=== PATIENT | female | born 1970 | race Caucasian/White ===

== ENCOUNTER 2023-03-23 21:58 | Outpatient (REF) | payer OTHER, SELFPAY ==
[2023-03-29 08:16] LABS: Age Gdln ACOG Testing Note (.); HPV Aptima Negative (Negative); IGP, Aptima HPV, rfx 16/18,45 Note (.)
== END 2023-03-23 21:59 | disposition home or self-care (01) ==
LOC: LAB 21:58
PROVIDERS: PCP Internal Medicine; Visit Provider Physician Assistant
DX: Z12.4 Encounter for screening for malignant neoplasm of cervix (principal)
CPT/HCPCS: 87624; G0145

== ENCOUNTER 2023-10-05 09:17 | Outpatient (OUT) | payer OTHER, SELFPAY ==
[2023-10-05 09:43] LABS: Basophils Percent Auto 0.9 % (0.2-2.0); Eosinophils Absolute Auto 0.2 10^3/uL (0.0-0.7); Eosinophils Percent Auto 4.4 % (0.9-7.0); Hematocrit 42.2 % (36.0-48.0); Hemoglobin 13.5 g/dL (12.0-16.0); Immature Granulocytes Abs Auto 0.01 10^3/uL (0.00-0.03); Immature Granulocytes Pct Auto 0.2 % (0.0-0.5); Lymphocytes Absolute Auto 1.2 10^3/uL (1.2-3.8); Lymphocytes Percent Auto 25.7 % (20.5-60.0); Mean Corpuscular Hemoglobin 28.6 pg (26.7-34.0); Mean Corpuscular Volume 89.4 fL (81.0-99.0); Mean Platelet Volume 9.6 fL (9.5-13.5); Monocytes Absolute Auto 0.4 10^3/uL (0.3-0.8); Monocytes Percent Auto 8.4 % (1.7-12.0); Neutrophils Absolute Auto 2.8 10^3/uL (1.4-6.5); Neutrophils Percent Auto 60.4 % (43.0-75.0); Platelet Count 340 10^3/uL (150-450); Red Blood Count 4.72 10^6/uL (4.20-5.40); Red Cell Distribution Width 12.8 % (11.0-15.0); White Blood Count 4.6 10^3/uL (4.0-11.0)
[2023-10-05 11:13] LABS: Alanine Aminotransferase 28 U/L (14-59); Albumin Level 3.7 g/dL (3.4-5.0); Alkaline Phosphatase 76 U/L (46-116); Anion Gap 11.6; Aspartate Amino Transferase 27 U/L (15-37); BUN Creatinine Ratio 16.7; Bilirubin Total 0.5 mg/dL (0.2-1.0); Calcium 8.8 mg/dL (8.5-10.1); Carbon Dioxide 29.5 mmol/L (21.0-32.0); Chloride 103 mmol/L (98-107); Estimated GFR (African America >60 (>=60); Estimated GFR (Non-African Ame >60 (>=60); Globulin 3.7 g/dL; Glucose 74 mg/dL (74-106); Potassium 4.1 mmol/L (3.5-5.1); Sodium 140 mmol/L (136-145); Total Protein 7.4 g/dL (6.4-8.2)
[2023-10-06 06:09] LABS: HBsAg Screen Negative (Negative); HCV Antibody Non Reactive (Non Reactive)
[2023-10-09 09:08] LABS: Antinuclear Antibodies, IFA Positive (.)
== END 2023-10-05 09:18 | disposition home or self-care (01) ==
LOC: LAB 09:21
PROVIDERS: PCP Internal Medicine; Visit Provider Dermatology
DX: L43.8 Other lichen planus (principal)
CPT/HCPCS: 36415; 80053; 85025; 86038; 86803; 87340

== ENCOUNTER 2023-12-29 08:18 | Outpatient (OUT) | payer OTHER, SELFPAY ==
--- NOTE | 2023-12-29 08:45 | MM_ITS ---
Patient Name: SANIA DINH MR#: [id number] : 1970 Exam Date: 12/29/2023 Ordering Doctor: DR Tarun Glover D.O. RADIOLOGY REPORT PROCEDURE: MM TOMOSYNTHESIS SCREENING BI COMPARISON: MG MAMM SCREEN 3D SANDHYA CAD, 10/07/2021. MG MAMM SCREEN 3D SANDHYA CAD, 12/07/2022. INDICATIONS: Screening Calculator Name NCI Breast Cancer Risk Assessment Tool 5 Year Breast Cancer Risk 1.00% Lifetime Breast Cancer Risk 7.50% Personal Breast Cancer No Personal Ovarian Cancer No Treatments None Family Cancers Mother with skin cancer at age ~50. LOCATION: [facility] BREAST COMPOSITION: The breasts are heterogeneously dense,which may obscure small masses. FINDINGS: DIAGNOSTIC CATEGORY 2--BENIGN FINDING. NO CHANGE FROM COMPARISON. Scattered benign-appearing nodules are present. Scattered benign-appearing calcifications are present. Scattered benign-appearing lymph nodes are present. RIGHT BREAST: No significant suspicious finding. LEFT BREAST: No significant suspicious finding. RECOMMENDATIONS: ROUTINE MAMMOGRAM AND CLINICAL EVALUATION IN 12 MONTHS. PLEASE NOTE: A NORMAL MAMMOGRAM DOES NOT EXCLUDE THE POSSIBILITY OF BREAST CANCER. A CLINICALLY SUSPICIOUS PALPABLE LUMP SHOULD BE BIOPSIED. Dictated by: Hemant Frost MD on 12/29/2023 at 10:49 Approved by: Hemant Frost MD on 12/29/2023 at 10:52
== END 2023-12-29 08:19 | disposition home or self-care (01) ==
LOC: MAMMO 08:18
PROVIDERS: PCP Internal Medicine; Visit Provider Internal Medicine
DX: Z12.31 Encounter for screening mammogram for malignant neoplasm of breast (principal); Z80.8 Family history of malignant neoplasm of other organs or systems
CPT/HCPCS: 77063; 77067

== ENCOUNTER 2023-12-29 08:19 | Outpatient (OUT) | payer OTHER, SELFPAY ==
--- NOTE | 2023-12-29 08:23 | XR_ITS ---
[address] [address] Patient Name: SANIA DINH MRN: [id number] date: 1970 Sex: F Assigned Patient Location: [facility] Current Patient Location: [facility] Accession/Order Number: [id number] Exam Date: 12/29/2023 08:39 Report Date: 12/29/2023 09:15 At the request of: RADHA WELLS Procedure: XR hip SANDHYA EXAMINATION: XR hip SANDHYA HISTORY: Low Back Pain, Polyarthralgia COMPARISON: No relevant comparison available. FINDINGS: RIGHT FINDINGS: BONES: No acute fracture or dislocation. Minimal degenerative osteoarthropathy with marginal osteophyte formation SOFT TISSUES: Negative. No visible soft tissue swelling. OTHER: Negative. LEFT FINDINGS: BONES: No acute fracture or dislocation. Minimal degenerative osteoarthropathy with marginal osteophyte formation SOFT TISSUES: Negative. No visible soft tissue swelling. OTHER: Negative. XR/XR hip SANDHYA IMPRESSION: RIGHT CONCLUSION: Minimal osteoarthritis LEFT CONCLUSION: Minimal osteoarthritis Electronically authenticated by: MONTRELL CHIU Date: 12/29/2023 09:15
--- NOTE | 2023-12-29 08:23 | XR_ITS ---
The [address] [address] Patient Name: SANIA DINH MRN: [id number] date: 1970 Sex: F Assigned Patient Location: [facility] Current Patient Location: Accession/Order Number: [id number] Exam Date: 12/29/2023 08:39 Report Date: 01/01/2024 06:18 At the request of: RADHA WELLS Procedure: XR lumbar spine min 4V EXAMINATION: XR lumbar spine min 4V HISTORY: Low Back Pain, Polyarthralgia COMPARISON: No relevant comparison available. FINDINGS: BONES: Mild degenerative facet arthropathy L3-4 through L5-S1. Reversal of normal lordotic curvature of the upper lumbar spine. DISC SPACES: Mild narrowing L1-2, L2-3. Moderate narrowing L5-S1. PARASPINOUS: Negative. No paraspinous abnormality is seen. OTHER: Negative. XR/XR lumbar spine min 4V IMPRESSION: 1. Multilevel mild/moderate degenerative changes of the lumbar spine. No appreciable acute abnormality. Electronically authenticated by: MARIA LUISA JEAN Date: 01/01/2024 06:18
== END 2023-12-29 08:20 | disposition home or self-care (01) ==
LOC: RAD 08:19
PROVIDERS: PCP Internal Medicine; Visit Provider Internal Medicine Rheumatology
DX: Z12.31 Encounter for screening mammogram for malignant neoplasm of breast (principal); Z80.8 Family history of malignant neoplasm of other organs or systems; M54.50 Low back pain, unspecified; M25.551 Pain in right hip; M25.552 Pain in left hip; M25.59 Pain in other specified joint
CPT/HCPCS: 72110; 73522; 77063; 77067

== ENCOUNTER 2024-04-02 19:31 | Outpatient (REF) | payer OTHER, SELFPAY ==
--- OUTSIDE RECORDS SUMMARY | 2024-04-02 19:36 | XMS_ITS | CCD ---
Author Organization [facility] Care Team Providers Care Night Cleaner Name Role Phone TREVOR BRUSH Unavailable Tarun Bruce Unavailable DR MONTRELL CHIU V Admitting Unavailable ADALBERTO, DR JARA Primary Care Unavailable APPLE, DR MONTRELL Thomas Attending Unavailable APPLE, DR MONTRELL Thomas Consulting Unavailable ADALBERTO, DR JARA Attending Unavailable ADALBERTO, DR JARA Primary Care Unavailable ADALBERTO, DR JARA Admitting Unavailable Tasia Emery Unavailable DO Tarun Glover Primary Care Provider MD Harsha Covarrubias Attending Provider Harsha Covarrubias Attending Unavailable Harsha Covarrubias Admitting Unavailable Tarun Glover Primary Care Unavailable Allergies Allergy Classification Reported Allergen(s) Allergy Type Date of Onset Reaction(s) Facility (18 sources) Latex Propensity to adverse reactions rash [facility] SED Web Other (1 source) Latex Drug allergy (disorder) [facility] Repository (1 source) Morphine Drug Allergy 4 [facility] Repository (8 sources) patient allergy list reviewed by nurse or physicia Propensity to adverse reactions 6 Comment:Done [employer] Other (8 sources) Allergies Reconciled Propensity to adverse reactions Unknown [employer] Other (1 source) Latex Drug allergy (disorder) 4 [facility] Repository Medications Current Medications Medication Drug Class(es) Dates Sig (Normalized) Sig (Original) 0.5 ML semaglutide 0.5 MG/ML Auto-Injector [Wegovy] (11 sources) Start: 11-16-2022 inject 0.5 mL by subcutaneous injection every week Start: 11-16-2022 inject 0.5 mL by sub cutaneous injection every week Wegovy 0.25 MG/0.5ML 0.5 mL Subcutaneous weekly for 30 days November, Active acetaminophen 500 mg oral tablet (20 sources) Start: 10-26-2023 take 500 mg by mouth every six hours Acetaminophen Active 500 MG PO Every 6 hours October 26, 2023 12:00am take 1 tablet by mouth every six hours acyclovir 400 mg oral tablet (20 sources) Herpesvirus Nucleoside Analog DNA Polymerase Inhibitor, Herpes Simplex Virus Nucleoside Analog DNA Polymerase Inhibitor, Herpes Zoster Virus Nucleoside Analog DNA Polymerase Inhibitor Start: 10-26-2023 take 400 mg by mouth twice daily Acyclovir Active 400 MG PO Twice daily October 26, 2023 12:00am take 1 tablet by mouth every twe lve hours [id number] 200 actuat albuterol 0.09 mg/actuat metered dose inhaler (20 sources) beta2-Adrenergic Agonist Start: 02-25-2024 take 2 puff(s) by mouth every four hours as needed for cough Albuterol Sulfate Active 0 .ROUTE .COMPLEX 8.5 February 25, 2024 2:00pm INHALE 2 PUFFS BY MOUTH EVERY 4 HOURS NEEDED FOR COUGH Start: 10-26-2023 End: 02-25-2024 take 1 puff(s) by inhalation every four hours Albuterol Sulfate Discontinued 2 PUFF INHALATION Every 4 hours October 26, 2023 12:00am February 25, 2024 2:00pm Start: 09-26-2022 take 2 puff(s) by in halation every four hours as needed for cough Albuterol Sulfate HFA 108 (90 Base) MCG/ACT 2 puffs Inhalation every 4 hrs as needed for cough for 30 days Jul, Active Start: 09-26-2022 take 2 puff(s) by in halation every four hours as needed for cough Albuterol Sulfate HFA 108 (90 Base) MCG/ACT 2 puffs Inhalation every 4 hrs as needed for cough and SOB for 30 days Sep, Active Start: 09-26-2022 take 2 puff(s) by in halation every four hours as needed for cough Albuterol Sulfate HFA 108 (90 Base) MCG/ACT 2 puffs Inhalation every 4 hrs as needed for cough and SOB for 30 days Sep, Active amoxicillin 875 mg oral tablet (18 sources) Penicillin-class Antibacterial take 1 tablet by mouth every twelve hours azithromycin 250 mg oral tablet (20 sources) Macrolide Antimicrobial Start: 09-27-19 Azithromycin 250 MG as directed Orally daily for 5 days Feb, Active benzonatate 100 mg oral capsule (3 sources) Non-narcotic Antitussive Start: 07-19-19 take 1 capsule by mouth every eight hours Benzonatate 100 MG 1 capsule as needed Orally Three times a day for 10 days Jul, Active escitalopram 10 mg oral tablet (20 sources) Serotonin Reuptake Inhibitor Start: 01-01-20 take 1 tablet by mouth once daily Escitalopram Oxalate Active 0 .ROUTE .COMPLEX January 01, 2024 12:44pm TAKE ONE TABLET BY MOUTH ONCE DAILY Start: 10-26-2023 End: 01-01-2024 take 10 mg by mouth once daily Escitalopram Oxalate Di scontinued 10 MG PO Daily October 26, 2023 2:04pm January 01, 2024 12:44pm Start: 09-12-2023 End: 10-26-2023 take 1 tablet by mouth once daily Escitalopram Oxalate Discontinued 0 .ROUTE .COMPLEX September 12, 2023 5:24pm October 26, 2023 2:08pm TAKE ONE TABLET BY MOUTH ONCE DAILY Start: 09-12-2023 End: 09-12-2023 take 10 mg by mouth once daily Escitalopram Oxalate Di scontinued 10 MG PO Daily September 12, 2023 1:00am September 12, 2023 5:24pm Start: 09-12-2022 take 1 tablet by chanel th every twenty-four hours Escitalopram Oxalate 10 MG 1 tablet Orally Once a day Aug, Active etodolac 500 mg oral tablet (14 sources) Nonsteroidal Anti-inflammatory Drug Start: 10-26-2023 take 500 mg by mouth twice daily Etodolac Active 500 MG PO Twice daily October 26, 2023 12:00am Start: 01-20-2023 take 1 tablet by chanel th every twelve hours Etodolac 500 MG 1 tablet with food Orally Twice a day for 30 days Jan, Active ibuprofen 200 mg oral tablet (20 sources) Nonsteroidal Anti-inflammatory Drug Start: 10-26-2023 take 200 mg by mouth three times daily Ibuprofen Active 200 MG PO Three times daily October 26, 2023 12:00am take 1 tablet by mouth three lázaro es daily at mealtime as needed levoFLOXacin 750 mg oral tablet (1 source) Quinolone Antimicrobial Start: 08-21-2023 take 1 tablet by mouth every twenty-four hours levoFLOXacin 750 MG 1 tablet Orally Once a day for 5 days Aug, Active 24 hr loratadine 10 mg / pseudoephedrine sulfate 240 mg extended release oral tablet (20 sources) alpha-Adrenergic Agonist Start: 10-26-2023 End: 03-29-2024 take 1 tablet by mouth once daily Loratadine-Pseud oephedrine Active 1 TAB PO Daily March 29, 2024 10:33am take 1 tablet by mouth every twe nty-four hours meloxicam 7.5 mg oral tablet (2 sources) Nonsteroidal Anti-inflammatory Drug Start: 12-26-2023 take 7.5 mg by mouth once daily Meloxicam Active 7.5 MG PO Daily December 26, 2023 12:00am paxlovid (300/100) 20 x 150 mg & 10 x 100mg tablet therapy pack (3 sources) Start: 07-19-2023 Paxlovid (300/100) 20 x 150 MG & 10 x 100MG as directed Orally bid for 5 days Jul, Active phentermine hydrochloride 37.5 mg oral tablet (20 sources) Sympathomimetic Amine Anorectic Start: 10-26-2023 End: 03-29-2024 take 37.5 mg by mouth once daily Phentermine Active 37.5 MG PO Daily 30 March 29, 2024 10:32am start 02/26 Start: 05-19-2023 take 1 tablet by chanel th once daily before breakfast Adipex-P 37.5 MG 1 tablet before breakfast Orally Once a day for 30 days start 05/19May, Active Start: 02-27-2023 take 1 tablet by chanel th once daily before breakfast Adipex-P 37.5 MG 1 tablet before breakfast Orally Once a day for 30 days Feb, Active Start: 01-02-2023 take 1 tablet by chanel th once daily before breakfast Adipex-P 37.5 MG 1 tablet before breakfast Orally Once a day for 30 days Dec, Active Start: 12-14-2022 take 1 tablet by chanel th once daily before breakfast Adipex-P 37.5 MG 1 tablet before breakfast Orally Once a day for 30 days November, Active Start: 11-16-2022 take 1 tablet by chanel th once daily before breakfast Adipex-P 37.5 MG 1 tablet before breakfast Orally Once a day for 30 days November, Active take 1 tablet by mouth once wallace y Phentermine HCl 37.5 MG 1 tablet Orally Once a day Active predniSONE 20 mg oral tablet (3 sources) Start: 07-19-2023 take 1 tablet by mouth twice daily predniSONE 20 MG 1 tablet Orally bid w/ food for 5 days Jul, Active tiZANidine 4 mg oral tablet (10 sources) Central alpha-2 Adrenergic Agonist Start: 01-20-2023 tiZANidine HCl 4 MG 1/2 - 1 Orally q HS for 15 days Jan, Active wegovy 0.25 mg/0.5ml solution auto-injector (3 sources) Start: 11-16-2022 inject 0.5 mL by subcutaneous injection every week Completed/Discontinued Medications Medication Drug Class(es) Dates Sig (Normalized) Sig (Original) triamcinolone acetonide 40 mg/ml injectable suspension (14 sources) Corticosteroid Start: 11-16-2022 Kenalog-40 November, 60 mg Problems Active Problems Problem Classification Problem Date Documented Date Episodic/Chronic Abdominal pain (20 sources) Left lower quadrant pain; Translations: [Left lower quadrant pain] Episodic Acute bronchitis (11 sources) Acute bronchitis due to other specified organisms; Translations: [Acute bronchitis] Onset: 09-03-2013 Episodic Allergic reactions (9 sources) Contact dermatitis; Translations: [Unspecified contact dermatitis, unspecified cause] Episodic Anxiety disorders (20 sources) Generalized anxiety disorder; Translations: [Generalized anxiety disorder] Chronic Asthma (20 sources) Mild intermittent asthma; Translations: [Mild intermittent asthma with (acute) exacerbation] Chronic Diseases of mouth; excluding dental (20 sources) Unspecified lesions of oral mucosa; Translations: [Aphthous ulcer of mouth] Episodic Fracture of lower limb (9 sources) Late effect of fracture of lower extremities; Translations: [Other fracture of right lower leg, sequela] Episodic Immunizations and screening for infectious disease (15 sources) Vaccination given; Translations: [Encounter for immunization] Onset: 12-06-2023 10-27-2023 Episodic Malaise and fatigue (9 sources) Fatigue; Translations: [Other fatigue] Episodic Menopausal disorders (20 sources) Menopausal symptom; Translations: [Menopausal and female climacteric states] Chronic Mycoses (18 sources) Tinea corporis; Translations: [Tinea corporis] Onset: 11-03-2014 Episodic Osteoarthritis (20 sources) Localized, secondary osteoarthritis of the ankle and/or foot; Translations: [Post-traumatic osteoarthritis, right ankle and foot] 10-27-2023 Chronic Other acquired deformities (18 sources) Joint contracture of the ankle and/or foot; Translations: [Contracture, right ankle] Chronic Other connective tissue disease (9 sources) Plantar fascial fibromatosis; Translations: [Plantar fascial fibromatosis] Episodic Other connective tissue disease (9 sources) Pain in right foot; Translations: [Pain in right foot] Episodic Other inflammatory condition of skin (9 sources) Lichen planus; Translations: [Other lichen planus] Episodic Other lower respiratory disease (20 sources) Solitary nodule of lung; Translations: [Solitary pulmonary nodule] Episodic Other non-traumatic joint disorders (9 sources) Arthralgia of the ankle and/or foot; Translations: [Pain in right ankle and joints of right foot] Episodic Other non-traumatic joint disorders (9 sources) Other specified joint disorders, right ankle and foot; Translations: [Other specified joint disorders, right ankle and foot] Episodic Other nutritional; endocrine; and metabolic disorders (14 sources) Morbid obesity; Translations: [Morbid (severe) obesity due to excess calories] Chronic Other nutritional; endocrine; and metabolic disorders (7 sources) Morbid (severe) obesity due to excess calories Chronic Other nutritional; endocrine; and metabolic disorders (20 sources) Body mass index 40+ - severely obese; Translations: [Body mass index (BMI) 40.0-44.9, adult] Chronic Other nutritional; endocrine; and metabolic disorders (12 sources) Severe obesity; Translations: [Morbid (severe) obesity due to excess calories] Chronic Other nutritional; endocrine; and metabolic disorders (1 source) Body mass index (BMI) 45.0-49.9, adult Chronic Other nutritional; endocrine; and metabolic disorders (2 sources) Body mass index (BMI) 40.0-44.9, adult Chronic Other nutritional; endocrine; and metabolic disorders (11 sources) Obesity; Translations: [Obesity, unspecified] 12-26-2023 Chronic Other nutritional; endocrine; and metabolic disorders (2 sources) Obesity, unspecified; Translations: [Obesity, unspecified] 12-26-2023 Chronic Other nutritional; endocrine; and metabolic disorders (9 sources) Abnormal weight gain; Translations: [Abnormal weight gain] Episodic Other screening for suspected conditions (not mental disorders or infectious disease) (12 sources) Encounter for screening mammogram for malignant neoplasm of breast; Translations: [Abnormal findings on diagnostic imaging of breast] Episodic Other upper respiratory disease (14 sources) Allergic rhinitis due to pollen; Translations: [Allergic rhinitis due to pollen] Chronic Other upper respiratory disease (1 source) Allergic rhinitis due to pollen Chronic Other upper respiratory disease (9 sources) Seasonal allergic rhinitis; Translations: [Other seasonal allergic rhinitis] Onset: 12-20-2016 Chronic Other upper respiratory disease (9 sources) Allergic rhinitis; Translations: [Allergic rhinitis, unspecified] Chronic Other upper respiratory infections (12 sources) Acute maxillary sinusitis; Translations: [Acute maxillary sinusitis, unspecified] Episodic Otitis media and related conditions (20 sources) Other specified disorders of Eustachian tube, left ear; Translations: [Otitis media] Episodic Residual codes; unclassified (9 sources) Presence of functional implant, unspecified; Translations: [Presence of functional implant, unspecified] Chronic Spondylosis; intervertebral disc disorders; other back problems (7 sources) Lumbar spondylosis; Translations: [Spondylosis without myelopathy or radiculopathy, lumbar region] 10-27-2023 Chronic Sprains and strains (11 sources) Late effect of sprain AND/OR strain without tendon injury; Translations: [Sprain of other ligament of right ankle, sequela] 03-29-2024 Episodic Unclassified (9 sources) Exposure to acute respiratory syndrome coronavirus 2; Translations: [Contact with and (suspected) exposure to COVID-19] Viral infection (10 sources) Disease caused by 2019-nCoV; Translations: [COVID-19] Past or Other Problems Problem Classification Problem Date Documented Da te Episodic/Chronic Administrative/social admission (2 sources) Encounter for pre-employment examination; Translations: [Encounter for pre-employment examination] Onset: 07-03-2017 Episodic Other inflammatory condition of skin (9 sources) Erythematous condition; Translations: [Unspecified erythematous condition] Onset: 09-28-2015 Episodic Spondylosis; intervertebral disc disorders; other back problems (9 sources) Low back pain; Translations: [Lumbago] Onset: 06-08-2015 Episodic Unclassified (1 source) Acute right-sided low back pain without sciatica M54.50 Unclassified (1 source) Acute cough R05.1 Results Test Name Value Interpretation Reference Range Facility ISRA Antinuclear Antibodieson 12-06-2023 Antinuclear Abs, IFA Negative Normal . [facility] Comment on above: Result Comment: Nega tive <1:80 Borderline 1:80 Positive >1:80 ICAP nomenclature: AC-0 For more information about Hep-2 cell patterns use ANApatterns.org, the official website for the International Consensus on Antinuclear Antibody (ISRA) Patterns (ICAP). Performed at: [facility] [id number] Wound Care Physician: Barry Mcrae PhD, Phone: [phone] Performed By: #### A NA, TPO, C3, C4, CHROMATIN, CH50, THYGLOB AB #### [facility] , Activated partial thrombopla stin time (aPTT) in platelet poor plasma by coagulation aOrdered By: Harsha Covarrubias on 12-06-2023 aPTT Coag (PPP) [Time] 31.9 s 25.1-36.5 [facility] Comment on above: A hematocrit value g reater than 55% may lead to inaccurate results in coagulation testing. Patients having hematocrit values >55% require a special collection tube for coagulation studies. Please contact the laboratory at [phone] for redraw instructions. Alanine aminotransferase [En zymatic activity/volume] in Serum or PlasmaOrdered By: Harsha Covarrubias on 12-06-2023 ALT [Catalytic activity/Vol] 14 U/L 7-52 [facility] Comment on above: Performed By: #### A NA, TPO, C3, C4, CHROMATIN, CH50, THYGLOB AB #### [facility] , Albumin [Mass/volume] in Ser um or Plasma by Bromocresol green (BCG) dye binding methoOrdered By: Harsha Covarrubias on 12-06-2023 Albumin BCG dye [Mass/Vol] 4.2 g/dL 3.5-5.7 [facility] Aldolaseon 12-06-2023 Aldolase 4.3 U/L Normal 3.3-10.3 [facility] Comment on above: Result Comment: Perf ormed at: [address] [id number] Wound Care Physician: Barry Mcrae PhD, Phone: [phone] PERFORMED BY: [facility] [place] [address] PATHOLOGIST WOOD TREATING INSPECTOR TERRI HOGAN M.D. Performed By: #### A NA, TPO, C3, C4, CHROMATIN, CH50, THYGLOB AB #### [facility] , Alkaline phosphatase [Enzyma tic activity/volume] in Serum or PlasmaOrdered By: Harsha Covarrubias on 12-06-2023 ALP [Catalytic activity/Vol] 74 U/L 34-104 [facility] Comment on above: Performed By: #### A NA, TPO, C3, C4, CHROMATIN, CH50, THYGLOB AB #### [facility] , Antithyroglobulin Abon 12-05 Antithyroglobulin Ab <1.0 Normal 0.0-0.9 [facility] Comment on above: Result Comment: Thyr oglobulin Antibody measured by [employer] It should be noted that the presence of thyroglobulin antibodies may not be pathogenic nor diagnostic, especially at very low levels. The assay warehouse examiner has found that four percent of individuals without evidence of thyroid disease or autoimmunity will have positive TgAb levels up to 4 IU/mL. Performed at: [facility] [address] [id number] Wound Care Physician: Barry Mcrae PhD, Phone: [phone] Performed By: #### A NA, TPO, C3, C4, CHROMATIN, CH50, THYGLOB AB #### [facility] , Aspartate aminotransferase [ Enzymatic activity/volume] in Serum or PlasmaOrdered By: Harsha Covarrubias on 12-06-2023 AST [Catalytic activity/Vol] 16 U/L 13-39 [facility] Comment on above: Performed By: #### A NA, TPO, C3, C4, CHROMATIN, CH50, THYGLOB AB #### [facility] , Automated basophil %Ordered By: Harsha Marci on 12-06-2023 Basophils/100 WBC (Bld) 0.6 % . [facility] Comment on above: Performed By: #### A NA, TPO, C3, C4, CHROMATIN, CH50, THYGLOB AB #### [facility] , Automated basophil countOrde red By: Harsha Huntrow on 12-06-2023 Basophils (Bld) [#/Vol] 0.0 10*3/uL 0.0-0.2 [facility] Comment on above: Performed By: #### A NA, TPO, C3, C4, CHROMATIN, CH50, THYGLOB AB #### [facility] , Automated blood monocyte cou ntOrdered By: Harsha Covarrubias on 12-06-2023 Monocytes (Bld) [#/Vol] 0.5 10*3/uL 0.0-0.8 [facility] Comment on above: Performed By: #### A NA, TPO, C3, C4, CHROMATIN, CH50, THYGLOB AB #### [facility] , Automated eosinophil %Ordere d By: Harsha Covarrubias on 12-06-2023 Eosinophils/100 WBC (Bld) 4.4 % . [facility] Comment on above: Performed By: #### A NA, TPO, C3, C4, CHROMATIN, CH50, THYGLOB AB #### [facility] , Automated eosinophil countOr dered By: Harsha Covarrubias on 12-06-2023 Eosinophils (Bld) [#/Vol] 0.3 10*3/uL 0.0-0.45 [facility] Comment on above: Performed By: #### A NA, TPO, C3, C4, CHROMATIN, CH50, THYGLOB AB #### [facility] , Automated monocyte %Ordered By: Harshaenrike Covarrubias on 12-06-2023 Monocytes/100 WBC (Bld) 6.2 % . [facility] Comment on above: Performed By: #### A NA, TPO, C3, C4, CHROMATIN, CH50, THYGLOB AB #### [facility] , Automated neutrophil %Ordere d By: Harsha Marci on 12-06-2023 Neutrophils/100 WBC (Bld) 67.9 % . [facility] Comment on above: Performed By: #### A NA, TPO, C3, C4, CHROMATIN, CH50, THYGLOB AB #### [facility] , Bacteria [Presence] in Urine by AutomatedOrdered By: Harsha Covarrubias on 12-06-2023 Bacteria Auto Ql (U) 2+ [HPF] None Seen [facility] Bilirubin Test strip Ql (U)O rdered By: Harsha Covarrubias on 12-06-2023 Bilirubin Ql (U) Negative Negative [facility] Bilirubin.total [Mass/volume ] in Serum or PlasmaOrdered By: Harsha Covarrubias on 12-06-2023 Bilirubin [Mass/Vol] 0.5 mg/dL 0.3-1.0 [facility] Comment on above: Performed By: #### A NA, TPO, C3, C4, CHROMATIN, CH50, THYGLOB AB #### [facility] , C reactive protein [Mass/vol ume] in Serum or PlasmaOrdered By: Harsha Covarrubias on 12-06-2023 CRP [Mass/Vol] 2.0 mg/dL 0.0-0.5 [facility] C-Reactive Proteinon 024 C-Reactive Protein 2.0 mg/dL High 0.0-0.5 [facility] Comment on above: Performed By: #### A NA, TPO, C3, C4, CHROMATIN, CH50, THYGLOB AB #### [facility] , CT biopsyOrdered By: Harsha Covarrubias on 12-06-2023 CT biopsy 4.3 U/L 3.3-10.3 [facility] Comment on above: Performed at: CB [facility] [id number] [place], [place] [id number] Director: Barry Mcrae PhD, Phone: [phone] Calcium [Mass/volume] in Ser um or PlasmaOrdered By: Harsha Covarrubias on 12-06-2023 Calcium [Mass/Vol] 9.4 mg/dL 8.6-10.3 [facility] Comment on above: Performed By: #### A NA, TPO, C3, C4, CHROMATIN, CH50, THYGLOB AB #### [facility] , Carbon dioxide, total [Moles /volume] in Serum or PlasmaOrdered By: Harsha Covarrubias on 12-06-2023 CO2 [Moles/Vol] 28.3 mmol/L 21.0-31.0 [facility] Comment on above: Performed By: #### A NA, TPO, C3, C4, CHROMATIN, CH50, THYGLOB AB #### [facility] , Chloride [Moles/volume] in S alistair or PlasmaOrdered By: Harsha Covarrubias on 12-06-2023 Chloride [Moles/Vol] 105 mmol/L 98-107 [facility] Comment on above: Performed By: #### A NA, TPO, C3, C4, CHROMATIN, CH50, THYGLOB AB #### [facility] , Chromatin Antibodyon 024 Chromatin Antibody <0.2 Normal 0.0-0.9 [facility] Comment on above: Result Comment: Perf ormed at: CB - [facility] [place] [address] [place], [place] [id number] Wound Care Physician: Barry Mcrae PhD, Phone: [phone] PERFORMED BY: [place] [id number] [place] [address] PATHOLOGIST WOOD TREATING INSPECTOR TERRI HOGAN M.D. Performed By: #### A NA, TPO, C3, C4, CHROMATIN, CH50, THYGLOB AB #### [facility] , Coagulation Profileon 2023 aPTT Coag (Bld) [Time] 31.9 s Normal 25.1-36.5 [facility] Comment on above: Result Comment: A he matocrit value greater than 55% may lead to inaccurate results in coagulation testing. Patients having hematocrit values >55% require a special collection tube for coagulation studies. Please contact the laboratory at [phone] for redraw instructions. PERFORMED BY: [place] [id number] PATHOLOGIST WOOD TREATING INSPECTOR TERRI HOGAN M.D. Performed By: #### E SR, ADDONUAPLUS, T4F, CK, CRP, TSH3, PP, CMP, CBC #### [facility] [address] [place] [address] #### RPR W RFX, ALDOLASE #### [facility] , Color of Urine by AutoOrdere d By: Harsha Covarrubias on 12-06-2023 Color (U) Yellow Yellow [facility] Comment on above: Order Comment: Name Collection Type:: Clean-Voided Midstream Performed By: #### A NA, TPO, C3, C4, CHROMATIN, CH50, THYGLOB AB #### [facility] , Complement C3on 12-06-2023 Complement C3 189 mg/dL High 82-167 [facility] Comment on above: Result Comment: Perf ormed at: - [facility] [address] [id number] Wound Care Physician: Barry Mcrae PhD, Phone: [phone] Performed By: #### A NA, TPO, C3, C4, CHROMATIN, CH50, THYGLOB AB #### [facility] , Complement C4on 12-06-2023 Complement C4 45 mg/dL High 12-38 [facility] Comment on above: Performed By: #### A NA, TPO, C3, C4, CHROMATIN, CH50, THYGLOB AB #### [facility] , Complement Total (CH50)on Complement Total (CH50) >60 Normal >41 [facility] Comment on above: Result Comment: Age Male Female 1 - 30 days Not Estab. Not Estab. 31 days - 6 months >32 >20 7 months - 17 years >39 >39 >17 years >41 >41 NOTE: The adult ( >17 years ) reference interval range is used to flag abnormals on this report. If the patient is 17 years old or younger, use the table above to determine out of range values. Performed at: - [facility] [id number] Wound Care Physician: Barry Mcrae PhD, Phone: [id number] PERFORMED BY: [facility] [address] [place] [address] PATHOLOGIST WOOD TREATING INSPECTOR TERRI HOGAN M.D. Performed By: #### A NA, TPO, C3, C4, CHROMATIN, CH50, THYGLOB AB #### [facility] , Complete Blood Count Auto Di ffon 12-06-2023 Mean Corpuscular HGB Conc 33.9 g/dL Normal 32.0-35.0 [facility] Comment on above: Performed By: #### A NA, TPO, C3, C4, CHROMATIN, CH50, THYGLOB AB #### [facility] , NRBC% 0.1 /100{WBC} Normal 0-0.5 [facility] Comment on above: Performed By: #### A NA, TPO, C3, C4, CHROMATIN, CH50, THYGLOB AB #### [facility] , Comprehensive Metabolic Pane harsh 12-06-2023 Albumin [Mass/Vol] 4.2 g/dL Normal 3.5-5.7 [facility] Comment on above: Performed By: #### A NA, TPO, C3, C4, CHROMATIN, CH50, THYGLOB AB #### [facility] , GFR/1.73 sq M.predicted MDRD (S/P/Bld) [Vol rate/Area] mL/min/{1.73_m2} Normal [facility] Comment on above: Performed By: #### A NA, TPO, C3, C4, CHROMATIN, CH50, THYGLOB AB #### [facility] , Creatine kinase [Enzymatic a ctivity/volume] in Serum or PlasmaOrdered By: Harsha Covarrubias on 12-06-2023 CK [Catalytic activity/Vol] 59 U/L 30-223 [facility] Comment on above: Result Comment: PERF ORMED BY: [place] [address] PATHOLOGIST WOOD TREATING INSPECTOR TERRI HOGAN M.D. Performed By: #### E SR, ADDONUAPLUS, T4F, CK, CRP, TSH3, PP, CMP, CBC #### [facility] [address] [place] [address] #### RPR W RFX, ALDOLASE #### [facility] , Creatinine [Mass/volume] in Serum or PlasmaOrdered By: Harsha Covarrubias on 12-06-2023 Creatinine [Mass/Vol] 0.60 mg/dL 0.60-1.20 [facility] Comment on above: Performed By: #### A NA, TPO, C3, C4, CHROMATIN, CH50, THYGLOB AB #### [facility] , Dipstick and Microscopicon 0 12-06-2023 Appearance (U) Clear Normal Clear [facility] Comment on above: Order Comment: Name Collection Type:: Clean-Voided Midstream Performed By: #### A NA, TPO, C3, C4, CHROMATIN, CH50, THYGLOB AB #### [facility] , Bacteria,Urine 2+ High None Seen [facility] Comment on above: Order Comment: Name Collection Type:: Clean-Voided Midstream Performed By: #### A NA, TPO, C3, C4, CHROMATIN, CH50, THYGLOB AB #### [facility] , Bilirubin,Urine Negative Normal Negative [facility] Comment on above: Order Comment: Name Collection Type:: Clean-Voided Midstream Performed By: #### A NA, TPO, C3, C4, CHROMATIN, CH50, THYGLOB AB #### [facility] , Glucose Ql (U) Normal Normal Normal [facility] Comment on above: Order Comment: Name Collection Type:: Clean-Voided Midstream Performed By: #### A NA, TPO, C3, C4, CHROMATIN, CH50, THYGLOB AB #### [facility] , Hyaline Casts,Urine 0-8 Normal 0-8 [facility] Comment on above: Order Comment: Name Collection Type:: Clean-Voided Midstream Result Comment: PERF ORMED BY: [facility] [address] [place] [address] PATHOLOGIST WOOD TREATING INSPECTOR TERRI HOGAN M.D. Performed By: #### A NA, TPO, C3, C4, CHROMATIN, CH50, THYGLOB AB #### [facility] , Ketones Ql (U) Negative Normal Negative [facility] Comment on above: Order Comment: Name Collection Type:: Clean-Voided Midstream Performed By: #### A NA, TPO, C3, C4, CHROMATIN, CH50, THYGLOB AB #### [facility] , Leukocyte esterase Test strip Ql (U) Negative Normal Negative [facility] Comment on above: Order Comment: Name Collection Type:: Clean-Voided Midstream Performed By: #### A NA, TPO, C3, C4, CHROMATIN, CH50, THYGLOB AB #### [facility] , Nitrite,Urine Negative Normal Negative [facility] Comment on above: Order Comment: Name Collection Type:: Clean-Voided Midstream Performed By: #### A NA, TPO, C3, C4, CHROMATIN, CH50, THYGLOB AB #### [facility] , Occult Blood,Urine Negative Normal Negative [facility] Comment on above: Order Comment: Name Collection Type:: Clean-Voided Midstream Performed By: #### A NA, TPO, C3, C4, CHROMATIN, CH50, THYGLOB AB #### [facility] , Protein,Urine Negative Normal Negative [facility] Comment on above: Order Comment: Name Collection Type:: Clean-Voided Midstream Performed By: #### A NA, TPO, C3, C4, CHROMATIN, CH50, THYGLOB AB #### [facility] , RBC LM.HPF (Urine sed) [#/Area] 0 /[HPF] Normal 0-4 [facility] Comment on above: Order Comment: Name Collection Type:: Clean-Voided Midstream Performed By: #### A NA, TPO, C3, C4, CHROMATIN, CH50, THYGLOB AB #### [facility] , Specificy Holder,Urine 1.026 Normal 1.001-1.03 0 [facility] Comment on above: Order Comment: Name Collection Type:: Clean-Voided Midstream Performed By: #### A NA, TPO, C3, C4, CHROMATIN, CH50, THYGLOB AB #### [facility] , Squamous Epithelial Cell,Urine 3-4 High 0-2 [facility] Comment on above: Order Comment: Name Collection Type:: Clean-Voided Midstream Performed By: #### A NA, TPO, C3, C4, CHROMATIN, CH50, THYGLOB AB #### [facility] , Urobilinogen,Urine Normal Normal Normal [facility] Comment on above: Order Comment: Name Collection Type:: Clean-Voided Midstream Performed By: #### A NA, TPO, C3, C4, CHROMATIN, CH50, THYGLOB AB #### [facility] , WBC,Urine 3-4 Normal 0-4 [facility] Comment on above: Order Comment: Name Collection Type:: Clean-Voided Midstream Performed By: #### A NA, TPO, C3, C4, CHROMATIN, CH50, THYGLOB AB #### [facility] , Erythrocyte Sedimentation Ra sherrie 12-06-2023 ESR (Bld) [Velocity] 35 mm/h High 0-29 [facility] Comment on above: Result Comment: PERF ORMED BY: [facility] [address] [place] [address] PATHOLOGIST WOOD TREATING INSPECTOR TERRI HOGAN M.D. Performed By: #### A NA, TPO, C3, C4, CHROMATIN, CH50, THYGLOB AB #### [facility] , Erythrocyte distribution wid th [Ratio] by Automated countOrdered By: Harsha Covarrubias on 12-06-2023 Erythrocyte distribution width (RBC) [Ratio] 13.6 % 11.9-15.3 [facility] Comment on above: Performed By: #### A NA, TPO, C3, C4, CHROMATIN, CH50, THYGLOB AB #### [facility] , Erythrocyte sedimentation ra te by Photometric methodOrdered By: Harsha Covarrubias on 12-06-2023 ESR Photometric method (Bld) [Velocity] 35 mm/hr 0-29 [facility] Erythrocytes [#/volume] in B lood by Automated countOrdered By: Harsha Covarrubias on 12-06-2023 RBC (Bld) [#/Vol] 4.83 10*6/uL 3.60-5.00 [facility] Comment on above: Performed By: #### A NA, TPO, C3, C4, CHROMATIN, CH50, THYGLOB AB #### [facility] , Glucose [Mass/volume] in Ser um or PlasmaOrdered By: Harsha Covarrubias on 12-06-2023 Glucose [Mass/Vol] 72 mg/dL 70-100 [facility] Comment on above: ADA recommended refe rence rangeRandom Glucose Reference Range is dependent on time and content of last meal. Glucose of more than 200 mg/dL in a nonstressed, ambulatory subject supports the diagnosis of Diabetes Mellitus. Result Comment: [place] om Glucose Reference Range is dependent on time and content of last meal. Glucose of more than 200 mg/dL in a nonstressed, ambulatory subject supports the diagnosis of Diabetes Mellitus. ADA recommended reference range Performed By: #### A NA, TPO, C3, C4, CHROMATIN, CH50, THYGLOB AB #### [facility] , Hematocrit [Volume Fraction] of Blood by Automated countOrdered By: Harsha Covarrubias on 12-06-2023 Hematocrit (Bld) [Volume fraction] 41.9 % 34.0-46.4 [facility] Comment on above: Performed By: #### A NA, TPO, C3, C4, CHROMATIN, CH50, THYGLOB AB #### [facility] , Hemoglobin [Mass/volume] in BloodOrdered By: Harsha Covarrubias on 12-06-2023 Hemoglobin (Bld) [Mass/Vol] 14.2 g/dL 11.8-15.4 [facility] Comment on above: Performed By: #### A NA, TPO, C3, C4, CHROMATIN, CH50, THYGLOB AB #### [facility] , INR in Platelet poor plasma by Coagulation assayOrdered By: Harsha Covarrubias on 12-06-2023 INR Coag (PPP) [Relative time] 0.9 {INR} [facility] Comment on above: INR Therapeutic Rang e A) Pre- and Peroperative OAT started two weeks before surgery. NOT HIP SURGERY: 1.5 - 2.5 HIP SURGERY: 2 - 3B) Primary and secondary prevention of venous THROMBOSIS: 2 - 3C) Active venous thrombosis, pulmonary embolismand prevention of recurrent venous thrombosis: 2 - 3D) Prevention of arterial thromboembolismincluding patients with mechanical heart valves: 3 - 4.5 Result Comment: INR Therapeutic Range A) Pre- and Peroperative OAT started two weeks before surgery. NOT HIP SURGERY: 1.5 - 2.5 HIP SURGERY: 2 - 3 B) Primary and secondary prevention of venous THROMBOSIS: 2 - 3 C) Active venous thrombosis, pulmonary embolism and prevention of recurrent venous thrombosis: 2 - 3 D) Prevention of arterial thromboembolism including patients with mechanical heart valves: 3 - 4.5 Performed By: #### E SR, ADDONUAPLUS, T4F, CK, CRP, TSH3, PP, CMP, CBC #### [facility] [address] [place] [address] #### RPR W RFX, ALDOLASE #### [facility] , Ketones Auto test strip (U) [Mass/Vol]Ordered By: Harsha Covarrubias on 12-06-2023 Ketones (U) [Mass/Vol] Negative Negative [facility] - UrinalysisOrder ed By: Harsha Covarrubias on 12-06-2023 Hyaline casts LM Ql (Urine sed) 0-8 [LPF] 0-8 [facility] Leukocytes [#/area] in Urine sediment by Automated countOrdered By: Harsha Huntrow on 12-06-2023 WBC Auto (Urine sed) [#/Area] 3-4 [HPF] 0-4 [facility] Leukocytes [#/volume] correc jemal for nucleated erythrocytes in Blood by Automated counOrdered By: Harsha Huntrow on 12-06-2023 WBC corrected for nucl RBC Auto (Bld) [#/Vol] 7.8 10*3/uL 3.8-11.6 [facility] Leukocytes [#/volume] in Blo od by Automated countOrdered By: Harsha Huntrow on 12-06-2023 WBC (Bld) [#/Vol] 7.8 10*3/uL 3.8-11.6 [facility] Comment on above: Performed By: #### A NA, TPO, C3, C4, CHROMATIN, CH50, THYGLOB AB #### [facility] , Lupus Anticoagulant Compon 0 12-06-2023 Dilute Prothrombin Time (dPt) 35.4 Normal 0.0-47.6 [facility] Comment on above: Performed By: #### L UPANTCOAG #### [facility] , dPT Confirm Ratio 1.18 Normal 0.00-1.34 [facility] Comment on above: Performed By: #### L UPANTCOAG #### [facility] , DRVVT Lupus 36.8 Normal 0.0-47.0 [facility] Comment on above: Performed By: #### L UPANTCOAG #### [facility] , Interpretation Comment: Normal . [facility] Comment on above: Result Comment: No l upus anticoagulant was detected. Performed at: [facility] [address] [id number] Wound Care Physician: Juany Baker MD, Phone: [phone] PERFORMED BY: [facility] [place] [address] PATHOLOGIST WOOD TREATING INSPECTOR TERRI HOGAN M.D. Performed By: #### L UPANTCOAG #### [facility] , PTT-LA 38.7 Normal 0.0-43.5 [facility] Comment on above: Performed By: #### L UPANTCOAG #### [facility] , Thrombin Time 16.9 Normal 0.0-23.0 [facility] Comment on above: Performed By: #### L UPANTCOAG #### [facility] , Lupus anticoagulant [Interpr etation] in Platelet poor plasmaOrdered By: Harsha Covarrubias on 12-06-2023 Lupus anticoagulant (PPP) [Interp] Comment: . [facility] Comment on above: No lupus anticoagula nt was detected.Performed at: [facility] [address] [id number] Director: Juany Baker MD, Phone: [phone] Lymphocytes [#/volume] in Bl ood by Automated countOrdered By: Harsha Covarrubias on 12-06-2023 Lymphocytes (Bld) [#/Vol] 1.6 10*3/uL 1.00-4.8 [facility] Comment on above: Performed By: #### A NA, TPO, C3, C4, CHROMATIN, CH50, THYGLOB AB #### [facility] , Lymphocytes/100 leukocytes i n Blood by Automated countOrdered By: Harsha Covarrubias on 12-06-2023 Lymphocytes/100 WBC (Bld) 20.9 % . [facility] Comment on above: Performed By: #### A NA, TPO, C3, C4, CHROMATIN, CH50, THYGLOB AB #### [facility] , MCH [Entitic mass] by Automa jemal countOrdered By: Harsha Covarrubias on 12-06-2023 MCH (RBC) [Entitic mass] 29.4 pg 24.7-34.3 [facility] Comment on above: Performed By: #### A NA, TPO, C3, C4, CHROMATIN, CH50, THYGLOB AB #### [facility] , MCHC Auto (RBC) [Mass/Vol]Or dered By: Harshaenrike Covarrubias on 12-06-2023 MCHC (RBC) [Mass/Vol] 33.9 g/dL 32.0-35.0 [facility] MCV [Entitic volume] by Auto mated countOrdered By: Harsha Covarrubias on 12-06-2023 MCV (RBC) [Entitic vol] 86.8 fL 80-100 [facility] Comment on above: Performed By: #### A NA, TPO, C3, C4, CHROMATIN, CH50, THYGLOB AB #### [facility] , Neutrophils [#/volume] in Bl ood by Automated countOrdered By: Harsha Covarrubias on 12-06-2023 Neutrophils (Bld) [#/Vol] 5.3 10*3/uL 1.8-7.7 [facility] Comment on above: Performed By: #### A NA, TPO, C3, C4, CHROMATIN, CH50, THYGLOB AB #### [facility] , Nitrite Test strip Ql (U)Ord ered By: Harsha Huntrow on 12-06-2023 Nitrite Ql (U) Negative Negative [facility] No Panel InformationOrdered By: Harsha Covarrubias on 12-06-2023 Estimated GFR (CKD-EPI) > 60.0 mL/Min [facility] Creatinine Clearance (Chem N/A [facility] Urine RBC 0-1 [HPF] 0-4 [facility] Total Complement (CH50) >60 U/mL >41 [facility] Comment on above: Age Male Female 1 - 30 days Not Estab. Not Estab. 31 days - 6 months >32 >20 7 months - 17 years >39 >39 >17 years >41 >41 NOTE: The adult ( >17 years ) reference interval range is used to flag abnormals on this report. If the patient is 17 years old or younger, use the table above to determine out of range values.Performed at: [facility] Hospital[facility]ds[facility] [place], [place] [id number] Director: Barry Mcrae PhD, Phone: [phone] Nucleated erythrocytes [Pres ence] in Blood by Automated countOrdered By: Harsha Covarrubias on 12-06-2023 Nucleated RBC Auto Ql (Bld) 0.1 /100{WBC} 0-0.5 [facility] Platelet mean volume [Entiti c volume] in Blood by Automated countOrdered By: Harsha Covarrubias on 12-06-2023 Platelet mean volume (Bld) [Entitic vol] 8.3 fL 6.3-10.7 [facility] Comment on above: Performed By: #### A NA, TPO, C3, C4, CHROMATIN, CH50, THYGLOB AB #### [facility] , Platelet poor plasma ratio o f lupus anticoagulant-sensitive activated partial thromboOrdered By: Harsha Covarrubias on 12-06-2023 aPTT.lupus sensitive.excess phospholipid actual/normal Coag (PPP) [Relative time] 35.4 sec 0.0-47.6 [facility] Platelets [#/volume] in Bloo d by Automated countOrdered By: Harsha Covarrubias on 12-06-2023 Platelets (Bld) [#/Vol] 330 10*3/uL 150-450 [facility] Comment on above: Performed By: #### A NA, TPO, C3, C4, CHROMATIN, CH50, THYGLOB AB #### [facility] , Potassium [Moles/volume] in Serum or PlasmaOrdered By: Harsha Covarrubias on 12-06-2023 Potassium [Moles/Vol] 4.3 mmol/L 3.5-5.1 [facility] Comment on above: Performed By: #### A NA, TPO, C3, C4, CHROMATIN, CH50, THYGLOB AB #### [facility] , Protein Auto test strip (U) [Mass/Vol]Ordered By: Harsha Covarrubias on 12-06-2023 Protein (U) [Mass/Vol] Negative Negative [facility] Protein [Mass/volume] in Ser um or PlasmaOrdered By: Harsha Covarrubias on 12-06-2023 Protein [Mass/Vol] 7.0 g/dL 6.4-8.9 [facility] Comment on above: Performed By: #### A NA, TPO, C3, C4, CHROMATIN, CH50, THYGLOB AB #### [facility] , Prothrombin time (PT)Ordered By: Harsha Covarrubias on 12-06-2023 PT Coag (PPP) [Time] 10.6 s 9.0-12.9 [facility] Comment on above: A hematocrit value g reater than 55% may lead to inaccurate results in coagulation testing. Patients having hematocrit values >55% require a special collection tube for coagulation studies. Please contact the laboratory at [phone] for redraw instructions. Result Comment: A he matocrit value greater than 55% may lead to inaccurate results in coagulation testing. Patients having hematocrit values >55% require a special collection tube for coagulation studies. Please contact the laboratory at [phone] for redraw instructions. Performed By: #### E SR, ADDONUAPLUS, T4F, CK, CRP, TSH3, PP, CMP, CBC #### [address] #### RPR W RFX, ALDOLASE #### [facility] , RPR w/rfx to Quant TP Abson 12-06-2023 RPR, Rfx Quant RPR Non-Reactive Normal Non Reactive [facility] Comment on above: Result Comment: Perf ormed at: CB - [facility] [address] [id number] Wound Care Physician: Barry Mcrae PhD, Phone: [phone] PERFORMED BY: [facility] [address] [place] [address] PATHOLOGIST WOOD TREATING INSPECTOR TERRI HOGAN M.D. Performed By: #### A NA, TPO, C3, C4, CHROMATIN, CH50, THYGLOB AB #### [facility] , Reagin Ab [Presence] in Seru m by RPROrdered By: Harsha Covarrubias on 12-06-2023 Reagin Ab RPR Ql (S) Non-Reactive Non Reactive [facility] Comment on above: Performed at: - [facility] [address] [id number] Director: Barry Mcrae PhD, Phone: [phone] Screening dilute Josiah's v iper venom time (DRVVT) with reflex to confirmatory testOrdered By: Harsha Covarrubias on 12-06-2023 dRVVT Coag (PPP) [Time] 36.8 s 0.0-47.0 [facility] Screening lupus anticoagulan t-sensitive activated partial thromboplastin time (aPTT)Ordered By: Harsha Covarrubias on 12-06-2023 aPTT.lupus sensitive Coag (PPP) [Time] 38.7 sec 0.0-43.5 [facility] Serum globulin measurement b y calculation (mass/volume)Ordered By: Harsha Covarrubias on 12-06-2023 Globulin (S) [Mass/Vol] 2.8 g/dL [facility] Comment on above: Performed By: #### A NA, TPO, C3, C4, CHROMATIN, CH50, THYGLOB AB #### [facility] , Serum homogeneous pattern an tinuclear antibody (ISRA) titerOrdered By: Harsha Covarrubias on 12-06-2023 Homogenous nuclear Ab pattern (S) [Titer] N/A [facility] Serum nuclear antibody titer Ordered By: Harsha Covarrubias on 12-06-2023 Nuclear Ab (S) [Titer] Negative . [facility] Comment on above: Negative <1:80 Borde rline 1:80 Positive >1:80ICAP nomenclature: [id number] more information about Hep-2 cell patterns useANApatterns.org, the official website for theInternational Consensus on Antinuclear Antibody (ISRA)Patterns (ICAP).Performed at: - [facility] [address] [id number] Director: Barry Mcrae PhD, Phone: [phone] Serum or plasma albumin/glob ulin mass ratioOrdered By: Harsha Covarrubias on 12-06-2023 Albumin/Globulin [Mass ratio] 1.5 {ratio} [facility] Comment on above: Performed By: #### A NA, TPO, C3, C4, CHROMATIN, CH50, THYGLOB AB #### [facility] , Serum or plasma anion gap de terminationOrdered By: Harsha Covarrubias on 12-06-2023 Anion gap [Moles/Vol] 10.0 mmol/L 6.0-15.0 [facility] Comment on above: Performed By: #### A NA, TPO, C3, C4, CHROMATIN, CH50, THYGLOB AB #### [facility] , Serum or plasma chromatin an tibody assay (units/volume)Ordered By: Harsha Covarrubias on 12-06-2023 Chromatin Ab Qn <0.2 AI 0.0-0.9 [facility] Comment on above: Performed at: [facility] [address] [id number] Director: Barry Mcrae PhD, Phone: [phone] Serum or plasma complement C 3 measurement (mass/volume)Ordered By: Harsha Covarrubias on 12-06-2023 Complement C3 [Mass/Vol] 189 mg/dL 82-167 [facility] Comment on above: Performed at: [facility] [address] [id number] Director: Barry Mcrae PhD, Phone: [phone] Serum or plasma complement C 4 measurement (mass/volume)Ordered By: Harsha Covarrubias on 12-06-2023 Complement C4 [Mass/Vol] 45 mg/dL 12-38 [facility] Serum or plasma thyroglobuli n antibody assay (units/volume)Ordered By: Harsha Covarrubias on 12-06-2023 Thyroglobulin Ab Qn [IU]/mL 0.0-0.9 [facility] Comment on above: Thyroglobulin Antibo dy measured by GoInstantMethodologyIt should be noted that the presence of thyroglobulinantibodies may not be pathogenic nor diagnostic, especiallyat very low levels. The assay warehouse examiner has found thatfour percent of individuals without evidence of thyroiddisease or autoimmunity will have positive TgAb levels upto 4 IU/mL.Performed at: [facility] [place] [id number] Director: Barry Mcrae PhD, Phone: [phone] Serum or plasma thyroperoxid ase antibody assay (units/volume)Ordered By: Harsha Covarrubias on 12-06-2023 TPO Ab Qn [IU]/mL 0-34 [facility] Comment on above: Performed at: - [facility] [address] [place] [id number] Director: Barry Mcrae PhD, Phone: [phone] Sodium [Moles/volume] in Ser um or PlasmaOrdered By: Harsha Covarrubias on 12-06-2023 Sodium [Moles/Vol] 139 mmol/L 136-145 [facility] Comment on above: Performed By: #### A NA, TPO, C3, C4, CHROMATIN, CH50, THYGLOB AB #### [facility] , Specific gravity Auto test s trip (U) [Rel density]Ordered By: Harsha Covarrubias on 12-06-2023 Specific gravity (U) [Rel density] 1.026 1.001-1.03 0 [facility] Squamous epithelial cells de tection in urine sediment by light microscopyOrdered By: Harsha Covarrubias on 12-06-2023 Epithelial cells.squamous LM Ql (Urine sed) 3-4 [HPF] 0-2 [facility] TT plasOrdered By: Harsha patel on 12-06-2023 Thrombin time Coag (PPP) [Time] 16.9 sec 0.0-23.0 [facility] Thyroid Peroxidase Antibodie son 12-06-2023 Thyroid Peroxidase Antibodies <9 Normal 0-34 [facility] Comment on above: Result Comment: Perf ormed at: [facility] [address] [place], [place] [id number] Wound Care Physician: Barry Mcrae PhD, Phone: [phone] Performed By: #### A NA, TPO, C3, C4, CHROMATIN, CH50, THYGLOB AB #### [facility] , Thyrotropin [Units/volume] i n Serum or PlasmaOrdered By: Harsha Covarrubias on 12-06-2023 TSH Qn 1.93 m[IU]/L 0.45-5.33 [facility] Comment on above: Result Comment: PERF ORMED BY: [facility] [place] [address] PATHOLOGIST WOOD TREATING INSPECTOR TERRI HOGAN M.D. Performed By: #### A NA, TPO, C3, C4, CHROMATIN, CH50, THYGLOB AB #### [facility] , Thyroxine (T4) free [Mass/vo lume] in Serum or PlasmaOrdered By: Harsha Covarrubias on 12-06-2023 Free T4 [Mass/Vol] 0.85 ng/dL 0.61-1.12 [facility] Comment on above: Performed By: #### A NA, TPO, C3, C4, CHROMATIN, CH50, THYGLOB AB #### [facility] , Urea nitrogen [Mass/volume] in Serum or PlasmaOrdered By: Harsha Covarrubias on 12-06-2023 Urea nitrogen [Mass/Vol] 16 mg/dL 7-25 [facility] Comment on above: Performed By: #### A NA, TPO, C3, C4, CHROMATIN, CH50, THYGLOB AB #### [facility] , Urine clarity by refractomet ry automatedOrdered By: Harsha Covarrubias on 12-06-2023 Clarity Refractometry automated (U) Clear Clear [facility] Urine glucose measurement by automated test strip (mass/volume)Ordered By: Harsha Covarrubias on 12-06-2023 Glucose Auto test strip (U) [Mass/Vol] Normal mg/dL Normal [facility] Urine hemoglobin detection b y automated test stripOrdered By: Harsha Covarrubias on 12-06-2023 Hemoglobin Auto test strip Ql (U) Negative Negative [facility] Urine leukocyte esterase det ection by automated test stripOrdered By: Harsha Covarrubias on 12-06-2023 Leukocyte esterase Auto test strip Ql (U) Negative Negative [facility] Urine pH measurement by auto mated test stripOrdered By: Harsha Covarrubias on 12-06-2023 pH (U) 5.5 [pH] 5.0-9.0 [facility] Comment on above: Order Comment: Name Collection Type:: Clean-Voided Midstream Performed By: #### A NA, TPO, C3, C4, CHROMATIN, CH50, THYGLOB AB #### [facility] , Urobilinogen Auto test strip (U) [Mass/Vol]Ordered By: Harsha Huntrow on 12-06-2023 Urobilinogen (U) [Mass/Vol] Normal mg/dL Normal [facility] aPTT.lupus sensitive/aPTT.lynn pus sensitive W excess phospholipid (screen to confirm raOrdered By: Harsha Covarrubias on 12-06-2023 aPTT.lupus sensitive/aPTT.lupus sensitive W excess phospholipid Coag (PPP) [Ratio] 1.18 Ratio 0.00-1.34 [facility] Basophils Auto (Bld) [#/Vol] on 10-05-2023 Basophils (Bld) [#/Vol] 0.0 10 3/uL 0.0-0.1 [facility] Basophils/100 WBC Auto (Bld) on 10-05-2023 Basophils/100 WBC (Bld) 0.9 % 0.2-2.0 [facility] Centriole Ab [Titer] in Seru m by Immunofluorescenceon 10-05-2023 Centriole Ab IF (S) [Titer] TNP . [facility] Centromere Ab [Titer] in Ser um by Immunofluorescenceon 10-05-2023 Centromere Ab IF (S) [Titer] TNP . [facility] Eosinophils/100 WBC Auto (Bl d)on 10-05-2023 Eosinophils/100 WBC (Bld) 4.4 % 0.9-7.0 [facility] Erythrocyte distribution wid th Auto (RBC) [Ratio]on 10-05-2023 Erythrocyte distribution width (RBC) [Ratio] 12.8 % 11.0-15.0 [facility] Estimated glomerular filtrat ion rate (GFR) non- Americanon 10-05-2023 GFR/1.73 sq M.predicted among non-blacks MDRD (S/P/Bld) [Vol rate/Area] mL/min/{1.73_m2} >=60 [facility] Globulin Calc (S) [Mass/Vol] on 10-05-2023 Globulin (S) [Mass/Vol] 3.7 g/dL [facility] Hematocrit Auto (Bld) [Volum e fraction]on 10-05-2023 Hematocrit (Bld) [Volume fraction] 42.2 % 36.0-48.0 [facility] Hemoglobin [Mass/volume] in Bloodon 10-05-2023 Hemoglobin (Bld) [Mass/Vol] 13.5 g/dL 12.0-16.0 [facility] Hepatitis B virus surface Ag [Presence] in Serum or Plasma by Immunoassayon 10-05-2023 HBV surface Ag IA Ql Negative Negative [facility] Comment on above: Performed at: [facility] [employer] [address] [id number] Director: Barry Mcrae PhD, Phone: [phone] Hepatitis C virus IgG Ab [Pr esence] in Serum or Plasma by Immunoassayon 10-05-2023 HCV IgG IA Ql Non-Reactive Non Reactive [facility] Comment on above: HCV antibody alone d oes not differentiate betweenpreviously resolved infection and active infection.Equivocal and Reactive HCV antibody results should befollowed up with an HCV RNA test to support the diagnosisof active HCV infection. Laboratory - Chemistry and C hemistry - challengeon 10-05-2023 Albumin [Mass/Vol] 3.7 g/dL 3.4-5.0 [facility] ALP [Catalytic activity/Vol] 76 U/L 46-116 [facility] ALT [Catalytic activity/Vol] 28 U/L 14-59 [facility] AST [Catalytic activity/Vol] 27 U/L 15-37 [facility] Bilirubin [Mass/Vol] 0.5 mg/dL 0.2-1.0 [facility] Calcium [Mass/Vol] 8.8 mg/dL 8.5-10.1 [facility] Chloride [Moles/Vol] 103 mmol/L 98-107 [facility] CO2 [Moles/Vol] 29.5 mmol/L 21.0-32.0 [facility] Creatinine [Mass/Vol] 0.66 mg/dL 0.55-1.02 [facility] GFR/1.73 sq M.predicted MDRD (S/P/Bld) [Vol rate/Area] mL/min/{1.73_m2} >=60 [facility] Glucose [Mass/Vol] 74 mg/dL 74-106 [facility] Potassium [Moles/Vol] 4.1 mmol/L 3.5-5.1 [facility] Protein [Mass/Vol] 7.4 g/dL 6.4-8.2 [facility] Sodium [Moles/Vol] 140 mmol/L 136-145 [facility] Urea nitrogen [Mass/Vol] 11.0 mg/dL 7.0-18.0 [facility] Urea nitrogen/Creatinine [Mass ratio] 16.7 mg/mg [facility] Laboratory - Hematology and Cell countson 10-05-2023 Immature granulocytes/100 WBC (Bld) 0.2 % 0.0-0.5 [facility] Leukocytes [#/volume] correc jemal for nucleated erythrocytes in Blood by Automated counon 10-05-2023 WBC corrected for nucl RBC Auto (Bld) [#/Vol] 4.6 10 3/uL 4.0-11.0 [facility] Lymphocytes Auto (Bld) [#/Vo l]on 10-05-2023 Lymphocytes (Bld) [#/Vol] 1.2 10 3/uL 1.2-3.8 [facility] Lymphocytes/100 WBC Auto (Bl d)on 10-05-2023 Lymphocytes/100 WBC (Bld) 25.7 % 20.5-60.0 [facility] MCH Auto (RBC) [Entitic mass ]on 10-05-2023 MCH (RBC) [Entitic mass] 28.6 pg 26.7-34.0 [facility] MCHC Auto (RBC) [Mass/Vol]on 10-05-2023 MCHC (RBC) [Mass/Vol] 32.0 g/dL 29.9-35.2 [facility] MCV Auto (RBC) [Entitic vol] on 10-05-2023 MCV (RBC) [Entitic vol] 89.4 fL 81.0-99.0 [facility] Midbody Ab [Titer] in Serum by Immunofluorescenceon 10-05-2023 Midbody Ab IF (S) [Titer] TNP . [facility] Mitotic spindle apparatus Ab [Titer] in Serum or Plasma by Immunofluorescenceon 10-05-2023 Mitotic spindle apparatus Ab IF [Titer] TNP . [facility] Monocytes Auto (Bld) [#/Vol] on 10-05-2023 Monocytes (Bld) [#/Vol] 0.4 10 3/uL 0.3-0.8 [facility] Monocytes/100 WBC Auto (Bld) on 10-05-2023 Monocytes/100 WBC (Bld) 8.4 % 1.7-12.0 [facility] Neutrophils Auto (Bld) [#/Vo l]on 10-05-2023 Neutrophils (Bld) [#/Vol] 2.8 10 3/uL 1.4-6.5 [facility] Neutrophils/100 WBC Auto (Bl d)on 10-05-2023 Neutrophils/100 WBC (Bld) 60.4 % 43.0-75.0 [facility] No Panel Informationon 10-04 Anti-Nuclear Antibody Comment 2 Comment . [facility] Comment on above: Pattern Potential Di sease Association Homogeneous Systemic Lupus Erythematosus, Drug Induced Systemic Lupus Erythematosus, Chronic Autoimmune hepatitis, Juvenile Idiopathic Arthritis Speckled Sjogren Syndrome, Systemic Lupus Erythematosus, Subacute Cutaneous Lupus, Lupus, Congenital Heart Block, Mixed Connective Tissue Disease, Scleroderma-diffuse, Scleroderma-Autoimmune Myositis Overlap Syndrome, Systemic Lupus Rclnfpdbbkdup-Wsmixrrssyw-Pfyzffheww Myositis Overlap Syndrome, Systemic Autoimmune Rheumatic Disease, Undifferentiated Connective Tissue Disease Nucleolar Systemic Sclerosis, Scleroderma-Autoimmune Myositis Overlap Syndrome, Sjogren Syndrome, Raynaud phenomenon, Pulmonary Arterial Hypertension, Systemic Autoimmune Rheumatic Disease, Cancer Centromere Scleroderma-CREST, Limited Cutaneous SSc, Raynaud's Phenomenon, Primary Biliary Cholangitis Nuclear Dot Primary Biliary Cholangitis Nuclear Primary Biliary Cholangitis, AutoimmuneMembrane Hepatitis/Liver disease, Systemic Autoimmune Rheumatic Disease, Autoimmune Cytopenias, Linear Scleroderma, Antiphospholipid Syndrome Performed at: [facility] [id number] [place], [place] [id number] Director: Barry Mcrae PhD, Phone: [phone] Eosinophils # (Auto) 0.2 10 3/uL 0.0-0.7 [facility] Immature Granulocyte # (Auto) 0.01 10 3/uL 0.00-0.03 [facility] Nuclear dots nuclear Ab aj herson [Titer] in Serum by Immunofluorescenceon 10-05-2023 Nuclear dots nuclear Ab pattern IF (S) [Titer] TNP . [facility] Nuclear membrane pores nucle ar Ab pattern [Titer] in Serum by Immunofluorescenceon 10-05-2023 Nuclear membrane pores nuclear Ab pattern IF (S) [Titer] TNP . [facility] PCNA extractable nuclear Ab [Titer] in Serum by Immunofluorescenceon 10-05-2023 PCNA extractable nuclear Ab IF (S) [Titer] TNP . [facility] Platelet mean volume Auto (B ld) [Entitic vol]on 10-05-2023 Platelet mean volume (Bld) [Entitic vol] 9.6 fL 9.5-13.5 [facility] Platelets Auto (Bld) [#/Vol] on 10-05-2023 Platelets (Bld) [#/Vol] 340 10 3/uL 150-450 [facility] RBC Auto (Bld) [#/Vol]on RBC (Bld) [#/Vol] 4.72 10 6/uL 4.20-5.40 [facility] Serum homogeneous pattern an tinuclear antibody (ISRA) titeron 10-05-2023 Homogenous nuclear Ab pattern (S) [Titer] TNP . [facility] Serum nuclear antibody titer on 10-05-2023 Nuclear Ab (S) [Titer] Positive . [facility] Comment on above: Negative <1:80 Borde rline 1:80 Positive >1:80Speckled cytoplasmic fluorescence is present. Theantibodies noted in this pattern may be associated with,but not restricted to, primary biliary cirrhosis (PBC),polymyositis and dermatomyositis (PM/DM), and/or systemiclupus erythematosus (SLE). Serum nucleolar pattern anti nuclear antibody (ISRA) titeron 10-05-2023 Nucleolar nuclear Ab pattern (S) [Titer] TNP . [facility] Serum or plasma albumin/glob ulin mass ratioon 10-05-2023 Albumin/Globulin [Mass ratio] 1.0 {ratio} [facility] Serum or plasma anion gap de terminationon 10-05-2023 Anion gap [Moles/Vol] 11.6 mmol/L [facility] Serum speckled pattern antin uclear antibody (ISRA) titeron 10-05-2023 Speckled nuclear Ab pattern (S) [Titer] 1:160 . [facility] Comment on above: ICAP nomenclature: A C-2,4,5,29 Quick Strepon 02-24-2023 S. pyogenes Org specific cx Ql (Throat) Negative [facility] [employer] Other Quick Strep [facility] [employer] Other Outside Colonoscopyon 2020 Outside Colonoscopy [id number]:12 7 [facility] Lab Reportson 05-17-2021 Lab Reports [id number]:12 7 [facility] Provider Letter [facility] [place] [facility] [place] 05, 2021 TARUN GLOVER, [facility] [place] [address] Re: OLIMPIA DINH Date of : 1970 Thank you for your referral of Olimpia Dinh who was seen on consultation on April 28, 2021, for screening colonoscopy. I have enclosed my consultation note for your review. I will be happy to follow Olimpia. Sincerely, Trevor Richard Md General Surgery [facility] Pre-Certification Formon Pre-Certification Form [id number]:12 7 [facility] Formson 04-29-2021 Forms [id number]:12 7 [facility] Ambulatory Clinical Summaryo n 04-28-2021 Ambulatory Clinical Summary {[id number] [facility] Physician Referralon 021 Physician Referral [id number]:12 7 [facility] [place] PET/CT SKULL-THIGH INITon 09-27-2019 [place] PET/CT SKULL-THIGH INIT * * *Final Report* * * DATE OF EXAM: Sep 27 2019 2:33PM NRN [id number] - NM PET/CT SKULL-THIGH INIT / PROCEDURE REASON: pulmonary nodule * * * * Physician Interpretation * * * * RESULT: EXAMINATION: REGIONAL BODY FDG PET/CT SCAN: (09/27/2019 2:57 PM) HISTORY: 49 year old Female with pulmonary nodule. INDICATION: Study performed for initial treatment strategy. TECHNIQUE: F18-FDG administered IV was followed about 60 minutes later by PET imaging from eyes to proximal thighs. Free breathing low dose CT was performed without contrast for attenuation correction and anatomic localization. Blood glucose before FDG injection: 82 mg/dL FDG radionuclide dose: 17.[address] Dose-Length Product (DLP): 463 mGy*cm. CT Dose Reduction Employed: Automated exposure control (AEC) was used COMPARISON: None available. CORRELATION: None. RESULT: Reference values: Liver (maximum SUV 4.3). Mediastinal blood pool (maximum SUV 3.0). NECK: Physiologic FDG uptake seen in the visualized brain, parapharyngeal soft tissues, base of tongue, vocal cords, and salivary glands. No hypermetabolic cervical lymphadenopathy or masses. No focal hypermetabolic thyroid lesion. CHEST: Physiologic FDG uptake in the heart and mediastinum. Lungs and tracheobronchial tree: There is a 1.4 cm rounded partially calcified pulmonary nodule in the left upper lobe with minimal FDG uptake (maximum SUV 1.6), likely representing granuloma. No hypermetabolic pulmonary consolidation, mass or nodules. Pleura: No hypermetabolic pleural or pericardial effusion, or pleural mass. Mediastinum and Lymph nodes: No hypermetabolic axillary, hilar, or mediastinal lymphadenopathy. No mediastinal mass. Chest wall: Unremarkable. ABDOMEN AND PELVIS: Physiologic FDG uptake seen in the and GI tracts. Liver: No hypermetabolic mass. Biliary: No bile duct dilation. Gallbladder is absent. Spleen: No hypermetabolic splenic mass. No splenomegaly. Pancreas: No mass or duct dilation. Adrenals: No hypermetabolic mass. Kidneys: No stones, hydronephrosis, or hypermetabolic lesions. GI tract: No dilation or wall thickening. Lymph nodes: No hypermetabolic abdominal or pelvic lymphadenopathy. Mesentery/Peritoneum: No ascites or mass. Vasculature: Vascular patency cannot be assessed due to lack of IV contrast. BONES AND EXTREMITIES: No suspicious FDG avid osseous foci are detected. The imaged portions of the skeleton disclose age-related degenerative changes, with no detectable destructive lytic or sclerotic lesions. ====== IMPRESSION: 1. NECK: No FDG avid neoplastic process. No hypermetabolic mass, adenopathy, or fluid collection. 2. CHEST: Minimally FDG avid partially calcified left upper lobe pulmonary nodule, likely granuloma.. No hypermetabolic mass, adenopathy, or fluid collection. 3. ABDOMEN/PELVIS: No FDG avid neoplastic process. No hypermetabolic mass, adenopathy, or fluid collection. 4. EXTREMITIES/SKELETON: No suspicious FDG avid osseous process. Transcribe Date/Time: Sep 27 2019 2:57P Dictated by: MARY LOU BOWSER MD This examination was interpreted and the report reviewed and electronically signed by: MARY LOU BOWSER MD on Sep 27 2019 3:06PM EST Thank you for allowing us to participate in the care of your patient. Should there be any questions regarding this interpretation, please call [phone]. If you are unable to reach us at the number above, please feel free to contact [facility] at [phone]. [id number] [facility] PROGRESSon 09-27-2019 PROGRESS HNO ID: [id number] Author: Jewel Vivar (Tech) Service: ? Author Type: Shell Plater Type: Progress Notes Filed: 09/27/2019 1:22 PM Note Text: RADIOLOGY SERVICE PROGRESS NOTE SERVICE DATE: 09/27/2019 SERVICE TIME: 1:09 PM PATIENT IDENTITY VERIFICATION COMPLETED USING TWO (2) STANDARD IDENTIFIERS: Name and Date of confirmed by patient verbally PATIENT GENDER DATA: .female : No ALLERGIES: Reviewed and unchanged MEDICATIONS REVIEWED: Not applicable PATIENT RELEVANT IMPLANT DATA REVIEWED: Not Applicable CREATININE: No results found for: CREAT, EGFROTH, EGFRAA P.O.C.T. RESULTS: POC done: Yes, See Lab Tab September 27, [address] PERFORMED: No IV SITE: Ambulatory: A peripheral IV was started in the Right antecubital site with a Angio cath: 22 gauge. Isa Melgar RN POST EXAM PIV STATUS: Discontinued PROCEDURE TYPE: NM INJECT: PET/CT BODY SCAN. 17.1 mCi F18 FDG. No other medications given.. ADMINISTRATION TIME: 1254 PATIENT DISCHARGED TO: Ambulatory patient, left [place] department area. Jewel Vivar A Diagnostic radioactive procedure has taken place, with no further precautions necessary other than routine body substance precautions. More information regarding radiation safety can be found using this link: [email or web address] SIGNATURE: Isa Melgar PATIENT NAME: Olimpia Dinh DATE: September 27, 2019 TIME: 1:09 PM PAGER/CONTACT #: Normal [facility] CT-CT CHEST W CON IMPORTon 0 09-09-2019 CT-CT CHEST W CON IMPORT Images were obtained outside of [facility] [id number] Normal [facility] T-Spoton 07-06-2017 T-Spot. TB Test Normal [facility] Comment on above: Result Comment: [facility] [address] [place] [address](NOTE)T-SPOT.TB: NegativeThe test result is Negative because the spot count in (Panel Aminus Nil Control) and (Panel B minus Nil Control) is less thanor equal to 4.This includes values less than zero.Note: Diagnosing or excluding tuberculosis disease, and assessingthe probability of LTBI, requires a combination of epidemiological,historical, medical and diagnostic findings that should be taken intoaccount when interpreting T-SPOT.TB test results. Refer to the mostrecent CDC guidance (http://www.c) for detailed recommendationson diagnosing TB infection (including disease) andselecting persons for testing. Guidelines set forth by the Centers ofDisease Control and Prevention (CDC) recommendcontacts of a person with tuberculosis (TB) disease who have anegative initial interferon-gamma release assay (IGRA) or TSTwithin 8 weeksof exposure be retested 8 - 10 weeks after lastexposure.Nil (Neg) Control Spot Count: 0Panel A Spot Count: 0Panel B Spot Count: 0Positive Control Spot Count: >20[facility] [address] [place], [place] [id number] ([phone] Performed By: #### T SPOT ####[facility] [address] [place] [address] Vital Signs Date Time Vital Sign Value Performing Clinician Facility 03-29-2024 10:11040 Body height 164.47 cm [facility] 03-29-2024 10:110400 Body mass index (BMI) [Ratio] 45.3 kg/m2 [facility] 03-29-2024 10:110400 Body weight 122.52 kg [facility] 03-29-2024 10:11-0400 Diastolic blood pressure 95 mm[Hg] [facility] 03-29-2024 10:11-0400 Heart rate 98 /min [facility] 03-29-2024 10:11-0400 Respiratory rate 12 /min [facility] 03-29-2024 10:11-0400 Systolic blood pressure 145 mm[Hg] [facility] 12-26-2023 14:25-0400 Body height 164.47 cm DO Tarun Ball Work Phone: [facility] 12-26-2023 14:25-0400 Body mass index (BMI) [Ratio] 46.6 kg/m2 DO Tarun Ball Work Phone: [facility] 12-26-2023 14:25-0400 Body weight 126.26 kg DO Tarun Ball Work Phone: [facility] 12-26-2023 14:25-0400 Diastolic blood pressure 78 mm[Hg] DO Tarun Ball Work Phone: [facility] 12-26-2023 14:25-0400 Heart rate 88 /min DO Tarun Ball Work Phone: [facility] 12-26-2023 14:25-0400 Respiratory rate 12 /min DO Tarun Ball Work Phone: [facility] 12-26-2023 14:25-0400 Systolic blood pressure 120 mm[Hg] DO Tarun Ball Work Phone: [facility] 10-27-2023 11:04-0400 Body height 164.47 cm [facility] 10-27-2023 11:04-0400 Body mass index (BMI) [Ratio] 45.6 kg/m2 [facility] 10-27-2023 11:04-040 Body weight 123.43 kg [facility] 10-27-2023 11:04-0400 Diastolic blood pressure 82 mm[Hg] [facility] 10-27-2023 11:04-0400 Heart rate 80 /min [facility] 10-27-2023 11:04-0400 Respiratory rate 12 /min [facility] 10-27-2023 11:04-0400 Systolic blood pressure 128 mm[Hg] [facility] 08-21-2023 13:45-0500 Body height 164.47 cm Tarun Ball Other [facility] [employer] Other 08-21-2023 13:45-0500 Body mass index (BMI) [Ratio] 45.47 kg/m2 Tarun Ball Other [facility] [employer] Other 08-21-2023 13:45-0500 Body weight 123.02 kg Tarun Ball Other [facility] [employer] Other 08-21-2023 13:45-0500 Diastolic blood pressure 77 mm[Hg] Tarun Ball Other [facility] [employer] Other 08-21-2023 13:45-0500 Respiratory rate 16 /min Tarun Ball Other [facility] [employer] Other 08-21-2023 13:45-0500 Systolic blood pressure 136 mm[Hg] Tarun Ball Other [facility] [employer] Other 05-19-2023 12:17-0400 Body height 164.47 cm Tarun Ball Other [employer] Other 05-19-2023 12:17-0400 Body mass index (BMI) [Ratio] 43.09 kg/m2 Tarun Ball Other [employer] Other 05-19-2023 12:17-0400 Body weight 116.58 kg Tarun Ball Other [employer] Other 05-19-2023 12:17-0400 Diastolic blood pressure 75 mm[Hg] Tarun Ball Other [employer] Other 05-19-2023 12:17-0400 Systolic blood pressure 119 mm[Hg] Tarun Ball Other [employer] Other 02-27-2023 12:00-0400 Body height 164.47 cm Tarun Ball Other [employer] Other 02-27-2023 12:00-0400 Body mass index (BMI) [Ratio] 43.6 kg/m2 Tarun Ball Other [employer] Other 02-27-2023 12:00-0400 Body weight 117.94 kg Tarun Ball Other [employer] Other 02-24-2023 09:00-0400 Body height 164.47 cm Tasia Emery Other [employer] Other 02-24-2023 09:00-0400 Body mass index (BMI) [Ratio] 44.1 kg/m2 Tasia Emery Other [employer] Other 02-24-2023 09:00-0400 Body weight 119.3 kg Tasia Emery Other [employer] Other 02-24-2023 09:00-0400 Diastolic blood pressure 83 mm[Hg] Tasia Emery Other [employer] Other 02-24-2023 09:00-0400 Respiratory rate 16 /min Tasia Zavalaley Other [employer] Other 02-24-2023 09:00-0400 SaO2% (BldA) [Mass fraction] 98 % Tasia Emery Other [employer] Other 02-24-2023 09:00-0400 Systolic blood pressure 125 mm[Hg] Tasia Zavalaley Other [employer] Other 01-20-2023 08:30-0400 Body height 164.47 cm Tarun Ball Other [employer] Other 01-20-2023 08:30-0400 Body mass index (BMI) [Ratio] 44.17 kg/m2 Tarun Ball Other [employer] Other 01-20-2023 08:30-0400 Body weight 119.48 kg Tarun Ball Other [employer] Other 01-20-2023 08:30-0400 Diastolic blood pressure 87 mm[Hg] Tarun Ball Other [employer] Other 01-20-2023 08:30-0400 Respiratory rate 12 /min Tarun Ball Other [employer] Other 01-20-2023 08:30-0400 Systolic blood pressure 130 mm[Hg] Tarun Ball Other [employer] Other 01-02-2023 12:00-0400 Body height 164.47 cm Tarun Ball Other [employer] Other 01-02-2023 12:00-0400 Body mass index (BMI) [Ratio] 43.09 kg/m2 Tarun Ball Other [employer] Other 01-02-2023 12:00-0400 Body weight 116.58 kg Tarun Ball Other [employer] Other 01-02-2023 12:00-0400 Diastolic blood pressure 79 mm[Hg] Tarun Ball Other [employer] Other 01-02-2023 12:00-0400 Systolic blood pressure 124 mm[Hg] Tarun Ball Other [employer] Other 11-16-2022 10:30-0400 Body height 164.47 cm Tarun Ball Other [employer] Other 11-16-2022 10:30-0400 Body mass index (BMI) [Ratio] 45.54 kg/m2 Tarun Ball Other [employer] Other 11-16-2022 10:30-0400 Body weight 123.2 kg Tarun Ball Other [employer] Other 11-16-2022 10:30-0400 Diastolic blood pressure 81 mm[Hg] Tarun Ball Other [employer] Other 11-16-2022 10:30-0400 Respiratory rate 12 /min Tarun Ball Other [employer] Other 11-16-2022 10:30-0400 SaO2% (BldA) [Mass fraction] 96 % Tarun Ball Other [employer] Other 11-16-2022 10:30-0400 Systolic blood pressure 115 mm[Hg] Tarun Ball Other [facility] [employer] Other Encounters Encounter Date Encounter Type Care Provider Facility Start: 03-29-2024 End: 03-29-2024 ambulatory [facility] Work Phone: Start: 03-29-2024 End: 03-29-2024 Patient encounter procedure [facility] Physician [facility] Work Phone: Start: 12-26-2023 End: 12-26-2023 ambulatory DO Tarun Ball Work Phone: [facility] Work Phone: Start: 12-26-2023 End: 12-26-2023 Encounter for general adult medical examination without abnormal findings DO Tarun Ball Work Phone: [facility] Start: 12-26-2023 End: 12-26-2023 Patient encounter procedure DO Tarun Ball Work Phone: [facility] Physician [facility] Work Phone: Start: 12-06-2023 End: 12-06-2023 Patient encounter procedure DO Tarun Ball Work Phone: [facility] [address] Work Phone: Start: 12-06-2023 End: 12-06-2023 ambulatory DO Tarun Ball Work Phone: [facility] [facility] Work Phone: Start: 10-27-2023 End: 10-27-2023 ambulatory [facility] Work Phone: Start: 10-27-2023 End: 10-27-2023 Patient encounter procedure [facility] Physician [facility] Work Phone: Start: 10-05-2023 Non-patient / Non-visit [facility] Physician [facility] [email or web address] Work Phone: Start: 09-12-2023 Non-patient / Non-visit [facility] Work Phone: Start: 08-21-2023 End: 08-21-2023 ambulatory Tarun Glover Other [employer] Other Start: 08-21-2023 Office outpatient vi sit 15 minutes Tarun Ball [facility] Start: 08-16-2023 End: 08-16-2023 ambulatory Tarun Glover Other [employer] Other Start: 08-16-2023 Office outpatient vi sit 15 minutes Tarun Ball [facility] Start: 07-19-2023 End: 07-19-2023 ambulatory Tarun Adalberto Other [employer] Other Start: 07-19-2023 Office outpatient vi sit 15 minutes Tarun Ball [facility] Start: 05-19-2023 End: 05-19-2023 ambulatory Tarun Glover Other [employer] Other Start: 05-19-2023 Telephone encounter Tarun Glover [facility] Start: 03-17-2023 End: 03-17-2023 ambulatory Tarun Glover Other [employer] Other Start: 03-17-2023 Telephone encounter Tarun Glover [facility] Start: 02-27-2023 End: 02-27-2023 ambulatory Tarun Glover Other [employer] Other Start: 02-27-2023 Office outpatient vi sit 15 minutes Tarun Ball [facility] Start: 02-24-2023 End: 02-24-2023 ambulatory Tasia Emery Other [employer] Other Start: 02-24-2023 Office outpatient vi sit 15 minutes Tasia Emery [facility] Start: 02-24-2023 Telephone encounter Tarun Ball [facility] Start: 02-17-2023 End: 02-17-2023 ambulatory Tarun Glover Other [employer] Other Start: 02-17-2023 Telephone encounter Tarun Adalberto [facility] Start: 01-20-2023 End: 01-20-2023 ambulatory Tarun Glover Other [employer] Other Start: 01-20-2023 Office outpatient vi sit 15 minutes Tarun Ball [facility] Start: 01-02-2023 End: 01-02-2023 ambulatory Tarun Glover Other [employer] Other Start: 01-02-2023 Office outpatient vi sit 15 minutes Tarun Ball [facility] Start: 12-14-2022 End: 12-14-2022 ambulatory Tarun Glover Other [employer] Other Start: 12-14-2022 Telephone encounter Tarun Glover [facility] Start: 12-07-[address] TARUN GLOVER Facili ty:[facility]1 Start: 11-16-2022 End: 11-16-2022 ambulatory Tarun Glover Other [employer] Other Start: 11-16-2022 Encounter for genera l adult medical examination without abnormal findings Tarun Glover [facility] Start: 11-16-2022 Periodic preventive med est patient 40-64yrs Tarun Glover [facility] Start: 11-16-2022 Telephone encounter Tarun Adalberto [facility] Start: 09-26-2022 End: 09-26-2022 ambulatory Tarun Glover Other [employer] Other Start: 09-26-2022 Office outpatient vi sit 15 minutes Tarun Ball [facility] Start: 09-12-2022 End: 09-12-2022 ambulatory Tarun Glover Other [employer] Other Start: 09-12-2022 Telephone encounter Tarun Adalberto [facility] Start: 06-17-2022 Gynecological examination normal Tarun Adalberto Other [employer] Other Start: 01-03-2022 End: 08-04-[address] MONTRELL CHIU Facility:[facility] Start: 07-01-2021 Adult health examination Swapnil Glover Other [employer] Other Start: 07-03-2017 End: 07-04-2017 Amb[facility] Procedures Date Procedure Procedure Detail Performing Clinician Start: 07-03-2017 T-SPOT TB TEST TREVOR [facility] Depression screening Lila Glover Other Screening for malign ant neoplasm of breast Tarun Glover Other Screening for malign ant neoplasm of colon Tarun Glover Other Plan of Treatment Date Care Activity Detail Author Start: 12-06-2023 Hemolytic complement CH50 level [facility] Start: 12-06-2023 End: 12-06-2023 [facility] Start: 10-27-2023 Patient referral [facility] Work Phone: MG Breast - bilateral Screening [facility] Nuclear Ab [Titer] in Serum [facility] Patient referral [facility] Work Phone: Immunizations Immunization Date Immunization Notes Care Provider Fa carl 03-31-2021 influenza virus vaccine, split virus (incl. purified surface antigen) Tarun Glover Other [facility] [employer] Other 03-31-2021 influenza virus vaccine, unspecified formulation [facility] 05-21-2020 influenza virus vaccine, split virus (incl. purified surface antigen) Tarun Glover Other [employer] Other 05-21-2020 influenza virus vaccine, unspecified formulation [facility] Payers Date Payer Category Payer Unknown [id number] 1970 Unknown [id number] 1960 Private Health Insurance [id number] 1960 Self-pay Private Health Insurance [id number] Unknown [id number] Social History Date Type Detail Facility Unknown if ever smoked [facility] [employer] Other Sex Assigned At Sex Assigned At Bir th [employer] Other Start: 08-16-2023 Tobacco smoking status NHIS Never smoked tobacco (finding) [facility] Start: 1970 Sex Assigned At Female F [facility] Clinical Notes 04-28-2021 to 08-21-2023 Note Date & Type Note Facility 08-21-2023 Evaluation note Encounter Date Diagnosis Assessment Notes Aug, Mild intermittent asthma with acute exacerbation (ICD-10 - J45.21) Instructed to use Robitussin or Mucinex for cough, saline or Flonase NS for congestion, Tylenol for pain and fever. Continue Albuterol MDI every 4 hours as needed for cough and dyspnea Aug, Acute bronchitis due to other specified organisms (ICD-10 - J20.8) Instructed to use Robitussin or Mucinex for cough, saline or Flonase NS for congestion, Tylenol for pain and fever. [facility] Other 01-31-2024 Evaluation note* Encounter Date Diagnosis Assessment Notes Treatment Notes Treatment Clinical Notes Jul, Acute non-recurrent maxillary sinusitis (ICD-10 - J01.00) Instructed to use Robitussin or Mucinex for cough, saline or Flonase NS for congestion, Tylenol for pain and fever. Jul, Acute cough (ICD-10 - R05.1) Mucolyitic, push fluids Jul, Mild intermittent asthma with acute exacerbation (ICD-10 - J45.21) AURORA as needed for cough and wheezing [facility] Other 01-03-2024 Evaluation note* Encounter Date Diagnosis Assessment Notes Treatment Notes Treatment Clinical Notes Jul, COVID-19 (ICD-10 - U07.1) Instructed to use Robitussin or Mucinex for cough, saline or Flonase NS for congestion, Tylenol for pain and fever. Since patient not boosted, offered her Paxlovid Instructed to use Robitussin or Mucinex for cough, saline or Flonase NS for congestion, Tylenol for pain and fever. Self isolate at home. - Cannot work - avoid contact with others - avoid pets - wipe counters, door knobs if touched - if can't avoid leaving home, must wear mask to protect others - need to stay isolated for 10 days from onset of symptoms - to discontinue isolation must be 5 days AND must be without fever for 24 hours AND symptoms must be improving. Always wear a mask in public places for complete 10 days Jul, Mild intermittent asthma with acute exacerbation (ICD-10 - J45.21) Begin Prednisone and AURORA for cough and chest wheezing. ER for CP or dyspnea. [facility] Other 11-03-2023 Evaluation note* Encounter Date Diagnosis Assessment Notes Treatment Notes Treatment Clinical Notes May, Morbid (severe) obesity due to excess calories (ICD-10 - E66.01) [facility] Other 08-14-2023 Evaluation note* Encounter Date Diagnosis Assessment Notes Treatment Notes Treatment Clinical Notes Feb, Acute non-recurrent maxillary sinusitis (ICD-10 - J01.00) Instructed to use Robitussin or Mucinex for cough, saline or Flonase NS for congestion, Tylenol for pain and fever. Feb, Morbid (severe) obesity due to excess calories (ICD-10 - E66.01) This patient has been instructed on a low-fat, high-fiber diet. They are instructed to reduce calories, portion sizes and snacks. It is recommended that they exercise for 30 minutes, 3-5 times weekly. Feb, Body mass index [BMI] 40.0-44.9, adult (ICD-10 - Z68.41) [facility] Other 08-11-2023 Evaluation note* Encounter Date Diagnosis Assessment Notes Treatment Notes Treatment Clinical Notes Feb, Acute nasopharyngiti s (ICD-10 - J00) Discussed with patient exam and history is consistent with viral upper respiratory infection. Discussed viral nature of illness and typical duration of 7 to 14 days. Advised antibiotics unfortunately do not treat viral illnesses. May use symptomatic treatment such as warm salt water gargles, Cepacol throat sprays or throat lozenges, Claritin. May use Tylenol/ibuprofen for any pain/fever. Follow-up with PCP if not improving over the next 7 days, sooner if significantly worsening symptoms. [facility] [employer] Other 07-07-2023 Evaluation note* Encounter Date Diagnosis Assessment Notes Treatment Notes Treatment Clinical Notes Jan, Acute right-sided low back pain without sciatica (ICD-10 - M54.50) The patient is instructed to avoid bending, twisting or lifting. They are to use intermittent heat and ice as needed. They may schedule a massage or gentle manipulation. They may safely use Tylenol as needed. Jan, Morbid (severe) obesity due to excess calories (ICD-10 - E66.01) This patient has been instructed on a low-fat, high-fiber diet. They are instructed to reduce calories, portion sizes and snacks. It is recommended that they exercise for 30 minutes, 3-5 times weekly. Jan, Body mass index [BMI] 40.0-44.9, adult (ICD-10 - Z68.41) [employer] Other 06-19-2023 Evaluation note* Encounter Date Diagnosis Assessment Notes Treatment Notes Treatment Clinical Notes Dec, Morbid (severe) obesity due to excess calories (ICD-10 - E66.01) This patient has been instructed on a low-fat, high-fiber diet. They are instructed to reduce calories, portion sizes and snacks. It is recommended that they exercise for 30 minutes, 3-5 times weekly. Dec, Body mass index [BMI] 45.0-49.9, adult (ICD-10 - Z68.42) Dec, WALTER (generalized anxiety disorder) (ICD-10 - F41.1) Healthy diet, exercise and keep active. No change in treatment [employer] Other 05-31-2023 Evaluation note* Encounter Date Diagnosis Assessment Notes Treatment Notes Treatment Clinical Notes November, Morbid (severe) obesity due to excess calories (ICD-10 - E66.01) [employer] Other 05-03-2023 Evaluation note* Encounter Date Diagnosis Assessment Notes Treatment Notes Treatment Clinical Notes November, Wellness examination (ICD-10 - Z00.00) Healthy diet and exercise. Reviewed age-appropriate preventive testing recommended. November, WALTER (generalized anxiety disorder) (ICD-10 - F41.1) Healthy diet and exercise November, Seasonal allergic rhinitis due to pollen (ICD-10 - J30.1) Continue Claritin Kenalolg shot November, Morbid obesity (ICD-10 - E66.01) This patient has been instructed on a low-fat, high-fiber diet. They are instructed to reduce calories, portion sizes and snacks. It is recommended that they exercise for 30 minutes, 3-5 times weekly. Discussed Adipex, Qsymia and GLP-1 November, Screening mammogram for breast cancer (ICD-10 - Z12.31) Yearly mammogram and monthly SBE [employer] Other 05-03-2023 Evaluation note* Encounter Date Diagnosis Assessment Notes Treatment Notes Treatment Clinical Notes November, Morbid obesity (ICD-10 - E66.01) [employer] Other 03-13-2023 Evaluation note* Encounter Date Diagnosis Assessment Notes Treatment Notes Treatment Clinical Notes Sep, Acute bronchitis due to other specified organisms (ICD-10 - J20.8) Instructed to use Robitussin or Mucinex for cough, saline or Flonase NS for congestion, Tylenol for pain and fever. Sep, Mild intermittent asthma with acute exacerbation (ICD-10 - J45.21) [employer] Other 02-27-2023 Evaluation note* Encounter Date Diagnosis Assessment Notes Treatment Notes Treatment Clinical Notes Aug, WALTER (generalized anxiety disorder) (ICD-10 - F41.1) [employer] Other 10-13-2021 NoteChief Complaint consultation for screening colonoscopy HPI Staff 50 year old female presents on consultation from Dr. Glover for screening colonoscopy. Never had colonoscopy in the past. No known family history of colon cancer. Denies abdominal or rectal pain. No rectal bleeding. Denies nausea, vomiting or change in bowel habits. No unexplained weight loss. History of Present Illness 50 yo female referred for colonoscopy for colorectal screening; denies change in bms or blood in stools, no abdominal complaints; no previous colonoscopy; abdominal operations significant for , appendectomy, tubal ligation, cholecystectomy; denies asa or NSAID use, takes antibiotic prophylaxis prior to procedures due to ankle hardware, last surgery 07/2020; no fmhx of GI malignancy or IBD. Review of Systems PHQ Score Initial Depression Screen Score: 0 ROS - Provider Constitutional: no fever, no sweats, no weight loss. Eyes: yes glasses, no blurred vision, no visual loss. ENMT: no dentures, no hoarseness, no swallowing difficulties, no hearing loss, no ear infection(s),no nose bleeds. Cardiovascular: normal blood pressure, no chest pain, regular heartbeat, no heart murmur. Respiratory: no shortness of breath, no cough, no asthma, no wheezing. Gastrointestinal: no nausea, no vomiting, no diarrhea, no constipation, no blood in stool, no change in bowel habits, no abdominal pain, no hepatitis. Genitourinary: no kidney stones, no urine infection, no dysuria. Musculoskeletal: mild pain, no weakness. Skin: no changing moles, no rash, no skin lumps. Neurologic: no seizures, no epilepsy, no headache. Psychiatric: no emotional or psychiatric problem. Heme/Lymph: no bleeding problems, no anemia, no blood clots, no transfusions. Allergy/Immunologic: no swollen lymph nodes/glands, no IV drug abuse. Other: Additional ROS info: Except as noted in the above Review of Systems and in the History of Present Illness, all other systems have been reviewed and are negative or noncontributory. Physical Exam Vitals & Measurements T: 36.4 ?C (Temporal Artery) HR: 72(Peripheral) RR: 16 BP: 118/78 HT: 165.1 cm HT: 165.1 cm WT: 109.4 kg WT: 109.4 kg BMI: 40.13 HEENT: normal conjunctiva, sclera clear, no scleral icterus, EOM intact, PERRLA, oral mucosa moist without lesions. Neck: trachea midline, no mass, symmetric, no thyromegaly or nodules, no adenopathy Respiratory: lungs CTA, respirations non labored. Cardiovascular: regular rate and rhythm, no murmur, no pedal edema or varicosities. Gastrointestinal: soft, non distended, no tenderness, no masses, no palpable hernias, diastasis recti yes, no hepatosplenomegaly; normal bs Lymphatic: no cervical adenopathy, Musculoskeletal: normal gait, digits and nails without infection, nodes, cyanosis, clubbing. Skin: no rashes, no lesions, no ulcers, no subcutaneous nodules, induration. Psychiatric/Neuro: oriented to time, place, person, judgement normal, affect appropriate for age, insight intact, no focal deficits. Tests review of old records completed, Discussed surgical options, risks, and possible complications with patient. Assessment/Plan 1. Screening for malignant neoplasm of colon (Z12.11: Encounter for screening for malignant neoplasm of colon) plan colonoscopy under anesthesia, informed consent obtained. Follow-up No qualifying data available Problem List/Past Medical History Ongoing BMI 40.0-44.9, adult Contracture, right ankle Obesity Plantar fascial fibromatosis of right foot Pulmonary nodule, left Screening for malignant neoplasm of colon Historical Ankle fracture Pulmonary nodule Procedure/Surgical History Ablation (07/17/2009), Anal fissure, Appendectomy, section, Cholecystectomy, ORIF - Open reduction of fracture of ankle with internal fixation, Tonsillectomy and adenoidectomy, Tubal ligation. Medications No active medications Allergies Latex (Dysphagia, Breathing abnormal) Social History Alcohol - Denies Alcohol Use, 04/28/2021 Substance Abuse - Denies Substance Abuse, 04/28/2021 Tobacco Never (less than 100 in lifetime) Tobacco Use:. Never Smokeless Tobacco Use:., 04/28/2021 Family History Cardiac arrest: Father. Cardiac arrhythmia: Mother. Hypertension: Sister. Immunizations Vaccine Date Status SARS-CoV-2 (COVID-19) Ad26 vaccine 08/24/2020 Recorded SARS-CoV-2 (COVID-19) Ad26 vaccine 07/27/2020 [facility]Result Comment: Electronically Signed By: KAELYN YOUNGBLOOD, Trevor Carreno\Date and Time Signed: 04/28/21 17:55 EDTEvaluation noteNo [employer] Other Evaluation noteNo assessment information available [facility] Work Phone: Evaluation note* Diagnosis Onset Date Resolution Status ISRA positive acute Degenerative arthritis of left hand acute Degenerative arthritis of right hand acute Lumbar spondylosis acute Post-traumatic osteoarthritis, right ankle and foot acute [facility] Work Phone: Evaluation note* Diagnosis Onset Date Resolution Status ISRA positive acute Degenerative arthritis of left hand acute Degenerative arthritis of right hand acute Lumbar spondylosis acute Post-traumatic osteoarthritis, right ankle and foot acute Lumbar spondylosis acute Obesity acute Post-traumatic osteoarthritis, right ankle and foot acute Screening for colon cancer n oneactive Screening mammogram for breast cancer noneactive Wellness examination noneact bladimir [facility] Work Phone: Evaluation note* Diagnosis Onset Date Resolution Status Cervical muscle strain acute Lumbar spondylosis acute Obesity acute [facility] Work Phone: History general Narrative - Reported* Type Description Date Medical History WALTER (generalized anxiety disorde r) Medical History Menopausal symptom Medical History Left lower lobe pulmonary nodule Medical History Acute abdominal pain in left low er quadrant Medical History ETD (Eustachian tube dysfunction ), left Medical History Contracture, right ankle Medical History Post-traumatic arthritis of righ t ankle Medical History Aphthous ulcer of mouth Medical History Lesion of mouth Surgical History appendectomy Surgical History ablasion endometrial Surgical History tonsillectomy Surgical History cholecystectomy Surgical History Hospitalization History see above [facility] Other Summary Purpose Family History Relationship Condition Age at Onset Recorded Date/T myrna father Heart disease Unknown Unknown Not Specified Atrial fibrillation Unknown Heart disease Unknown Relationship Condition Age at Onset Recorded Date/T myrna father Heart disease Unknown Unknown mother Atrial fibrillation Unknown Heart disease Unknown Advance Directives Advance Directive Response Recorded Date/ Time Advance Directives No October 26, 024 10:47am Chief Complaint and Reason for Visit Chief Complaint Amb Documentation lab results Chief Complaint Amb Documentation lab results Reason for Visit ISRA positive Degenerative arthritis of left hand Degenerative arthritis of right hand Lumbar spondylosis Post-traumatic osteoarthritis, right ankle and foot Chief Complaint lab results R76.0;M15.0;Z79.899 Weight loss concerns Reason for Visit ISRA positive Degenerative arthritis of left hand Degenerative arthritis of right hand Lumbar spondylosis Post-traumatic osteoarthritis, right ankle and foot Lumbar spondylosis Obesity Post-traumatic osteoarthritis, right ankle and foot Screening for colon cancer Screening mammogram for breast cancer Wellness examination Chief Complaint Bp, wt check Reason for Visit Cervical muscle stra in Lumbar spondylosis Obesity Additional Source Comments INFORMATION SOURCE (unrecogn ized section and content) DATE CREATED AUTHOR 01/09/2018 [facility] DATE CREATED AUTHOR AUTHOR'S ORGANIZ ATION 09/27/2019 [facility] DATE CREATED AUTHOR AUTHOR'S ORGANIZ ATION 05/26/2021 Donnelly Montezuma [facility] DATE CREATED AUTHOR AUTHOR'S ORGANIZ ATION 11/30/2022 [facility] DATE CREATED AUTHOR AUTHOR'S ORGANIZ ATION 12/21/2023 [facility] REASON FOR VISIT (unrecogniz ed section and content) Breathing problemssore throa t, coughing, chest tightness, headachesCOVID Positive- Phone Call- [phone] throat, ears pluggedFYI: Urgent CareTrouble swallowing, ears pluggedYeast InfectionBack Spasmsadipex f/uRefill-AdipexWellnesscough, congestion, no taste or smell Care Teams (unrecognized sec tion and content) Team Status: Active Member Role Status Shruthi Glover DO Primary Care Provider Active Team Status: Inactive Member Role Status Shruthi Glover DO Primary Care Provide r, Attending Provider Active Start: March 29, 2024 End: March 29, 2024 Team Status: Active Member Role Status Shruthi Glover DO Primary Care Provider Active Team Status: Active Member Role Status Shruthi Glover DO Primary Care Provider Active Start: September 12, 2023 EVENS Dinh Attending Provider Active Start : September 12, 2023 Team Status: Active Member Role Status Shruthi Glover DO Primary Care Provide r, Attending Provider Active Start: October 05, 2023 Team Status: Inactive Member Role Status Shruthi Glover DO Primary Care Provide r, Attending Provider Active Start: October 27, 2023 End: October 27, 2023 Team Status: Inactive Member Role Status Shruthi Glover DO Primary Care Provider Active Start: December 06, 2023 End: December 06, 2023 Harsha Covarrubias MD Attending Provider Active St art: December 06, 2023 End: December 06, 2023 Team Status: Inactive Member Role Status Dates Tarun Glover , Primary Care Provide r, Attending Provider Active Start: December 26, 2023 End: December 26, 2023 Team Status: Inactive Member Role Status Dates Tarun Glover DO Primary Care Provide r, Attending Provider Active Start: March 29, 2024 End: March 29, 2024 Goals (unrecognized section and content) Goals may be documented in a n alternate section FOR RECORDS PERTAINING TO PATIENTS WHO ARE OR HAVE BEEN ENROLLED IN A CHEMICAL DEPENDENCY/SUBSTANCEABUSE PROGRAM, SOME INFORMATION MAY BE OMITTED. This clinical summary was aggregated from multiple sources. Caution should be exercised in using it in the provision of clinical care. This summary normalizes information from multiple sources, and as a consequence, information in this document may materially change the coding, format and clinical context of patient data. In addition, data may be omitted in some cases. CLINICAL DECISIONS SHOULD BE BASED ON THE PRIMARY CLINICAL RECORDS. [facility] [employer] [facility]. provides no warranty or guarantee of the accuracy or completeness of information in this document.
== END 2024-04-02 19:32 | disposition home or self-care (01) ==
LOC: LAB 19:31
PROVIDERS: PCP Internal Medicine; Visit Provider Physician Assistant
DX: Z01.419 Encounter for gynecological examination (general) (routine) without abnormal findings (principal)
CPT/HCPCS: 87624; 88175

== ENCOUNTER 2024-04-09 12:55 | Outpatient (OUT) | payer OTHER, SELFPAY ==
--- NOTE | 2024-04-09 12:54 | US_ITS ---
[address] [address] Patient Name: SANIA DINH MRN: [id number] date: 1970 Sex: F Assigned Patient Location: [facility] Current Patient Location: Accession/Order Number: [id number] Exam Date: 04/09/2024 12:57 Report Date: 04/10/2024 04:39 At the request of: SOLEDAD PIPER Procedure: US pelvis w/ transvaginal EXAMINATION: US pelvis w/ transvaginal HISTORY: PELVIC PAIN ; left lower quadrant pain COMPARISON: Ultrasound pelvis 05/03/2021 TECHNIQUE: Transabdominal and/or transvaginal sonographic examination was performed as indicated by examination type. FINDINGS: UTERUS: Slightly heterogeneous prominent area within posterior fundus suspected to represent a leiomyoma, approximately 7.0 x 5.5 x 4.4 cm Uterus size: 6.4 x 3.7 x 8.2 cm ENDOMETRIUM: Normal homogeneous appearance. Endometrial thickness: 5 mm RIGHT OVARY: Not seen. LEFT OVARY: Not seen. CUL-DE-SAC: Unremarkable. No significant free fluid. BLADDER: Unremarkable. OTHER: None. US/US pelvis w/ transvaginal IMPRESSION: 1. Limited examination due to large amount of artifact from bowel gas. 2. Suspect posterior fundal leiomyoma. 3. Neither ovary could be identified due to artifact from bowel gas. Electronically authenticated by: MARIA LUISA JEAN Date: 04/10/2024 04:39
--- OUTSIDE RECORDS SUMMARY | 2024-04-09 13:16 | XMS_ITS | CCD ---
Author Organization [facility] Inform ion Partnership [facility] Care Team Providers Care Resident Program Specialist Name Role Phone TREVOR BRUSH Unavailable Tarun Bruce Unavailable APPLE, DR MONTRELL Thomas Admitting Unavailable ADALBERTO, DR JARA Primary Care Unavailable APPLE, DR MONTRELL Thomas Attending Unavailable APPLE, DR MONTRELL Thomas Consulting Unavailable ADALBERTO, DR JARA Attending Unavailable ADALBERTO, DR JARA Primary Care Unavailable ADALBERTO, DR JARA Admitting Unavailable Tasia Emery Unavailable DO Tarun Glover Primary Care Provider MD Harsha Covarrubias Attending Provider [phone] Harsha Covarrubias Attending Unavailable Harsha Covarrubias Admitting Unavailable Tarun Glover Primary Care Unavailable SOLEDAD PIPER Attending Unavailable Allergies Allergy Classification Reported Allergen(s) Allergy Type Date of Onset Reaction(s) Facility (18 sources) Latex Propensity to adverse reactions rash [facility] Other (1 source) Latex Drug allergy (disorder) [facility] Repository (1 source) Morphine Drug Allergy 4 [facility] (8 sources) patient allergy list reviewed by nurse or physicia Propensity to adverse reactions 6 Comment:Done [employer] Other (8 sources) Allergies Reconciled Propensity to adverse reactions Unknown [employer] Other (1 source) Latex Drug allergy (disorder) 4 [facility] Repository Medications Current Medications Medication Drug [...] tablet by mouth every twe lve hours [id number] actuat albuterol 0.09 mg/actuat metered dose [...] capsule (3 sources) Non-narcotic Antitussive Start: 07-19-19 24 take 1 capsule by mouth every eight [...] daily Phentermine Active 37.5 MG PO Daily March 29, 2024 10:32am start 02/26 Start: 05-19-2023 take 1 tablet by chanel once daily before breakfast Adipex-P 37.5 MG 1 tablet before breakfast Orally Once a day for 30 days start 05/19May, Active Start: 02-27-2023 take 1 tablet by chanel th once daily before breakfast Adipex-P 37.5 MG 1 tablet before breakfast Orally Once a day for 30 days Feb, Active Start: 01-02-2023 take 1 tablet by chanel once daily before breakfast Adipex-P 37.5 MG [...] Antinuclear Abs, IFA Negative Normal . [facility] Comment on above: Result Comment: Nega tive <1:80 Borderline 1:80 Positive >1:80 ICAP nomenclature: AC-[id number] For more information about Hep-2 cell patterns use ANApatterns.org, the official website for the International Consensus on Antinuclear Antibody (ISRA) Patterns (ICAP). Performed at: [facility] [id number] Delivery Technician: Barry Mcrae PhD, Phone: [phone] Performed By: #### A NA, TPO, C3, C4, CHROMATIN, CH50, THYGLOB AB #### [facility] , Activated partial thrombopla stin time (aPTT) in platelet poor plasma by coagulation aOrdered By: Harsha Covarrubias on 12-06-2023 aPTT Coag (PPP) [Time] 31.9 s 25.1-36.5 [facility] Comment on above: A hematocrit value g reater than 55% may lead to inaccurate results in coagulation testing. Patients having hematocrit values >55% require a special collection tube for coagulation studies. Please contact the laboratory at [phone] for redraw instructions. Alanine aminotransferase [En zymatic activity/volume] in Serum or PlasmaOrdered By: Harsha Covarrubias on 12-06-2023 ALT [Catalytic activity/Vol] 14 U/L 7-52 [facility] Comment on above: Performed By: #### A NA, TPO, C3, C4, CHROMATIN, CH50, THYGLOB AB #### [facility] , Albumin [Mass/volume] in Ser um or Plasma by Bromocresol green (BCG) dye binding methoOrdered By: Harsha Covarrubias on 12-06-2023 Albumin BCG dye [Mass/Vol] 4.2 g/dL 3.5-5.7 [facility] Aldolaseon 12-06-2023 Aldolase 4.3 U/L Normal 3.3-10.3 [facility] Comment on above: Result Comment: Perf ormed at: [facility] [employer] [id number] Delivery Technician: Barry Mcrae PhD, Phone: [phone] PERFORMED BY: [place] [address] [place] [address] PATHOLOGIST NEWSPAPER DELIVERY DRIVER TERRI HOGAN M.D. Performed By: #### A NA, TPO, C3, C4, CHROMATIN, CH50, THYGLOB AB #### [facility] , Alkaline phosphatase [Enzyma tic activity/volume] in Serum or PlasmaOrdered By: Harsha Covarrubias on 12-06-2023 ALP [Catalytic activity/Vol] 74 U/L 34-104 [facility] Comment on above: Performed By: #### A NA, TPO, C3, C4, CHROMATIN, CH50, THYGLOB AB #### [facility] , Antithyroglobulin Abon 12-05 Antithyroglobulin Ab <1.0 Normal 0.0-0.9 [facility] Comment on above: Result Comment: Thyr oglobulin Antibody measured by [facility] Methodology It should be noted that the presence of thyroglobulin antibodies may not be pathogenic nor diagnostic, especially at very low levels. The assay sas administrator has found that four percent of individuals without evidence of thyroid disease or autoimmunity will have positive TgAb levels up to 4 IU/mL. Performed at: [facility] [id number] Delivery Technician: Barry Mcrae PhD, Phone: [phone] Performed By: #### A NA, TPO, C3, C4, CHROMATIN, CH50, THYGLOB AB #### [facility] , Aspartate aminotransferase [ Enzymatic activity/volume] in Serum or PlasmaOrdered By: Harsha Covarrubias on 12-06-2023 AST [Catalytic activity/Vol] 16 U/L 13-39 [facility] Comment on above: Performed By: #### A NA, TPO, C3, C4, CHROMATIN, CH50, THYGLOB AB #### [facility] , Automated basophil %Ordered By: Harsha Huntrow on 12-06-2023 Basophils/100 WBC (Bld) 0.6 % . [facility] Comment on above: Performed By: #### A NA, TPO, C3, C4, CHROMATIN, CH50, THYGLOB AB #### [facility] , Automated basophil countOrde red By: Harsha Huntrow on 12-06-2023 Basophils (Bld) [#/Vol] 0.0 10*3/uL 0.0-0.2 [facility] Comment on above: Performed By: #### A NA, TPO, C3, C4, CHROMATIN, CH50, THYGLOB AB #### [facility] , Automated blood monocyte cou ntOrdered By: Harsha Huntrow on 12-06-2023 Monocytes (Bld) [#/Vol] 0.5 10*3/uL 0.0-0.8 [facility] Comment on above: Performed By: #### A NA, TPO, C3, C4, CHROMATIN, CH50, THYGLOB AB #### [facility] , Automated eosinophil %Ordere d By: Harsha Huntrow on 12-06-2023 Eosinophils/100 WBC (Bld) 4.4 % . [facility] Comment on above: Performed By: #### A NA, TPO, C3, C4, CHROMATIN, CH50, THYGLOB AB #### [facility] , Automated eosinophil countOr dered By: Harsha Huntrow on 12-06-2023 Eosinophils (Bld) [#/Vol] 0.3 10*3/uL 0.0-0.45 [facility] Comment on above: Performed By: #### A NA, TPO, C3, C4, CHROMATIN, CH50, THYGLOB AB #### [facility] , Automated monocyte %Ordered By: Harsha Covarrubias on 12-06-2023 Monocytes/100 WBC (Bld) 6.2 % . [facility] Comment on above: Performed By: #### A NA, TPO, C3, C4, CHROMATIN, CH50, THYGLOB AB #### [facility] , Automated neutrophil %Ordere d By: Harsha Covarrubias on 12-06-2023 Neutrophils/100 WBC (Bld) 67.9 % . [facility] Comment on above: Performed By: #### A NA, TPO, C3, C4, CHROMATIN, CH50, THYGLOB AB #### [facility] , Bacteria [Presence] in Urine by AutomatedOrdered By: Harsha Covarrubias on 12-06-2023 Bacteria Auto Ql (U) 2+ [HPF] None Seen [facility] Bilirubin Test strip Ql (U)O rdered By: Harsha Covarrubias on 12-06-2023 Bilirubin Ql (U) Negative Negative [facility] Bilirubin.total [Mass/volume ] in Serum or PlasmaOrdered By: Harsha Covarrubias on 12-06-2023 Bilirubin [Mass/Vol] 0.5 mg/dL 0.3-1.[address] [facility] Comment on above: Performed By: #### A NA, TPO, C3, C4, CHROMATIN, CH50, THYGLOB AB #### [facility] , C reactive protein [Mass/vol ume] in Serum or PlasmaOrdered By: Harsha Covarrubias on 12-06-2023 CRP [Mass/Vol] 2.0 mg/dL 0.0-0.5 [facility] C-Reactive Proteinon 024 C-Reactive Protein 2.0 mg/dL High 0.0-0.5 [facility] Comment on above: Performed By: #### A NA, TPO, C3, C4, CHROMATIN, CH50, THYGLOB AB #### [facility] , CT biopsyOrdered By: Harsha Covarrubias on 12-06-2023 CT biopsy 4.3 U/L 3.3-10.3 [facility] Comment on above: Performed at: [facility] [id number] [place], [place] [id number] Director: Barry Mcrae PhD, Phone: [phone] Calcium [Mass/volume] in Ser um or PlasmaOrdered By: Harsha Covarrubias on 12-06-2023 Calcium [Mass/Vol] 9.4 mg/dL 8.6-10.3 [facility] Comment on above: Performed By: #### A NA, TPO, C3, C4, CHROMATIN, CH50, THYGLOB AB #### [facility] , Carbon dioxide, total [Moles /volume] in Serum or PlasmaOrdered By: Harsha Covarrubias on 12-06-2023 CO2 [Moles/Vol] 28.3 mmol/L 21.0-31.0 [facility] Comment on above: Performed By: #### A NA, TPO, C3, C4, CHROMATIN, CH50, THYGLOB AB #### [facility] , Chloride [Moles/volume] in S alistair or PlasmaOrdered By: Harsha Covarrubias on 12-06-2023 Chloride [Moles/Vol] 105 mmol/L 98-[address] [facility] Comment on above: Performed By: #### A NA, TPO, C3, C4, CHROMATIN, CH50, THYGLOB AB #### [facility] , Chromatin Antibodyon 024 Chromatin Antibody <0.2 Normal 0.0-0.9 [facility] Comment on above: Result Comment: Perf ormed at: [facility] [place] [address] [place], [place] [id number] Delivery Technician: Barry Mcrae PhD, Phone: [phone] PERFORMED BY: [facility] Anai [place] [address] PATHOLOGIST NEWSPAPER DELIVERY DRIVER TERRI HOGAN M.D. Performed By: #### A NA, TPO, C3, C4, CHROMATIN, CH50, THYGLOB AB #### [facility] , Coagulation Profileon 2023 aPTT Coag (Bld) [Time] 31.9 s Normal 25.1-36.5 [facility] Comment on above: Result Comment: A he matocrit value greater than 55% may lead to inaccurate results in coagulation testing. Patients having hematocrit values >55% require a special collection tube for coagulation studies. Please contact the laboratory at [phone] for redraw instructions. PERFORMED BY: [place] [address] PATHOLOGIST NEWSPAPER DELIVERY DRIVER TERRI HOGAN M.D. Performed By: #### E SR, ADDONUAPLUS, T4F, CK, CRP, TSH3, PP, CMP, CBC #### [address] #### RPR W RFX, ALDOLASE #### [facility] , Color of Urine by AutoOrdere d By: Harsha Covarrubias on 12-06-2023 Color (U) Yellow Yellow [facility] Comment on above: Order Comment: Name Collection Type:: Clean-Voided Midstream Performed By: #### A NA, TPO, C3, C4, CHROMATIN, CH50, THYGLOB AB #### [facility] , Complement C3on 12-06-2023 Complement C3 189 mg/dL High 82-167 [facility] Comment on above: Result Comment: Perf ormed at: CB - [facility] [address] [id number] Delivery Technician: Barry Mcrae PhD, Phone: [phone] Performed By: #### A NA, TPO, C3, C4, CHROMATIN, CH50, THYGLOB AB #### [facility] , Complement C4on 12-06-2023 Complement C4 45 mg/dL High 12-38 [facility] Comment on above: Performed By: #### A NA, TPO, C3, C4, CHROMATIN, CH50, THYGLOB AB #### [facility] , Complement Total (CH50)on Complement Total (CH50) >60 Normal >41 [facility] Comment on above: Result [...] determine out of range values. Performed at: [facility] [address] [id number] Delivery Technician: Barry Mcrae PhD, Phone: [phone] PERFORMED BY: [address] [place] [address] PATHOLOGIST NEWSPAPER DELIVERY DRIVER TERRI HOGAN M.D. Performed By: #### A NA, TPO, C3, C4, CHROMATIN, CH50, THYGLOB AB #### [facility] , Complete Blood Count Auto Di ffon 12-06-2023 Mean Corpuscular HGB Conc 33.9 g/dL Normal 32.0-35.0 [facility] Comment on above: Performed By: #### A NA, TPO, C3, C4, CHROMATIN, CH50, THYGLOB AB #### [facility] , NRBC% 0.1 /100{WBC} Normal 0-0.5 [facility] Comment on above: Performed By: #### A NA, TPO, C3, C4, CHROMATIN, CH50, THYGLOB AB #### [facility] , Comprehensive Metabolic Pane harsh 12-06-2023 Albumin [Mass/Vol] 4.2 g/dL Normal 3.5-5.7 [facility] Comment on above: Performed By: #### A NA, TPO, C3, C4, CHROMATIN, CH50, THYGLOB AB #### [facility] , GFR/1.73 sq M.predicted MDRD (S/P/Bld) [Vol rate/Area] mL/min/{1.73_m2} Normal [facility] Comment on above: Performed By: #### A NA, TPO, C3, C4, CHROMATIN, CH50, THYGLOB AB #### [facility] , Creatine kinase [Enzymatic a ctivity/volume] in Serum or PlasmaOrdered By: Harsha Marci on 12-06-2023 CK [Catalytic activity/Vol] 59 U/L 30-223 [facility] Comment on above: Result Comment: PERF ORMED BY: [place] [address] PATHOLOGIST NEWSPAPER DELIVERY DRIVER TERRI HOGAN M.D. Performed By: #### E SR, ADDONUAPLUS, T4F, CK, CRP, TSH3, PP, CMP, CBC #### [address] #### RPR W RFX, ALDOLASE #### [facility] , Creatinine [Mass/volume] in Serum or PlasmaOrdered By: Harsha Covarrubias on 12-06-2023 Creatinine [Mass/Vol] 0.60 mg/dL 0.60-1.20 [facility] Comment on above: Performed By: #### A NA, TPO, C3, C4, CHROMATIN, CH50, THYGLOB AB #### [facility] , Dipstick and Microscopicon 0 12-06-2023 Appearance (U) Clear Normal Clear [facility] Comment on above: Order Comment: Name Collection Type:: Clean-Voided Midstream Performed By: #### A NA, TPO, C3, C4, CHROMATIN, CH50, THYGLOB AB #### [facility] , Bacteria,Urine 2+ High None Seen [facility] Comment on above: Order Comment: Name Collection Type:: Clean-Voided Midstream Performed By: #### A NA, TPO, C3, C4, CHROMATIN, CH50, THYGLOB AB #### [facility] , Bilirubin,Urine Negative Normal Negative [facility] Comment on above: Order Comment: Name Collection Type:: Clean-Voided Midstream Performed By: #### A NA, TPO, C3, C4, CHROMATIN, CH50, THYGLOB AB #### [facility] , Glucose Ql (U) Normal Normal Normal [facility] Comment on above: Order Comment: Name Collection Type:: Clean-Voided Midstream Performed By: #### A NA, TPO, C3, C4, CHROMATIN, CH50, THYGLOB AB #### [facility] , Hyaline Casts,Urine 0-8 Normal 0-8 [facility] Comment on above: Order Comment: Name Collection Type:: Clean-Voided Midstream Result Comment: PERF ORMED BY: [address] [place] [address] PATHOLOGIST NEWSPAPER DELIVERY DRIVER TERRI HOGAN M.D. Performed By: #### A NA, TPO, C3, C4, CHROMATIN, CH50, THYGLOB AB #### [facility] , Ketones Ql (U) Negative Normal Negative [facility] Comment on above: Order Comment: Name Collection Type:: Clean-Voided Midstream Performed By: #### A NA, TPO, C3, C4, CHROMATIN, CH50, THYGLOB AB #### [facility] , Leukocyte esterase Test strip Ql (U) Negative Normal Negative [facility] Comment on above: Order Comment: Name Collection Type:: Clean-Voided Midstream Performed By: #### A NA, TPO, C3, C4, CHROMATIN, CH50, THYGLOB AB #### [facility] , Nitrite,Urine Negative Normal Negative [facility] Comment on above: Order Comment: Name Collection Type:: Clean-Voided Midstream Performed By: #### A NA, TPO, C3, C4, CHROMATIN, CH50, THYGLOB AB #### [facility] , Occult Blood,Urine Negative Normal Negative [facility] Comment on above: Order Comment: Name Collection Type:: Clean-Voided Midstream Performed By: #### A NA, TPO, C3, C4, CHROMATIN, CH50, THYGLOB AB #### [facility] , Protein,Urine Negative Normal Negative [facility] Comment on above: Order Comment: Name Collection Type:: Clean-Voided Midstream Performed By: #### A NA, TPO, C3, C4, CHROMATIN, CH50, THYGLOB AB #### [facility] , RBC LM.HPF (Urine sed) [#/Area] 0 /[HPF] Normal 0-4 [facility] Comment on above: Order Comment: Name Collection Type:: Clean-Voided Midstream Performed By: #### A NA, TPO, C3, C4, CHROMATIN, CH50, THYGLOB AB #### [facility] , Specificy [place],Urine 1.026 Normal 1.001-1.03 0 [facility] Comment on above: Order Comment: Name Collection Type:: Clean-Voided Midstream Performed By: #### A NA, TPO, C3, C4, CHROMATIN, CH50, THYGLOB AB #### [facility] , Squamous Epithelial Cell,Urine 3-4 High 0-2 [facility] Comment on above: Order Comment: Name Collection Type:: Clean-Voided Midstream Performed By: #### A NA, TPO, C3, C4, CHROMATIN, CH50, THYGLOB AB #### [facility] , Urobilinogen,Urine Normal Normal Normal [facility] Comment on above: Order Comment: Name Collection Type:: Clean-Voided Midstream Performed By: #### A NA, TPO, C3, C4, CHROMATIN, CH50, THYGLOB AB #### [facility] , WBC,Urine 3-4 Normal 0-4 [facility] Comment on above: Order Comment: Name Collection Type:: Clean-Voided Midstream Performed By: #### A NA, TPO, C3, C4, CHROMATIN, CH50, THYGLOB AB #### [facility] , Erythrocyte Sedimentation Ra sherrie 12-06-2023 ESR (Bld) [Velocity] 35 mm/h High 0-29 [facility] Comment on above: Result Comment: PERF ORMED BY: [facility] [place] [place] [address] PATHOLOGIST NEWSPAPER DELIVERY DRIVER TERRI HOGAN M.D. Performed By: #### A NA, TPO, C3, C4, CHROMATIN, CH50, THYGLOB AB #### [facility] , Erythrocyte distribution wid th [Ratio] by Automated countOrdered By: Harsha Covarrubias on 12-06-2023 Erythrocyte distribution width (RBC) [Ratio] 13.6 % 11.9-15.3 [facility] Comment on above: Performed By: #### A NA, TPO, C3, C4, CHROMATIN, CH50, THYGLOB AB #### [facility] , Erythrocyte sedimentation ra te by Photometric methodOrdered By: Harsha Covarrubias on 12-06-2023 ESR Photometric method (Bld) [Velocity] 35 mm/hr 0-29 [facility] Erythrocytes [#/volume] in B lood by Automated countOrdered By: Harsha Covarrubias on 12-06-2023 RBC (Bld) [#/Vol] 4.83 10*6/uL 3.60-5.00 [facility] Comment on above: Performed By: #### A NA, TPO, C3, C4, CHROMATIN, CH50, THYGLOB AB #### [facility] , Glucose [Mass/volume] in Ser um or PlasmaOrdered By: Harsha Covarrubias on 12-06-2023 Glucose [Mass/Vol] 72 mg/dL 70-100 [facility] Comment on above: ADA recommended refe rence rangeRandom Glucose Reference Range is dependent on time and content of last meal. Glucose of more than 200 mg/dL in a nonstressed, ambulatory subject supports the diagnosis of Diabetes Mellitus. Result Comment: [place] om Glucose Reference Range is dependent on [...] Hematocrit (Bld) [Volume fraction] 41.9 % 34.0-46.4 [facility] Comment on above: Performed By: #### A NA, TPO, C3, C4, CHROMATIN, CH50, THYGLOB AB #### [facility] , Hemoglobin [Mass/volume] in BloodOrdered By: Harsha Huntrow on 12-06-2023 Hemoglobin (Bld) [Mass/Vol] 14.2 g/dL 11.8-15.4 [facility] Comment on above: Performed By: #### A NA, TPO, C3, C4, CHROMATIN, CH50, THYGLOB AB #### [facility] , INR in Platelet poor plasma by Coagulation assayOrdered By: Harsha Huntrow on 12-06-2023 INR Coag (PPP) [Relative time] 0.9 {INR} [facility] Comment on above: INR Therapeutic Rang [...] CK, CRP, TSH3, PP, CMP, CBC #### [address] #### RPR W RFX, ALDOLASE #### [facility] , Ketones Auto test strip (U) [Mass/Vol]Ordered By: Harsha Huntrow on 12-06-2023 Ketones (U) [Mass/Vol] Negative Negative [facility] - UrinalysisOrder ed By: Harsha Huntrow on 12-06-2023 Hyaline casts LM Ql (Urine sed) 0-8 [LPF] 0-8 [facility] Leukocytes [#/area] in Urine sediment by Automated countOrdered By: Harsha Huntrow on 12-06-2023 WBC Auto (Urine sed) [#/Area] 3-4 [HPF] 0-4 [facility] Leukocytes [#/volume] correc jemal for nucleated erythrocytes in Blood by Automated counOrdered By: Harsha Huntrow on 12-06-2023 WBC corrected for nucl RBC Auto (Bld) [#/Vol] 7.8 10*3/uL 3.8-11.6 [facility] Leukocytes [#/volume] in Blo od by Automated countOrdered By: Harsha Marci on 12-06-2023 WBC (Bld) [#/Vol] 7.8 10*3/uL 3.8-11.6 [facility] Comment on above: Performed By: #### A NA, TPO, C3, C4, CHROMATIN, CH50, THYGLOB AB #### [facility] , Lupus Anticoagulant Compon 0 12-06-2023 Dilute Prothrombin Time (dPt) 35.4 Normal 0.0-47.6 [facility] Comment on above: Performed By: #### L UPANTCOAG #### [facility] , dPT Confirm Ratio 1.18 Normal 0.00-1.34 [facility] Comment on above: Performed By: #### L UPANTCOAG #### [facility] , DRVVT Lupus 36.8 Normal 0.0-47.0 [facility] Comment on above: Performed By: #### L UPANTCOAG #### [facility] , Interpretation Comment: Normal . [facility] Comment on above: Result Comment: No l upus anticoagulant was detected. Performed at: - [facility] [address] [place], [place] [id number] Delivery Technician: Juany Baker MD, Phone: [phone] PERFORMED BY: [facility] [place] [address] PATHOLOGIST NEWSPAPER DELIVERY DRIVER TERRI HOGAN M.D. Performed By: #### L UPANTCOAG #### [facility] , PTT-LA 38.7 Normal 0.0-43.5 [facility] Comment on above: Performed By: #### L UPANTCOAG #### [facility] , Thrombin Time 16.9 Normal 0.0-23.0 [facility] Comment on above: Performed By: #### L UPANTCOAG #### [facility] , Lupus anticoagulant [Interpr etation] in Platelet poor plasmaOrdered By: Harsha Covarrubias on 12-06-2023 Lupus anticoagulant (PPP) [Interp] Comment: . [facility] Comment on above: No lupus anticoagula nt was detected.Performed at: [facility] [id number] [place], [place] [id number] Director: Juany Baker MD, Phone: [phone] Lymphocytes [#/volume] in Bl ood by Automated countOrdered By: Harsha Covarrubias on 12-06-2023 Lymphocytes (Bld) [#/Vol] 1.6 10*3/uL 1.00-4.8 [facility] Comment on above: Performed By: #### A NA, TPO, C3, C4, CHROMATIN, CH50, THYGLOB AB #### [facility] , Lymphocytes/100 leukocytes i n Blood by Automated countOrdered By: Harsha Covarrubias on 12-06-2023 Lymphocytes/100 WBC (Bld) 20.9 % . [facility] Comment on above: Performed By: #### A NA, TPO, C3, C4, CHROMATIN, CH50, THYGLOB AB #### [facility] , MCH [Entitic mass] by Automa jemal countOrdered By: Harsha Covarrubias on 12-06-2023 MCH (RBC) [Entitic mass] 29.4 pg 24.7-34.3 [facility] Comment on above: Performed By: #### A NA, TPO, C3, C4, CHROMATIN, CH50, THYGLOB AB #### [facility] , MCHC Auto (RBC) [Mass/Vol]Or dered By: Harsha Covarrubias on 12-06-2023 MCHC (RBC) [Mass/Vol] 33.9 g/dL 32.0-35.0 [facility] MCV [Entitic volume] by Auto mated countOrdered By: Harsha Huntrow on 12-06-2023 MCV (RBC) [Entitic vol] 86.8 fL 80-100 [facility] Comment on above: Performed By: #### A NA, TPO, C3, C4, CHROMATIN, CH50, THYGLOB AB #### [facility] , Neutrophils [#/volume] in Bl ood by Automated countOrdered By: Harsha Marci on 12-06-2023 Neutrophils (Bld) [#/Vol] 5.3 10*3/uL 1.8-7.7 [facility] Comment on above: Performed By: #### A NA, TPO, C3, C4, CHROMATIN, CH50, THYGLOB AB #### [facility] , Nitrite Test strip Ql (U)Ord ered By: Harsha Covarrubias on 12-06-2023 Nitrite Ql (U) Negative Negative [facility] No Panel InformationOrdered By: Harsha Covarrubias on 12-06-2023 Estimated GFR (CKD-EPI) > 60.0 mL/Min [facility] Creatinine Clearance (Chem N/A [facility] Urine RBC 0-1 [HPF] 0-4 [facility] Total Complement (CH50) >60 U/mL >41 [facility] Comment on above: Age Male Female [...] to determine out of range values.Performed at: [facility] [employer] [id number] Director: Barry Mcrae PhD, Phone: [phone] Nucleated erythrocytes [Pres ence] in Blood by Automated countOrdered By: Harsha Covarrubias on 12-06-2023 Nucleated RBC Auto Ql (Bld) 0.1 /100{WBC} 0-0.5 [facility] Platelet mean volume [Entiti c volume] in Blood by Automated countOrdered By: Harsha Covarrubias on 12-06-2023 Platelet mean volume (Bld) [Entitic vol] 8.3 fL 6.3-10.7 [facility] Comment on above: Performed By: #### A NA, TPO, C3, C4, CHROMATIN, CH50, THYGLOB AB #### [facility] , Platelet poor plasma ratio o f lupus anticoagulant-sensitive activated partial thromboOrdered By: Harsha Covarrubias on 12-06-2023 aPTT.lupus sensitive.excess phospholipid actual/normal Coag (PPP) [Relative time] 35.4 sec 0.0-47.6 [facility] Platelets [#/volume] in Bloo d by Automated countOrdered By: Harsha Covarrubias on 12-06-2023 Platelets (Bld) [#/Vol] 330 10*3/uL 150-450 [facility] Comment on above: Performed By: #### A NA, TPO, C3, C4, CHROMATIN, CH50, THYGLOB AB #### [facility] , Potassium [Moles/volume] in Serum or PlasmaOrdered By: Harsha Covarrubias on 12-06-2023 Potassium [Moles/Vol] 4.3 mmol/L 3.5-5.1 [facility] Comment on above: Performed By: #### A NA, TPO, C3, C4, CHROMATIN, CH50, THYGLOB AB #### [facility] , Protein Auto test strip (U) [Mass/Vol]Ordered By: Harsha Covarrubias on 12-06-2023 Protein (U) [Mass/Vol] Negative Negative [facility] Protein [Mass/volume] in Ser um or PlasmaOrdered By: Harsha Covarrubias on 12-06-2023 Protein [Mass/Vol] 7.0 g/dL 6.4-8.9 [facility] Comment on above: Performed By: #### A NA, TPO, C3, C4, CHROMATIN, CH50, THYGLOB AB #### [facility] , Prothrombin time (PT)Ordered By: Harsha Covarrubias on 12-06-2023 PT Coag (PPP) [Time] 10.6 s 9.0-12.[address] [facility] Comment on above: A hematocrit value g reater than 55% may lead to inaccurate results in coagulation testing. Patients having hematocrit values >55% require a special collection tube for coagulation studies. Please contact the laboratory at [phone] for redraw instructions. Result Comment: A he matocrit value greater than 55% may lead to inaccurate results in coagulation testing. Patients having hematocrit values >55% require a special collection tube for coagulation studies. Please contact the laboratory at [phone] for redraw instructions. Performed By: #### E SR, ADDONUAPLUS, T4F, CK, CRP, TSH3, PP, CMP, CBC #### [address] #### RPR W RFX, ALDOLASE #### [facility] , RPR w/rfx to Quant TP Abson 12-06-2023 RPR, Rfx Quant RPR Non-Reactive Normal Non Reactive [facility] Comment on above: Result Comment: Perf ormed at: CB - [facility] [address] [id number] Delivery Technician: Barry Mcrae PhD, Phone: [phone] PERFORMED BY: [place] [address] PATHOLOGIST NEWSPAPER DELIVERY DRIVER TERRI HOGAN M.D. Performed By: #### A NA, TPO, C3, C4, CHROMATIN, CH50, THYGLOB AB #### [facility] , Reagin Ab [Presence] in Seru m by RPROrdered By: Harsha Covarrubias on 12-06-2023 Reagin Ab RPR Ql (S) Non-Reactive Non Reactive [facility] Comment on above: Performed at: CB - [facility] [address] [id number] Director: Barry Mcrae PhD, Phone: [phone] Screening dilute Josiah's v iper venom time (DRVVT) with reflex to confirmatory testOrdered By: Harsha Covarrubias on 12-06-2023 dRVVT Coag (PPP) [Time] 36.8 s 0.0-47.0 [facility] Screening lupus anticoagulan t-sensitive activated partial thromboplastin time (aPTT)Ordered By: Harsha Covarrubias on 12-06-2023 aPTT.lupus sensitive Coag (PPP) [Time] 38.7 sec 0.0-43.5 [facility] Serum globulin measurement b y calculation (mass/volume)Ordered By: Harsha Covarrubias on 12-06-2023 Globulin (S) [Mass/Vol] 2.8 g/dL [facility] Comment on above: Performed By: #### A NA, TPO, C3, C4, CHROMATIN, CH50, THYGLOB AB #### [facility] , Serum homogeneous pattern an tinuclear antibody (ISRA) titerOrdered By: Harsha Covarrubias on 12-06-2023 Homogenous nuclear Ab pattern (S) [Titer] N/A [facility] Serum nuclear antibody titer Ordered By: Harsha Covarrubias on 12-06-2023 Nuclear Ab (S) [Titer] Negative . [facility] Comment on above: Negative <1:80 Borde rline 1:80 Positive >1:80ICAP nomenclature: AC-0For more information about Hep-2 cell patterns useANApatterns.org, the official website for theInternational Consensus on Antinuclear Antibody (ISRA)Patterns (ICAP).Performed at: - [facility] [address] [id number] Director: Barry Mcrae PhD, Phone: [phone] Serum or plasma albumin/glob ulin mass ratioOrdered By: Harsha Covarrubias on 12-06-2023 Albumin/Globulin [Mass ratio] 1.5 {ratio} [facility] Comment on above: Performed By: #### A NA, TPO, C3, C4, CHROMATIN, CH50, THYGLOB AB #### [facility] , Serum or plasma anion gap de terminationOrdered By: Harsha Covarrubias on 12-06-2023 Anion gap [Moles/Vol] 10.0 mmol/L 6.0-15.0 [facility] Comment on above: Performed By: #### A NA, TPO, C3, C4, CHROMATIN, CH50, THYGLOB AB #### [facility] , Serum or plasma chromatin an tibody assay (units/volume)Ordered By: Harsha Covarrubias on 12-06-2023 Chromatin Ab Qn <0.2 AI 0.0-0.9 [facility] Comment on above: Performed at: [employer] [place] [id number] Director: Barry Mcrae PhD, Phone: [phone] Serum or plasma complement C 3 measurement (mass/volume)Ordered By: Harsha Covarrubias on 12-06-2023 Complement C3 [Mass/Vol] 189 mg/dL 82-167 [facility] Comment on above: Performed at: [employer] [facility] [place], [place] [id number] Director: Barry Mcrae PhD, Phone: [phone] Serum or plasma complement C 4 measurement (mass/volume)Ordered By: Harsha Covarrubias on 12-06-2023 Complement C4 [Mass/Vol] 45 mg/dL 12-38 [facility] Serum or plasma thyroglobuli n antibody assay (units/volume)Ordered By: Harsha Covarrubias on 12-06-2023 Thyroglobulin Ab Qn [IU]/mL 0.0-0.9 [facility] Comment on above: Thyroglobulin Antibo dy measured by [employer] GroundMethodologyIt should be noted that the presence of thyroglobulinantibodies may not be pathogenic nor diagnostic, especiallyat very low levels. The assay sas administrator has found thatfour percent of individuals without evidence of thyroiddisease or autoimmunity will have positive TgAb levels upto 4 IU/mL.Performed at: [facility] [id number] Director: Barry Mcrae PhD, Phone: [phone] Serum or plasma thyroperoxid ase antibody assay (units/volume)Ordered By: Harsha Covarrubias on 12-06-2023 TPO Ab Qn [IU]/mL 0-34 [facility] Comment on above: Performed at: [facility] [address] [id number] Director: Barry Mcrae PhD, Phone: [phone] Sodium [Moles/volume] in Ser um or PlasmaOrdered By: Harsha Covarrubias on 12-06-2023 Sodium [Moles/Vol] 139 mmol/L 136-145 [facility] Comment on above: Performed By: #### A NA, TPO, C3, C4, CHROMATIN, CH50, THYGLOB AB #### [facility] , Specific gravity Auto test s trip (U) [Rel density]Ordered By: Harsha Covarrubias on 12-06-2023 Specific gravity (U) [Rel density] 1.026 1.001-1.03 0 [facility] Squamous epithelial cells de tection in urine sediment by light microscopyOrdered By: Harsha Covarrubias on 12-06-2023 Epithelial cells.squamous LM Ql (Urine sed) 3-4 [HPF] 0-2 [facility] TT plasOrdered By: Harsha patel on 12-06-2023 Thrombin time Coag (PPP) [Time] 16.9 sec 0.0-23.0 [facility] Thyroid Peroxidase Antibodie son 12-06-2023 Thyroid Peroxidase Antibodies <9 Normal 0-34 [facility] Comment on above: Result Comment: Perf ormed at: [facility] [id number] Delivery Technician: Barry Mcrae PhD, Phone: [phone] Performed By: #### A NA, TPO, C3, C4, CHROMATIN, CH50, THYGLOB AB #### [facility] , Thyrotropin [Units/volume] i n Serum or PlasmaOrdered By: Harsha Covarrubias on 12-06-2023 TSH Qn 1.93 m[IU]/L 0.45-5.33 [facility] Comment on above: Result Comment: PERF ORMED BY: [facility] [place] [address] PATHOLOGIST NEWSPAPER DELIVERY DRIVER TERRI HOGAN M.D. Performed By: #### A NA, TPO, C3, C4, CHROMATIN, CH50, THYGLOB AB #### [facility] , Thyroxine (T4) free [Mass/vo lume] in Serum or PlasmaOrdered By: Harsha Covarrubias on 12-06-2023 Free T4 [Mass/Vol] 0.85 ng/dL 0.61-1.12 [facility] Comment on above: Performed By: #### A NA, TPO, C3, C4, CHROMATIN, CH50, THYGLOB AB #### [facility] , Urea nitrogen [Mass/volume] in Serum or PlasmaOrdered By: Harsha Covarrubias on 12-06-2023 Urea nitrogen [Mass/Vol] 16 mg/dL 02-07 [facility] Comment on above: Performed By: #### A NA, TPO, C3, C4, CHROMATIN, CH50, THYGLOB AB #### [facility] , Urine clarity by refractomet ry automatedOrdered By: Harsha Covarrubias on 12-06-2023 Clarity Refractometry automated (U) Clear Clear [facility] Urine glucose measurement by automated test strip (mass/volume)Ordered By: Harsha Covarrubias on 12-06-2023 Glucose Auto test strip (U) [Mass/Vol] Normal mg/dL Normal [facility] Urine hemoglobin detection b y automated test stripOrdered By: Harsha Covarrubias on 12-06-2023 Hemoglobin Auto test strip Ql (U) Negative Negative [facility] Urine leukocyte esterase det ection by automated test stripOrdered By: Harsha Covarrubias on 12-06-2023 Leukocyte esterase Auto test strip Ql (U) Negative Negative [facility] Urine pH measurement by auto mated test stripOrdered By: Harsha Covarrubias on 12-06-2023 pH (U) 5.5 [pH] 5.0-9.0 [facility] Comment on above: Order Comment: Name Collection Type:: Clean-Voided Midstream Performed By: #### A NA, TPO, C3, C4, CHROMATIN, CH50, THYGLOB AB #### [facility] , Urobilinogen Auto test strip (U) [Mass/Vol]Ordered By: Harsha Covarrubias on 12-06-2023 Urobilinogen (U) [Mass/Vol] Normal mg/dL Normal [facility] aPTT.lupus sensitive/aPTT.lynn pus sensitive W excess phospholipid (screen to confirm raOrdered By: Harsha Covarrubias on 12-06-2023 aPTT.lupus sensitive/aPTT.lupus sensitive W excess phospholipid Coag (PPP) [Ratio] 1.18 Ratio 0.00-1.34 [facility] Basophils Auto (Bld) [#/Vol] on 10-05-2023 Basophils (Bld) [#/Vol] 0.0 10 3/uL 0.0-0.1 [facility] Basophils/100 WBC Auto (Bld) on 10-05-2023 Basophils/100 WBC (Bld) 0.9 % 0.2-2.0 [facility] Centriole Ab [Titer] in Seru m by Immunofluorescenceon 10-05-2023 Centriole Ab IF (S) [Titer] TNP . [facility] Centromere Ab [Titer] in Ser um by Immunofluorescenceon 10-05-2023 Centromere Ab IF (S) [Titer] TNP . [facility] Eosinophils/100 WBC Auto (Bl d)on 10-05-2023 Eosinophils/100 WBC (Bld) 4.4 % 0.9-7.0 [facility] Erythrocyte distribution wid th Auto (RBC) [Ratio]on 10-05-2023 Erythrocyte distribution width (RBC) [Ratio] 12.8 % 11.0-15.0 [facility] Estimated glomerular filtrat ion rate (GFR) non- Americanon 10-05-2023 GFR/1.73 sq M.predicted among non-blacks MDRD (S/P/Bld) [Vol rate/Area] mL/min/{1.73_m2} >=60 [facility] Globulin Calc (S) [Mass/Vol] on 10-05-2023 Globulin (S) [Mass/Vol] 3.7 g/dL [facility] Hematocrit Auto (Bld) [Volum e fraction]on 10-05-2023 Hematocrit (Bld) [Volume fraction] 42.2 % 36.0-48.0 [facility] Hemoglobin [Mass/volume] in Bloodon 10-05-2023 Hemoglobin (Bld) [Mass/Vol] 13.5 g/dL 12.0-16.0 [facility] Hepatitis B virus surface Ag [Presence] in Serum or Plasma by Immunoassayon 10-05-2023 HBV surface Ag IA Ql Negative Negative [facility] Comment on above: Performed at: [facility] [employer] [address] [id number] Director: Barry Mcrae PhD, Phone: [phone] Hepatitis C virus IgG Ab [Pr esence] in Serum or Plasma by Immunoassayon 10-05-2023 HCV IgG IA Ql Non-Reactive Non Reactive [facility] Comment on above: HCV antibody alone d oes not differentiate betweenpreviously resolved infection and active infection.Equivocal and Reactive HCV antibody results should befollowed up with an HCV RNA test to support the diagnosisof active HCV infection. Laboratory - Chemistry and C hemistry - challengeon 10-05-2023 Albumin [Mass/Vol] 3.7 g/dL 3.4-5.0 [facility] ALP [Catalytic activity/Vol] 76 U/L 46-116 [facility] ALT [Catalytic activity/Vol] 28 U/L 14-59 [facility] AST [Catalytic activity/Vol] 27 U/L 15-37 [facility] Bilirubin [Mass/Vol] 0.5 mg/dL 0.2-1.[address] [facility] Calcium [Mass/Vol] 8.8 mg/dL 8.5-10.1 [facility] Chloride [Moles/Vol] 103 mmol/L 98-[address] [facility] CO2 [Moles/Vol] 29.5 mmol/L 21.0-32.0 [facility] Creatinine [Mass/Vol] 0.66 mg/dL 0.55-1.02 [facility] GFR/1.73 sq M.predicted MDRD (S/P/Bld) [Vol rate/Area] mL/min/{1.73_m2} >=60 [facility] Glucose [Mass/Vol] 74 mg/dL 74-106 [facility] Potassium [Moles/Vol] 4.1 mmol/L 3.5-5.1 [facility] Protein [Mass/Vol] 7.4 g/dL 6.4-8.2 [facility] Sodium [Moles/Vol] 140 mmol/L 136-145 [facility] Urea nitrogen [Mass/Vol] 11.0 mg/dL 7.0-18.0 [facility] Urea nitrogen/Creatinine [Mass ratio] 16.7 mg/mg [facility] Laboratory - Hematology and Cell countson 10-05-2023 Immature granulocytes/100 WBC (Bld) 0.2 % 0.0-0.5 [facility] Leukocytes [#/volume] correc jemal for nucleated erythrocytes in Blood by Automated counon 10-05-2023 WBC corrected for nucl RBC Auto (Bld) [#/Vol] 4.6 10 3/uL 4.0-11.0 [facility] Lymphocytes Auto (Bld) [#/Vo l]on 10-05-2023 Lymphocytes (Bld) [#/Vol] 1.2 10 3/uL 1.2-3.8 [facility] Lymphocytes/100 WBC Auto (Bl d)on 10-05-2023 Lymphocytes/100 WBC (Bld) 25.7 % 20.5-60.0 [facility] MCH Auto (RBC) [Entitic mass ]on 10-05-2023 MCH (RBC) [Entitic mass] 28.6 pg 26.7-34.0 [facility] MCHC Auto (RBC) [Mass/Vol]on 10-05-2023 MCHC (RBC) [Mass/Vol] 32.0 g/dL 29.9-35.2 [facility] MCV Auto (RBC) [Entitic vol] on 10-05-2023 MCV (RBC) [Entitic vol] 89.4 fL 81.0-99.0 [facility] Midbody Ab [Titer] in Serum by Immunofluorescenceon 10-05-2023 Midbody Ab IF (S) [Titer] TNP . [facility] Mitotic spindle apparatus Ab [Titer] in Serum or Plasma by Immunofluorescenceon 10-05-2023 Mitotic spindle apparatus Ab IF [Titer] TNP . [facility] Monocytes Auto (Bld) [#/Vol] on 10-05-2023 Monocytes (Bld) [#/Vol] 0.4 10 3/uL 0.3-0.8 [facility] Monocytes/100 WBC Auto (Bld) on 10-05-2023 Monocytes/100 WBC (Bld) 8.4 % 1.7-12.0 [facility] Neutrophils Auto (Bld) [#/Vo l]on 10-05-2023 Neutrophils (Bld) [#/Vol] 2.8 10 3/uL 1.4-6.5 [facility] Neutrophils/100 WBC Auto (Bl d)on 10-05-2023 Neutrophils/100 WBC (Bld) 60.4 % 43.0-75.0 [facility] No Panel Informationon 10-04 Anti-Nuclear Antibody Comment 2 Comment . [facility] Comment on above: Pattern Potential Di sease Association Homogeneous Systemic Lupus Erythematosus, Drug Induced Systemic Lupus Erythematosus, Chronic Autoimmune hepatitis, Juvenile Idiopathic Arthritis Speckled Sjogren Syndrome, Systemic Lupus Erythematosus, Subacute Cutaneous Lupus, Lupus, Congenital Heart Block, Mixed Connective Tissue Disease, Scleroderma-diffuse, Scleroderma-Autoimmune Myositis Overlap Syndrome, Systemic Lupus Xvkuqmaldrbzj-Rvvfnxkpyhp-Bcdtwpfbkm Myositis Overlap Syndrome, Systemic Autoimmune Rheumatic Disease, [...] Cytopenias, Linear Scleroderma, Antiphospholipid Syndrome Performed at: [facility] [id number] [place], [place] [id number] Director: Barry Mcrae PhD, Phone: [phone] Eosinophils # (Auto) 0.2 10 3/uL 0.0-0.7 [facility] Immature Granulocyte # (Auto) 0.01 10 3/uL 0.00-0.03 [facility] Nuclear dots nuclear Ab aj herson [Titer] in Serum by Immunofluorescenceon 10-05-2023 Nuclear dots nuclear Ab pattern IF (S) [Titer] TNP . [facility] Nuclear membrane pores nucle ar Ab pattern [Titer] in Serum by Immunofluorescenceon 10-05-2023 Nuclear membrane pores nuclear Ab pattern IF (S) [Titer] TNP . [facility] PCNA extractable nuclear Ab [Titer] in Serum by Immunofluorescenceon 10-05-2023 PCNA extractable nuclear Ab IF (S) [Titer] TNP . [facility] Platelet mean volume Auto (B ld) [Entitic vol]on 10-05-2023 Platelet mean volume (Bld) [Entitic vol] 9.6 fL 9.5-13.5 [facility] Platelets Auto (Bld) [#/Vol] on 10-05-2023 Platelets (Bld) [#/Vol] 340 10 3/uL 150-450 [facility] RBC Auto (Bld) [#/Vol]on RBC (Bld) [#/Vol] 4.72 10 6/uL 4.20-5.40 [facility] Serum homogeneous pattern an tinuclear antibody (ISRA) titeron 10-05-2023 Homogenous nuclear Ab pattern (S) [Titer] TNP . [facility] Serum nuclear antibody titer on 10-05-2023 Nuclear Ab (S) [Titer] Positive . [facility] Comment on above: Negative <1:80 Borde rline 1:80 Positive >1:80Speckled cytoplasmic fluorescence is present. Theantibodies noted in this pattern may be associated with,but not restricted to, primary biliary cirrhosis (PBC),polymyositis and dermatomyositis (PM/DM), and/or systemiclupus erythematosus (SLE). Serum nucleolar pattern anti nuclear antibody (ISRA) titeron 10-05-2023 Nucleolar nuclear Ab pattern (S) [Titer] TNP . [facility] Serum or plasma albumin/glob ulin mass ratioon 10-05-2023 Albumin/Globulin [Mass ratio] 1.0 {ratio} [facility] Serum or plasma anion gap de terminationon 10-05-2023 Anion gap [Moles/Vol] 11.6 mmol/L [facility] Serum speckled pattern antin uclear antibody (ISRA) titeron 10-05-2023 Speckled nuclear Ab pattern (S) [Titer] 1:160 . [facility] Comment on above: ICAP nomenclature: A C-2,4,5,29 Quick Strepon 02-24-2023 S. pyogenes Org specific cx Ql (Throat) Negative [facility] Other Quick Strep [facility] Other Outside Colonoscopyon 2020 Outside Colonoscopy [id number]#[id number]:12 7 [facility] Lab Reportson 05-17-2021 Lab Reports [id number]#[id number]:12 7 [facility] [facility] May 05, 2021 TARUN GLOVER, [facility] [place] [address] Re: OLIMPIA DINH Date of : 1970 Thank you for your referral of Olimpia Dinh who was seen on consultation on April 28, 2021, for screening colonoscopy. I have enclosed my consultation note for your review. I will be happy to follow Olimpia. Sincerely, Trevor Richard Md General Surgery [facility] Pre-Certification Formon Pre-Certification Form [id number]#[id number]:12 7 [facility] Formson 04-29-2021 Forms [id number]#[id number]:12 7 [facility] Ambulatory Clinical Summaryo n 04-28-2021 Ambulatory Clinical Summary {[id number] [facility] Physician Referralon 021 Physician Referral [id number]:[address] [facility] NM PET/CT SKULL-THIGH INITon 09-27-2019 NM PET/CT SKULL-THIGH INIT * * *Final Report* [...] any questions regarding this interpretation, please call [phone]. If you are unable to reach us at the number above, please feel free to contact [facility] at [phone]. [id number] Normal [facility] PROGRESSon 09-27-2019 PROGRESS HNO ID: [id number] Author: Jewel Vivar (Tech) Service: ? Author Type: In Tube Conversion Technician Type: Progress Notes Filed: 09/27/2019 1:22 PM [...] safety can be found using this link: [email or web address] [email or web address] SIGNATURE: Isa Melgar PATIENT NAME: Olimpia Dinh DATE: September 27, 2019 TIME: 1:09 PM PAGER/CONTACT #: Normal [facility] CT-CT CHEST W CON IMPORTon 0 09-09-2019 CT-CT CHEST W CON IMPORT Images were obtained outside of [facility] [id number] Normal [facility] T-Spoton 07-06-2017 T-Spot. TB Test Normal [facility] Comment on above: Result Comment: [facility] [employer] [facility] [id number] [place] [address](NOTE)T-SPOT.TB: NegativeThe test result is Negative because the [...] B Spot Count: 0Positive Control Spot Count: >20[facility] [address] [place], [place] [id number] ([phone] Performed By: #### T SPOT ####[facility] [address] [place], [place] [id number] Vital Signs Date Time Vital Sign Value Performing Clinician Facility 03-29-2024 10:11-0400 Body height 164.47 cm [facility] 03-29-2024 10:11-0400 Body mass index (BMI) [Ratio] 45.3 kg/m2 [facility] 03-29-2024 10:11-0400 Body weight 122.52 kg [facility] 03-29-2024 10:11-0400 Diastolic blood pressure 95 mm[Hg] [facility] 03-29-2024 10:11-0400 Heart rate 98 /min [facility] 03-29-2024 10:11-0400 Respiratory rate 12 /min [facility] 03-29-2024 10:11-0400 Systolic blood pressure 145 mm[Hg] [facility] 12-26-2023 14:25-0400 Body height 164.47 cm DO Tarun Ball Work Phone: [facility] 12-26-2023 14:25-0400 Body mass index (BMI) [Ratio] 46.6 kg/m2 DO Tarun Ball Work Phone: [facility] 12-26-2023 14:25-0400 Body weight 126.26 kg DO Tarun Ball Work Phone: [facility] 12-26-2023 14:25-0400 Diastolic blood pressure 78 mm[Hg] DO Tarun Ball Work Phone: [facility] 12-26-2023 14:25-0400 Heart rate 88 /min DO Tarun Ball Work Phone: [facility] 12-26-2023 14:25-0400 Respiratory rate 12 /min DO Tarun Ball Work Phone: [facility] 12-26-2023 14:25-0400 Systolic blood pressure 120 mm[Hg] DO Tarun Ball Work Phone: [facility] 10-27-2023 11:04-0400 Body height 164.47 cm [facility] 10-27-2023 11:04-0400 Body mass index (BMI) [Ratio] 45.6 kg/m2 [facility] 10-27-2023 11:04-0400 Body weight 123.43 kg [facility] 10-27-2023 11:04-0400 Diastolic blood pressure 82 mm[Hg] [facility] 10-27-2023 11:04-0400 Heart rate 80 /min [facility] 10-27-2023 11:04-0400 Respiratory rate 12 /min [facility] 10-27-2023 11:04-0400 Systolic blood pressure 128 mm[Hg] [facility] 08-21-2023 13:45-0500 Body height 164.47 cm Tarun Ball Other [facility] Other 08-21-2023 13:45-0500 Body mass index (BMI) [Ratio] 45.47 kg/m2 Tarun Ball Other [facility] Other 08-21-2023 13:45-0500 Body weight 123.02 kg Tarun Ball Other [facility] Other 08-21-2023 13:45-0500 Diastolic blood pressure 77 mm[Hg] Tarun Ball Other [facility] Other 08-21-2023 13:45-0500 Respiratory rate 16 /min Tarun Ball Other [facility] Other 08-21-2023 13:45-0500 Systolic blood pressure 136 mm[Hg] Tarun Ball Other [employer] Other 05-19-2023 12:17-0400 Body height 164.47 cm Tarun Ball Other [employer] Other 05-19-2023 12:17-0400 Body mass index (BMI) [Ratio] 43.09 kg/m2 Tarun Ball Other [employer] Other 05-19-2023 12:17-0400 Body weight 116.58 kg Tarun Ball Other [employer] Other 05-19-2023 12:17-0400 Diastolic blood pressure 75 mm[Hg] Tarun Ball Other [employer] Other 05-19-2023 12:17-0400 Systolic blood pressure 119 mm[Hg] Tarun Ball Other [employer] Other 02-27-2023 12:00-0400 Body height 164.47 cm Tarun Ball Other [employer] Other 02-27-2023 12:00-0400 Body mass index (BMI) [Ratio] 43.6 kg/m2 Tarun Ball Other [employer] Other 02-27-2023 12:00-0400 Body weight 117.94 kg Tarun Ball Other [employer] Other 02-24-2023 09:00-0400 Body height 164.47 cm Tasia Emery Other [employer] Other 02-24-2023 09:00-0400 Body mass index (BMI) [Ratio] 44.1 kg/m2 Tasia Emery Other [employer] Other 02-24-2023 09:00-0400 Body weight 119.3 kg Tasia Zavalaley Other [employer] Other 02-24-2023 09:00-0400 Diastolic blood pressure 83 mm[Hg] Tasia Yuly Other [employer] Other 02-24-2023 09:00-0400 Respiratory rate 16 /min Tasia Yuly Other [employer] Other 02-24-2023 09:00-0400 SaO2% (BldA) [Mass fraction] 98 % Tasia Zavalaley Other [employer] Other 02-24-2023 09:00-0400 Systolic blood pressure 125 mm[Hg] Tasiashon Emery Other [employer] Other 01-20-2023 08:30-0400 Body height 164.47 cm Tarun Ball Other [employer] Other 01-20-2023 08:30-0400 Body mass index (BMI) [Ratio] 44.17 kg/m2 Tarun Ball Other [employer] Other 01-20-2023 08:30-0400 Body weight 119.48 kg Tarun Ball Other [employer] Other 01-20-2023 08:30-0400 Diastolic blood pressure 87 mm[Hg] Tarun Ball Other [employer] Other 01-20-2023 08:30-0400 Respiratory rate 12 /min Tarun Ball Other [employer] Other 01-20-2023 08:30-0400 Systolic blood pressure 130 mm[Hg] Tarun Ball Other [employer] Other 01-02-2023 12:00-0400 Body height 164.47 cm Tarun Ball Other [employer] Other 01-02-2023 12:00-0400 Body mass index (BMI) [Ratio] 43.09 kg/m2 Tarun Ball Other [employer] Other 01-02-2023 12:00-0400 Body weight 116.58 kg Tarun Ball Other [employer] Other 01-02-2023 12:00-0400 Diastolic blood pressure 79 mm[Hg] Tarun Ball Other [employer] Other 01-02-2023 12:00-0400 Systolic blood pressure 124 mm[Hg] Tarun Ball Other [employer] Other 11-16-2022 10:30-0400 Body height 164.47 cm Tarun Ball Other [employer] Other 11-16-2022 10:30-0400 Body mass index (BMI) [Ratio] 45.54 kg/m2 Tarun Ball Other [employer] Other 11-16-2022 10:30-0400 Body weight 123.2 kg Tarun Ball Other [employer] Other 11-16-2022 10:30-0400 Diastolic blood pressure 81 mm[Hg] Tarun Ball Other [employer] Other 11-16-2022 10:30-0400 Respiratory rate 12 /min Tarun Ball Other [employer] Other 11-16-2022 10:30-0400 SaO2% (BldA) [Mass fraction] 96 % Tarun Glover Other [facility] Other 11-16-2022 10:30-0400 Systolic blood pressure 115 mm[Hg] Tarun Glover Other [facility] Other Encounters Encounter Date Encounter Type Care Provider Facility Start: 04-02-2024 End: 04-02-2024 ambulatory SOLEDAD PIPER Not Available Start: 03-29-2024 End: 03-29-2024 ambulatory [facility] Work Phone: Start: 03-29-2024 End: 03-29-2024 Patient encounter procedure [facility] Work Phone: Start: 12-26-2023 End: 12-26-2023 ambulatory DO Tarun Ball Work Phone: [facility] Work Phone: Start: 12-26-2023 End: 12-26-2023 Encounter for general adult medical examination without abnormal findings DO Tarun Ball Work Phone: [facility] Start: 12-26-2023 End: 12-26-2023 Patient encounter procedure DO Tarun Ball Work Phone: [facility] Work Phone: Start: 12-06-2023 End: 12-06-2023 Patient encounter procedure DO Tarun Ball Work Phone: [facility] [address] Work Phone: Start: 12-06-2023 End: 12-06-2023 ambulatory DO Tarun Ball Work Phone: [facility] Work Phone: Start: 10-27-2023 End: 10-27-2023 ambulatory [facility] Work Phone: Start: 10-27-2023 End: 10-27-2023 Patient encounter procedure [facility] Work Phone: Start: 10-05-2023 Non-patient / Non-visit [facility] Work Phone: Start: 09-12-2023 Non-patient / Non-visit [facility] Work Phone: Start: 08-21-2023 End: 08-21-2023 ambulatory Tarun Ball Other [employer] Other Start: 08-21-2023 Office outpatient vi sit 15 minutes Tarun Ball [facility] Start: 08-16-2023 End: 08-16-2023 ambulatory Tarun Ball Other [employer] Other Start: 08-16-2023 Office outpatient vi sit 15 minutes Tarun Ball [facility] Start: 07-19-2023 End: 07-19-2023 ambulatory Tarun Ball Other [employer] Other Start: 07-19-2023 Office outpatient vi sit 15 minutes Tarun Ball [facility] Start: 05-19-2023 End: 05-19-2023 ambulatory Tarun Adalberto Other [employer] Other Start: 05-19-2023 Telephone encounter Tarun Ball [facility] Start: 03-17-2023 End: 03-17-2023 ambulatory Tarun Ball Other [employer] Other Start: 03-17-2023 Telephone encounter Tarun Ball [facility] Start: 02-27-2023 End: 02-27-2023 ambulatory Tarun Ball Other [employer] Other Start: 02-27-2023 Office outpatient vi sit 15 minutes Tarun Ball [facility] Start: 02-24-2023 End: 02-24-2023 ambulatory Tasia Emery Other [employer] Other Start: 02-24-2023 Office outpatient vi sit 15 minutes Tasia Emery [facility] Start: 02-24-2023 Telephone encounter Tarun HERNDON [facility] Start: 02-17-2023 End: 02-17-2023 ambulatory Tarun Glover Other [employer] Other Start: 02-17-2023 Telephone encounter Tarun HERNDON [facility] Start: 01-20-2023 End: 01-20-2023 ambulatory Tarun Glover Other [employer] Other Start: 01-20-2023 Office outpatient vi sit 15 minutes Tarun Glover [facility] Start: 01-02-2023 End: 01-02-2023 ambulatory Tarun Glover Other [employer] Other Start: 01-02-2023 Office outpatient vi sit 15 minutes Tarun Glover [facility] Start: 12-14-2022 End: 12-14-2022 ambulatory Tarun Glover Other [employer] Other Start: 12-14-2022 Telephone encounter Tarun HERNDON [facility] Start: 12-07-[address] TARUN GLOVER Facili ty:[facility] Start: 11-16-2022 End: 11-16-2022 ambulatory Tarun Glover Other [employer] Other Start: 11-16-2022 Encounter for genera l adult medical examination without abnormal findings Tarun Glover [facility] Start: 11-16-2022 Periodic preventive med est patient 40-64yrs Tarun Glover [facility] Start: 11-16-2022 Telephone encounter Tarun HERNDON [facility] Start: 09-26-2022 End: 09-26-2022 ambulatory Tarun Glover Other [employer] Other Start: 09-26-2022 Office outpatient vi sit 15 minutes Tarun Glover [facility] Start: 09-12-2022 End: 09-12-2022 ambulatory Tarun Glover Other [employer] Other Start: 09-12-2022 Telephone encounter [facility] Glover [facility] Start: 06-17-2022 Gynecological examination normal Tarun Glover Other [employer] Other Start: 01-03-2022 End: 08-04-[address] MONTRELL CHIU Facility: Start: 07-01-2021 Adult health examination Swapnil Glover Other [employer] Other Start: 07-03-2017 End: 07-04-2017 [facility] Procedures Date Procedure Procedure Detail Performing Clinician Start: 07-03-2017 T-SPOT TB TEST TREVOR BRUSH Depression screening Lila Glover Other Screening for malign ant neoplasm of breast Tarun Glover Other Screening for malign ant neoplasm of colon Tarun Glover Other Plan of Treatment Date Care Activity Detail Author Start: 12-06-2023 Hemolytic complement CH50 level [facility] Start: 12-06-2023 End: 12-06-2023 [facility] Start: 10-27-2023 Patient referral [facility] Work Phone: MG Breast - bilateral Screening [facility] Nuclear Ab [Titer] in Serum [facility] Patient referral [facility] Work Phone: Immunizations Immunization Date Immunization Notes Care Provider Gracie henry 03-31-2021 influenza virus vaccine, split virus (incl. purified surface antigen) Tarun Glover Other [employer] Other 03-31-2021 influenza virus vaccine, unspecified formulation [facility] 05-21-2020 influenza virus vaccine, split virus (incl. purified surface antigen) Tarun Glover Other [employer] Other 05-21-2020 influenza virus vaccine, unspecified formulation [facility] Payers Date Payer Category Payer Unknown [id number] 1970 Unknown [id number] 1970 Unknown [id number] 1960 Private Health Insurance [facility] [id number] 1960 Self-pay Private Health Insurance W [id number] Unknown [id number] [id number] Social History Date Type Detail Facility Unknown if ever smoked [employer] Other Sex Assigned At Sex Assigned At Bir th [employer] Other Start: 08-16-2023 Tobacco smoking status NHIS Never smoked tobacco (finding) [facility] Start: 1970 Sex Assigned At Female F [facility] Clinical Notes 04-28-2021 to 08-21-2023 Note [...] for congestion, Tylenol for pain and fever. [employer] Other 01-31-2024 Evaluation note* Encounter Date Diagnosis [...] [place] as needed for cough and wheezing [employer] Other 01-03-2024 Evaluation note* Encounter Date Diagnosis [...] chest wheezing. ER for CP or dyspnea. [employer] Other 11-03-2023 Evaluation note* Encounter Date Diagnosis Assessment Notes Treatment Notes Treatment Clinical Notes May, Morbid (severe) obesity due to excess calories (ICD-10 - E66.01) [employer] Other 08-14-2023 Evaluation note* Encounter Date Diagnosis [...] index [BMI] 40.0-44.9, adult (ICD-10 - Z68.41) [employer] Other 08-11-2023 Evaluation note* Encounter Date Diagnosis [...] 7 days, sooner if significantly worsening symptoms. [employer] Other 07-07-2023 Evaluation note* Encounter Date Diagnosis [...] index [BMI] 40.0-44.9, adult (ICD-10 - Z68.41) [employer] Other 06-19-2023 Evaluation note* Encounter Date Diagnosis [...] and keep active. No change in treatment [employer] Other 05-31-2023 Evaluation note* Encounter Date Diagnosis Assessment Notes Treatment Notes Treatment Clinical Notes November, Morbid (severe) obesity due to excess calories (ICD-10 - E66.01) [employer] Other 05-03-2023 Evaluation note* Encounter Date Diagnosis [...] - Z12.31) Yearly mammogram and monthly SBE [employer] Other 05-03-2023 Evaluation note* Encounter Date Diagnosis Assessment Notes Treatment Notes Treatment Clinical Notes November, Morbid obesity (ICD-10 - E66.01) [employer] Other 03-13-2023 Evaluation note* Encounter Date Diagnosis Assessment Notes Treatment Notes Treatment Clinical Notes Sep, Acute bronchitis due to other specified organisms (ICD-10 - J20.8) Instructed to use Robitussin or Mucinex for cough, saline or Flonase NS for congestion, Tylenol for pain and fever. Sep, Mild intermittent asthma with acute exacerbation (ICD-10 - J45.21) [employer] Other 02-27-2023 Evaluation note* Encounter Date Diagnosis Assessment Notes Treatment Notes Treatment Clinical Notes Aug, WALTER (generalized anxiety disorder) (ICD-10 - F41.1) [employer] Other 10-13-2021 NoteChief Complaint consultation for screening colonoscopy [facility] Staff 50 year old female presents on [...] 08/24/2020 Recorded SARS-CoV-2 (COVID-19) Ad26 vaccine 07/27/[address] [facility] Center[facility] on above:Result Comment: Electronically Signed By: KAELYN YOUNGBLOOD, Trevor Carreno\Date and Time Signed: 04/28/21 17:55 EDTEvaluation noteNo InformationNortK[facility] Other Evaluation noteNo assessment information available [facility] Work Phone: Evaluation note* Diagnosis Onset Date Resolution Status ISRA positive acute Degenerative arthritis of left hand acute Degenerative arthritis of right hand acute Lumbar spondylosis acute Post-traumatic osteoarthritis, right ankle and foot acute [facility] Work Phone: Evaluation note* Diagnosis Onset Date Resolution Status ISRA positive acute Degenerative arthritis of left hand acute Degenerative arthritis of right hand acute Lumbar spondylosis acute Post-traumatic osteoarthritis, right ankle and foot acute Lumbar spondylosis acute Obesity acute Post-traumatic osteoarthritis, right ankle and foot acute Screening for colon cancer n oneactive Screening mammogram for breast cancer noneactive Wellness examination noneact bladimir [facility] Work Phone: Evaluation note* Diagnosis Onset Date Resolution Status Cervical muscle strain acute Lumbar spondylosis acute Obesity acute [facility] Work Phone: History general Narrative - [...] cholecystectomy Surgical History Hospitalization History see above [facility] Other Summary Purpose Family History No Family History Records Found Relationship Condition Age at Onset Recorded Date/T myrna father Heart disease Unknown Unknown Not Specified Atrial fibrillation Unknown Heart disease Unknown Relationship Condition Age at Onset Recorded Date/T myrna father Heart disease Unknown Unknown mother Atrial fibrillation Unknown Heart disease Unknown Advance Directives No Advanced Directives Records Found Advance Directive Response Recorded Date/ Time Advance Directives No October 26 024 10:47am Chief Complaint and Reason for [...] section and content) DATE CREATED AUTHOR 01/09/2018 [facility] DATE CREATED AUTHOR AUTHOR'S ORGANIZ ATION 09/27/2019 [facility] DATE CREATED AUTHOR AUTHOR'S ORGANIZ ATION [facility]20[facility] DATE CREATED AUTHOR AUTHOR'S ORGANIZ ATION 11/30/2022 [facility] DATE CREATED AUTHOR AUTHOR'S ORGANIZ ATION 12/21/2023 [facility] DATE CREATED AUTHOR AUTHOR'S ORGANIZ ATION 04/04/2024 [facility] EPIC REASON FOR VISIT (unrecogniz ed section and content) Breathing problemssore throa t, coughing, chest tightness, headachesCOVID Positive- Phone Call- [phone] throat, ears pluggedFYI: Urgent CareTrouble swallowing, ears pluggedYeast InfectionBack Spasmsadipex f/uRefill-AdipexWellnesscough, congestion, no taste or smell Care Teams (unrecognized sec tion and content) Team Status: Active Member Role Status Dates Tarun Glover DO Primary Care Provider Active Team Status: Inactive Member Role Status Dates Tarun Glover DO Primary Care Provide r, Attending Provider Active Start: March 29, 2024 End: March 29, 2024 Team Status: Active Member Role Status Dates Tarun Glover DO Primary Care Provider Active Start: September 12, 2023 EVENS Dinh Attending Provider Active Start : September 12, 2023 Team Status: Active Member Role Status Dates Tarun Glover DO Primary Care Provide r, Attending Provider Active Start: October 05, 2023 Team Status: Inactive Member Role Status Dates Tarun Glover DO Primary Care Provide r, Attending Provider Active Start: October 27, 2023 End: October 27, 2023 Team Status: Inactive Member Role Status Dates Tarun Glover DO Primary Care Provider Active Start: December 06, 2023 End: December 06, 2023 Harsha Covarrubias MD Attending Provider Active St art: December 06, 2023 End: December 06, 2023 Team Status: Inactive Member Role Status Dates Tarun Glover DO Primary Care Provide r, Attending Provider Active Start: December 26, 2023 End: December 26, 2023 Goals (unrecognized section and content) Goals may [...] BE BASED ON THE PRIMARY CLINICAL RECORDS. [facility] [employer] [facility] provides no warranty or guarantee of the accuracy or completeness of information in this document.
== END 2024-04-09 12:56 | disposition home or self-care (01) ==
LOC: NOMS 12:56
PROVIDERS: PCP Internal Medicine; Visit Provider Physician Assistant
DX: R10.2 Pelvic and perineal pain (principal)
CPT/HCPCS: 76830; 76856

== ENCOUNTER 2024-05-02 14:12 | Outpatient (OUT) | payer OTHER, SELFPAY ==
--- OUTSIDE RECORDS SUMMARY | 2024-05-02 14:22 | XMS_ITS | CCD ---
Author Organization [facility] Inform ion Partnership [facility] Care Team Providers Care Clinical Application Manager Name Role Phone TREVOR BRUSH Unavailable Tarun Bruce Unavailable APPLE, DR MONTRELL Thomas Admitting Unavailable ADALBERTO, DR JARA Primary Care Unavailable APPLE, DR MONTRELL Thomas Attending Unavailable APPLE, DR MONTRELL Thomas Consulting Unavailable ADALBERTO, DR JARA Attending Unavailable ADALBERTO, DR JARA Primary Care Unavailable ADALBERTO, DR JARA Admitting Unavailable Tasia Emery Unavailable DO Tarun Glover Primary Care Provider [phone] MD Harsha Covarrubias Attending Provider [phone] Harsha Covarrubias Attending Unavailable Harsha Covarrubias Admitting Tarun Bruce Primary Care Unavailable MADISYN PIPER Attending Unavailable CLAUDIA TAYLOR Attending Unavailable Tarun Glover MD Primary Care Provider Allergies Allergy Classification Reported Allergen(s) Allergy Type Date of Onset Reaction(s) Facility (18 sources) Latex Propensity to adverse reactions rash [email or web address] [facility] Other (1 source) Latex Drug allergy (disorder) [facility] Repository (1 source) Morphine Drug Allergy 4 [facility] Repository (8 sources) patient allergy list reviewed by nurse or physicia Propensity to adverse reactions 6 Comment:Done [employer] Other (8 sources) Allergies Reconciled Propensity to adverse reactions Unknown [employer] Other (1 source) Latex Drug allergy (disorder) 4 [facility] Repository (3 sources) Elkins Oil Drug Allergy 3 Unknown [facility] (3 sources) Latex Allergy to substance 3 Unknown [facility] Healthcare (3 sources) WHEAT DEXTRIN Drug Allergy 3 Unknown [facility] Healthcare (3 sources) Milk-Related Compounds Drug Allergy 3 Unknown [facility] Healthcare (3 sources) Soybean-Contain ing Drug Products Drug Allergy 3 Unknown [facility] Healthcare Medications Current Medications Medication Drug Class(es) Dates [...] tablet by mouth every twe lve hours [id number] 200 actuat albuterol 0.09 mg/actuat metered dose [...] 2:00pm Start: 09-26-2022 take 2 puff(s) by mo ut every four hours as needed for cough albuterol HFA 90 mcg/act inhaler INHALE 2 PUFFS BY MOUTH EVERY 4 HOURS NEEDED FOR COUGH AND SHORTNESS OF BREATH 09/26/2022 Active Start: 09-26-2022 take 2 puff(s) by [...] oral tablet (20 sources) Macrolide Antimicrobial Start: Azithromycin 250 MG as directed Orally daily for 5 days Feb, Active benzonatate 100 mg oral capsule (3 sources) Non-narcotic Antitussive Start: take 1 capsule by mouth every eight hours Benzonatate 100 MG 1 capsule as needed Orally Three times a day for 10 days Jul, Active betamethasone 0.5 mg/ml / clotrimazole 10 mg/ml topical cream (3 sources) Azole Antifungal, Corticosteroid Start: End: clotrimazole-betame thasone (Lotrisone) cream Indications: Skin yeast infection Apply 1 application topically Daily Apply to affected area daily for 7 days 45 g 1 04/02/2024 05/02/2024 Active clotrimazole 10 mg/ml topical cream (3 sources) Azole Antifungal clotrimazole (Lotrimin) 1 % cream 1 application every 12 (twelve) hours. Active escitalopram 10 mg oral tablet (20 sources) Serotonin Reuptake Inhibitor Start: take 1 tablet by mouth once daily Escitalopram Oxalate Active 0 .ROUTE .COMPLEX January 01, 2024 12:44pm TAKE ONE TABLET BY MOUTH ONCE DAILY Start: 09-12-2023 End: 10-26-2023 take 1 tablet by mouth once daily Escitalopram Oxalate Discontinued 0 .ROUTE .COMPLEX September 12, 2023 5:24pm October 26, 2023 2:08pm TAKE ONE TABLET BY MOUTH ONCE DAILY Start: 09-12-2022 End: 01-01-2024 take 1 tablet by mouth in the morning escitalopram (Lexapro) 10 MG tablet Take 10 mg by mouth in the morning. 03/17/2023 Active etodolac 500 mg oral tablet (14 [...] Loratadine-Pseud oephedrine Active 1 TAB PO Daily 100 100 March 29, 2024 10:33am Start: 03-04-2023 take 10-240 mg by mo uth every twenty-four hours Loratadine-D 24HR 10-240 MG 24 hr tablet Take 1 tablet by mouth if needed. 03/04/2023 Active take 1 tablet by chanel th every twenty-four hours meloxicam 7.5 mg oral tablet (5 sources) Nonsteroidal Anti-inflammatory Drug Start: 12-26-2023 take 1 tablet by mouth once daily meloxicam (Mobic) 7.5 MG tablet Take 7.5 mg by mouth Daily 12/26/2023 Active paxlovid (300/100) 20 x 150 mg & 10 x 100mg tablet therapy pack (3 sources) Start: 07-19-2023 Paxlovid (300/100) 20 x 150 MG & 10 x 100MG as directed Orally bid for 5 days Jul, Active phentermine hydrochloride 37.5 mg oral tablet (20 sources) Sympathomimetic Amine Anorectic Start: 02-27-2023 End: 04-29-2024 take 1 tablet by mouth once daily before breakfast phentermine (Adipex-P) 37.5 MG tablet TAKE ONE TABLET BY MOUTH DAILY BEFORE BREAKFAST 02/27/2023 04/29/2024 Discontinued Start: 01-02-2023 take 1 tablet by chanel once daily before breakfast Adipex-P 37.5 MG 1 tablet before breakfast Orally Once a day for 30 days Dec, Active Start: 12-14-2022 take 1 tablet by chanel once daily before breakfast Adipex-P 37.5 MG 1 tablet before breakfast Orally Once a day for 30 days November, Active Start: 11-16-2022 take 1 tablet by chanel once daily [...] w/ food for 5 days Jul, Active Semaglutide-Weigh t Management (WEGOVY SC) (2 sources) Semaglutide-Weig ht Management (WEGOVY SC) Inject under the skin Active tiZANidine 4 mg oral tablet (10 [...] quadrant pain; Translations: [Left lower quadrant pain] 04-29-2024 Episodic Acute bronchitis (11 sources) Acute bronchitis [...] foot; Translations: [Contracture, right ankle] Chronic Other and unspecified benign neoplasm (4 sources) Leiomyoma; Translations: [Benign neoplasm of connective and other soft tissue, unspecified] Onset: 04-29-2024 04-29-2024 Episodic Other connective tissue disease (9 sources) Plantar fascial fibromatosis; Translations: [Plantar fascial fibromatosis] Episodic Other connective tissue disease (9 sources) Pain in right foot; Translations: [Pain in right foot] Episodic Other female genital disorders (2 sources) Pain in female genitalia on intercourse; Translations: [Unspecified dyspareunia] 04-29-2024 Chronic Other inflammatory condition of skin (9 sources) [...] Antinuclear Abs, IFA Negative Normal . [facility] Comment on above: Result Comment: Nega tive <1:80 Borderline 1:80 Positive >1:80 ICAP nomenclature: AC-[id number] For more information about Hep-2 cell patterns use ANApatterns.org, the official website for the International Consensus on Antinuclear Antibody (ISRA) Patterns (ICAP). Performed at: [address] [id number] Certified Addiction Counselor: Barry Mcrae PhD, Phone: [phone] Performed By: #### A NA, TPO, C3, C4, CHROMATIN, CH50, THYGLOB AB #### [facility] , Activated partial thrombopla stin time (aPTT) in platelet poor plasma by coagulation aOrdered By: Harsha Covarrubias on 12-06-2023 aPTT Coag (PPP) [Time] 31.9 s 25.1-36.5 [facility] Comment on above: A hematocrit value g reater than 55% may lead to inaccurate results in coagulation testing. Patients having hematocrit values >55% require a special collection tube for coagulation studies. Please contact the laboratory at [phone] for redraw instructions. Alanine aminotransferase [En zymatic activity/volume] in Serum or PlasmaOrdered By: Harsha Covarrubias on 12-06-2023 ALT [Catalytic activity/Vol] 14 U/L 7-52 [facility] Comment on above: Performed By: #### A NA, TPO, C3, C4, CHROMATIN, CH50, THYGLOB AB #### [facility] , Albumin [Mass/volume] in Ser um or Plasma by Bromocresol green (BCG) dye binding methoOrdered By: Harsha Covarrubias on 12-06-2023 Albumin BCG dye [Mass/Vol] 4.2 g/dL 3.5-5.7 [facility] Aldolaseon 12-06-2023 Aldolase 4.3 U/L Normal 3.3-10.3 [facility] Comment on above: Result Comment: Perf ormed at: [facility] [address] [place] [id number] Certified Addiction Counselor: Barry Mcrae PhD, Phone: [phone] PERFORMED BY: [place] [address] [place] [address] PATHOLOGIST ELECTROMECHANICAL TECHNICIAN TERRI HOGAN M.D. Performed By: #### A NA, TPO, C3, C4, CHROMATIN, CH50, THYGLOB AB #### [facility] , Alkaline phosphatase [Enzyma tic activity/volume] in Serum or PlasmaOrdered By: Harsha Covarrubias on 12-06-2023 ALP [Catalytic activity/Vol] 74 U/L 34-104 [facility] Comment on above: Performed By: #### A NA, TPO, C3, C4, CHROMATIN, CH50, THYGLOB AB #### [facility] , Antithyroglobulin Abon 12-05 Antithyroglobulin Ab <1.0 Normal 0.0-0.9 [facility] Comment on above: Result Comment: Thyr oglobulin Antibody measured by [employer] It should be noted that the presence of thyroglobulin antibodies may not be pathogenic nor diagnostic, especially at very low levels. The assay patrol community service officer has found that four percent of individuals without evidence of thyroid disease or autoimmunity will have positive TgAb levels up to 4 IU/mL. Performed at: [facility] [employer] [id number] Certified Addiction Counselor: Barry Mcrae PhD, Phone: [phone] Performed By: #### A NA, TPO, C3, C4, CHROMATIN, CH50, THYGLOB AB #### [facility] , Aspartate aminotransferase [ Enzymatic activity/volume] in Serum or PlasmaOrdered By: Harsha Covarrubias on 12-06-2023 AST [Catalytic activity/Vol] 16 U/L 13-39 [facility] Comment on above: Performed By: #### A NA, TPO, C3, C4, CHROMATIN, CH50, THYGLOB AB #### [facility] , Automated basophil %Ordered By: Harsha Covarrubias on 12-06-2023 Basophils/100 WBC (Bld) 0.6 % . [facility] Comment on above: Performed By: #### A NA, TPO, C3, C4, CHROMATIN, CH50, THYGLOB AB #### [facility] , Automated basophil countOrde red By: Harsha Covarrubias on 12-06-2023 Basophils (Bld) [#/Vol] 0.0 10*3/uL 0.0-0.2 [facility] Comment on above: Performed By: #### A NA, TPO, C3, C4, CHROMATIN, CH50, THYGLOB AB #### [facility] , Automated blood monocyte cou ntOrdered By: Harsha Covarrubias on 12-06-2023 Monocytes (Bld) [#/Vol] 0.5 10*3/uL 0.0-0.8 [facility] Comment on above: Performed By: #### A NA, TPO, C3, C4, CHROMATIN, CH50, THYGLOB AB #### [facility] , Automated eosinophil %Ordere d By: Harsha Covarrubias on 12-06-2023 Eosinophils/100 WBC (Bld) 4.4 % . [facility] Comment on above: Performed By: #### A NA, TPO, C3, C4, CHROMATIN, CH50, THYGLOB AB #### [facility] , Automated eosinophil countOr dered By: Harsha Covarrubias on 12-06-2023 Eosinophils (Bld) [#/Vol] 0.3 10*3/uL 0.0-0.45 [facility] Comment on above: Performed By: #### A NA, TPO, C3, C4, CHROMATIN, CH50, THYGLOB AB #### [facility] , Automated monocyte %Ordered By: Harsha Covarrubias on 12-06-2023 Monocytes/100 WBC (Bld) 6.2 % . [facility] Comment on above: Performed By: #### A NA, TPO, C3, C4, CHROMATIN, CH50, THYGLOB AB #### [facility] , Automated neutrophil %Ordere d By: Harsha Covarrubias on 12-06-2023 Neutrophils/100 WBC (Bld) 67.9 % . [facility] Comment on above: Performed By: #### A NA, TPO, C3, C4, CHROMATIN, CH50, THYGLOB AB #### [facility] , Bacteria [Presence] in Urine by AutomatedOrdered By: Harsha Huntrow on 12-06-2023 Bacteria Auto Ql (U) 2+ [HPF] None Seen [facility] Bilirubin Test strip Ql (U)O rdered By: Harsha Huntrow on 12-06-2023 Bilirubin Ql (U) Negative Negative [facility] Bilirubin.total [Mass/volume ] in Serum or PlasmaOrdered By: Harsha Covarrubias on 12-06-2023 Bilirubin [Mass/Vol] 0.5 mg/dL 0.3-1.0 [facility] Comment on above: Performed By: #### A NA, TPO, C3, C4, CHROMATIN, CH50, THYGLOB AB #### [facility] , C reactive protein [Mass/vol ume] in Serum or PlasmaOrdered By: Harsha Covarrubias on 12-06-2023 CRP [Mass/Vol] 2.0 mg/dL 0.0-0.5 [facility] C-Reactive Proteinon 024 C-Reactive Protein 2.0 mg/dL High 0.0-0.5 [facility] Comment on above: Performed By: #### A NA, TPO, C3, C4, CHROMATIN, CH50, THYGLOB AB #### [facility] , CT biopsyOrdered By: Harsha Covarrubias on 12-06-2023 CT biopsy 4.3 U/L 3.3-10.3 [facility] Comment on above: Performed at: [address] [id number] Director: Barry Mcrae PhD, Phone: [phone] Calcium [Mass/volume] in Ser um or PlasmaOrdered By: Harsha Covarrubias on 12-06-2023 Calcium [Mass/Vol] 9.4 mg/dL 8.6-10.3 [facility] Comment on above: Performed By: #### A NA, TPO, C3, C4, CHROMATIN, CH50, THYGLOB AB #### [facility] , Carbon dioxide, total [Moles /volume] in Serum or PlasmaOrdered By: Harsha Covarrubias on 12-06-2023 CO2 [Moles/Vol] 28.3 mmol/L 21.0-31.[address] [facility] Comment on above: Performed By: #### A NA, TPO, C3, C4, CHROMATIN, CH50, THYGLOB AB #### [facility] , Chloride [Moles/volume] in S alistair or PlasmaOrdered By: Harsha Marci on 12-06-2023 Chloride [Moles/Vol] 105 mmol/L 98-107 [facility] Comment on above: Performed By: #### A NA, TPO, C3, C4, CHROMATIN, CH50, THYGLOB AB #### [facility] , Chromatin Antibodyon 024 Chromatin Antibody <0.2 Normal 0.0-0.9 [facility] Comment on above: Result Comment: Perf ormed at: - [facility] [address] [id number] Certified Addiction Counselor: Barry Mcrae PhD, Phone: [phone] PERFORMED BY: [address] [place] [address] PATHOLOGIST ELECTROMECHANICAL TECHNICIAN TERRI HOGAN M.D. Performed By: #### A NA, TPO, C3, C4, CHROMATIN, CH50, THYGLOB AB #### [facility] , Coagulation Profileon 2023 aPTT Coag (Bld) [Time] 31.9 s Normal 25.1-36.5 [facility] Comment on above: Result Comment: A he matocrit value greater than 55% may lead to inaccurate results in coagulation testing. Patients having hematocrit values >55% require a special collection tube for coagulation studies. Please contact the laboratory at [phone] for redraw instructions. PERFORMED BY: [facility] [address] [place] [address] PATHOLOGIST ELECTROMECHANICAL TECHNICIAN TERRI HOGAN M.D. Performed By: #### E SR, ADDONUAPLUS, T4F, CK, CRP, TSH3, PP, CMP, CBC #### [address] #### RPR W RFX, ALDOLASE #### [facility] , Color of Urine by AutoOrdere d By: Harsha Covarrubias on 12-06-2023 Color (U) Yellow Yellow [facility] Comment on above: Order Comment: Name Collection Type:: Clean-Voided Midstream Performed By: #### A NA, TPO, C3, C4, CHROMATIN, CH50, THYGLOB AB #### [facility] , Complement C3on 12-06-2023 Complement C3 189 mg/dL High 82-167 [facility] Comment on above: Result Comment: Perf ormed at: [address] [id number] Certified Addiction Counselor: Barry Mcrae PhD, Phone: [phone] Performed By: #### A NA, TPO, C3, C4, CHROMATIN, CH50, THYGLOB AB #### [facility] , Complement C4on 12-06-2023 Complement C4 45 mg/dL High 12-38 [facility] Comment on above: Performed By: #### A NA, TPO, C3, C4, CHROMATIN, CH50, THYGLOB AB #### [facility] , Complement Total (CH50)on Complement Total (CH50) >60 Normal >41 [facility] Comment on above: Result Comment: [...] determine out of range values. Performed at: [facility] [employer] [id number] Certified Addiction Counselor: Barry Mcrae PhD, Phone: [phone] PERFORMED BY: [place] [address] PATHOLOGIST ELECTROMECHANICAL TECHNICIAN TERRI HOGAN M.D. Performed By: #### A NA, TPO, C3, C4, CHROMATIN, CH50, THYGLOB AB #### [facility] , Complete Blood Count Auto Di ffon 12-06-2023 Mean Corpuscular HGB Conc 33.9 g/dL Normal 32.0-35.0 [facility] Comment on above: Performed By: #### A NA, TPO, C3, C4, CHROMATIN, CH50, THYGLOB AB #### [facility] , NRBC% 0.1 /100{WBC} Normal 0-0.5 [facility] Comment on above: Performed By: #### A NA, TPO, C3, C4, CHROMATIN, CH50, THYGLOB AB #### [facility] , Comprehensive Metabolic Pane harsh 12-06-2023 Albumin [Mass/Vol] 4.2 g/dL Normal 3.5-5.7 [facility] Comment on above: Performed By: #### A NA, TPO, C3, C4, CHROMATIN, CH50, THYGLOB AB #### [facility] , GFR/1.73 sq M.predicted MDRD (S/P/Bld) [Vol rate/Area] mL/min/{1.73_m2} Normal [facility] Comment on above: Performed By: #### A NA, TPO, C3, C4, CHROMATIN, CH50, THYGLOB AB #### [facility] , Creatine kinase [Enzymatic a ctivity/volume] in Serum or PlasmaOrdered By: Harsha Covarrubias on 12-06-2023 CK [Catalytic activity/Vol] 59 U/L 30-223 [facility] Comment on above: Result Comment: PERF ORMED BY: [facility] [address] [place] [address] PATHOLOGIST ELECTROMECHANICAL TECHNICIAN TERRI HOGAN M.D. Performed By: #### E SR, ADDONUAPLUS, T4F, CK, CRP, TSH3, PP, CMP, CBC #### [address] #### RPR W RFX, ALDOLASE #### [facility] , Creatinine [Mass/volume] in Serum or PlasmaOrdered By: Harsha Covarrubias on 12-06-2023 Creatinine [Mass/Vol] 0.60 mg/dL 0.60-1.20 [facility] Comment on above: Performed By: #### A NA, TPO, C3, C4, CHROMATIN, CH50, THYGLOB AB #### [facility] , Dipstick and Microscopicon 0 12-06-2023 Appearance (U) Clear Normal Clear [facility] Comment on above: Order Comment: Name Collection Type:: Clean-Voided Midstream Performed By: #### A NA, TPO, C3, C4, CHROMATIN, CH50, THYGLOB AB #### [facility] , Bacteria,Urine 2+ High None Seen [facility] Comment on above: Order Comment: Name Collection Type:: Clean-Voided Midstream Performed By: #### A NA, TPO, C3, C4, CHROMATIN, CH50, THYGLOB AB #### [facility] , Bilirubin,Urine Negative Normal Negative [facility] Comment on above: Order Comment: Name Collection Type:: Clean-Voided Midstream Performed By: #### A NA, TPO, C3, C4, CHROMATIN, CH50, THYGLOB AB #### [facility] , Glucose Ql (U) Normal Normal Normal [facility] Comment on above: Order Comment: Name Collection Type:: Clean-Voided Midstream Performed By: #### A NA, TPO, C3, C4, CHROMATIN, CH50, THYGLOB AB #### [facility] , Hyaline Casts,Urine 0-8 Normal 0-8 [facility] Comment on above: Order Comment: Name Collection Type:: Clean-Voided Midstream Result Comment: PERF ORMED BY: [place] [address] PATHOLOGIST ELECTROMECHANICAL TECHNICIAN TERRI HOGAN M.D. Performed By: #### A NA, TPO, C3, C4, CHROMATIN, CH50, THYGLOB AB #### [facility] , Ketones Ql (U) Negative Normal Negative [facility] Comment on above: Order Comment: Name Collection Type:: Clean-Voided Midstream Performed By: #### A NA, TPO, C3, C4, CHROMATIN, CH50, THYGLOB AB #### [facility] , Leukocyte esterase Test strip Ql (U) Negative Normal Negative [facility] Comment on above: Order Comment: Name Collection Type:: Clean-Voided Midstream Performed By: #### A NA, TPO, C3, C4, CHROMATIN, CH50, THYGLOB AB #### [facility] , Nitrite,Urine Negative Normal Negative [facility] Comment on above: Order Comment: Name Collection Type:: Clean-Voided Midstream Performed By: #### A NA, TPO, C3, C4, CHROMATIN, CH50, THYGLOB AB #### [facility] , Occult Blood,Urine Negative Normal Negative [facility] Comment on above: Order Comment: Name Collection Type:: Clean-Voided Midstream Performed By: #### A NA, TPO, C3, C4, CHROMATIN, CH50, THYGLOB AB #### [facility] , Protein,Urine Negative Normal Negative [facility] Comment on above: Order Comment: Name Collection Type:: Clean-Voided Midstream Performed By: #### A NA, TPO, C3, C4, CHROMATIN, CH50, THYGLOB AB #### [facility] , RBC LM.HPF (Urine sed) [#/Area] 0 /[HPF] Normal 0-4 [facility] Comment on above: Order Comment: Name Collection Type:: Clean-Voided Midstream Performed By: #### A NA, TPO, C3, C4, CHROMATIN, CH50, THYGLOB AB #### [facility] , Specificy [place],Urine 1.026 Normal 1.001-1.03 0 [facility] Comment on above: Order Comment: Name Collection Type:: Clean-Voided Midstream Performed By: #### A NA, TPO, C3, C4, CHROMATIN, CH50, THYGLOB AB #### [facility] , Squamous Epithelial Cell,Urine 3-4 High 0-2 [facility] Comment on above: Order Comment: Name Collection Type:: Clean-Voided Midstream Performed By: #### A NA, TPO, C3, C4, CHROMATIN, CH50, THYGLOB AB #### [facility] , Urobilinogen,Urine Normal Normal Normal [facility] Comment on above: Order Comment: Name Collection Type:: Clean-Voided Midstream Performed By: #### A NA, TPO, C3, C4, CHROMATIN, CH50, THYGLOB AB #### [facility] , WBC,Urine 3-4 Normal 0-4 [facility] Comment on above: Order Comment: Name Collection Type:: Clean-Voided Midstream Performed By: #### A NA, TPO, C3, C4, CHROMATIN, CH50, THYGLOB AB #### [facility] , Erythrocyte Sedimentation Ra sherrie 12-06-2023 ESR (Bld) [Velocity] 35 mm/h High 0-29 [facility] Comment on above: Result Comment: PERF ORMED BY: [facility] [address] [place] [address] PATHOLOGIST ELECTROMECHANICAL TECHNICIAN TERRI HOGAN M.D. Performed By: #### A NA, TPO, C3, C4, CHROMATIN, CH50, THYGLOB AB #### [facility] , Erythrocyte distribution wid th [Ratio] by Automated countOrdered By: Harsha Covarrubias on 12-06-2023 Erythrocyte distribution width (RBC) [Ratio] 13.6 % 11.9-15.3 [facility] Comment on above: Performed By: #### A NA, TPO, C3, C4, CHROMATIN, CH50, THYGLOB AB #### [facility] , Erythrocyte sedimentation ra te by Photometric methodOrdered By: Harsha Covarrubias on 12-06-2023 ESR Photometric method (Bld) [Velocity] 35 mm/hr 0-29 [facility] Erythrocytes [#/volume] in B lood by Automated countOrdered By: Harsha Covarrubias on 12-06-2023 RBC (Bld) [#/Vol] 4.83 10*6/uL 3.60-5.00 [facility] Comment on above: Performed By: #### A NA, TPO, C3, C4, CHROMATIN, CH50, THYGLOB AB #### [facility] , Glucose [Mass/volume] in Ser um or PlasmaOrdered By: Harsha Covarrubias on 12-06-2023 Glucose [Mass/Vol] 72 mg/dL 70-100 [facility] Comment on above: ADA recommended refe rence rangeRandom Glucose Reference Range is dependent on time and content of last meal. Glucose of more than 200 mg/dL in a nonstressed, ambulatory subject supports the diagnosis of Diabetes Mellitus. Result Comment: [place] om Glucose Reference Range is dependent on [...] Hematocrit (Bld) [Volume fraction] 41.9 % 34.0-46.4 [facility] Comment on above: Performed By: #### A NA, TPO, C3, C4, CHROMATIN, CH50, THYGLOB AB #### [facility] , Hemoglobin [Mass/volume] in BloodOrdered By: Harsha Covarrubias on 12-06-2023 Hemoglobin (Bld) [Mass/Vol] 14.2 g/dL 11.8-15.4 [facility] Comment on above: Performed By: #### A NA, TPO, C3, C4, CHROMATIN, CH50, THYGLOB AB #### [facility] , INR in Platelet poor plasma by Coagulation assayOrdered By: Harsha Covarrubias on 12-06-2023 INR Coag (PPP) [Relative time] 0.9 {INR} [facility] Comment on above: INR Therapeutic Rang e [...] CK, CRP, TSH3, PP, CMP, CBC #### [address] #### RPR W RFX, ALDOLASE #### [facility] , Ketones Auto test strip (U) [Mass/Vol]Ordered By: Harsha Covarrubias on 12-06-2023 Ketones (U) [Mass/Vol] Negative Negative [facility] Laboratory - UrinalysisOrder ed By: Harsha Covarrubias on 12-06-2023 Hyaline casts LM Ql (Urine sed) 0-8 [LPF] 0-8 [facility] Leukocytes [#/area] in Urine sediment by Automated countOrdered By: Harsha Covarrubias on 12-06-2023 WBC Auto (Urine sed) [#/Area] 3-4 [HPF] 0-4 [facility] Leukocytes [#/volume] correc jemal for nucleated erythrocytes in Blood by Automated counOrdered By: Harsha Covarrubias on 12-06-2023 WBC corrected for nucl RBC Auto (Bld) [#/Vol] 7.8 10*3/uL 3.8-11.6 [facility] Leukocytes [#/volume] in Blo od by Automated countOrdered By: Harsha Covarrubias on 12-06-2023 WBC (Bld) [#/Vol] 7.8 10*3/uL 3.8-11.6 [facility] Comment on above: Performed By: #### A NA, TPO, C3, C4, CHROMATIN, CH50, THYGLOB AB #### [facility] , Lupus Anticoagulant Compon 0 12-06-2023 Dilute Prothrombin Time (dPt) 35.4 Normal 0.0-47.6 [facility] Comment on above: Performed By: #### L UPANTCOAG #### [facility] , dPT Confirm Ratio 1.18 Normal 0.00-1.34 [facility] Comment on above: Performed By: #### L UPANTCOAG #### [facility] , DRVVT Lupus 36.8 Normal 0.0-47.0 [facility] Comment on above: Performed By: #### L UPANTCOAG #### [facility] , Interpretation Comment: Normal . [facility] Comment on above: Result Comment: No l upus anticoagulant was detected. Performed at: [facility] [address] [id number] Certified Addiction Counselor: Juany Baker MD, Phone: [phone] PERFORMED BY: [facility] [address] [place] [address] PATHOLOGIST ELECTROMECHANICAL TECHNICIAN TERRI HOGAN M.D. Performed By: #### L UPANTCOAG #### [facility] , PTT-LA 38.7 Normal 0.0-43.5 [facility] Comment on above: Performed By: #### L UPANTCOAG #### [facility] , Thrombin Time 16.9 Normal 0.0-23.0 [facility] Comment on above: Performed By: #### L UPANTCOAG #### [facility] , Lupus anticoagulant [Interpr etation] in Platelet poor plasmaOrdered By: Harsha Covarrubias on 12-06-2023 Lupus anticoagulant (PPP) [Interp] Comment: . [facility] Comment on above: No lupus anticoagula nt was detected.Performed at: - [address] [id number] Director: Juany Baker MD, Phone: [phone] Lymphocytes [#/volume] in Bl ood by Automated countOrdered By: Harsha Covarrubias on 12-06-2023 Lymphocytes (Bld) [#/Vol] 1.6 10*3/uL 1.00-4.8 [facility] Comment on above: Performed By: #### A NA, TPO, C3, C4, CHROMATIN, CH50, THYGLOB AB #### [facility] , Lymphocytes/100 leukocytes i n Blood by Automated countOrdered By: Harsha Covarrubias on 12-06-2023 Lymphocytes/100 WBC (Bld) 20.9 % . [facility] Comment on above: Performed By: #### A NA, TPO, C3, C4, CHROMATIN, CH50, THYGLOB AB #### [facility] , MCH [Entitic mass] by Automa jemal countOrdered By: Harsha Covarrubias on 12-06-2023 MCH (RBC) [Entitic mass] 29.4 pg 24.7-34.3 [facility] Comment on above: Performed By: #### A NA, TPO, C3, C4, CHROMATIN, CH50, THYGLOB AB #### [facility] , MCHC Auto (RBC) [Mass/Vol]Or dered By: Harsha Covarrubias on 12-06-2023 MCHC (RBC) [Mass/Vol] 33.9 g/dL 32.0-35.0 [facility] MCV [Entitic volume] by Auto mated countOrdered By: Harsha Covarrubias on 12-06-2023 MCV (RBC) [Entitic vol] 86.8 fL 80-100 [facility] Comment on above: Performed By: #### A NA, TPO, C3, C4, CHROMATIN, CH50, THYGLOB AB #### [facility] , Neutrophils [#/volume] in Bl ood by Automated countOrdered By: Harsha Covarrubias on 12-06-2023 Neutrophils (Bld) [#/Vol] 5.3 10*3/uL 1.8-7.7 [facility] Comment on above: Performed By: #### A NA, TPO, C3, C4, CHROMATIN, CH50, THYGLOB AB #### [facility] , Nitrite Test strip Ql (U)Ord ered By: Harsha Covarrubias on 12-06-2023 Nitrite Ql (U) Negative Negative [facility] No Panel InformationOrdered By: Harsha Covarrubias on 12-06-2023 Estimated GFR (CKD-EPI) > 60.0 mL/Min [facility] Creatinine Clearance (Chem N/A [facility] Urine RBC 0-1 [HPF] 0-4 [facility] Total Complement (CH50) >60 U/mL >41 [facility] Comment on above: Age Male Female 1 [...] to determine out of range values.Performed at: [facility] [facility] [id number] Director: Barry Mcrae PhD, Phone: [phone] Nucleated erythrocytes [Pres ence] in Blood by Automated countOrdered By: Harsha Covarrubias on 12-06-2023 Nucleated RBC Auto Ql (Bld) 0.1 /100{WBC} 0-0.5 [facility] Platelet mean volume [Entiti c volume] in Blood by Automated countOrdered By: Harsha Covarrubias on 12-06-2023 Platelet mean volume (Bld) [Entitic vol] 8.3 fL 6.3-10.7 [facility] Comment on above: Performed By: #### A NA, TPO, C3, C4, CHROMATIN, CH50, THYGLOB AB #### [facility] , Platelet poor plasma ratio o f lupus anticoagulant-sensitive activated partial thromboOrdered By: Harsha Covarrubias on 12-06-2023 aPTT.lupus sensitive.excess phospholipid actual/normal Coag (PPP) [Relative time] 35.4 sec 0.0-47.6 [facility] Platelets [#/volume] in Bloo d by Automated countOrdered By: Harsha Covarrubias on 12-06-2023 Platelets (Bld) [#/Vol] 330 10*3/uL 150-450 [facility] Comment on above: Performed By: #### A NA, TPO, C3, C4, CHROMATIN, CH50, THYGLOB AB #### [facility] , Potassium [Moles/volume] in Serum or PlasmaOrdered By: Harsha Covarrubias on 12-06-2023 Potassium [Moles/Vol] 4.3 mmol/L 3.5-5.1 [facility] Comment on above: Performed By: #### A NA, TPO, C3, C4, CHROMATIN, CH50, THYGLOB AB #### [facility] , Protein Auto test strip (U) [Mass/Vol]Ordered By: Harsha Covarrubias on 12-06-2023 Protein (U) [Mass/Vol] Negative Negative [facility] Protein [Mass/volume] in Ser um or PlasmaOrdered By: Harsha Covarrubias on 12-06-2023 Protein [Mass/Vol] 7.0 g/dL 6.4-8.9 [facility] Comment on above: Performed By: #### A NA, TPO, C3, C4, CHROMATIN, CH50, THYGLOB AB #### [facility] , Prothrombin time (PT)Ordered By: Harsha Covarrubias on 12-06-2023 PT Coag (PPP) [Time] 10.6 s 9.0-12.9 [facility] Comment on above: A hematocrit value g reater than 55% may lead to inaccurate results in coagulation testing. Patients having hematocrit values >55% require a special collection tube for coagulation studies. Please contact the laboratory at [phone] for redraw instructions. Result Comment: A he matocrit value greater than 55% may lead to inaccurate results in coagulation testing. Patients having hematocrit values >55% require a special collection tube for coagulation studies. Please contact the laboratory at [phone] for redraw instructions. Performed By: #### E SR, ADDONUAPLUS, T4F, CK, CRP, TSH3, PP, CMP, CBC #### [address] #### RPR W RFX, ALDOLASE #### [facility] , RPR w/rfx to Quant TP Abson 12-06-2023 RPR, Rfx Quant RPR Non-Reactive Normal Non Reactive [facility] Comment on above: Result Comment: Perf ormed at: CB - [facility] [id number] [place], [place] [id number] Certified Addiction Counselor: Barry Mcrae PhD, Phone: [phone] PERFORMED BY: [place] [address] PATHOLOGIST ELECTROMECHANICAL TECHNICIAN TERRI HOGAN M.D. Performed By: #### A NA, TPO, C3, C4, CHROMATIN, CH50, THYGLOB AB #### [facility] , Reagin Ab [Presence] in Seru m by RPROrdered By: Harsha Covarrubias on 12-06-2023 Reagin Ab RPR Ql (S) Non-Reactive Non Reactive [facility] Comment on above: Performed at: CB - [facility] [address] [id number] Director: Barry Mcrae PhD, Phone: [phone] Screening dilute Josiah's v iper venom time (DRVVT) with reflex to confirmatory testOrdered By: Harsha Covarrubias on 12-06-2023 dRVVT Coag (PPP) [Time] 36.8 s 0.0-47.0 [facility] Screening lupus anticoagulan t-sensitive activated partial thromboplastin time (aPTT)Ordered By: Harsha Covarrubias on 12-06-2023 aPTT.lupus sensitive Coag (PPP) [Time] 38.7 sec 0.0-43.5 [facility] Serum globulin measurement b y calculation (mass/volume)Ordered By: Harsha Covarrubias on 12-06-2023 Globulin (S) [Mass/Vol] 2.8 g/dL [facility] Comment on above: Performed By: #### A NA, TPO, C3, C4, CHROMATIN, CH50, THYGLOB AB #### [facility] , Serum homogeneous pattern an tinuclear antibody (ISRA) titerOrdered By: Harsha Covarrubias on 12-06-2023 Homogenous nuclear Ab pattern (S) [Titer] N/A [facility] Serum nuclear antibody titer Ordered By: Harsha Covarrubias on 12-06-2023 Nuclear Ab (S) [Titer] Negative . [facility] Comment on above: Negative <1:80 Borde rline 1:80 Positive >1:80ICAP nomenclature: [id number] more information about Hep-2 cell patterns useANApatterns.org, the official website for theInternational Consensus on Antinuclear Antibody (ISRA)Patterns (ICAP).Performed at: [facility] [employer] [id number] Director: Barry Mcrae PhD, Phone: [phone] Serum or plasma albumin/glob ulin mass ratioOrdered By: Harsha Covarrubias on 12-06-2023 Albumin/Globulin [Mass ratio] 1.5 {ratio} [facility] Comment on above: Performed By: #### A NA, TPO, C3, C4, CHROMATIN, CH50, THYGLOB AB #### [facility] , Serum or plasma anion gap de terminationOrdered By: Harsha Covarrubias on 12-06-2023 Anion gap [Moles/Vol] 10.0 mmol/L 6.0-15.0 [facility] Comment on above: Performed By: #### A NA, TPO, C3, C4, CHROMATIN, CH50, THYGLOB AB #### [facility] , Serum or plasma chromatin an tibody assay (units/volume)Ordered By: Harsha Covarrubias on 12-06-2023 Chromatin Ab Qn <0.2 AI 0.0-0.9 [facility] Comment on above: Performed at: [employer] [facility] [address] [id number] Director: Barry Mcrae PhD, Phone: [phone] Serum or plasma complement C 3 measurement (mass/volume)Ordered By: Harsha Covarrubias on 12-06-2023 Complement C3 [Mass/Vol] 189 mg/dL 82-167 [facility] Comment on above: Performed at: [employer] [facility] [employer] [address] [id number] Director: Barry Mcrae PhD, Phone: [phone] Serum or plasma complement C 4 measurement (mass/volume)Ordered By: Harsha Covarrubias on 12-06-2023 Complement C4 [Mass/Vol] 45 mg/dL 12-38 [facility] Serum or plasma thyroglobuli n antibody assay (units/volume)Ordered By: Harsha Covarrubias on 12-06-2023 Thyroglobulin Ab Qn [IU]/mL 0.0-0.9 [facility] Comment on above: Thyroglobulin Antibo dy measured by Yonis ZaldivaMethodologyIt should be noted that the presence of thyroglobulinantibodies may not be pathogenic nor diagnostic, especiallyat very low levels. The assay patrol community service officer has found thatfour percent of individuals without evidence of thyroiddisease or autoimmunity will have positive TgAb levels upto 4 IU/mL.Performed at: [employer] - [facility] [id number] Director: Barry Mcrae PhD, Phone: [phone] Serum or plasma thyroperoxid ase antibody assay (units/volume)Ordered By: Harsha Covarrubias on 12-06-2023 TPO Ab Qn [IU]/mL 0-34 [facility] Comment on above: Performed at: [employer] [address] [id number] Director: Barry Mcrae PhD, Phone: [phone] Sodium [Moles/volume] in Ser um or PlasmaOrdered By: Harsha Covarrubias on 12-06-2023 Sodium [Moles/Vol] 139 mmol/L 136-145 [facility] Comment on above: Performed By: #### A NA, TPO, C3, C4, CHROMATIN, CH50, THYGLOB AB #### [facility] , Specific gravity Auto test s trip (U) [Rel density]Ordered By: Harsha Covarrubias on 12-06-2023 Specific gravity (U) [Rel density] 1.026 1.001-1.03 0 [facility] Squamous epithelial cells de tection in urine sediment by light microscopyOrdered By: Harsha Covarrubias on 12-06-2023 Epithelial cells.squamous LM Ql (Urine sed) 3-4 [HPF] 0-2 [facility] TT plasOrdered By: Harsha patel on 12-06-2023 Thrombin time Coag (PPP) [Time] 16.9 sec 0.0-23.0 [facility] Thyroid Peroxidase Antibodie son 12-06-2023 Thyroid Peroxidase Antibodies <9 Normal 0-34 [facility] Comment on above: Result Comment: Perf ormed at: - [facility] [address] [id number] Certified Addiction Counselor: Barry Mcrae PhD, Phone: [phone] Performed By: #### A NA, TPO, C3, C4, CHROMATIN, CH50, THYGLOB AB #### [facility] , Thyrotropin [Units/volume] i n Serum or PlasmaOrdered By: Harsha Covarrubias on 12-06-2023 TSH Qn 1.93 m[IU]/L 0.45-5.33 [facility] Comment on above: Result Comment: PERF ORMED BY: [address] [place] [address] PATHOLOGIST ELECTROMECHANICAL TECHNICIAN TERRI HOGAN M.D. Performed By: #### A NA, TPO, C3, C4, CHROMATIN, CH50, THYGLOB AB #### [facility] , Thyroxine (T4) free [Mass/vo lume] in Serum or PlasmaOrdered By: Harsha Covarrubias on 12-06-2023 Free T4 [Mass/Vol] 0.85 ng/dL 0.61-1.12 [facility] Comment on above: Performed By: #### A NA, TPO, C3, C4, CHROMATIN, CH50, THYGLOB AB #### [facility] , Urea nitrogen [Mass/volume] in Serum or PlasmaOrdered By: Harsha Covarrubias on 12-06-2023 Urea nitrogen [Mass/Vol] 16 mg/dL 7 [facility] Comment on above: Performed By: #### A NA, TPO, C3, C4, CHROMATIN, CH50, THYGLOB AB #### [facility] , Urine clarity by refractomet ry automatedOrdered By: Harsha Covarrubias on 12-06-2023 Clarity Refractometry automated (U) Clear Clear [facility] Urine glucose measurement by automated test strip (mass/volume)Ordered By: Harsha Covarrubias on 12-06-2023 Glucose Auto test strip (U) [Mass/Vol] Normal mg/dL Normal [facility] Urine hemoglobin detection b y automated test stripOrdered By: Harsha Covarrubias on 12-06-2023 Hemoglobin Auto test strip Ql (U) Negative Negative [facility] Urine leukocyte esterase det ection by automated test stripOrdered By: Harsha Covarrubias on 12-06-2023 Leukocyte esterase Auto test strip Ql (U) Negative Negative [facility] Urine pH measurement by auto mated test stripOrdered By: Harsha Covarrubias on 12-06-2023 pH (U) 5.5 [pH] 5.0-9.0 [facility] Comment on above: Order Comment: Name Collection Type:: Clean-Voided Midstream Performed By: #### A NA, TPO, C3, C4, CHROMATIN, CH50, THYGLOB AB #### [facility] , Urobilinogen Auto test strip (U) [Mass/Vol]Ordered By: Harsha Covarrubias on 12-06-2023 Urobilinogen (U) [Mass/Vol] Normal mg/dL Normal [facility] aPTT.lupus sensitive/aPTT.lynn pus sensitive W excess phospholipid (screen to confirm raOrdered By: Harsha Covarrubias on 12-06-2023 aPTT.lupus sensitive/aPTT.lupus sensitive W excess phospholipid Coag (PPP) [Ratio] 1.18 Ratio 0.00-1.34 [facility] Basophils Auto (Bld) [#/Vol] on 10-05-2023 Basophils (Bld) [#/Vol] 0.0 10 3/uL 0.0-0.1 [facility] Basophils/100 WBC Auto (Bld) on 10-05-2023 Basophils/100 WBC (Bld) 0.9 % 0.2-2.0 [facility] Centriole Ab [Titer] in Seru m by Immunofluorescenceon 10-05-2023 Centriole Ab IF (S) [Titer] TNP . [facility] Centromere Ab [Titer] in Ser um by Immunofluorescenceon 10-05-2023 Centromere Ab IF (S) [Titer] TNP . [facility] Eosinophils/100 WBC Auto (Bl d)on 10-05-2023 Eosinophils/100 WBC (Bld) 4.4 % 0.9-7.0 [facility] Erythrocyte distribution wid th Auto (RBC) [Ratio]on 10-05-2023 Erythrocyte distribution width (RBC) [Ratio] 12.8 % 11.0-15.0 [facility] Estimated glomerular filtrat ion rate (GFR) non- Americanon 10-05-2023 GFR/1.73 sq M.predicted among non-blacks MDRD (S/P/Bld) [Vol rate/Area] mL/min/{1.73_m2} >=60 [facility] Globulin Calc (S) [Mass/Vol] on 10-05-2023 Globulin (S) [Mass/Vol] 3.7 g/dL [facility] Hematocrit Auto (Bld) [Volum e fraction]on 10-05-2023 Hematocrit (Bld) [Volume fraction] 42.2 % 36.0-48.0 [facility] Hemoglobin [Mass/volume] in Bloodon 10-05-2023 Hemoglobin (Bld) [Mass/Vol] 13.5 g/dL 12.0-16.0 [facility] Hepatitis B virus surface Ag [Presence] in Serum or Plasma by Immunoassayon 10-05-2023 HBV surface Ag IA Ql Negative Negative [facility] Comment on above: Performed at: - [facility] [address] [id number] Director: Barry Mcrae PhD, Phone: [phone] Hepatitis C virus IgG Ab [Pr esence] in Serum or Plasma by Immunoassayon 10-05-2023 HCV IgG IA Ql Non-Reactive Non Reactive [facility] Comment on above: HCV antibody alone d oes not differentiate betweenpreviously resolved infection and active infection.Equivocal and Reactive HCV antibody results should befollowed up with an HCV RNA test to support the diagnosisof active HCV infection. Laboratory - Chemistry and C hemistry - challengeon 10-05-2023 Albumin [Mass/Vol] 3.7 g/dL 3.4-5.0 [facility] ALP [Catalytic activity/Vol] 76 U/L 46-116 [facility] ALT [Catalytic activity/Vol] 28 U/L 14-59 [facility] AST [Catalytic activity/Vol] 27 U/L 15-37 [facility] Bilirubin [Mass/Vol] 0.5 mg/dL 0.2-1.0 [facility] Calcium [Mass/Vol] 8.8 mg/dL 8.5-10.1 [facility] Chloride [Moles/Vol] 103 mmol/L 98-107 [facility] CO2 [Moles/Vol] 29.5 mmol/L 21.0-32.[address] [facility] Creatinine [Mass/Vol] 0.66 mg/dL 0.55-1.02 [facility] GFR/1.73 sq M.predicted MDRD (S/P/Bld) [Vol rate/Area] mL/min/{1.73_m2} >=60 [facility] Glucose [Mass/Vol] 74 mg/dL 74-106 [facility] Potassium [Moles/Vol] 4.1 mmol/L 3.5-5.1 [facility] Protein [Mass/Vol] 7.4 g/dL 6.4-8.2 [facility] Sodium [Moles/Vol] 140 mmol/L 136-145 [facility] Urea nitrogen [Mass/Vol] 11.0 mg/dL 7.0-18.0 [facility] Urea nitrogen/Creatinine [Mass ratio] 16.7 mg/mg [facility] Laboratory - Hematology and Cell countson 10-05-2023 Immature granulocytes/100 WBC (Bld) 0.2 % 0.0-0.5 [facility] Leukocytes [#/volume] correc jemal for nucleated erythrocytes in Blood by Automated counon 10-05-2023 WBC corrected for nucl RBC Auto (Bld) [#/Vol] 4.6 10 3/uL 4.0-11.0 [facility] Lymphocytes Auto (Bld) [#/Vo l]on 10-05-2023 Lymphocytes (Bld) [#/Vol] 1.2 10 3/uL 1.2-3.8 [facility] Lymphocytes/100 WBC Auto (Bl d)on 10-05-2023 Lymphocytes/100 WBC (Bld) 25.7 % 20.5-60.0 [facility] MCH Auto (RBC) [Entitic mass ]on 10-05-2023 MCH (RBC) [Entitic mass] 28.6 pg 26.7-34.0 [facility] MCHC Auto (RBC) [Mass/Vol]on 10-05-2023 MCHC (RBC) [Mass/Vol] 32.0 g/dL 29.9-35.2 [facility] MCV Auto (RBC) [Entitic vol] on 10-05-2023 MCV (RBC) [Entitic vol] 89.4 fL 81.0-99.0 [facility] Midbody Ab [Titer] in Serum by Immunofluorescenceon 10-05-2023 Midbody Ab IF (S) [Titer] TNP . [facility] Mitotic spindle apparatus Ab [Titer] in Serum or Plasma by Immunofluorescenceon 10-05-2023 Mitotic spindle apparatus Ab IF [Titer] TNP . [facility] Monocytes Auto (Bld) [#/Vol] on 10-05-2023 Monocytes (Bld) [#/Vol] 0.4 10 3/uL 0.3-0.8 [facility] Monocytes/100 WBC Auto (Bld) on 10-05-2023 Monocytes/100 WBC (Bld) 8.4 % 1.7-12.0 [facility] Neutrophils Auto (Bld) [#/Vo l]on 10-05-2023 Neutrophils (Bld) [#/Vol] 2.8 10 3/uL 1.4-6.5 [facility] Neutrophils/100 WBC Auto (Bl d)on 10-05-2023 Neutrophils/100 WBC (Bld) 60.4 % 43.0-75.0 [facility] No Panel Informationon 10-04 Anti-Nuclear Antibody Comment 2 Comment . [facility] Comment on above: Pattern Potential Di sease Association Homogeneous Systemic Lupus Erythematosus, Drug Induced Systemic Lupus Erythematosus, Chronic Autoimmune hepatitis, Juvenile Idiopathic Arthritis Speckled Sjogren Syndrome, Systemic Lupus Erythematosus, Subacute Cutaneous Lupus, Lupus, Congenital Heart Block, Mixed Connective Tissue Disease, Scleroderma-diffuse, Scleroderma-Autoimmune Myositis Overlap Syndrome, Systemic Lupus Dyunolozcryxj-Rvtmhkwqrpz-Bhyybiztav Myositis Overlap Syndrome, Systemic Autoimmune Rheumatic Disease, [...] Cytopenias, Linear Scleroderma, Antiphospholipid Syndrome Performed at: [employer] [id number] Director: Barry Mcrae PhD, Phone: [phone] Eosinophils # (Auto) 0.2 10 3/uL 0.0-0.7 [facility] Immature Granulocyte # (Auto) 0.01 10 3/uL 0.00-0.03 [facility] Nuclear dots nuclear Ab aj herson [Titer] in Serum by Immunofluorescenceon 10-05-2023 Nuclear dots nuclear Ab pattern IF (S) [Titer] TN . [facility] Nuclear membrane pores nucle ar Ab pattern [Titer] in Serum by Immunofluorescenceon 10-05-2023 Nuclear membrane pores nuclear Ab pattern IF (S) [Titer] TN . [facility] PCNA extractable nuclear Ab [Titer] in Serum by Immunofluorescenceon 10-05-2023 PCNA extractable nuclear Ab IF (S) [Titer] TN . [facility] Platelet mean volume Auto (B ld) [Entitic vol]on 10-05-2023 Platelet mean volume (Bld) [Entitic vol] 9.6 fL 9.5-13.5 [facility] Platelets Auto (Bld) [#/Vol] on 10-05-2023 Platelets (Bld) [#/Vol] 340 10 3/uL 150-450 [facility] RBC Auto (Bld) [#/Vol]on RBC (Bld) [#/Vol] 4.72 10 6/uL 4.20-5.40 [facility] Serum homogeneous pattern an tinuclear antibody (ISRA) titeron 10-05-2023 Homogenous nuclear Ab pattern (S) [Titer] TNP . [facility] Serum nuclear antibody titer on 10-05-2023 Nuclear Ab (S) [Titer] Positive . [facility] Comment on above: Negative <1:80 Borde rline 1:80 Positive >1:80Speckled cytoplasmic fluorescence is present. Theantibodies noted in this pattern may be associated with,but not restricted to, primary biliary cirrhosis (PBC),polymyositis and dermatomyositis (PM/DM), and/or systemiclupus erythematosus (SLE). Serum nucleolar pattern anti nuclear antibody (ISRA) titeron 10-05-2023 Nucleolar nuclear Ab pattern (S) [Titer] TNP . [facility] Serum or plasma albumin/glob ulin mass ratioon 10-05-2023 Albumin/Globulin [Mass ratio] 1.0 {ratio} [facility] Serum or plasma anion gap de terminationon 10-05-2023 Anion gap [Moles/Vol] 11.6 mmol/L [facility] Serum speckled pattern antin uclear antibody (ISRA) titeron 10-05-2023 Speckled nuclear Ab pattern (S) [Titer] 1:160 . [facility] Comment on above: ICAP nomenclature: A C-2,4,5,29 Quick [facility] 02-24-2023 S. pyogenes Org specific cx Ql (Throat) Negative [employer] Other Quick Strep [employer] Other Outside Colonoscopyon 2020 [facility] [id number]#1.00CD:12 7 Normal [facility] Lab Reportson 05-17-2021 Lab Reports [id number]:12 7 Normal [facility] May 05, 2021 TARUN GLOVER, [address] [place] [address] Re: OLIMPIA DINH Date of : 1970 Thank you for your referral of Olimpia Dinh who was seen on consultation on April 28, 2021, for screening colonoscopy. I have enclosed my consultation note for your review. I will be happy to follow Olimpia. Sincerely, Trevor Richard Md General Surgery [facility] Pre-Certification Formon Pre-Certification Form [id number]:12 7 [facility] Formson 04-29-2021 Forms [id number]:12 7 [facility] Ambulatory Clinical Summaryo 04-28-2021 Ambulatory Clinical Summary {[id number] [facility] Physician Referralon 021 Physician Referral [id number]:12 7 [facility] NM PET/CT SKULL-THIGH INITon 09-27-2019 [...] any questions regarding this interpretation, please call [phone]. If you are unable to reach us at the number above, please feel free to contact [facility] eRadiology at [phone]. [id number] Normal [facility] PROGRESSon 09-27-2019 PROGRESS HNO ID: [id number] Author: Jewel Vivar (Tech) Service: ? Author Type: Improvement Intern Type: Progress Notes Filed: 09/27/2019 1:22 PM [...] safety can be found using this link: [email or web address] SIGNATURE: Isameredith Evansbrent PATIENT NAME: Olimpia Dinh DATE: September 27, 2019 TIME: 1:09 PM PAGER/CONTACT #: Normal [facility] CT-CT CHEST W CON IMPORTon 0 09-09-2019 CT-CT CHEST W CON IMPORT Images were obtained outside of [facility] [id number] Normal [facility] T-Spoton 07-06-2017 T-Spot. TB Test Normal [facility] Comment on above: Result Comment: [facility] [id number] [place] [id number](NOTE)T-SPOT.TB: NegativeThe test result is Negative because the [...] B Spot Count: 0Positive Control Spot Count: >20[facility] [address] [place] [address] Performed By: #### T SPOT ####[facility] [address] [place] [address] Vital Signs Date Time Vital Sign Value Performing Clinician Facility 04-29-2024 08:48-0400 Body mass index (BMI) [Ratio] 46.43 kg/m2 Claudia Taylor DO Work Phone: [facility] 04-29-2024 08:48-0400 Body weight 122.7 kg Claudia Brandon DO Work Phone: [facility] 04-29-2024 08:48-0400 Diastolic blood pressure 78 mm[Hg] Claudia Brandon DO Work Phone: [facility] 04-29-2024 08:48-0400 Systolic blood pressure 122 mm[Hg] Claudia Brandon DO Work Phone: [facility] 03-29-2024 10:11-0400 Body height 164.47 cm [facility] 03-29-2024 10:11-0400 Body mass index (BMI) [Ratio] 45.3 kg/m2 [facility] 03-29-2024 10:11-0400 Body weight 122.52 kg [facility] 03-29-2024 10:11-0400 Diastolic blood pressure 95 mm[Hg] [facility] 03-29-2024 10:11-0400 Heart rate 98 /min [facility] 03-29-2024 10:11-0400 Respiratory rate 12 /min [facility] 03-29-2024 10:11-0400 Systolic blood pressure 145 mm[Hg] [facility] 12-26-2023 14:25-0400 Body height 164.47 cm DO Tarun Ball Work Phone: [facility] 12-26-2023 14:25-0400 Body mass index (BMI) [Ratio] 46.6 kg/m2 DO Tarun Ball Work Phone: [facility] 12-26-2023 14:25-0400 Body weight 126.26 kg DO Tarun Ball Work Phone: [facility] 12-26-2023 14:25-0400 Diastolic blood pressure 78 mm[Hg] DO Tarun Ball Work Phone: [facility] 12-26-2023 14:25-0400 Heart rate 88 /min DO Tarun Ball Work Phone: [facility] 12-26-2023 14:25-0400 Respiratory rate 12 /min DO Tarun Ball Work Phone: [facility] 12-26-2023 14:25-0400 Systolic blood pressure 120 mm[Hg] DO Tarun Ball Work Phone: [facility] 10-27-2023 11:04-0400 Body height 164.47 cm [facility] 10-27-2023 11:04-0400 Body mass index (BMI) [Ratio] 45.6 kg/m2 [facility] 10-27-2023 11:04-0400 Body weight 123.43 kg [facility] 10-27-2023 11:04-0400 Diastolic blood pressure 82 mm[Hg] [facility] 10-27-2023 11:04-0400 Heart rate 80 /min [facility] 10-27-2023 11:04-0400 Respiratory rate 12 /min [facility] 10-27-2023 11:04-0400 Systolic blood pressure 128 mm[Hg] [facility] 08-21-2023 13:45-0500 Body height 164.47 cm Tarun Ball Other [facility] [employer] Other 08-21-2023 13:45-0500 Body mass index (BMI) [Ratio] 45.47 kg/m2 Tarun Ball Other [facility] [employer] Other 08-21-2023 13:45-0500 Body weight 123.02 kg Tarun Ball Other [facility] [employer] Other 08-21-2023 13:45-0500 Diastolic blood pressure 77 mm[Hg] Tarun Ball Other [facility] [employer] Other 08-21-2023 13:45-0500 Respiratory rate 16 /min Tarun Ball Other [facility] [employer] Other 08-21-2023 13:45-0500 Systolic blood pressure 136 mm[Hg] Tarun Ball Other [facility] [employer] Other 05-19-2023 12:17-0400 Body height 164.47 cm Tarun Ball Other [employer] Other 05-19-2023 12:17-0400 Body mass index (BMI) [Ratio] 43.09 kg/m2 Tarun Ball Other [employer] Other 05-19-2023 12:17-0400 Body weight 116.58 kg Tarun Ball Other [employer] Other 05-19-2023 12:17-0400 Diastolic blood pressure 75 mm[Hg] Tarun Ball Other [employer] Other 05-19-2023 12:17-0400 Systolic blood pressure 119 mm[Hg] Tarun Ball Other [employer] Other 02-27-2023 12:00-0400 Body height 164.47 cm Tarnu Ball Other [employer] Other 02-27-2023 12:00-0400 Body mass index (BMI) [Ratio] 43.6 kg/m2 Tarun Ball Other [employer] Other 02-27-2023 12:00-0400 Body weight 117.94 kg Tarun Ball Other [employer] Other 02-24-2023 09:00-0400 Body height 164.47 cm Tasia Emery Other [employer] Other 02-24-2023 09:00-0400 Body mass index (BMI) [Ratio] 44.1 kg/m2 Tasia Emery Other [employer] Other 02-24-2023 09:00-0400 Body weight 119.3 kg Tasia Emery Other [employer] Other 02-24-2023 09:00-0400 Diastolic blood pressure 83 mm[Hg] Tasia Emery Other [employer] Other 02-24-2023 09:00-0400 Respiratory rate 16 /min Tasia Zavalaley Other [employer] Other 02-24-2023 09:00-0400 SaO2% (BldA) [Mass fraction] 98 % Tasia Emery Other [employer] Other 02-24-2023 09:00-0400 Systolic blood pressure 125 mm[Hg] Tasia Emery Other [employer] Other 01-20-2023 08:30-0400 Body height 164.47 cm Tarun Ball Other [employer] Other 01-20-2023 08:30-0400 Body mass index (BMI) [Ratio] 44.17 kg/m2 Tarun Ball Other [employer] Other 01-20-2023 08:30-0400 Body weight 119.48 kg Tarun Ball Other [employer] Other 01-20-2023 08:30-0400 Diastolic blood pressure 87 mm[Hg] Tarun Ball Other [employer] Other 01-20-2023 08:30-0400 Respiratory rate 12 /min Tarun Ball Other [employer] Other 01-20-2023 08:30-0400 Systolic blood pressure 130 mm[Hg] Tarun Ball Other [employer] Other 01-02-2023 12:00-0400 Body height 164.47 cm Tarun Ball Other [employer] Other 01-02-2023 12:00-0400 Body mass index (BMI) [Ratio] 43.09 kg/m2 Tarun Ball Other [employer] Other 01-02-2023 12:00-0400 Body weight 116.58 kg Tarun Ball Other [employer] Other 01-02-2023 12:00-0400 Diastolic blood pressure 79 mm[Hg] Tarun Ball Other [employer] Other 01-02-2023 12:00-0400 Systolic blood pressure 124 mm[Hg] Tarun Ball Other [employer] Other 11-16-2022 10:30-0400 Body height 164.47 cm Tarun Ball Other [employer] Other 11-16-2022 10:30-0400 Body mass index (BMI) [Ratio] 45.54 kg/m2 Tarun Ball Other [employer] Other 11-16-2022 10:30-0400 Body weight 123.2 kg Tarun Ball Other [employer] Other 11-16-2022 10:30-0400 Diastolic blood pressure 81 mm[Hg] Tarun Ball Other [employer] Other 11-16-2022 10:30-0400 Respiratory rate 12 /min Tarun Ball Other [employer] Other 11-16-2022 10:30-0400 SaO2% (BldA) [Mass fraction] 96 % Tarun Ball Other [employer] Other 11-16-2022 10:30-0400 Systolic blood pressure 115 mm[Hg] Tarun Glover Other [employer] Other Encounters Encounter Date Encounter Type Care Provider Facility Start: 04-29-2024 End: 04-29-2024 Bamboo flowsheet Claudia Brandon DO Work Phone: [facility] Start: 04-29-2024 End: 04-29-2024 Bamboo flowsheet Claudia Brandon DO Work Phone: [facility] Start: 04-29-2024 End: 04-29-2024 Office outpatient visit 15 minutes Claudia Brandon DO Work Phone: [facility] Comment on above: Pre-op examination; Fibroids; Pelvic pain in female; Dyspareunia in female Start: 04-29-2024 End: 04-29-2024 Preprocedural examination done Claudia Brandon DO Work Phone: [facility] Start: 04-29-2024 End: 04-29-2024 ambulatory CLAUDIA TAYLOR Not Available Start: 04-02-2024 End: 04-02-2024 ambulatory MADISYN PIPER Not Available Start: 03-29-2024 End: 03-29-[address] [facility] Work Phone: Start: 03-29-2024 End: 03-29-2024 Patient encounter procedure [facility] Work Phone: Start: 12-26-2023 End: 12-26-2023 ambulatory DO Tarun Glover Work Phone: [facility] Work Phone: Start: 12-26-2023 End: 12-26-2023 Encounter for general adult medical examination without abnormal findings DO Tarun Glover Work Phone: [facility] Start: 12-26-2023 End: 12-26-2023 Patient encounter procedure DO Tarun Ball Work Phone: [facility] Work Phone: Start: 12-06-2023 End: 12-06-2023 Patient encounter procedure DO Tarun Ball Work Phone: [facility] [address] Work Phone: Start: 12-06-2023 End: 12-06-2023 ambulatory DO Tarun Ball Work Phone: [facility] Work Phone: Start: 10-27-2023 End: 10-27-2023 ambulatory [facility] Work Phone: Start: 10-27-2023 End: 10-27-2023 Patient encounter procedure [facility] Work Phone: Start: 10-05-2023 Non-patient / Non-visit [facility] Work Phone: Start: 09-12-2023 Non-patient / Non-visit [facility] Work Phone: Start: 08-21-2023 End: 08-21-2023 ambulatory Tarun Ball Other [employer] Other Start: 08-21-2023 Office outpatient vi sit 15 minutes Tarun Ball [facility] Start: 08-16-2023 End: 08-16-2023 ambulatory Tarun Ball Other [employer] Other Start: 08-16-2023 Office outpatient vi sit 15 minutes Tarun Ball [facility] Start: 07-19-2023 End: 07-19-2023 ambulatory Tarun Ball Other [employer] Other Start: 07-19-2023 Office outpatient vi sit 15 minutes Tarun Ball [facility] Start: 05-19-2023 End: 05-19-2023 ambulatory Tarun Ball Other [employer] Other Start: 05-19-2023 Telephone encounter Tarun Glover [facility] Start: 03-17-2023 End: 03-17-2023 ambulatory Tarun Glover Other [employer] Other Start: 03-17-2023 Telephone encounter Tarun Glover [facility] Start: 02-27-2023 End: 02-27-2023 ambulatory Tarun Glover Other [employer] Other Start: 02-27-2023 Office outpatient vi sit 15 minutes Tarun Adalberto [facility] Start: 02-24-2023 End: 02-24-2023 ambulatory Tasia Emery Other [employer] Other Start: 02-24-2023 Office outpatient vi sit 15 minutes Tasia Emery [facility] Start: 02-24-2023 Telephone encounter Tarun Glover [facility] Start: 02-17-2023 End: 02-17-2023 ambulatory Tarun Glover Other [employer] Other Start: 02-17-2023 Telephone encounter Tarun Glover [facility] Start: 01-20-2023 End: 01-20-2023 ambulatory Tarun Glover Other [employer] Other Start: 01-20-2023 Office outpatient vi sit 15 minutes Tarun Glover [facility] Start: 01-02-2023 End: 01-02-2023 ambulatory Tarun Glover Other [employer] Other Start: 01-02-2023 Office outpatient vi sit 15 minutes Tarun Glover [facility] Start: 12-14-2022 End: 12-14-2022 ambulatory Tarun Glover Other [employer] Other Start: 12-14-2022 Telephone encounter Tarun Adalberto [facility] Start: 12-07-[address] TARUN GLOVER Facili ty:[facility] Start: 11-16-2022 End: 11-16-2022 ambulatory Tarun Glover Other [employer] Other Start: 11-16-2022 Encounter for genera l adult medical examination without abnormal findings Tarun Glover [facility] Start: 11-16-2022 Periodic preventive med est patient 40-64yrs Tarun Glover [facility] Start: 11-16-2022 Telephone encounter Tarun Adalberto [facility] Start: 09-26-2022 End: 09-26-2022 ambulatory Tarun Glover Other [employer] Other Start: 09-26-2022 Office outpatient vi sit 15 minutes [facility]un [facility] Start: 09-12-2022 End: 09-12-2022 ambulatory Tarun Glover Other [employer] Other Start: 09-12-2022 Telephone encounter Tarun Adalberto [facility] Start: 06-17-2022 Gynecological examination normal Tarun Glover Other [employer] Other Start: 01-03-2022 End: 08-04-[address] MONTRELL CHIU Facility:[facility] Start: 07-01-2021 Adult health examination Swapnil Glover Other [employer] Other Start: 07-03-2017 End: 07-04-2017 Ambulatory TREVOR BRUHS [facility] Procedures Date Procedure Procedure Detail Performing Clinician Start: 07-03-2017 T-SPOT TB TEST TREVOR BRUSH Depression screening Lila Glover Other Screening for malign ant neoplasm of breast Tarun Glover Other Screening for malign ant neoplasm of colon Tarun Glover Other Plan of Treatment Date Care Activity Detail Author Start: 04-13-2028 Screening for malign ant neoplasm of cervix [facility] Start: 04-08-2025 End: 04-08-2025 Patient encounter procedure 04/08/2025 1:00 PM EDT Office Visit [facility] [address] [place] [id number] Madisyn Piper PA [address] [facility] [address] [place], [place] [id number] [facility] Start: 05-21-2024 End: 05-21-2024 Patient encounter procedure 05/21/2024 2:20 PM EST Office Visit [facility] [address] [place] [id number] Claudia Taylor, DO [address] [facility] [address] [place], [facility] Start: 04-29-2024 End: 04-29-2024 Patient encounter procedure 04/29/2024 8:50 AM EDT Office Visit [facility] [address] [place] [id number] Claudia Taylor, DO [address] [facility] [address] [place] [address] [address] [facility] Comment on above: Arrived Start: 03-17-2024 Influenza vaccination Influenz a Vaccine (#1) [facility] Start: 12-06-2023 Hemolytic complement CH50 level [facility] Start: 12-06-2023 End: 12-06-2023 [facility] Start: 10-27-2023 Patient referral [facility] Work Phone: Start: 2009 Screening for malign ant neoplasm of breast Mammogram [facility] Start: 1990 Screening for malign ant neoplasm of cervix Pap Smear [facility] Start: 1969 Screening for malign ant neoplasm of colon [facility] MG Breast - bilatera l Screening [facility] Nuclear Ab [Titer] i n Serum [facility] Patient referral [facility] Work Phone: Immunizations Immunization Date Immunization Notes Care Provider Fa cility 09-15-2021 influenza virus vaccine, split virus (incl. purified surface antigen) Tarun Glover Other [employer] Other 03-31-2021 influenza virus vaccine, unspecified formulation [facility] 05-21-2020 influenza virus vaccine, split virus (incl. purified surface antigen) Tarun Glover Other [employer] Other 05-21-2020 influenza virus vaccine, unspecified formulation [facility] Payers Date Payer Category Payer Managed Care O (unspecified) [employer] [id number] 1969 Unknown [id number] 1969 Unknown [id number] 1969 Unknown [id number] 1969 Unknown [id number] 1959 Private Health Insurance [id number] 1960 Self-pay Private Health Insurance [id number] Unknown [id number] Social History Date Type Detail Facility Unknown if ever smoked [facility] [employer] Other Start: 04-02-2024 End: 04-29-2024 Sex Assigned At [facility] [employer] Other Start: 08-16-2023 End: 04-29-2024 Tobacco smoking status NHIS Never smoked tobacco (finding) [facility] Start: 1970 Sex Assigned At Female F [facility] Start: 04-02-2024 End: 04-29-2024 Alcoholic beverage intake Lifetime non-drinker (finding) [facility] Start: 04-02-2024 End: 04-29-2024 History of Social function [facility] Start: 03-22-2023 Alcohol Comment Caffeine intak e: 1-2 cups per day coffee [facility] Start: 1970 Sex assigned at Not on file [place] [facility] Start: 04-29-2024 Tobacco use and exposure Smokeless tobacco non-user [facility] Clinical Notes 04-28-2021 to 04-29-2024 Kristin Garcia, MANISH - 04/29/2024 8:50 AM EDT Note Date & Type Note Facility 04-29-2024 History of Presen t illness Narrative Reason for Appointment: Patient ID: Olimpia Dinh is a 53 y.o. female who presents for Results Patient presents today for Follow up appointment to discuss results. MEDICATIONS Current Outpatient Medications Medication Instructions albuterol HFA 90 mcg/act inhaler INHALE 2 PUFFS BY MOUTH EVERY 4 HOURS NEEDED FOR COUGH AND SHORTNESS OF BREATH clotrimazole (Lotrimin) 1 % cream 1 application , Every 12 hours clotrimazole-betamethasone (Lotrisone) cream 1 application , Topical, Daily, Apply to affected area daily for 7 days escitalopram (LEXAPRO) 10 mg, Oral, Daily Loratadine-D 24HR 10-240 MG 24 hr tablet 1 tablet, Oral, As needed meloxicam (MOBIC) 7.5 mg, Oral, Daily Semaglutide-Weight Management (WEGOVY SC) Subcutaneous ALLERGIES Allergies Allergen Reactions Elkins Oil Unknown Latex Unknown Milk-Related Compounds Unknown Soybean-Containing Drug Products Unknown Wheat Unknown PROBLEMS Active Ambulatory Problems Diagnosis Date Noted Fibroids 04/29/2024 Resolved Ambulatory Problems Diagnosis Date Noted No Resolved Ambulatory Problems Past Medical History: Diagnosis Date Ankle impingement syndrome, right Fibroid Menopause ovarian failure Oral lesion Plantar fascial fibromatosis of right foot Pulmonary nodule, left Thrush Visit for screening mammogram HISTORY PAST MEDICAL HISTORY SOCIAL HISTORY Past Medical History: Diagnosis Date Ankle impingement syndrome, right Fibroid Menopause ovarian failure Oral lesion Plantar fascial fibromatosis of right foot Pulmonary nodule, left Thrush Visit for screening mammogram 2022 neg Social History Tobacco Use Smoking status: Never Smokeless tobacco: Never Substance Use Topics Alcohol use: Never Comment: Caffeine intake: 1-2 cups per day coffee Drug use: Never FAMILY HISTORY Family History Problem Relation Name Age of Onset Heart disease Mother Jesus Marks Cancer Mother Jesus Marks Heart failure Father Harley Santamaria Melanoma Neg Hx SURGICAL HISTORY Past Surgical History: Procedure Laterality Date ABDOMINAL SURGERY ANKLE SURGERY Right X3 APPENDECTOMY SECTION, LOW TRANSVERSE x 1 CHOLECYSTECTOMY ENDOMETRIAL ABLATION 2009 OTHER SURGICAL HISTORY Rectal fissure surgery TONSILLECTOMY TOTAL ANKLE ARTHROPLASTY 08/07/2020 TUBAL LIGATION REVIEW OF SYSTEMS Review of Systems: Review of Systems Gastrointestinal: Positive for abdominal pain. Genitourinary: Positive for pelvic pain. Musculoskeletal: Positive for back pain. All other systems reviewed and are negative. OBJECTIVE Objective: Physical Exam Constitutional: Appearance: Normal appearance. She is well-developed. Cardiovascular: Rate and Rhythm: Normal rate and regular rhythm. Pulmonary: Effort: Pulmonary effort is normal. Breath sounds: Normal breath sounds. Abdominal: General: Bowel sounds are normal. There is no distension. Palpations: Abdomen is soft. Tenderness: There is no abdominal tenderness. There is no guarding or rebound. Musculoskeletal: General: No swelling. Normal range of motion. Right lower leg: No edema. Left lower leg: No edema. Neurological: Mental Status: She is alert and oriented to person, place, and time. Skin: General: Skin is warm and dry. Psychiatric: Mood and Affect: Mood normal. Behavior: Behavior normal. Vitals and nursing note reviewed. Exam conducted with a compress machine operator present. Vitals: Estimated body mass index is 46.43 kg/m as calculated from the following: Height as of 03/23/23: 5' 4 . Weight as of this encounter: 270 lb 8 oz. BP: 122/78 No LMP recorded. Patient has had an ablation. ASSESSMENT & PLAN Patient presents today to discuss results of ultrasound. Patient aware that she has a uterine fibroid which is essentially the same size as her uterus. Discussed Robotic Hysterectomy verses going through previous scar. Patient desires to have removal as fibroid is causing hip & back pain and abdominal pain that is effecting ADL's. Discussed possible diagnostic scope prior to surgery to see which way would be best for surgical removal. Patient aware that she will need to have endometrial biopsy prior to surgical procedure to sample tissue. Patient agreeable to setup for Pre-op/Endometrial Biopsy and placed on the schedule for Diagnostic Laparoscopy. Advised patient that with Diagnostic Lap she is able to consulting networking engineer on Monday after procedure. Patient to return to clinic as to be scheduled prior to leaving office today. After talking with patient patient will have Pre-op appointment today and D&C will be done at time of Diagnostic Lap for sampling of tissue. Documented by Kristin Garcia LPN on behalf of: Claudia Taylor DO documented in this encounter [facility] 08-21-2023 Evaluation note Encounter Date Diagnosis Assessment [...] for congestion, Tylenol for pain and fever. [employer] Other 01-31-2024 Evaluation note* Encounter Date Diagnosis [...] [employer] as needed for cough and wheezing [employer] Other 01-03-2024 Evaluation note* Encounter Date Diagnosis [...] chest wheezing. ER for CP or dyspnea. [employer] Other 11-03-2023 Evaluation note* Encounter Date Diagnosis Assessment Notes Treatment Notes Treatment Clinical Notes May, Morbid (severe) obesity due to excess calories (ICD-10 - E66.01) [employer] Other 08-14-2023 Evaluation note* Encounter Date Diagnosis [...] index [BMI] 40.0-44.9, adult (ICD-10 - Z68.41) [employer] Other 08-11-2023 Evaluation note* Encounter Date Diagnosis [...] 7 days, sooner if significantly worsening symptoms. [employer] Other 07-07-2023 Evaluation note* Encounter Date Diagnosis [...] index [BMI] 40.0-44.9, adult (ICD-10 - Z68.41) [employer] Other 06-19-2023 Evaluation note* Encounter Date Diagnosis [...] and keep active. No change in treatment [employer] Other 05-31-2023 Evaluation note* Encounter Date Diagnosis Assessment Notes Treatment Notes Treatment Clinical Notes November, Morbid (severe) obesity due to excess calories (ICD-10 - E66.01) [employer] Other 05-03-2023 Evaluation note* Encounter Date Diagnosis Assessment Notes Treatment Notes Treatment Clinical Notes November, Wellness examination (ICD-10 - Z00.00) Healthy diet and exercise. Reviewed age-appropriate preventive testing recommended. November, WLATER (generalized anxiety disorder) (ICD-10 - F41.1) Healthy [...] - Z12.31) Yearly mammogram and monthly SBE [employer] Other 05-03-2023 Evaluation note* Encounter Date Diagnosis Assessment Notes Treatment Notes Treatment Clinical Notes November, Morbid obesity (ICD-10 - E66.01) [employer] Other 03-13-2023 Evaluation note* Encounter Date Diagnosis Assessment Notes Treatment Notes Treatment Clinical Notes Sep, Acute bronchitis due to other specified organisms (ICD-10 - J20.8) Instructed to use Robitussin or Mucinex for cough, saline or Flonase NS for congestion, Tylenol for pain and fever. Sep, Mild intermittent asthma with acute exacerbation (ICD-10 - J45.21) [employer] Other 02-27-2023 Evaluation note* Encounter Date Diagnosis Assessment Notes Treatment Notes Treatment Clinical Notes Aug, WALTER (generalized anxiety disorder) (ICD-10 - F41.1) [employer] Other 10-13-2021 NoteChief Complaint consultation for screening [...] SARS-CoV-2 (COVID-19) Ad26 vaccine 07/27/2020 RecordedUniversity [facility]als Elyria Medical CenterComment on above:Result Comment: Electronically Signed By: KAELYN YOUNGBLOOD, Trevor Carreno\Date and Time Signed: 04/28/21 17:55 EDTEvaluation noteNo InformationNortSelect Specialty Hospital - [facility] [facility] [place] Other Evaluation noteNo assessment information available [facility] Work Phone: Evaluation note* Diagnosis Onset Date Resolution Status ISRA positive acute Degenerative arthritis of left hand acute Degenerative arthritis of right hand acute Lumbar spondylosis acute Post-traumatic osteoarthritis, right ankle and foot acute [facility] Work Phone: Evaluation note* Diagnosis Onset Date Resolution Status ISRA positive acute Degenerative arthritis of left hand acute Degenerative arthritis of right hand acute Lumbar spondylosis acute Post-traumatic osteoarthritis, right ankle and foot acute Lumbar spondylosis acute Obesity acute Post-traumatic osteoarthritis, right ankle and foot acute Screening for colon cancer n oneactive Screening mammogram for breast cancer noneactive Wellness examination noneact bladimir [facility] Work Phone: Evaluation note* Diagnosis Onset Date Resolution Status Cervical muscle strain acute Lumbar spondylosis acute Obesity acute [facility] Work Phone: Evaluation note* Diagnosis Pre-op examination Fibroids Leiomyoma of uterus, unspecified Pelvic pain in female Unspecified symptom associated with female genital organs Dyspareunia in female documented in this encounter [facility]History general Narrative - Reported* Type Description Date [...] cholecystectomy Surgical History Hospitalization History see above [place] [facility] Other Summary Purpose Family History Relationship Condition [...] section and content) DATE CREATED AUTHOR 01/09/2018 [facility] DATE CREATED AUTHOR AUTHOR'S ORGANIZ ATION 09/27/2019 [facility] DATE CREATED AUTHOR AUTHOR'S ORGANIZ ATION [facility] CRE[facility] AUTHOR AUTHOR'S ORGANIZ ATION 11/30/2022 [facility] DATE CREATED AUTHOR AUTHOR'S ORGANIZ ATION 12/21/2023 [facility] DATE CREATED AUTHOR AUTHOR'S ORGANIZ ATION 04/30/2024 [facility] EPIC REASON FOR VISIT (unrecogniz ed section and content) Reason Comments Results Breathing problemssore throat, coughing, chest tightness, headachesCOVID Positive- Phone Call- [phone] throat, ears pluggedFYI: Urgent CareTrouble swallowing, ears pluggedYeast InfectionBackSpasmsadipex f/uRefill- AdipexWellnesscough, congestion, no taste or smell Care Teams [...] December 26, 2023 End: December 26, 2023 Clinical Application Manager Relationship Specialty Start Date End Date Tarun Glover MD [address] [place] [id number] PCP - General Internal Medicine 03/23/23 Clinical Application Manager Relationship Specialty Start Date End Date Tarun Glover MD [address] [place] [address] PCP - General Internal Medicine 03/23/23 Goals (unrecognized section and content) Goals may [...] BE BASED ON THE PRIMARY CLINICAL RECORDS. [facility]. provides no warranty or guarantee of the accuracy or completeness of information in this document.
--- NOTE | 2024-05-02 14:26 | ECG_ITS ---
[facility] Test Date: 2024-05-02 Pat Name: SANIA DINH Department: Room: - Gender: Female Reference Test Clerk: : [id number] Requested By: Marek Rasmussen Order Number: [id number] Reading MD: MAREK RASMUSSEN Measurements Intervals [place] Rate: 71 P: 41 ME: 132 QRS: 31 QRSD: 82 T: 17 QT: 372 QTc: 405 Interpretive Statements SINUS RHYTHM Compared to ECG 09/09/2019 18:42:25 Sinus tachycardia no longer present Electronically Signed On 05-02-2024 21:47:59 EDT by MAREK RASMUSSEN
== END 2024-05-02 14:13 | disposition home or self-care (01) ==
LOC: PST 14:13
PROVIDERS: PCP Internal Medicine; Visit Provider Obstetrics & Gynecology
DX: Z01.810 Encounter for preprocedural cardiovascular examination (principal); R10.2 Pelvic and perineal pain; N94.10 Unspecified dyspareunia; D21.5 Benign neoplasm of connective and other soft tissue of pelvis; D21.9 Benign neoplasm of connective and other soft tissue, unspecified
CPT/HCPCS: 93005

== ENCOUNTER 2024-05-09 06:12 | Day surgery (SDC) | payer OTHER, SELFPAY ==
[2024-05-02 15:20] VITALS: BP 141/90; PULSE 78; TEMP 36.4; O2SAT 98; BMI 45.3
[2024-05-09] VITALS (16 sets, daily range): BP systolic 114–149; BP diastolic 78–96; PULSE 77–95; TEMP 36.2–36.4; O2SAT 88–97; BMI 44.8
--- OUTSIDE RECORDS SUMMARY | 2024-05-09 06:15 | XMS_ITS | CCD ---
Author Organization [facility] Inform ion Partnership [facility] Care Team Providers Care Tape Editor Name Role Phone TREVOR BRUSH Unavailable Tarun [...] sources) Latex Propensity to adverse reactions rash [facility] [employer] Other (1 source) Latex Drug allergy (disorder) [facility] Repository (1 source) Morphine Drug Allergy 4 [facility] Repository (8 sources) patient allergy list reviewed by nurse or physicia Propensity to adverse reactions 6 Comment:Done [employer] Other (8 sources) Allergies Reconciled Propensity to adverse reactions Unknown [employer] Other (1 source) Latex Drug allergy (disorder) 4 [facility] Repository (3 sources) Lyons Oil Drug Allergy 3 Unknown [facility] (3 sources) Latex Allergy to substance 3 Unknown [facility] (3 sources) WHEAT DEXTRIN Drug Allergy 3 Unknown [facility] Healthcare (3 sources) Milk-Related Compounds Drug Allergy 3 Unknown [facility] Healthcare (3 sources) Soybean-Contain ing Drug Products Drug Allergy 3 Unknown [facility] Healthcare Medications Current Medications Medication Drug Class(es) [...] tablet by mouth every twe lve hours [id number] 200 actuat albuterol 0.09 mg/actuat metered dose [...] Antinuclear Abs, IFA Negative Normal . [facility] Comment on above: Result Comment: Nega tive <1:80 Borderline 1:80 Positive >1:80 ICAP nomenclature: AC-[id number] For more information about Hep-2 cell patterns use ANApatterns.org, the official website for the International Consensus on Antinuclear Antibody (ISRA) Patterns (ICAP). Performed at: [address] [id number] Manager Equipment: Barry Mcrae PhD, Phone: [phone] Performed By: #### A NA, TPO, C3, C4, CHROMATIN, CH50, THYGLOB AB #### [facility] , Activated partial thrombopla stin time (aPTT) in platelet poor plasma by coagulation aOrdered By: Harsha Covarrubias on 12-06-2023 aPTT Coag (PPP) [Time] 31.9 s 25.1-36.5 [facility] Comment on above: A hematocrit value g reater than 55% may lead to inaccurate results in coagulation testing. Patients having hematocrit values >55% require a special collection tube for coagulation studies. Please contact the laboratory at [phone] for redraw instructions. Alanine aminotransferase [En zymatic activity/volume] in Serum or PlasmaOrdered By: Harsha Covarrubias on 12-06-2023 ALT [Catalytic activity/Vol] 14 U/L 7-52 [facility] Comment on above: Performed By: #### A NA, TPO, C3, C4, CHROMATIN, CH50, THYGLOB AB #### [facility] , Albumin [Mass/volume] in Ser um or Plasma by Bromocresol green (BCG) dye binding methoOrdered By: Harsha Covarrubias on 12-06-2023 Albumin BCG dye [Mass/Vol] 4.2 g/dL 3.5-5.7 [facility] Aldolaseon 12-06-2023 Aldolase 4.3 U/L Normal 3.3-10.3 [facility] Comment on above: Result Comment: Perf ormed at: [facility] [address] [place] [id number] Manager Equipment: Barry Mcrae PhD, Phone: [phone] PERFORMED BY: [place] [address] [place] [address] PATHOLOGIST CHANGE OF ADDRESS CLERK TERRI HOGAN M.D. Performed By: #### A NA, TPO, C3, C4, CHROMATIN, CH50, THYGLOB AB #### [facility] , Alkaline phosphatase [Enzyma tic activity/volume] in Serum or PlasmaOrdered By: Harsha Covarrubias on 12-06-2023 ALP [Catalytic activity/Vol] 74 U/L 34-104 [facility] Comment on above: Performed By: #### A NA, TPO, C3, C4, CHROMATIN, CH50, THYGLOB AB #### [facility] , Antithyroglobulin Abon 12-05 Antithyroglobulin Ab <1.0 Normal 0.0-0.9 [facility] Comment on above: Result Comment: Thyr oglobulin Antibody measured by [employer] It should be noted that the presence of thyroglobulin antibodies may not be pathogenic nor diagnostic, especially at very low levels. The assay direct chill casting operator has found that four percent of individuals without evidence of thyroid disease or autoimmunity will have positive TgAb levels up to 4 IU/mL. Performed at: [facility] [employer] [id number] Manager Equipment: Barry Mcrae PhD, Phone: [phone] Performed By: #### A NA, TPO, C3, C4, CHROMATIN, CH50, THYGLOB AB #### [facility] , Aspartate aminotransferase [ Enzymatic activity/volume] in Serum or PlasmaOrdered By: Harsha Covarrubias on 12-06-2023 AST [Catalytic activity/Vol] 16 U/L 13-39 [facility] Comment on above: Performed By: #### A NA, TPO, C3, C4, CHROMATIN, CH50, THYGLOB AB #### [facility] , Automated basophil %Ordered By: Harsha Covarrubias on 12-06-2023 Basophils/100 WBC (Bld) 0.6 % . [facility] Comment on above: Performed By: #### A NA, TPO, C3, C4, CHROMATIN, CH50, THYGLOB AB #### [facility] , Automated basophil countOrde red By: Harsha Covarrubias on 12-06-2023 Basophils (Bld) [#/Vol] 0.0 10*3/uL 0.0-0.2 [facility] Comment on above: Performed By: #### A NA, TPO, C3, C4, CHROMATIN, CH50, THYGLOB AB #### [facility] , Automated blood monocyte cou ntOrdered By: Harsha Covarrubias on 12-06-2023 Monocytes (Bld) [#/Vol] 0.5 10*3/uL 0.0-0.8 [facility] Comment on above: Performed By: #### A NA, TPO, C3, C4, CHROMATIN, CH50, THYGLOB AB #### [facility] , Automated eosinophil %Ordere d By: Harsha Covarrubias on 12-06-2023 Eosinophils/100 WBC (Bld) 4.4 % . [facility] Comment on above: Performed By: #### A NA, TPO, C3, C4, CHROMATIN, CH50, THYGLOB AB #### [facility] , Automated eosinophil countOr dered By: Harsha Covarrubias on 12-06-2023 Eosinophils (Bld) [#/Vol] 0.3 10*3/uL 0.0-0.45 [facility] Comment on above: Performed By: #### A NA, TPO, C3, C4, CHROMATIN, CH50, THYGLOB AB #### [facility] , Automated monocyte %Ordered By: Harsha Covarrubias on 12-06-2023 Monocytes/100 WBC (Bld) 6.2 % . [facility] Comment on above: Performed By: #### A NA, TPO, C3, C4, CHROMATIN, CH50, THYGLOB AB #### [facility] , Automated neutrophil %Ordere d By: Harsha Covarrubias on 12-06-2023 Neutrophils/100 WBC (Bld) 67.9 % . [facility] Comment on above: Performed By: #### A NA, TPO, C3, C4, CHROMATIN, CH50, THYGLOB AB #### [facility] , Bacteria [Presence] in Urine by AutomatedOrdered By: Harsha Huntrow on 12-06-2023 Bacteria Auto Ql (U) 2+ [HPF] None Seen [facility] Bilirubin Test strip Ql (U)O rdered By: Harsha Huntrow on 12-06-2023 Bilirubin Ql (U) Negative Negative [facility] Bilirubin.total [Mass/volume ] in Serum or PlasmaOrdered By: Harsha Covarrubias on 12-06-2023 Bilirubin [Mass/Vol] 0.5 mg/dL 0.3-1.0 [facility] Comment on above: Performed By: #### A NA, TPO, C3, C4, CHROMATIN, CH50, THYGLOB AB #### [facility] , C reactive protein [Mass/vol ume] in Serum or PlasmaOrdered By: Harsha Covarrubias on 12-06-2023 CRP [Mass/Vol] 2.0 mg/dL 0.0-0.5 [facility] C-Reactive Proteinon 024 C-Reactive Protein 2.0 mg/dL High 0.0-0.5 [facility] Comment on above: Performed By: #### A NA, TPO, C3, C4, CHROMATIN, CH50, THYGLOB AB #### [facility] , CT biopsyOrdered By: Harsha Covarrubias on 12-06-2023 CT biopsy 4.3 U/L 3.3-10.3 [facility] Comment on above: Performed at: [address] [id number] Director: Barry Mcrae PhD, Phone: [phone] Calcium [Mass/volume] in Ser um or PlasmaOrdered By: Harsha Covarrubias on 12-06-2023 Calcium [Mass/Vol] 9.4 mg/dL 8.6-10.3 [facility] Comment on above: Performed By: #### A NA, TPO, C3, C4, CHROMATIN, CH50, THYGLOB AB #### [facility] , Carbon dioxide, total [Moles /volume] in Serum or PlasmaOrdered By: Harsha Covarrubias on 12-06-2023 CO2 [Moles/Vol] 28.3 mmol/L 21.0-31.0 [facility] Comment on above: Performed By: #### A NA, TPO, C3, C4, CHROMATIN, CH50, THYGLOB AB #### [facility] , Chloride [Moles/volume] in S alistair or PlasmaOrdered By: Harsha Marci on 12-06-2023 Chloride [Moles/Vol] 105 mmol/L 98-107 [facility] Comment on above: Performed By: #### A NA, TPO, C3, C4, CHROMATIN, CH50, THYGLOB AB #### [facility] , Chromatin Antibodyon 024 Chromatin Antibody <0.2 Normal 0.0-0.9 [facility] Comment on above: Result Comment: Perf ormed at: - [facility] [address] [id number] Manager Equipment: Barry Mcrae PhD, Phone: [phone] PERFORMED BY: [address] [place] [address] PATHOLOGIST CHANGE OF ADDRESS CLERK TERRI HOGAN M.D. Performed By: #### A NA, TPO, C3, C4, CHROMATIN, CH50, THYGLOB AB #### [facility] , Coagulation Profileon 2023 aPTT Coag (Bld) [Time] 31.9 s Normal 25.1-36.5 [facility] Comment on above: Result Comment: A he matocrit value greater than 55% may lead to inaccurate results in coagulation testing. Patients having hematocrit values >55% require a special collection tube for coagulation studies. Please contact the laboratory at [phone] for redraw instructions. PERFORMED BY: [facility] [address] [address] PATHOLOGIST CHANGE OF ADDRESS CLERK TERRI HOGAN M.D. Performed By: #### E SR, ADDONUAPLUS, T4F, CK, CRP, TSH3, PP, CMP, CBC #### [address] #### RPR W RFX, ALDOLASE #### [facility] , Color of Urine by AutoOrdere d By: Harsha Covarrubias on 12-06-2023 Color (U) Yellow Yellow [facility] Comment on above: Order Comment: Name Collection Type:: Clean-Voided Midstream Performed By: #### A NA, TPO, C3, C4, CHROMATIN, CH50, THYGLOB AB #### [facility] , Complement C3on 12-06-2023 Complement C3 189 mg/dL High 82-[address] [facility] Comment on above: Result Comment: Perf ormed at: [address] [id number] Manager Equipment: Barry Mcrae PhD, Phone: [phone] Performed By: #### A NA, TPO, C3, C4, CHROMATIN, CH50, THYGLOB AB #### [facility] , Complement C4on 12-06-2023 Complement C4 45 mg/dL High 12-[address] [facility] Comment on above: Performed By: #### A NA, TPO, C3, C4, CHROMATIN, CH50, THYGLOB AB #### [facility] , Complement Total (CH50)on Complement Total (CH50) >60 Normal >41 [facility] Comment on above: Result Comment: [...] determine out of range values. Performed at: [facility] [employer] [id number] Manager Equipment: Barry Mcrae PhD, Phone: [phone] PERFORMED BY: [place] [address] PATHOLOGIST CHANGE OF ADDRESS CLERK TERRI HOGAN M.D. Performed By: #### A NA, TPO, C3, C4, CHROMATIN, CH50, THYGLOB AB #### [facility] , Complete Blood Count Auto Di ffon 12-06-2023 Mean Corpuscular HGB Conc 33.9 g/dL Normal 32.0-35.0 [facility] Comment on above: Performed By: #### A NA, TPO, C3, C4, CHROMATIN, CH50, THYGLOB AB #### [facility] , NRBC% 0.1 /100{WBC} Normal 0-0.[address] [facility] Comment on above: Performed By: #### A NA, TPO, C3, C4, CHROMATIN, CH50, THYGLOB AB #### [facility] , Comprehensive Metabolic Pane harsh 12-06-2023 Albumin [Mass/Vol] 4.2 g/dL Normal 3.5-5.7 [facility] Comment on above: Performed By: #### A NA, TPO, C3, C4, CHROMATIN, CH50, THYGLOB AB #### [facility] , GFR/1.73 sq M.predicted MDRD (S/P/Bld) [Vol rate/Area] mL/min/{1.73_m2} Normal [facility] Comment on above: Performed By: #### A NA, TPO, C3, C4, CHROMATIN, CH50, THYGLOB AB #### [facility] , Creatine kinase [Enzymatic a ctivity/volume] in Serum or PlasmaOrdered By: Harsha Covarrubias on 12-06-2023 CK [Catalytic activity/Vol] 59 U/L 30-223 [facility] Comment on above: Result Comment: PERF ORMED BY: [facility] [address] [place] [address] PATHOLOGIST CHANGE OF ADDRESS CLERK TERRI HOGAN M.D. Performed By: #### E SR, ADDONUAPLUS, T4F, CK, CRP, TSH3, PP, CMP, CBC #### [address] #### RPR W RFX, ALDOLASE #### [facility] , Creatinine [Mass/volume] in Serum or PlasmaOrdered By: Harsha Covarrubias on 12-06-2023 Creatinine [Mass/Vol] 0.60 mg/dL 0.60-1.20 [facility] Comment on above: Performed By: #### A NA, TPO, C3, C4, CHROMATIN, CH50, THYGLOB AB #### [facility] , Dipstick and Microscopicon 0 12-06-2023 Appearance (U) Clear Normal Clear [facility] Comment on above: Order Comment: Name Collection Type:: Clean-Voided Midstream Performed By: #### A NA, TPO, C3, C4, CHROMATIN, CH50, THYGLOB AB #### [facility] , Bacteria,Urine 2+ High None Seen [facility] Comment on above: Order Comment: Name Collection Type:: Clean-Voided Midstream Performed By: #### A NA, TPO, C3, C4, CHROMATIN, CH50, THYGLOB AB #### [facility] , Bilirubin,Urine Negative Normal Negative [facility] Comment on above: Order Comment: Name Collection Type:: Clean-Voided Midstream Performed By: #### A NA, TPO, C3, C4, CHROMATIN, CH50, THYGLOB AB #### [facility] , Glucose Ql (U) Normal Normal Normal [facility] Comment on above: Order Comment: Name Collection Type:: Clean-Voided Midstream Performed By: #### A NA, TPO, C3, C4, CHROMATIN, CH50, THYGLOB AB #### [facility] , Hyaline Casts,Urine 0-8 Normal 0-8 [facility] Comment on above: Order Comment: Name Collection Type:: Clean-Voided Midstream Result Comment: PERF ORMED BY: [place] [address] PATHOLOGIST CHANGE OF ADDRESS CLERK TERRI HOGAN M.D. Performed By: #### A NA, TPO, C3, C4, CHROMATIN, CH50, THYGLOB AB #### [facility] , Ketones Ql (U) Negative Normal Negative [facility] Comment on above: Order Comment: Name Collection Type:: Clean-Voided Midstream Performed By: #### A NA, TPO, C3, C4, CHROMATIN, CH50, THYGLOB AB #### [facility] , Leukocyte esterase Test strip Ql (U) Negative Normal Negative [facility] Comment on above: Order Comment: Name Collection Type:: Clean-Voided Midstream Performed By: #### A NA, TPO, C3, C4, CHROMATIN, CH50, THYGLOB AB #### [facility] , Nitrite,Urine Negative Normal Negative [facility] Comment on above: Order Comment: Name Collection Type:: Clean-Voided Midstream Performed By: #### A NA, TPO, C3, C4, CHROMATIN, CH50, THYGLOB AB #### [facility] , Occult Blood,Urine Negative Normal Negative [facility] Comment on above: Order Comment: Name Collection Type:: Clean-Voided Midstream Performed By: #### A NA, TPO, C3, C4, CHROMATIN, CH50, THYGLOB AB #### [facility] , Protein,Urine Negative Normal Negative [facility] Comment on above: Order Comment: Name Collection Type:: Clean-Voided Midstream Performed By: #### A NA, TPO, C3, C4, CHROMATIN, CH50, THYGLOB AB #### [facility] , RBC LM.HPF (Urine sed) [#/Area] 0 /[HPF] Normal 0-4 [facility] Comment on above: Order Comment: Name Collection Type:: Clean-Voided Midstream Performed By: #### A NA, TPO, C3, C4, CHROMATIN, CH50, THYGLOB AB #### [facility] , Specificy [place],Urine 1.026 Normal 1.001-1.03 0 [facility] Comment on above: Order Comment: Name Collection Type:: Clean-Voided Midstream Performed By: #### A NA, TPO, C3, C4, CHROMATIN, CH50, THYGLOB AB #### [facility] , Squamous Epithelial Cell,Urine 3-4 High 0-2 [facility] Comment on above: Order Comment: Name Collection Type:: Clean-Voided Midstream Performed By: #### A NA, TPO, C3, C4, CHROMATIN, CH50, THYGLOB AB #### [facility] , Urobilinogen,Urine Normal Normal Normal [facility] Comment on above: Order Comment: Name Collection Type:: Clean-Voided Midstream Performed By: #### A NA, TPO, C3, C4, CHROMATIN, CH50, THYGLOB AB #### [facility] , WBC,Urine 3-4 Normal 0-4 [facility] Comment on above: Order Comment: Name Collection Type:: Clean-Voided Midstream Performed By: #### A NA, TPO, C3, C4, CHROMATIN, CH50, THYGLOB AB #### [facility] , Erythrocyte Sedimentation Ra sherrie 12-06-2023 ESR (Bld) [Velocity] 35 mm/h High 0-29 [facility] Comment on above: Result Comment: PERF ORMED BY: [facility] [address] [place] [address] PATHOLOGIST CHANGE OF ADDRESS CLERK TERRI HOGAN M.D. Performed By: #### A NA, TPO, C3, C4, CHROMATIN, CH50, THYGLOB AB #### [facility] , Erythrocyte distribution wid th [Ratio] by Automated countOrdered By: Harsha Covarrubias on 12-06-2023 Erythrocyte distribution width (RBC) [Ratio] 13.6 % 11.9-15.3 [facility] Comment on above: Performed By: #### A NA, TPO, C3, C4, CHROMATIN, CH50, THYGLOB AB #### [facility] , Erythrocyte sedimentation ra te by Photometric methodOrdered By: Harsha Covarrubias on 12-06-2023 ESR Photometric method (Bld) [Velocity] 35 mm/hr 0-29 [facility] Erythrocytes [#/volume] in B lood by Automated countOrdered By: Harsha Covarrubias on 12-06-2023 RBC (Bld) [#/Vol] 4.83 10*6/uL 3.60-5.00 [facility] Comment on above: Performed By: #### A NA, TPO, C3, C4, CHROMATIN, CH50, THYGLOB AB #### [facility] , Glucose [Mass/volume] in Ser um or PlasmaOrdered By: Harsha Covarrubias on 12-06-2023 Glucose [Mass/Vol] 72 mg/dL 70-100 [facility] Comment on above: ADA recommended refe rence rangeRandom Glucose Reference Range is dependent on time and content of last meal. Glucose of more than 200 mg/dL in a nonstressed, ambulatory subject supports the diagnosis of Diabetes Mellitus. Result Comment: [place] om Glucose Reference Range is dependent on [...] Hematocrit (Bld) [Volume fraction] 41.9 % 34.0-46.4 [facility] Comment on above: Performed By: #### A NA, TPO, C3, C4, CHROMATIN, CH50, THYGLOB AB #### [facility] , Hemoglobin [Mass/volume] in BloodOrdered By: Harsha Covarrubias on 12-06-2023 Hemoglobin (Bld) [Mass/Vol] 14.2 g/dL 11.8-15.4 [facility] Comment on above: Performed By: #### A NA, TPO, C3, C4, CHROMATIN, CH50, THYGLOB AB #### [facility] , INR in Platelet poor plasma by Coagulation assayOrdered By: Harsha Covarrubias on 12-06-2023 INR Coag (PPP) [Relative time] 0.9 {INR} [facility] Comment on above: INR Therapeutic Rang [...] CK, CRP, TSH3, PP, CMP, CBC #### [address] #### RPR W RFX, ALDOLASE #### [facility] , Ketones Auto test strip (U) [Mass/Vol]Ordered By: Harsha Covarrubias on 12-06-2023 Ketones (U) [Mass/Vol] Negative Negative [facility] Laboratory - UrinalysisOrder ed By: Harsha Covarrubias on 12-06-2023 Hyaline casts LM Ql (Urine sed) 0-8 [LPF] 0-8 [facility] Leukocytes [#/area] in Urine sediment by Automated countOrdered By: Harsha Covarrubias on 12-06-2023 WBC Auto (Urine sed) [#/Area] 3-4 [HPF] 0-4 [facility] Leukocytes [#/volume] correc jemal for nucleated erythrocytes in Blood by Automated counOrdered By: Harsha Covarrubias on 12-06-2023 WBC corrected for nucl RBC Auto (Bld) [#/Vol] 7.8 10*3/uL 3.8-11.6 [facility] Leukocytes [#/volume] in Blo od by Automated countOrdered By: Harsha Covarrubias on 12-06-2023 WBC (Bld) [#/Vol] 7.8 10*3/uL 3.8-11.6 [facility] Comment on above: Performed By: #### A NA, TPO, C3, C4, CHROMATIN, CH50, THYGLOB AB #### [facility] , Lupus Anticoagulant Compon 0 12-06-2023 Dilute Prothrombin Time (dPt) 35.4 Normal 0.0-47.6 [facility] Comment on above: Performed By: #### L UPANTCOAG #### [facility] , dPT Confirm Ratio 1.18 Normal 0.00-1.34 [facility] Comment on above: Performed By: #### L UPANTCOAG #### [facility] , DRVVT Lupus 36.8 Normal 0.0-47.0 [facility] Comment on above: Performed By: #### L UPANTCOAG #### [facility] , Interpretation Comment: Normal . [facility] Comment on above: Result Comment: No l upus anticoagulant was detected. Performed at: [facility] [id number] Manager Equipment: Juany Baker MD, Phone: [phone] PERFORMED BY: [facility] [address] [place] [address] PATHOLOGIST CHANGE OF ADDRESS CLERK TERRI HOGAN M.D. Performed By: #### L UPANTCOAG #### [facility] , PTT-LA 38.7 Normal 0.0-43.5 [facility] Comment on above: Performed By: #### L UPANTCOAG #### [facility] , Thrombin Time 16.9 Normal 0.0-23.[address] [facility] Comment on above: Performed By: #### L UPANTCOAG #### [facility] , Lupus anticoagulant [Interpr etation] in Platelet poor plasmaOrdered By: Harsha Covarrubias on 12-06-2023 Lupus anticoagulant (PPP) [Interp] Comment: . [facility] Comment on above: No lupus anticoagula nt was detected.Performed at: - [facility] [id number] Director: Juany Baker MD, Phone: [phone] Lymphocytes [#/volume] in Bl ood by Automated countOrdered By: Harsha Covarrubias on 12-06-2023 Lymphocytes (Bld) [#/Vol] 1.6 10*3/uL 1.00-4.8 [facility] Comment on above: Performed By: #### A NA, TPO, C3, C4, CHROMATIN, CH50, THYGLOB AB #### [facility] , Lymphocytes/100 leukocytes i n Blood by Automated countOrdered By: aHrsha Covarrubias on 12-06-2023 Lymphocytes/100 WBC (Bld) 20.9 % . [facility] Comment on above: Performed By: #### A NA, TPO, C3, C4, CHROMATIN, CH50, THYGLOB AB #### [facility] , MCH [Entitic mass] by Automa jemal countOrdered By: Harsha Covarrubias on 12-06-2023 MCH (RBC) [Entitic mass] 29.4 pg 24.7-34.3 [facility] Comment on above: Performed By: #### A NA, TPO, C3, C4, CHROMATIN, CH50, THYGLOB AB #### [facility] , MCHC Auto (RBC) [Mass/Vol]Or dered By: Harsha Covarrubias on 12-06-2023 MCHC (RBC) [Mass/Vol] 33.9 g/dL 32.0-35.0 [facility] MCV [Entitic volume] by Auto mated countOrdered By: Harsha Covarrubias on 12-06-2023 MCV (RBC) [Entitic vol] 86.8 fL 80-100 [facility] Comment on above: Performed By: #### A NA, TPO, C3, C4, CHROMATIN, CH50, THYGLOB AB #### [facility] , Neutrophils [#/volume] in Bl ood by Automated countOrdered By: Harsha Covarrubias on 12-06-2023 Neutrophils (Bld) [#/Vol] 5.3 10*3/uL 1.8-7.7 [facility] Comment on above: Performed By: #### A NA, TPO, C3, C4, CHROMATIN, CH50, THYGLOB AB #### [facility] , Nitrite Test strip Ql (U)Ord ered By: Harsha Covarrubias on 12-06-2023 Nitrite Ql (U) Negative Negative [facility] No Panel InformationOrdered By: Harsha Covarrubias on 12-06-2023 Estimated GFR (CKD-EPI) > 60.0 mL/Min [facility] Creatinine Clearance (Chem N/A [facility] Urine RBC 0-1 [HPF] 0-4 [facility] Total Complement (CH50) >60 U/mL >41 [facility] Comment on above: Age Male Female [...] to determine out of range values.Performed at: [facility] [facility] [id number] Director: Barry Mcrae PhD, Phone: [phone] Nucleated erythrocytes [Pres ence] in Blood by Automated countOrdered By: Harsha Covarrubias on 12-06-2023 Nucleated RBC Auto Ql (Bld) 0.1 /100{WBC} 0-0.5 [facility] Platelet mean volume [Entiti c volume] in Blood by Automated countOrdered By: Harsha Covarrubias on 12-06-2023 Platelet mean volume (Bld) [Entitic vol] 8.3 fL 6.3-10.7 [facility] Comment on above: Performed By: #### A NA, TPO, C3, C4, CHROMATIN, CH50, THYGLOB AB #### [facility] , Platelet poor plasma ratio o f lupus anticoagulant-sensitive activated partial thromboOrdered By: Harsha Covarrubias on 12-06-2023 aPTT.lupus sensitive.excess phospholipid actual/normal Coag (PPP) [Relative time] 35.4 sec 0.0-47.6 [facility] Platelets [#/volume] in Bloo d by Automated countOrdered By: Harsha Covarrubias on 12-06-2023 Platelets (Bld) [#/Vol] 330 10*3/uL 150-450 [facility] Comment on above: Performed By: #### A NA, TPO, C3, C4, CHROMATIN, CH50, THYGLOB AB #### [facility] , Potassium [Moles/volume] in Serum or PlasmaOrdered By: Harsha Covarrubias on 12-06-2023 Potassium [Moles/Vol] 4.3 mmol/L 3.5-5.1 [facility] Comment on above: Performed By: #### A NA, TPO, C3, C4, CHROMATIN, CH50, THYGLOB AB #### [facility] , Protein Auto test strip (U) [Mass/Vol]Ordered By: Harsha Covarrubias on 12-06-2023 Protein (U) [Mass/Vol] Negative Negative [facility] Protein [Mass/volume] in Ser um or PlasmaOrdered By: Harsha Covarrubias on 12-06-2023 Protein [Mass/Vol] 7.0 g/dL 6.4-8.9 [facility] Comment on above: Performed By: #### A NA, TPO, C3, C4, CHROMATIN, CH50, THYGLOB AB #### [facility] , Prothrombin time (PT)Ordered By: Harsha Covarrubias on 12-06-2023 PT Coag (PPP) [Time] 10.6 s 9.0-12.9 [facility] Comment on above: A hematocrit value g reater than 55% may lead to inaccurate results in coagulation testing. Patients having hematocrit values >55% require a special collection tube for coagulation studies. Please contact the laboratory at [phone] for redraw instructions. Result Comment: A he matocrit value greater than 55% may lead to inaccurate results in coagulation testing. Patients having hematocrit values >55% require a special collection tube for coagulation studies. Please contact the laboratory at [phone] for redraw instructions. Performed By: #### E SR, ADDONUAPLUS, T4F, CK, CRP, TSH3, PP, CMP, CBC #### [address] #### RPR W RFX, ALDOLASE #### [facility] , RPR w/rfx to Quant TP Abson 12-06-2023 RPR, Rfx Quant RPR Non-Reactive Normal Non Reactive [facility] Comment on above: Result Comment: Perf ormed at: CB - [facility] [id number] [place], [place] [id number] Manager Equipment: Barry Mcrae PhD, Phone: [phone] PERFORMED BY: [place] [address] PATHOLOGIST CHANGE OF ADDRESS CLERK TERRI HOGAN M.D. Performed By: #### A NA, TPO, C3, C4, CHROMATIN, CH50, THYGLOB AB #### [facility] , Reagin Ab [Presence] in Seru m by RPROrdered By: Harsha Covarrubias on 12-06-2023 Reagin Ab RPR Ql (S) Non-Reactive Non Reactive [facility] Comment on above: Performed at: CB - [facility] [address] [id number] Director: Barry Mcrae PhD, Phone: [phone] Screening dilute Josiah's v iper venom time (DRVVT) with reflex to confirmatory testOrdered By: Harsha Covarrubias on 12-06-2023 dRVVT Coag (PPP) [Time] 36.8 s 0.0-47.0 [facility] Screening lupus anticoagulan t-sensitive activated partial thromboplastin time (aPTT)Ordered By: Harsha Covarrubias on 12-06-2023 aPTT.lupus sensitive Coag (PPP) [Time] 38.7 sec 0.0-43.5 [facility] Serum globulin measurement b y calculation (mass/volume)Ordered By: Harsha Covarrubias on 12-06-2023 Globulin (S) [Mass/Vol] 2.8 g/dL [facility] Comment on above: Performed By: #### A NA, TPO, C3, C4, CHROMATIN, CH50, THYGLOB AB #### [facility] , Serum homogeneous pattern an tinuclear antibody (ISRA) titerOrdered By: Harsha Covarrubias on 12-06-2023 Homogenous nuclear Ab pattern (S) [Titer] N/A [facility] Serum nuclear antibody titer Ordered By: Harsha Covarrubias on 12-06-2023 Nuclear Ab (S) [Titer] Negative . [facility] Comment on above: Negative <1:80 Borde rline 1:80 Positive >1:80ICAP nomenclature: AC-0For more information about Hep-2 cell patterns useANApatterns.org, the official website for theInternational Consensus on Antinuclear Antibody (ISRA)Patterns (ICAP).Performed at: [facility] [employer] [id number] Director: Barry Mcrae PhD, Phone: [phone] Serum or plasma albumin/glob ulin mass ratioOrdered By: Harsha Covarrubias on 12-06-2023 Albumin/Globulin [Mass ratio] 1.5 {ratio} [facility] Comment on above: Performed By: #### A NA, TPO, C3, C4, CHROMATIN, CH50, THYGLOB AB #### [facility] , Serum or plasma anion gap de terminationOrdered By: Harsha Covarrubias on 12-06-2023 Anion gap [Moles/Vol] 10.0 mmol/L 6.0-15.0 [facility] Comment on above: Performed By: #### A NA, TPO, C3, C4, CHROMATIN, CH50, THYGLOB AB #### [facility] , Serum or plasma chromatin an tibody assay (units/volume)Ordered By: Harsha Covarrubias on 12-06-2023 Chromatin Ab Qn <0.2 AI 0.0-0.9 [facility] Comment on above: Performed at: [employer] [address] [id number] Director: Barry Mcrae PhD, Phone: [phone] Serum or plasma complement C 3 measurement (mass/volume)Ordered By: Harsha Covarrubias on 12-06-2023 Complement C3 [Mass/Vol] 189 mg/dL 82-167 [facility] Comment on above: Performed at: [employer] [facility] [address] [id number] Director: Barry Mcrae PhD, Phone: [phone] Serum or plasma complement C 4 measurement (mass/volume)Ordered By: Harsha Covarrubias on 12-06-2023 Complement C4 [Mass/Vol] 45 mg/dL 12-38 [facility] Serum or plasma thyroglobuli n antibody assay (units/volume)Ordered By: Harsha Covarrubias on 12-06-2023 Thyroglobulin Ab Qn [IU]/mL 0.0-0.9 [facility] Comment on above: Thyroglobulin Antibo dy measured by Yonis nuMVCMethodologyIt should be noted that the presence of thyroglobulinantibodies may not be pathogenic nor diagnostic, especiallyat very low levels. The assay direct chill casting operator has found thatfour percent of individuals without evidence of thyroiddisease or autoimmunity will have positive TgAb levels upto 4 IU/mL.Performed at: [employer] [facility] [id number] Director: Barry Mcrae PhD, Phone: [phone] Serum or plasma thyroperoxid ase antibody assay (units/volume)Ordered By: Harsha Covarrubias on 12-06-2023 TPO Ab Qn [IU]/mL 0-34 [facility] Comment on above: Performed at: [employer] [address] [id number] Director: Barry Mcrae PhD, Phone: [phone] Sodium [Moles/volume] in Ser um or PlasmaOrdered By: Harsha Covarrubias on 12-06-2023 Sodium [Moles/Vol] 139 mmol/L 136-145 [facility] Comment on above: Performed By: #### A NA, TPO, C3, C4, CHROMATIN, CH50, THYGLOB AB #### [facility] , Specific gravity Auto test s trip (U) [Rel density]Ordered By: Harsha Covarrubias on 12-06-2023 Specific gravity (U) [Rel density] 1.026 1.001-1.03 0 [facility] Squamous epithelial cells de tection in urine sediment by light microscopyOrdered By: Harsha Covarrubias on 12-06-2023 Epithelial cells.squamous LM Ql (Urine sed) 3-4 [HPF] 0-2 [facility] TT plasOrdered By: Harsha patel on 12-06-2023 Thrombin time Coag (PPP) [Time] 16.9 sec 0.0-23.0 [facility] Thyroid Peroxidase Antibodie son 12-06-2023 Thyroid Peroxidase Antibodies <9 Normal 0-34 [facility] Comment on above: Result Comment: Perf ormed at: - [facility] [address] [id number] Manager Equipment: Barry Mcrae PhD, Phone: [phone] Performed By: #### A NA, TPO, C3, C4, CHROMATIN, CH50, THYGLOB AB #### [facility] , Thyrotropin [Units/volume] i n Serum or PlasmaOrdered By: Harsha Covarrubias on 12-06-2023 TSH Qn 1.93 m[IU]/L 0.45-5.33 [facility] Comment on above: Result Comment: PERF ORMED BY: [address] [place] [address] PATHOLOGIST CHANGE OF ADDRESS CLERK TERRI HOGAN M.D. Performed By: #### A NA, TPO, C3, C4, CHROMATIN, CH50, THYGLOB AB #### [facility] , Thyroxine (T4) free [Mass/vo lume] in Serum or PlasmaOrdered By: Harsha Covarrubias on 12-06-2023 Free T4 [Mass/Vol] 0.85 ng/dL 0.61-1.12 [facility] Comment on above: Performed By: #### A NA, TPO, C3, C4, CHROMATIN, CH50, THYGLOB AB #### [facility] , Urea nitrogen [Mass/volume] in Serum or PlasmaOrdered By: Harsha Covarrubias on 12-06-2023 Urea nitrogen [Mass/Vol] 16 mg/dL 7 [facility] Comment on above: Performed By: #### A NA, TPO, C3, C4, CHROMATIN, CH50, THYGLOB AB #### [facility] , Urine clarity by refractomet ry automatedOrdered By: Harsha Covarrubias on 12-06-2023 Clarity Refractometry automated (U) Clear Clear [facility] Urine glucose measurement by automated test strip (mass/volume)Ordered By: Harsha Covarrubias on 12-06-2023 Glucose Auto test strip (U) [Mass/Vol] Normal mg/dL Normal [facility] Urine hemoglobin detection b y automated test stripOrdered By: Harsha Covarrubias on 12-06-2023 Hemoglobin Auto test strip Ql (U) Negative Negative [facility] Urine leukocyte esterase det ection by automated test stripOrdered By: Harsha Covarrubias on 12-06-2023 Leukocyte esterase Auto test strip Ql (U) Negative Negative [facility] Urine pH measurement by auto mated test stripOrdered By: Harsha Covarrubias on 12-06-2023 pH (U) 5.5 [pH] 5.0-9.0 [facility] Comment on above: Order Comment: Name Collection Type:: Clean-Voided Midstream Performed By: #### A NA, TPO, C3, C4, CHROMATIN, CH50, THYGLOB AB #### [facility] , Urobilinogen Auto test strip (U) [Mass/Vol]Ordered By: Harsha Covarrubias on 12-06-2023 Urobilinogen (U) [Mass/Vol] Normal mg/dL Normal [facility] aPTT.lupus sensitive/aPTT.lynn pus sensitive W excess phospholipid (screen to confirm raOrdered By: Harsha Covarrubias on 12-06-2023 aPTT.lupus sensitive/aPTT.lupus sensitive W excess phospholipid Coag (PPP) [Ratio] 1.18 Ratio 0.00-1.34 [facility] Basophils Auto (Bld) [#/Vol] on 10-05-2023 Basophils (Bld) [#/Vol] 0.0 10 3/uL 0.0-0.1 [facility] Basophils/100 WBC Auto (Bld) on 10-05-2023 Basophils/100 WBC (Bld) 0.9 % 0.2-2.0 [facility] Centriole Ab [Titer] in Seru m by Immunofluorescenceon 10-05-2023 Centriole Ab IF (S) [Titer] TNP . [facility] Centromere Ab [Titer] in Ser um by Immunofluorescenceon 10-05-2023 Centromere Ab IF (S) [Titer] TNP . [facility] Eosinophils/100 WBC Auto (Bl d)on 10-05-2023 Eosinophils/100 WBC (Bld) 4.4 % 0.9-7.0 [facility] Erythrocyte distribution wid th Auto (RBC) [Ratio]on 10-05-2023 Erythrocyte distribution width (RBC) [Ratio] 12.8 % 11.0-15.0 [facility] Estimated glomerular filtrat ion rate (GFR) non- Americanon 10-05-2023 GFR/1.73 sq M.predicted among non-blacks MDRD (S/P/Bld) [Vol rate/Area] mL/min/{1.73_m2} >=60 [facility] Globulin Calc (S) [Mass/Vol] on 10-05-2023 Globulin (S) [Mass/Vol] 3.7 g/dL [facility] Hematocrit Auto (Bld) [Volum e fraction]on 10-05-2023 Hematocrit (Bld) [Volume fraction] 42.2 % 36.0-48.0 [facility] Hemoglobin [Mass/volume] in Bloodon 10-05-2023 Hemoglobin (Bld) [Mass/Vol] 13.5 g/dL 12.0-16.0 [facility] Hepatitis B virus surface Ag [Presence] in Serum or Plasma by Immunoassayon 10-05-2023 HBV surface Ag IA Ql Negative Negative [facility] Comment on above: Performed at: - [facility] [address] [id number] Director: Barry Mcrae PhD, Phone: [phone] Hepatitis C virus IgG Ab [Pr esence] in Serum or Plasma by Immunoassayon 10-05-2023 HCV IgG IA Ql Non-Reactive Non Reactive [facility] Comment on above: HCV antibody alone d oes not differentiate betweenpreviously resolved infection and active infection.Equivocal and Reactive HCV antibody results should befollowed up with an HCV RNA test to support the diagnosisof active HCV infection. Laboratory - Chemistry and C hemistry - challengeon 10-05-2023 Albumin [Mass/Vol] 3.7 g/dL 3.4-5.0 [facility] ALP [Catalytic activity/Vol] 76 U/L 46-116 [facility] ALT [Catalytic activity/Vol] 28 U/L 14-59 [facility] AST [Catalytic activity/Vol] 27 U/L 15-37 [facility] Bilirubin [Mass/Vol] 0.5 mg/dL 0.2-1.0 [facility] Calcium [Mass/Vol] 8.8 mg/dL 8.5-10.1 [facility] Chloride [Moles/Vol] 103 mmol/L 98-107 [facility] CO2 [Moles/Vol] 29.5 mmol/L 21.0-32.0 [facility] Creatinine [Mass/Vol] 0.66 mg/dL 0.55-1.02 [facility] GFR/1.73 sq M.predicted MDRD (S/P/Bld) [Vol rate/Area] mL/min/{1.73_m2} >=60 [facility] Glucose [Mass/Vol] 74 mg/dL 74-106 [facility] Potassium [Moles/Vol] 4.1 mmol/L 3.5-5.1 [facility] Protein [Mass/Vol] 7.4 g/dL 6.4-8.2 [facility] Sodium [Moles/Vol] 140 mmol/L 136-145 [facility] Urea nitrogen [Mass/Vol] 11.0 mg/dL 7.0-18.0 [facility] Urea nitrogen/Creatinine [Mass ratio] 16.7 mg/mg [facility] Laboratory - Hematology and Cell countson 10-05-2023 Immature granulocytes/100 WBC (Bld) 0.2 % 0.0-0.5 [facility] Leukocytes [#/volume] correc jemal for nucleated erythrocytes in Blood by Automated counon 10-05-2023 WBC corrected for nucl RBC Auto (Bld) [#/Vol] 4.6 10 3/uL 4.0-11.0 [facility] Lymphocytes Auto (Bld) [#/Vo l]on 10-05-2023 Lymphocytes (Bld) [#/Vol] 1.2 10 3/uL 1.2-3.8 [facility] Lymphocytes/100 WBC Auto (Bl d)on 10-05-2023 Lymphocytes/100 WBC (Bld) 25.7 % 20.5-60.0 [facility] MCH Auto (RBC) [Entitic mass ]on 10-05-2023 MCH (RBC) [Entitic mass] 28.6 pg 26.7-34.0 [facility] MCHC Auto (RBC) [Mass/Vol]on 10-05-2023 MCHC (RBC) [Mass/Vol] 32.0 g/dL 29.9-35.2 [facility] MCV Auto (RBC) [Entitic vol] on 10-05-2023 MCV (RBC) [Entitic vol] 89.4 fL 81.0-99.0 [facility] Midbody Ab [Titer] in Serum by Immunofluorescenceon 10-05-2023 Midbody Ab IF (S) [Titer] TNP . [facility] Mitotic spindle apparatus Ab [Titer] in Serum or Plasma by Immunofluorescenceon 10-05-2023 Mitotic spindle apparatus Ab IF [Titer] TNP . [facility] Monocytes Auto (Bld) [#/Vol] on 10-05-2023 Monocytes (Bld) [#/Vol] 0.4 10 3/uL 0.3-0.8 [facility] Monocytes/100 WBC Auto (Bld) on 10-05-2023 Monocytes/100 WBC (Bld) 8.4 % 1.7-12.0 [facility] Neutrophils Auto (Bld) [#/Vo l]on 10-05-2023 Neutrophils (Bld) [#/Vol] 2.8 10 3/uL 1.4-6.5 [facility] Neutrophils/100 WBC Auto (Bl d)on 10-05-2023 Neutrophils/100 WBC (Bld) 60.4 % 43.0-75.0 [facility] No Panel Informationon 10-04 Anti-Nuclear Antibody Comment 2 Comment . [facility] Comment on above: Pattern Potential Di sease Association Homogeneous Systemic Lupus Erythematosus, Drug Induced Systemic Lupus Erythematosus, Chronic Autoimmune hepatitis, Juvenile Idiopathic Arthritis Speckled Sjogren Syndrome, Systemic Lupus Erythematosus, Subacute Cutaneous Lupus, Lupus, Congenital Heart Block, Mixed Connective Tissue Disease, Scleroderma-diffuse, Scleroderma-Autoimmune Myositis Overlap Syndrome, Systemic Lupus Cortxbzkxdzjb-Bzvecmdpvsu-Llupjgdtzy Myositis Overlap Syndrome, Systemic Autoimmune Rheumatic Disease, [...] Cytopenias, Linear Scleroderma, Antiphospholipid Syndrome Performed at: [employer] [facility] [id number] Director: Barry Mcrae PhD, Phone: [phone] Eosinophils # (Auto) 0.2 10 3/uL 0.0-0.7 [facility] Immature Granulocyte # (Auto) 0.01 10 3/uL 0.00-0.03 [facility] Nuclear dots nuclear Ab aj herson [Titer] in Serum by Immunofluorescenceon 10-05-2023 Nuclear dots nuclear Ab pattern IF (S) [Titer] TN . [facility] Nuclear membrane pores nucle ar Ab pattern [Titer] in Serum by Immunofluorescenceon 10-05-2023 Nuclear membrane pores nuclear Ab pattern IF (S) [Titer] TN . [facility] PCNA extractable nuclear Ab [Titer] in Serum by Immunofluorescenceon 10-05-2023 PCNA extractable nuclear Ab IF (S) [Titer] TN . [facility] Platelet mean volume Auto (B ld) [Entitic vol]on 10-05-2023 Platelet mean volume (Bld) [Entitic vol] 9.6 fL 9.5-13.5 [facility] Platelets Auto (Bld) [#/Vol] on 10-05-2023 Platelets (Bld) [#/Vol] 340 10 3/uL 150-450 [facility] RBC Auto (Bld) [#/Vol]on RBC (Bld) [#/Vol] 4.72 10 6/uL 4.20-5.40 [facility] Serum homogeneous pattern an tinuclear antibody (ISRA) titeron 10-05-2023 Homogenous nuclear Ab pattern (S) [Titer] TNP . [facility] Serum nuclear antibody titer on 10-05-2023 Nuclear Ab (S) [Titer] Positive . [facility] Comment on above: Negative <1:80 Borde rline 1:80 Positive >1:80Speckled cytoplasmic fluorescence is present. Theantibodies noted in this pattern may be associated with,but not restricted to, primary biliary cirrhosis (PBC),polymyositis and dermatomyositis (PM/DM), and/or systemiclupus erythematosus (SLE). Serum nucleolar pattern anti nuclear antibody (ISRA) titeron 10-05-2023 Nucleolar nuclear Ab pattern (S) [Titer] TNP . [facility] Serum or plasma albumin/glob ulin mass ratioon 10-05-2023 Albumin/Globulin [Mass ratio] 1.0 {ratio} [facility] Serum or plasma anion gap de terminationon 10-05-2023 Anion gap [Moles/Vol] 11.6 mmol/L [facility] Serum speckled pattern antin uclear antibody (ISRA) titeron 10-05-2023 Speckled nuclear Ab pattern (S) [Titer] 1:160 . [facility] Comment on above: ICAP nomenclature: A C-2,4,5,29 [facility] 02-24-2023 S. pyogenes Org specific cx Ql (Throat) Negative [employer] Other [employer] Other Outside Colonoscopyon 2020 [facility] [id number]#[id number]:12 7 Normal [facility] Lab Reportson 05-17-2021 Lab Reports [id number]#1.00CD:12 7 Normal [facility] May 05, 2021 TARUN GLOVER, [address] [place] [address] Re: OLIMPIA DINH Date of : 1970 Thank you for your referral of Olimpia Dinh who was seen on consultation on April 28, 2021, for screening colonoscopy. I have enclosed my consultation note for your review. I will be happy to follow Olimpia. Sincerely, Trevor Richard Md General Surgery [facility] Pre-Certification Formon Pre-Certification Form [id number]#[id number]:[address] [facility] Formson 04-29-2021 Forms [id number]#[id number]:[address] [facility] Ambulatory Clinical Summaryo 04-28-2021 Ambulatory Clinical Summary {[id number] [facility] Physician Referralon 021 Physician Referral [id number]:[address] [facility] NM PET/CT SKULL-THIGH INITon 09-27-2019 NM PET/CT [...] any questions regarding this interpretation, please call [phone]. If you are unable to reach us at the number above, please feel free to contact [facility] at [phone]. [id number] Normal [facility] PROGRESSon 09-27-2019 PROGRESS HNO ID: [id number] Author: Jewel Vivar (Tech) Service: ? Author Type: [employer] Developer Type: Progress Notes Filed: 09/27/2019 1:22 PM [...] 2019 TIME: 1:09 PM PAGER/CONTACT #: Normal [facility] CT-CT CHEST W CON IMPORTon 0 09-09-2019 CT-CT CHEST W CON IMPORT Images were obtained outside of [facility] [id number] Normal [facility] T-Spoton 07-06-2017 T-Spot. TB Test Normal [facility] Comment on above: Result Comment: [employer] [id number] [place] [address](NOTE)T-SPOT.TB: NegativeThe test result is Negative because the [...] B Spot Count: 0Positive Control Spot Count: >20[facility] CAL [employer] [address] [place] [address] Performed By: #### T SPOT ####[facility] [address] [place] [address] Vital Signs Date Time Vital Sign Value Performing Clinician Facility 04-29-2024 08:48-0400 Body mass index (BMI) [Ratio] 46.43 kg/m2 Claudia Taylor DO Work Phone: [facility] 04-29-2024 08:48-0400 Body weight 122.7 kg Claudia Brandon DO Work Phone: [facility] 04-29-2024 08:48-0400 Diastolic blood pressure 78 mm[Hg] Claudia Brandon DO Work Phone: [facility] 04-29-2024 08:48-0400 Systolic blood pressure 122 mm[Hg] Claudia Brandon DO Work Phone: [facility] 03-29-2024 10:11-0400 Body height 164.47 cm [facility] 03-29-2024 10:11-0400 Body mass index (BMI) [Ratio] 45.3 kg/m2 [facility] 03-29-2024 10:11-0400 Body weight 122.52 kg [facility] 03-29-2024 10:11-0400 Diastolic blood pressure 95 mm[Hg] [facility] 03-29-2024 10:11-0400 Heart rate 98 /min [facility] 03-29-2024 10:11-0400 Respiratory rate 12 /min [facility] 03-29-2024 10:11-0400 Systolic blood pressure 145 mm[Hg] [facility] 12-26-2023 14:25-0400 Body height 164.47 cm DO Tarun Ball Work Phone: [facility] 12-26-2023 14:25-0400 Body mass index (BMI) [Ratio] 46.6 kg/m2 DO Tarun Ball Work Phone: [facility] 12-26-2023 14:25-0400 Body weight 126.26 kg DO Tarun Ball Work Phone: [facility] 12-26-2023 14:25-0400 Diastolic blood pressure 78 mm[Hg] DO Tarun Ball Work Phone: [facility] 12-26-2023 14:25-0400 Heart rate 88 /min DO Tarun Ball Work Phone: [facility] 12-26-2023 14:25-0400 Respiratory rate 12 /min DO Tarun Ball Work Phone: [facility] 12-26-2023 14:25-0400 Systolic blood pressure 120 mm[Hg] DO Tarun Ball Work Phone: [facility] 10-27-2023 11:04-0400 Body height 164.47 cm [facility] 10-27-2023 11:04-0400 Body mass index (BMI) [Ratio] 45.6 kg/m2 [facility] 10-27-2023 11:04-0400 Body weight 123.43 kg [facility] 10-27-2023 11:04-0400 Diastolic blood pressure 82 mm[Hg] [facility] 10-27-2023 11:04-0400 Heart rate 80 /min [facility] 10-27-2023 11:04-0400 Respiratory rate 12 /min [facility] 10-27-2023 11:04-0400 Systolic blood pressure 128 mm[Hg] [facility] 08-21-2023 13:45-0500 Body height 164.47 cm Tarun Ball Other [facility] Other 08-21-2023 13:45-0500 Body mass index (BMI) [Ratio] 45.47 kg/m2 Tarun Ball Other [facility] Other 08-21-2023 13:45-0500 Body weight 123.02 kg Tarun Ball Other [facility] Other 08-21-2023 13:45-0500 Diastolic blood pressure 77 mm[Hg] Tarun Ball Other [facility] Other 08-21-2023 13:45-0500 Respiratory rate 16 /min Tarun Ball Other [facility] Other 08-21-2023 13:45-0500 Systolic blood pressure 136 mm[Hg] Tarun Ball Other [facility] Other 05-19-2023 12:17-0400 Body height 164.47 cm Tarun Ball Other [employer] Other 05-19-2023 12:17-0400 Body mass index (BMI) [Ratio] 43.09 kg/m2 Tarun Ball Other [employer] Other 05-19-2023 12:17-0400 Body weight 116.58 kg Tarun Ball Other [employer] Other 05-19-2023 12:17-0400 Diastolic blood pressure 75 mm[Hg] Tarun Ball Other [employer] Other 05-19-2023 12:17-0400 Systolic blood pressure 119 mm[Hg] Tarun Ball Other [employer] Other 02-27-2023 12:00-0400 Body height 164.47 cm Tarun Ball Other [employer] Other 02-27-2023 12:00-0400 Body mass index (BMI) [Ratio] 43.6 kg/m2 Tarun Ball Other [employer] Other 02-27-2023 12:00-0400 Body weight 117.94 kg Tarun Ball Other [employer] Other 02-24-2023 09:00-0400 Body height 164.47 cm Tasia Emery Other [employer] Other 02-24-2023 09:00-0400 Body mass index (BMI) [Ratio] 44.1 kg/m2 Tasia Emery Other [employer] Other 02-24-2023 09:00-0400 Body weight 119.3 kg Tasia Emery Other [employer] Other 02-24-2023 09:00-0400 Diastolic blood pressure 83 mm[Hg] Tasia Emery Other [employer] Other 02-24-2023 09:00-0400 Respiratory rate 16 /min Tasia Zavalaley Other [employer] Other 02-24-2023 09:00-0400 SaO2% (BldA) [Mass fraction] 98 % Tasia Emery Other [employer] Other 02-24-2023 09:00-0400 Systolic blood pressure 125 mm[Hg] Tasia Emery Other [employer] Other 01-20-2023 08:30-0400 Body height 164.47 cm Tarun Ball Other [employer] Other 01-20-2023 08:30-0400 Body mass index (BMI) [Ratio] 44.17 kg/m2 Tarun Ball Other [employer] Other 01-20-2023 08:30-0400 Body weight 119.48 kg Tarun Ball Other [employer] Other 01-20-2023 08:30-0400 Diastolic blood pressure 87 mm[Hg] Tarun Ball Other [employer] Other 01-20-2023 08:30-0400 Respiratory rate 12 /min Tarun Ball Other [employer] Other 01-20-2023 08:30-0400 Systolic blood pressure 130 mm[Hg] Tarun Ball Other [employer] Other 01-02-2023 12:00-0400 Body height 164.47 cm Tarun Ball Other [employer] Other 01-02-2023 12:00-0400 Body mass index (BMI) [Ratio] 43.09 kg/m2 Tarun Ball Other [employer] Other 01-02-2023 12:00-0400 Body weight 116.58 kg Tarun Ball Other [employer] Other 01-02-2023 12:00-0400 Diastolic blood pressure 79 mm[Hg] Tarun Ball Other [employer] Other 01-02-2023 12:00-0400 Systolic blood pressure 124 mm[Hg] Tarun Ball Other [employer] Other 11-16-2022 10:30-0400 Body height 164.47 cm Tarun Ball Other [employer] Other 11-16-2022 10:30-0400 Body mass index (BMI) [Ratio] 45.54 kg/m2 Tarun Ball Other [employer] Other 11-16-2022 10:30-0400 Body weight 123.2 kg Tarun Ball Other [employer] Other 11-16-2022 10:30-0400 Diastolic blood pressure 81 mm[Hg] Tarun Ball Other [employer] Other 11-16-2022 10:30-0400 Respiratory rate 12 /min Tarun Ball Other [employer] Other 11-16-2022 10:30-0400 SaO2% (BldA) [Mass fraction] 96 % Tarun Ball Other [employer] Other 11-16-2022 10:30-0400 Systolic blood pressure 115 mm[Hg] Tarun Glover Other [place] [employer] Other Encounters Encounter Date Encounter Type Care Provider Facility Start: 04-29-2024 End: 04-29-2024 Bamboo flowsheet Claudia Brandon DO Work Phone: [facility] Start: 04-29-2024 End: 04-29-2024 Bamboo flowsheet Claudia Brandon DO Work Phone: [facility] Start: 04-29-2024 End: 04-29-2024 Office outpatient visit 15 minutes Claudia Brandon DO Work Phone: [facility] Comment on above: Pre-op examination; Fibroids; Pelvic pain in female; Dyspareunia in female Start: 04-29-2024 End: 04-29-2024 Preprocedural examination done Claudia Brandon DO Work Phone: [facility] Start: 04-29-2024 End: 04-29-2024 ambulatory CLAUDIA TAYLOR Not Available Start: 04-02-2024 End: 04-02-2024 ambulatory MADISYN PIPER Not Available Start: 03-29-2024 End: 03-29-2024 ambulatory [facility] Work Phone: Start: 03-29-2024 End: 03-29-2024 Patient encounter procedure [facility] Work Phone: Start: 12-26-2023 End: 12-26-2023 ambulatory DO Tarun Glover Work Phone: [facility] Work Phone: Start: 12-26-2023 End: 12-26-2023 Encounter for general adult medical examination without abnormal findings DO Tarun Glover Work Phone: [facility] Start: 12-26-2023 End: 12-26-2023 Patient encounter procedure DO Tarun Ball Work Phone: [facility] Work Phone: Start: 12-06-2023 End: 12-06-2023 Patient encounter procedure DO Tarun Ball Work Phone: [facility] [address] Work Phone: Start: 12-06-2023 End: 12-06-2023 ambulatory DO Tarun Ball Work Phone: [facility] Work Phone: Start: 10-27-2023 End: 10-27-2023 ambulatory [facility] Work Phone: Start: 10-27-2023 End: 10-27-2023 Patient encounter procedure [facility] Work Phone: Start: 10-05-2023 Non-patient / Non-visit [facility] Work Phone: Start: 09-12-2023 Non-patient / Non-visit [facility] Work Phone: Start: 08-21-2023 End: 08-21-2023 ambulatory Tarun Ball Other [employer] Other Start: 08-21-2023 Office outpatient vi sit 15 minutes Tarun Ball [facility] Start: 08-16-2023 End: 08-16-2023 ambulatory Tarun Ball Other [employer] Other Start: 08-16-2023 Office outpatient vi sit 15 minutes Tarun Ball [facility] Start: 07-19-2023 End: 07-19-2023 ambulatory Tarun Ball Other [employer] Other Start: 07-19-2023 Office outpatient vi sit 15 minutes Tarun Ball [facility] Start: 05-19-2023 End: 05-19-2023 ambulatory Tarun Ball Other [employer] Other Start: 05-19-2023 Telephone encounter Tarun Glover [facility] Start: 03-17-2023 End: 03-17-2023 ambulatory Tarun Glover Other [employer] Other Start: 03-17-2023 Telephone encounter Tarun Glover [facility] Start: 02-27-2023 End: 02-27-2023 ambulatory Tarun Glover Other [employer] Other Start: 02-27-2023 Office outpatient vi sit 15 minutes Tarun Adalberto [facility] Start: 02-24-2023 End: 02-24-2023 ambulatory Tasia Emery Other [employer] Other Start: 02-24-2023 Office outpatient vi sit 15 minutes Tasia Emery [facility] Start: 02-24-2023 Telephone encounter Tarun Glover [facility] Start: 02-17-2023 End: 02-17-2023 ambulatory Tarun Glover Other [employer] Other Start: 02-17-2023 Telephone encounter Tarun Glover [facility] Start: 01-20-2023 End: 01-20-2023 ambulatory Tarun Glover Other [employer] Other Start: 01-20-2023 Office outpatient vi sit 15 minutes Tarun Glover [facility] Start: 01-02-2023 End: 01-02-2023 ambulatory Tarun Glover Other [employer] Other Start: 01-02-2023 Office outpatient vi sit 15 minutes Tarun Glover [facility] Start: 12-14-2022 End: 12-14-2022 ambulatory Tarun Glover Other [employer] Other Start: 12-14-2022 Telephone encounter Tarun Adalberto [facility] Start: 12-07-[address] TARUN [facility] Facili ty:[facility] Start: 11-16-2022 End: 11-16-2022 ambulatory Tarun Glover Other [employer] Other Start: 11-16-2022 Encounter for genera l adult medical examination without abnormal findings Tarun Glover [facility] Start: 11-16-2022 Periodic preventive med est patient 40-64yrs Tarun Glover [facility] Start: 11-16-2022 Telephone encounter Tarun Adalberto [facility] Start: 09-26-2022 End: 09-26-2022 ambulatory Tarun Glover Other [employer] Other Start: 09-26-2022 Office outpatient vi sit 15 minutes Tarun [facility] Start: 09-12-2022 End: 09-12-2022 ambulatory Tarun Glvoer Other [employer] Other Start: 09-12-2022 Telephone encounter Tarun Adalberto [facility] Start: 06-17-2022 Gynecological examination normal Tarun Glover Other [employer] Other Start: 01-03-2022 End: 08-04-[address] MONTRELL CHIU Facility:[facility] Start: 07-01-2021 Adult health examination Swapnil Gl[facility] Other [employer] Other Start: 07-03-2017 End: 07-04-2017 Ambulatory TREVOR BRUSH [facility] Procedures Date Procedure Procedure Detail Performing [...] Visit [facility] [address] [place] [id number] Madisyn Piper PA [address] [place], [place] [id number] [facility] Start: 05-21-2024 End: 05-21-2024 Patient encounter procedure 05/21/2024 2:20 PM EST Office Visit [facility] [address] [place] [id number] Claudia Taylor, DO [address] [place], [facility] Start: 04-29-2024 End: 04-29-2024 Patient encounter procedure 04/29/2024 8:50 AM EDT Office Visit [facility] [address] [place] [phone] Claudia Taylor, DO [address] [place] [address] Arrived [facility] Comment on above: Arrived Start: 03-17-2024 Influenza vaccination Influenz a Vaccine (#1) [facility] Start: 12-06-2023 Hemolytic complement CH50 level [facility] Start: 12-06-2023 End: 12-06-2023 [facility] Start: 10-27-2023 Patient referral [facility] Work Phone: Start: 2009 Screening for malign ant neoplasm of breast Mammogram [facility] Start: 1990 Screening for malign ant neoplasm of cervix Pap Smear [facility] Start: 1969 Screening for malign ant neoplasm of colon [facility] MG Breast - bilatera l Screening [facility] Nuclear Ab [Titer] i n Serum [facility] Patient referral [facility] Work Phone: Immunizations Immunization Date Immunization Notes Care Provider Fa cility 09-15-2021 influenza virus vaccine, split virus (incl. purified surface antigen) Tarun Glover Other [employer] Other 03-31-2021 influenza virus vaccine, unspecified formulation [facility] 05-21-2020 influenza virus vaccine, split virus (incl. purified surface antigen) Tarun Glover Other [employer] Other 05-21-2020 influenza virus vaccine, unspecified formulation [facility] Payers Date Payer Category Payer Managed Care O (unspecified) [employer] [id number] 1969 Unknown [id number] 1969 Unknown [id number] 1969 Unknown [id number] 1969 Unknown [id number] 1959 Private Health Insurance [id number] 1960 Self-pay Private Health Insurance [id number] Unknown [id number] Social History Date Type Detail Facility Unknown if ever smoked [facility] Other Start: 04-02-2024 End: 04-29-2024 Sex Assigned At [facility] [employer] Other Start: 08-16-2023 End: 04-29-2024 Tobacco smoking status NHIS Never smoked tobacco (finding) [facility] Start: 1970 Sex Assigned At Female F [facility] Start: 04-02-2024 End: 04-29-2024 Alcoholic beverage intake Lifetime non-drinker (finding) [facility] Start: 04-02-2024 End: 04-29-2024 History of Social function [facility] Start: 03-22-2023 Alcohol Comment Caffeine intak e: 1-2 cups per day coffee [facility] Start: 1970 Sex assigned at Not on file N [facility] Start: 04-29-2024 Tobacco use and exposure Smokeless tobacco non-user [facility] Clinical Notes 04-28-2021 to 04-29-2024 Kristin [...] (WEG[place]) Subcutaneous ALLERGIES Allergies Allergen Reactions Lyons Oil Unknown Latex Unknown Milk-Related Compounds Unknown [...] nursing note reviewed. Exam conducted with a machine stone polisher present. Vitals: Estimated body mass index is [...] with Diagnostic Lap she is able to criminal justice social worker on Monday after procedure. Patient to return to clinic as to be scheduled prior to leaving office today. After talking with patient patient will have Pre-op appointment today and D&C will be done at time of Diagnostic Lap for sampling of tissue. Documented by Kristin Garcia LPN on behalf of: Claudia Taylor DO documented in this encounter [facility] 08-21-2023 Evaluation note Encounter Date Diagnosis Assessment [...] for congestion, Tylenol for pain and fever. [employer] Other 01-31-2024 Evaluation note* Encounter Date Diagnosis [...] AURORA as needed for cough and wheezing [employer] Other 01-03-2024 Evaluation note* Encounter Date Diagnosis [...] chest wheezing. ER for CP or dyspnea. [employer] Other 11-03-2023 Evaluation note* Encounter Date Diagnosis Assessment Notes Treatment Notes Treatment Clinical Notes May, Morbid (severe) obesity due to excess calories (ICD-10 - E66.01) [employer] Other 08-14-2023 Evaluation note* Encounter Date Diagnosis [...] index [BMI] 40.0-44.9, adult (ICD-10 - Z68.41) [employer] Other 08-11-2023 Evaluation note* Encounter Date Diagnosis [...] 7 days, sooner if significantly worsening symptoms. [employer] Other 07-07-2023 Evaluation note* Encounter Date Diagnosis [...] index [BMI] 40.0-44.9, adult (ICD-10 - Z68.41) [employer] Other 06-19-2023 Evaluation note* Encounter Date Diagnosis [...] and keep active. No change in treatment [employer] Other 05-31-2023 Evaluation note* Encounter Date Diagnosis Assessment Notes Treatment Notes Treatment Clinical Notes November, Morbid (severe) obesity due to excess calories (ICD-10 - E66.01) [employer] Other 05-03-2023 Evaluation note* Encounter Date Diagnosis [...] - Z12.31) Yearly mammogram and monthly SBE [employer] Other 05-03-2023 Evaluation note* Encounter Date Diagnosis Assessment Notes Treatment Notes Treatment Clinical Notes November, Morbid obesity (ICD-10 - E66.01) [employer] Other 03-13-2023 Evaluation note* Encounter Date Diagnosis Assessment Notes Treatment Notes Treatment Clinical Notes Sep, Acute bronchitis due to other specified organisms (ICD-10 - J20.8) Instructed to use Robitussin or Mucinex for cough, saline or Flonase NS for congestion, Tylenol for pain and fever. Sep, Mild intermittent asthma with acute exacerbation (ICD-10 - J45.21) [employer] Other 02-27-2023 Evaluation note* Encounter Date Diagnosis Assessment Notes Treatment Notes Treatment Clinical Notes Aug, WALTER (generalized anxiety disorder) (ICD-10 - F41.1) [employer] Other 10-13-2021 NoteChief Complaint consultation for screening [...] 08/24/2020 Recorded SARS-CoV-2 (COVID-19) Ad26 vaccine 07/27/2020 [facility]Western [facility] HospitalComment on above:Result Comment: Electronically Signed By: KAELYN YOUNGBLOOD, Trevor Carreno\Date and Time Signed: 04/28/21 17:55 EDTEvaluation noteNo InformationNortThomas [facility] Other Evaluation noteNo assessment information available [facility] Work Phone: Evaluation note* Diagnosis Onset Date Resolution Status ISRA positive acute Degenerative arthritis of left hand acute Degenerative arthritis of right hand acute Lumbar spondylosis acute Post-traumatic osteoarthritis, right ankle and foot acute [facility] Work Phone: Evaluation note* Diagnosis Onset Date Resolution Status ISRA positive acute Degenerative arthritis of left hand acute Degenerative arthritis of right hand acute Lumbar spondylosis acute Post-traumatic osteoarthritis, right ankle and foot acute Lumbar spondylosis acute Obesity acute Post-traumatic osteoarthritis, right ankle and foot acute Screening for colon cancer n oneactive Screening mammogram for breast cancer noneactive Wellness examination noneact bladimir [facility] Work Phone: Evaluation note* Diagnosis Onset Date Resolution Status Cervical muscle strain acute Lumbar spondylosis acute Obesity acute [facility] Work Phone: Evaluation note* Diagnosis Pre-op [...] cholecystectomy Surgical History Hospitalization History see above [place] [employer] Other Summary Purpose Family History Relationship Condition [...] 01/09/2018 [facility] DATE CREATED AUTHOR AUTHOR'S ORGANIZ ATION 09/27/2019 [facility] DATE CREATED AUTHOR AUTHOR'S ORGANIZ ATION [facility]20[facility] DATE CREATED AUTHOR AUTHOR'S ORGANIZ ATION 11/30/2022 [facility] DATE CREATED AUTHOR AUTHOR'S ORGANIZ ATION 12/21/2023 [facility] DATE CREATED AUTHOR AUTHOR'S ORGANIZ ATION 04/30/2024 [facility] d[facility] Specialists EPIC REASON FOR VISIT (unrecogniz ed section and content) Reason Comments Results Breathing problemssore throat, coughing, chest tightness, headachesCOVID Positive- Phone Call- [phone] throat, ears pluggedFYI: Urgent CareTrouble swallowing, ears [...] December 26, 2023 End: December 26, 2023 Tape Editor Relationship Specialty Start Date End Date Tarun Glover MD [address] [place] [id number] PCP - General Internal Medicine 03/23/23 Tape Editor Relationship Specialty Start Date End Date Tarun Glover MD [address] [place] [address] PCP - General Internal Medicine 03/23/23 Goals [...] BE BASED ON THE PRIMARY CLINICAL RECORDS. [facility] [email or web address] [facility]. provides no warranty or guarantee of the accuracy or completeness of information in this document.
[2024-05-09 06:23] LABS: Basophils Absolute Auto 0.1 10^3/uL (0.0-0.1); Basophils Percent Auto 0.7 % (0.2-2.0); Eosinophils Absolute Auto 0.1 10^3/uL (0.0-0.7); Eosinophils Percent Auto 1.8 % (0.9-7.0); Hematocrit 42.3 % (36.0-48.0); Hemoglobin 14.1 g/dL (12.0-16.0); Immature Granulocytes Abs Auto 0.02 10^3/uL (0.00-0.03); Immature Granulocytes Pct Auto 0.3 % (0.0-0.5); Lymphocytes Absolute Auto 1.5 10^3/uL (1.2-3.8); Lymphocytes Percent Auto 22.3 % (20.5-60.0); Mean Corpuscular HGB Conc 33.3 g/dL (29.9-35.2); Mean Corpuscular Hemoglobin 29.7 pg (26.7-34.0); Mean Corpuscular Volume 89.2 fL (81.0-99.0); Mean Platelet Volume 9.1 fL (9.5-13.5); Monocytes Absolute Auto 0.6 10^3/uL (0.3-0.8); Monocytes Percent Auto 8.2 % (1.7-12.0); Neutrophils Absolute Auto 4.6 10^3/uL (1.4-6.5); Neutrophils Percent Auto 66.7 % (43.0-75.0); Platelet Count 322 10^3/uL (150-450); Red Blood Count 4.74 10^6/uL (4.20-5.40); Red Cell Distribution Width 12.1 % (11.0-15.0); White Blood Count 6.9 10^3/uL (4.0-11.0)
[2024-05-09] MEDS: 0.9 % SODIUM CHLORIDE 500 ML 50 ML IV (06:56)
--- NOTE | 2024-05-09 08:37 | PM.ONB ---
Brief Operative Note Date of procedure: 05/09/24 Pre-op diagnosis general: pelvic pain, dyspareunia, uterine fibroid Post-op diagnosis: other (no uterine fibroid noted) Procedure: NAME OF PROCEDURE: [ D&c hysteroscopy, diagnostic laparoscopy] PROCEDURE: The patient was taken back to the Operating Room where she was prepped and draped in normal sterile fashion after being placed under general anesthesia without difficulty. She was also placed in the dorsal lithotomy position. A weighted speculum was placed in the patient?s vagina. The anterior lip of the cervix was identified and grasped with a single tooth tenaculum. The patient?s uterus was then sounded roughly to [? 8] cm. The patient was then gently dilated using Hegar dilators. The hysteroscope was passed through the patient?s cervix into the uterus. Both ostia were identified. fluffy appearing endometrium. No gross evidence of malignancy, no gross evidence of polyps or fibroids. The hysteroscope was then removed from the uterus. gentle currettage was performed The endometrial curettings were sent out to pathology. The single tooth tenaculum was then removed from the patient's anterior lip of the cervix where excellent hemostasis was noted. All instruments were removed from the patient?s vagina. A sponge stick was placed into the patient's vagina. Attention was turned to the patient's abdomen, where a small umbilical incision was made. The fascia was tented using Chris clamps and the fascia was entered sharply. Confirmation of intraabdominal placement of the 10 mm port was confirmed under direct visualization using a laparoscope. The patient's abdomen was then insufflated using CO2 gas with approximately 4 liters. A second port was placed left laterally, this was done under direct visualization with a 5 mm port. Survey of the patient's abdomen demonstrated normal liver and gallbladder. Survey of the patient's pelvic anatomy demonstrated normal appearing rt and lt ovary and evidence of bilateral tubal ligation noted as well as normal appearing uterus. No endometrial implants could be noted, no evidence of any pelvic disease was seen, normal appearing pelvic cavity. All instruments were removed from the patient's abdomen. The patient's abdomen was deinsufflated of CO2 gas. The patient tolerated the procedure well. Sponge stick was removed from the patient's vagina. The patient's infraumbilical fascia was closed using #0 Vicryl on a GI needle. The patient's skin was closed laterally and infraumbilically using 4-0 Vicryl. The patient tolerated the procedure well. Sponge, lap and needle counts were correct x 2. The patient was taken to Recovery Room in stable condition. Anesthesia: TARA Surgeon: Kj Taylor Card Game Operator: Karissa Segura Estimated blood loss (mL): 5 Pathology: other (endometrial currettings) Condition: stable Disposition: PACU Urinary Catheter Management Urinary Catheter Management Urethral: Cath placed during this visit: no
[2024-05-09] MEDS: LACTATED RINGER'S SOLUTION 1,000 ML 50 ML IV (08:42)
[2024-05-09] MEDS: HYDROMORPHONE HCL 0.5 MG/0.5 ML SYRINGE IV (09:09)
[2024-05-09] MEDS: PROMETHAZINE HCL 25 MG TABLET PO (09:44)
[2024-05-09] MEDS: HYDROCODONE/ACET 5-325 MG TABLET 1 TAB PO (09:44)
--- NOTE | 2024-05-09 12:23 | PC.NURSE ---
patient moved up into the chair drinking water
== END 2024-05-09 12:49 | disposition home or self-care (01) ==
PROVIDERS: PCP Internal Medicine; Visit Provider Obstetrics & Gynecology
PROC: (CPT 840; principal; 2024-05-09 07:30)
DX: R10.2 Pelvic and perineal pain (principal); N94.10 Unspecified dyspareunia; Z98.51 Tubal ligation status; Z90.49 Acquired absence of other specified parts of digestive tract; E66.01 Morbid (severe) obesity due to excess calories; Z68.41 Body mass index [BMI] 40.0-44.9, adult
CPT/HCPCS: 49320; 58558; 36415; 85025; J1100; J1171; J1885; J2250; J2405; J2704; J3010; Q0169

== ENCOUNTER 2024-07-29 13:17 | Outpatient (OUT) | payer OTHER, SELFPAY ==
[2024-07-29 14:08] LABS: Alanine Aminotransferase 25 U/L (14-59); Albumin Globulin Ratio 1.1; Albumin Level 3.7 g/dL (3.4-5.0); Alkaline Phosphatase 79 U/L (46-116); Anion Gap 11.2; Aspartate Amino Transferase 21 U/L (15-37); BUN Creatinine Ratio 17.1; Bilirubin Total 0.4 mg/dL (0.2-1.0); Calcium 8.7 mg/dL (8.5-10.1); Carbon Dioxide 31.3 mmol/L (21.0-32.0); Chloride 106 mmol/L (98-107); Estimated GFR (African America >60 (>=60 mL/min/1.73m^2); Estimated GFR (Non-African Ame >60 (>=60 mL/min/1.73m^2); Globulin 3.4 g/dL; Glucose 99 mg/dL (74-106); Potassium 4.5 mmol/L (3.5-5.1); Sodium 144 mmol/L (136-145); Total Protein 7.1 g/dL (6.4-8.2)
[2024-07-29 14:28] LABS: Basophils Percent Auto 0.5 % (0.2-2.0); Eosinophils Absolute Auto 0.2 10^3/uL (0.0-0.7); Eosinophils Percent Auto 3.6 % (0.9-7.0); Hematocrit 42.9 % (36.0-48.0); Hemoglobin 14.1 g/dL (12.0-16.0); Immature Granulocytes Abs Auto 0.02 10^3/uL (0.00-0.03); Immature Granulocytes Pct Auto 0.4 % (0.0-0.5); Lymphocytes Absolute Auto 1.5 10^3/uL (1.2-3.8); Lymphocytes Percent Auto 26.4 % (20.5-60.0); Mean Corpuscular HGB Conc 32.9 g/dL (29.9-35.2); Mean Corpuscular Hemoglobin 29.6 pg (26.7-34.0); Mean Corpuscular Volume 89.9 fL (81.0-99.0); Mean Platelet Volume 10.3 fL (9.5-13.5); Monocytes Absolute Auto 0.4 10^3/uL (0.3-0.8); Monocytes Percent Auto 6.9 % (1.7-12.0); Neutrophils Absolute Auto 3.4 10^3/uL (1.4-6.5); Neutrophils Percent Auto 62.2 % (43.0-75.0); Platelet Count 326 10^3/uL (150-450); Red Blood Count 4.77 10^6/uL (4.20-5.40); Red Cell Distribution Width 12.5 % (11.0-15.0); White Blood Count 5.5 10^3/uL (4.0-11.0)
== END 2024-07-29 13:18 | disposition home or self-care (01) ==
LOC: LAB 13:17
PROVIDERS: PCP Internal Medicine; Visit Provider Internal Medicine Rheumatology
DX: M19.90 Unspecified osteoarthritis, unspecified site (principal); Z51.81 Encounter for therapeutic drug level monitoring; Z79.899 Other long term (current) drug therapy
CPT/HCPCS: 36415; 80053; 85025

== ENCOUNTER 2024-08-24 09:01 | Emergency (ER) | payer OTHER, SELFPAY ==
[2024-08-24 09:06] VITALS: BP 138/79; PULSE 109; TEMP 36.7; O2SAT 95; BMI 42.3
--- OUTSIDE RECORDS SUMMARY | 2024-08-24 09:07 | XMS_ITS | CCD ---
Author Organization [facility] Inform ion Partnership [facility] Care Team Providers Care Fuel Cell Technician Name Role Phone TREVOR BRUSH Unavailable Tarun Bruce Unavailable APPLE, DR MONTRELL Thomas Admitting Unavailable ADALBERTO, DR JARA Primary Care Unavailable APPLE, DR MONTRELL Thomas Attending Unavailable APPLE, DR MONTRELL Thomas Consulting Unavailable ADALBERTO, DR JARA Attending Unavailable ADALBERTO, DR JARA Primary Care Unavailable ADALBERTO, DR JARA Admitting Unavailable Tasia Emery Unavailable DO Tarun Glover Primary Care Provider [phone] MD Harsah Covarrubias Attending Provider [phone] Tarun Glover MD Primary Care Provider DO Claudia Taylor Attending Provider Claudia Taylor Attending Unavailable Claudia Taylor Admitting Unavailable Tarun Glover Primary Care Unavailable Harsha Covarrubias Admitting Unavailable Harsha Covarrubias Attending Unavailable MADISYN PIPER Attending Unavailable CLAUDIA TAYLOR Attending Unavailable MADISYN PIPER Attending Unavailable Claudia Taylor DO Attending Provider Allergies Allergy Classification Reported Allergen(s) Allergy Type Date of Onset Reaction(s) Facility (18 sources) Latex Propensity to adverse reactions rash [facility] Other (1 source) Latex Drug allergy (disorder) [facility] Repository (1 source) Morphine Drug Allergy 4 [facility] Repository (8 sources) patient allergy list reviewed by nurse or physicia Propensity to adverse reactions 6 Comment:Done [facility] Other (8 sources) Allergies Reconciled Propensity to adverse reactions Unknown [facility] Other (12 sources) Keeling Oil Drug Allergy 3 Unknown [facility] Healthcare (12 sources) Latex Allergy to substance 3 Unknown [facility] Healthcare (12 sources) WHEAT DEXTRIN Drug Allergy 3 Unknown [facility] Healthcare (12 sources) Milk-Related Compounds Drug Allergy 3 Unknown [facility] Healthcare (12 sources) Soybean-Contain ing Drug Products Drug Allergy 3 Unknown [facility] Healthcare (1 source) Latex Drug allergy (disorder) 4 [facility] Repository Medications Current Medications Medication Drug Class(es) [...] oral tablet (20 sources) Start: 10-26-2023 take 1 tablet by mouth every six hours as needed Acetaminophen 500 mg tablet Active 500 MG PO Every 6 hours as needed October 25, 2023 11:00pm take 1 tablet by mouth every six hours acyclovir 400 mg oral tablet (20 sources) Herpesvirus Nucleoside Analog DNA Polymerase Inhibitor, Herpes Simplex Virus Nucleoside Analog DNA Polymerase Inhibitor, Herpes Zoster Virus Nucleoside Analog DNA Polymerase Inhibitor Start: 10-26-2023 take 1 tablet by mouth twice daily as needed Acyclovir 400 mg tablet Active 400 MG PO Twice daily as needed October 25, 2023 11:00pm End: 04-02-2024 acyclovir (Zovirax) 400 MG t ablet every 12 (twelve) hours. 04/02/2024 Discontinued take 1 tablet by chanel th every twelve hours [id number] 200 actuat albuterol 0.09 mg/actuat metered dose inhaler (20 sources) beta2-Adrenergic Agonist Start: 02-25-2024 take 2 puff(s) by mouth every four hours as needed for cough Albuterol Sulfate 90 mcg/actuation HFA aerosol inhaler Active 0 .ROUTE .COMPLEX 8.5 February 25, 2024 1:00pm INHALE 2 PUFFS BY MOUTH EVERY 4 HOURS NEEDED FOR COUGH Start: 10-26-2023 End: 02-25-2024 take 1 puff(s) by inhalation every four hours as needed Albuterol Sulfate 90 mcg/actuation HFA aerosol inhaler Discontinued 2 PUFF INHALATION Every 4 hours as needed October 25, 2023 11:00pm February 25, 2024 1:00pm Start: 09-26-2022 take 2 puff(s) by mo uth every four hours as needed for cough [...] mg/ml / clotrimazole 10 mg/ml topical cream (7 sources) Azole Antifungal, Corticosteroid Start: End: clotrimazole-betame thasone (Lotrisone) cream Indications: Skin yeast infection Apply 1 application topically Daily Apply to affected area daily for 7 days 45 g 1 04/02/2024 05/02/2024 Active clotrimazole 10 mg/ml topical cream (12 sources) Azole Antifungal clotrimazole (Lotrimin) 1 % cream 1 application every 12 (twelve) hours. Active escitalopram 10 mg oral tablet (20 sources) Serotonin Reuptake Inhibitor Start: End: take 1 tablet by mouth once daily Escitalopram Oxalate 10 mg tablet Active 0 .ROUTE .COMPLEX May 14, 2024 12:36pm TAKE ONE TABLET BY MOUTH ONCE DAILY Start: 09-12-2023 End: 10-26-2023 take 1 tablet by mouth once daily Escitalopram Oxalate 10 mg tablet Discontinued 0 .ROUTE .COMPLEX September 12, 2023 4:24pm October 26, 2023 1:08pm TAKE ONE TABLET BY MOUTH ONCE DAILY Start: 09-12-2022 End: 01-01-2024 take 1 tablet by mouth in the morning escitalopram (Lexapro) 10 MG tablet Take 10 mg by mouth in the morning. 03/17/2023 Active etodolac 500 mg oral tablet (16 sources) Nonsteroidal Anti-inflammatory Drug Start: 10-26-2023 take 1 tablet by mouth twice daily Etodolac 500 mg tablet Active 500 MG PO Twice daily October 25, 2023 11:00pm Start: 01-20-2023 take 1 tablet by chanel th every twelve hours Etodolac 500 MG 1 tablet with food Orally Twice a day for 30 days Jan, Active ibuprofen 200 mg oral tablet (20 sources) Nonsteroidal Anti-inflammatory Drug Start: 10-26-2023 take 1 tablet by mouth three times daily as needed Ibuprofen 200 mg tablet Active 200 MG PO Three times daily as needed October 25, 2023 11:00pm End: 04-02-2024 ibuprofen (Motrin IB) 200 MG tablet every 8 (eight) hours. 04/02/2024 Discontinued take 1 tablet by chanel th three times daily at mealtime as needed levoFLOXacin 750 [...] tablet by mouth once daily Loratadine-Pseud oephedrine 10-240 mg tablet extended release 24 hr Active 1 TAB PO Daily 100 100 March 29, 2024 9:33am Start: 03-04-2023 take 10-240 mg by mo [facility] every twenty-four hours Loratadine-D 24HR 10-240 MG 24 hr tablet Take 1 tablet by mouth if needed. 03/04/2023 Active take 1 tablet by chanel every twenty-four hours meloxicam 7.5 mg oral tablet (15 sources) Nonsteroidal Anti-inflammatory Drug Start: 12-26-2023 take 1 tablet by mouth once daily meloxicam (Mobic) 7.5 MG tablet Take 7.5 mg by mouth Daily 12/26/2023 Active paxlovid (300/100) 20 x 150 mg & 10 x 100mg tablet therapy pack (3 sources) Start: 07-19-2023 Paxlovid (300/100) 20 x 150 MG & 10 x 100MG as directed Orally bid for 5 days Jul, Active predniSONE 20 mg oral tablet (3 sources) Start: 07-19-2023 take 1 tablet by mouth twice daily predniSONE 20 MG 1 tablet Orally bid w/ food for 5 days Jul, Active Semaglutide (1 source) Start: 05-29-2024 Semaglutide 0.25 mg or 0.5 mg (2 mg/3 mL) pen injector Active 0.25 MG SUBCUT every week May 29, 2024 12:00am for 4 weeks Semaglutide-Weig ht Management (WEGOVY SC) (6 sources) Semaglutide-Oneal ght Management (WEGOVY SC) Inject under the skin Active tiZANidine 4 mg oral tablet (10 sources) Central alpha-2 Adrenergic Agonist Start: 01-20-2023 tiZANidine HCl 4 MG 1/2 - 1 Orally q HS for 15 days Jan, Active wegovy 0.25 mg/0.5ml solution auto-injector (3 sources) Start: 11-16-2022 inject 0.5 mL by subcutaneous injection every week Completed/Discontinued Medications Medication Drug Class(es) Dates Sig (Normalized) Sig (Original) phentermine hydrochloride 37.5 mg oral tablet (20 sources) Sympathomimetic Amine Anorectic Start: 02-27-2023 End: 05-29-2024 take 1 tablet by mouth once daily Phentermine 37.5 mg tablet Discontinued 37.5 MG PO Daily March 29, 2024 9:32am May 29, 2024 8:54am start 02/26 Start: 01-02-2023 take 1 tablet by chanel [...] a day for 30 days November, Active End: 04-02-2024 phentermine 37.5 MG capsule 1 capsule 1 (one) time each day at the same time. 04/02/2024 Discontinued take 1 tablet by chanel once daily Phentermine HCl 37.5 MG 1 tablet Orally Once a day Active triamcinolone acetonide 40 mg/ml injectable suspension (14 sources) Corticosteroid Start: 11-16-2022 Kenalog-40 November, 60 mg Problems Active Problems Problem Classification Problem Date Documented Date Episodic/Chronic Abdominal pain (20 sources) Left lower quadrant pain; Translations: [Left lower quadrant pain] 04-29-2024 Episodic Acute bronchitis (11 sources) Acute bronchitis due to other specified organisms; Translations: [Acute bronchitis] Onset: 09-03-2013 Episodic Administrative/social admission (4 sources) Encounter for pre-employment examination; Translations: [Patient encounter status] Onset: 07-03-2017 04-02-2024 Episodic Allergic reactions (9 sources) Contact dermatitis; [...] Episodic Immunizations and screening for infectious disease (17 sources) Vaccination given; Translations: [Encounter for immunization] Onset: 12-06-2023 10-27-2023 Episodic Malaise and fatigue (9 sources) Fatigue; Translations: [Other fatigue] Episodic Menopausal disorders (20 sources) Menopausal symptom; Translations: [Menopausal and female climacteric states] Chronic Mycoses (20 sources) Tinea corporis; Translations: [Tinea corporis] Onset: 11-03-2014 04-02-2024 Episodic Osteoarthritis (20 sources) Localized, secondary osteoarthritis of the ankle and/or foot; Translations: [Post-traumatic osteoarthritis, right ankle and foot] 10-27-2023 Chronic Other acquired deformities (18 sources) Joint contracture of the ankle and/or foot; Translations: [Contracture, right ankle] Chronic Other and unspecified benign neoplasm (9 sources) Leiomyoma; Translations: [Benign neoplasm of connective [...] Chronic Other nutritional; endocrine; and metabolic disorders (13 sources) Obesity; Translations: [Obesity, unspecified] 12-26-2023 Chronic Other nutritional; endocrine; and metabolic disorders (4 sources) Obesity, unspecified; Translations: [Obesity, unspecified] 12-26-2023 [...] Translations: [Presence of functional implant, unspecified] Chronic Residual codes; unclassified (2 sources) Postmenopausal state; Translations: [Asymptomatic menopausal state] 04-02-2024 Episodic Skin and subcutaneous tissue infections (2 sources) Cellulitis; Translations: [Cellulitis, unspecified] 05-16-2024 Episodic Spondylosis; intervertebral disc disorders; other back problems (11 sources) Lumbar spondylosis; Translations: [Spondylosis without myelopathy or radiculopathy, lumbar region] 10-27-2023 Chronic Sprains and strains (15 sources) Late effect of sprain AND/OR strain without tendon injury; Translations: [Sprain of other ligament of right ankle, sequela] 03-29-2024 Episodic Unclassified (9 sources) Exposure to acute respiratory syndrome coronavirus 2; Translations: [Contact with and (suspected) exposure to COVID-19] Viral infection (10 sources) Disease caused by 2019-nCoV; Translations: [COVID-19] Past or Other Problems Problem Classification Problem Date Documented Da te Episodic/Chronic Other inflammatory condition of skin (9 sources) Erythematous condition; Translations: [Unspecified erythematous condition] Onset: 09-28-2015 Episodic Spondylosis; intervertebral disc disorders; other back problems (9 sources) Low back pain; Translations: [Lumbago] Onset: 06-08-2015 Episodic Unclassified (1 source) Acute right-sided low back pain without sciatica M54.50 Unclassified (1 source) Acute cough R05.1 Results Test Name Value Interpretation Reference Range Facility ALL CBC WITH AUTO DIFFon BASOPHILS ABSOLUTE AUTO 0.1 [facility] Basophils/100 WBC (Bld) 0.7 % 0.2 - 2.0 % [facility] Eosinophils/100 WBC (Bld) 1.8 % 0.9 - 7.0 % [facility] Erythrocyte distribution width (RBC) [Ratio] 12.1 % 11.0 - 15.0 % [facility] Hematocrit (Bld) [Volume fraction] 42.3 % 36.0 - 48.0 % [facility] Hemoglobin (Bld) [Mass/Vol] 14.1 g/dL 12.0 - 16.0 g/dL [facility] IMMATURE GRANULOCYTES ABS AUTO 0.02 [facility] Immature granulocytes/100 WBC (Bld) 0.3 % 0.0 - 0.5 % [facility] Interpretation and review of laboratory results Abnormal [facility] LYMPHOCYTES ABSOLUTE AUTO 1.5 [facility] Lymphocytes/100 WBC (Bld) 22.3 % 20.5 - 60.0 % [facility] MCH (RBC) [Entitic mass] 29.7 pg 26.7 - 34.0 pg [facility] MCHC (RBC) [Mass/Vol] 33.3 g/dL 29.9 - 35.2 g/dL [facility] MCV (RBC) [Entitic vol] 89.2 fL 81.0 - 99.0 fL [facility] MONOCYTES ABSOLUTE AUTO 0.6 [facility] Monocytes/100 WBC (Bld) 8.2 % 1.7 - 12.0 % [facility] NEUTROPHILS ABSOLUTE AUTO 4.6 [facility] Neutrophils/100 WBC (Bld) 66.7 % 43.0 - 75.0 % [facility] Platelet mean volume (Bld) [Entitic vol] 9.1 fL Low 9.5 - 13.5 fL [facility] TBH EO # 0.1 [facility] PLT 322 [facility] RBC 4.74 [facility] TB WBC 6.9 [facility] Basophils Auto (Bld) [#/Vol] on 05-09-2024 Basophils (Bld) [#/Vol] 0.1 10 3/uL 0.0-0.1 [facility] Basophils (Bld) [#/Vol] Automated basophil count 0.0-0.1 [facility] Basophils/100 WBC Auto (Bld) on 05-09-2024 Basophils/100 WBC (Bld) 0.7 % 0.2-2.0 [facility] Basophils/100 WBC (Bld) Automated basophil % 0.2-2.0 [facility] Eosinophils/100 WBC Auto (Bl d)on 05-09-2024 Eosinophils/100 WBC (Bld) 1.8 % 0.9-7.0 [facility] Eosinophils/100 WBC (Bld) Automated eosinophil % 0.9-7.0 [facility] Erythrocyte distribution wid th Auto (RBC) [Ratio]on 05-09-2024 Erythrocyte distribution width (RBC) [Ratio] 12.1 % 11.0-15.0 [facility] Erythrocyte distribution width (RBC) [Ratio] Erythrocyte distribution width [Ratio] by Automated count 11.0-15.0 [facility] Hematocrit Auto (Bld) [Volum e fraction]on 05-09-2024 Hematocrit (Bld) [Volume fraction] 42.3 % 36.0-48.0 [facility] Hematocrit (Bld) [Volume fraction] Hematocrit [Volume Fraction] of Blood by Automated count 36.0-48.0 [facility] Hemoglobin [Mass/volume] in Bloodon 05-09-2024 Hemoglobin (Bld) [Mass/Vol] 14.1 g/dL 12.0-16.0 [facility] Hemoglobin (Bld) [Mass/Vol] Hemoglobin [Mass/volume] in Blood 12.0-16.0 [facility] Laboratory - Hematology and Cell countson 05-09-2024 Immature granulocytes/100 WBC (Bld) 0.3 % 0.0-0.5 [facility] Leukocytes [#/volume] correc jemal for nucleated erythrocytes in Blood by Automated counon 05-09-2024 WBC corrected for nucl RBC Auto (Bld) [#/Vol] 6.9 10 3/uL 4.0-11.0 [facility] WBC corrected for nucl RBC Auto (Bld) [#/Vol] Leukocytes [#/volume] corrected for nucleated erythrocytes in Blood by Automated coun 4.0-11.0 [facility] Lymphocytes Auto (Bld) [#/Vo l]on 05-09-2024 Lymphocytes (Bld) [#/Vol] 1.5 10 3/uL 1.2-3.8 [facility] Lymphocytes (Bld) [#/Vol] Lymphocytes [#/volume] in Blood by Automated count 1.2-3.8 [facility] Lymphocytes/100 WBC Auto (Bl d)on 05-09-2024 Lymphocytes/100 WBC (Bld) 22.3 % 20.5-60.0 [facility] Lymphocytes/100 WBC (Bld) Lymphocytes/100 leukocytes in Blood by Automated count 20.5-60.0 [facility] MCH Auto (RBC) [Entitic mass ]on 05-09-2024 MCH (RBC) [Entitic mass] 29.7 pg 26.7-34.0 [facility] MCH (RBC) [Entitic mass] MCH [Entitic mass] by Automated count 26.7-34.0 [facility] MCHC Auto (RBC) [Mass/Vol]on 05-09-2024 MCHC (RBC) [Mass/Vol] 33.3 g/dL 29.9-35.2 [facility] MCHC (RBC) [Mass/Vol] MCHC [Mass/volume] by Automated count 29.9-35.2 [facility] MCV Auto (RBC) [Entitic vol] on 05-09-2024 MCV (RBC) [Entitic vol] 89.2 fL 81.0-99.0 [facility] MCV (RBC) [Entitic vol] MCV [Entitic volume] by Automated count 81.0-99.0 [facility] Monocytes Auto (Bld) [#/Vol] on 05-09-2024 Monocytes (Bld) [#/Vol] 0.6 10 3/uL 0.3-0.8 [facility] Monocytes (Bld) [#/Vol] Automated blood monocyte count 0.3-0.8 [facility] Monocytes/100 WBC Auto (Bld) on 05-09-2024 Monocytes/100 WBC (Bld) 8.2 % 1.7-12.0 [facility] Monocytes/100 WBC (Bld) Automated monocyte % 1.7-12.0 [facility] Neutrophils Auto (Bld) [#/Vo l]on 05-09-2024 Neutrophils (Bld) [#/Vol] 4.6 10 3/uL 1.4-6.5 [facility] Neutrophils (Bld) [#/Vol] Neutrophils [#/volume] in Blood by Automated count 1.4-6.5 [facility] Neutrophils/100 WBC Auto (Bl d)on 05-09-2024 Neutrophils/100 WBC (Bld) 66.7 % 43.0-75.0 [facility] Neutrophils/100 WBC (Bld) Automated neutrophil % 43.0-75.0 [facility] No Panel InformationOrdered By: Claudia Taylor on 05-09-2024 Miscellaneous Pathology Test See comment [facility] Comment on above: See report. Scanned copy available in EMR. No Panel Informationon 05-09 Eosinophils # (Auto) 0.1 10 3/uL 0.0-0.7 [facility] Immature Granulocyte # (Auto) 0.02 10 3/uL 0.00-0.03 [facility] Pathology Request for Lab Co rpon 05-09-2024 Pathology Request for Lab Papi Normal [facility] Comment on above: Order Comment: PATHO LOGY [facility] SPECIMEN Result Comment: See report. Scanned copy available in EMR. PERFORMED BY: [facility] [place] [address] PATHOLOGIST SALES OPERATIONS COORDINATOR TERRI HOGAN M.D. Performed By: #### A NA, TPO, C3, C4, CHROMATIN, CH50, THYGLOB AB #### [facility] , Platelet mean volume Auto (B ld) [Entitic vol]on 05-09-2024 Platelet mean volume (Bld) [Entitic vol] 9.1 fL Low 9.5-13.5 [facility] Platelet mean volume (Bld) [Entitic vol] Platelet mean volume [Entitic volume] in Blood by Automated count Low 9.5-13.5 [facility] Platelets Auto (Bld) [#/Vol] on 05-09-2024 Platelets (Bld) [#/Vol] 322 10 3/uL 150-450 [facility] Platelets (Bld) [#/Vol] Platelets [#/volume] in Blood by Automated count 150-450 [facility] RBC Auto (Bld) [#/Vol]on RBC (Bld) [#/Vol] 4.74 10 6/uL 4.20-5.40 [facility] RBC (Bld) [#/Vol] Erythrocytes [#/volu me] in Blood by Automated count 4.20-5.40 [facility] IGP,APTIMA HPV,AGE GDLNon AGE GDLN ACOG TESTING Note . [facility] Comment on above: TESTS RESULT FLAG UN ITS REF RANGE LAB Clinician Provided Cytology Information Source.............Cervix;Endocervix No. of containers..01 ThinPrep Vial Age Yared GARCIA Roseann... FLAG LEGEND: L-Low Normal,H-High Normal,LL-Alert Low,HH-Alert High <-Panic Low,>-Panic High,A-Abnormal,AA-Critical Abnormal Performed at: 01 =[address] [address] Lydia Oreilly MD, HPV APTIMA Negative Negative [facility] Comment on above: This nucleic acid am plification test detects fourteen high- risk HPV types (16,18,31,33,35,39,45,51,52,56,58,59,66,68) without differentiation. Performed at: =[address] [id number] Sticker Operator: Lydia Oreilly MD, Phone: [phone] Performed at: [address] [id number] Sticker Operator: Lydia Oreilly MD, Phone: [phone] IGP, APTIMA HPV, RFX 16/18,45 Note . [facility] Comment on above: TESTS RESULT FLAG UN ITS REF RANGE LAB DIAGNOSIS: 02 NEGATIVE FOR INTRAEPITHELIAL LESION OR MALIGNANCY. Specimen adequacy: 02 Satisfactory for evaluation. No endocervical component is identified. Performed by: 02 Arnie Dao, Superintendent Transmission ([facility]) . 02 Note: Note 02 The Pap smear is a screening test designed to aid in the detection of premalignant and malignant conditions of the uterine cervix. It is not a diagnostic procedure and should not be used as the sole means of detecting cervical cancer. Both false-positive and false-negative reports do occur. Test Methodology: Note 02 This liquid based ThinPrep(R) pap test was screened with the use of an image guided system. HPV Genotype Reflex Note 02 Criteria not met, HPV Genotype not performed. FLAG LEGEND: L-Low Normal,H-High Normal,LL-Alert Low,HH-Alert High <-Panic Low,>-Panic High,A-Abnormal,AA-Critical Abnormal Performed at: [address] [address] Lydia Oreilly MD, BRUSH-SPATULA CERVIX ENDOCERVIX [facility] [place] Human papilloma virus 16+18+ 31+33+35+39+45+51+52+56+58+59+66+68 DNA [Presence] in [place] 04-02-2024 HPV 16+18+31+33+35+39+45+5 1+52+56+58+59+66+68 DNA Probe+sig amp Ql (Cvx) Negative Negative [facility] Comment on above: This nucleic acid am plification test detects fourteen high- risk HPV types (16,18,31,33,35,39,45,51,52,56,58,59,66,68)without differentiation.Performed at: =[address] [id number] Director: Lydia Oreilly MD, Phone: [phone] at: [address] [id number] Director: Lydia Oreilly MD, Phone: [phone] HPV 16+18+31+33+35+39+45+5 1+52+56+58+59+66+68 DNA Probe+sig amp Ql (Cvx) Human papilloma virus 16+18+31+33+35+39+45+51+5 2+56+58+59+66+68 DNA [Presence] in Cer Negative [facility] Comment on above: This nucleic acid am plification test detects fourteen high- risk HPV types (16,18,31,33,35,39,45,51,52,56,58,59,66,68)without differentiation.Performed at: =[address] [id number] Director: Lydia Oreilly MD, Phone: [phone] at: [address] [id number] Director: Lydia Oreilly MD, Phone: [phone] No Panel Informationon 04-02 HPV High Risk Other Comment Note . [facility] Comment on above: TESTS RESULT FLAG UN ITS REF RANGE LAB DIAGNOSIS: 02 NEGATIVE FOR INTRAEPITHELIAL LESION OR MALIGNANCY.Specimen adequacy: 02 Satisfactory for evaluation. No endocervical component is identified.Performed by: 02 Arnie Dao, Superintendent Transmission ([facility]). 02Note: Note 02 The Pap smear is a screening test designed to aid in the detection of premalignant and malignant conditions of the uterine cervix. It is not a diagnostic procedure and should not be used as the sole means of detecting cervical cancer. Both false-positive and false-negative reports do occur.Test Methodology: Note 02 This liquid based ThinPrep(R) pap test was screened with the use of an image guided system.HPV Genotype Reflex Note 02 Criteria not met, HPV Genotype not performed. ------- FLAG LEGEND: L-Low Normal,H-High Normal,LL-Alert Low,HH-Alert High <-Panic Low,>-Panic High,A-Abnormal,AA-Critical Abnormal -----Performed at:02 [facility] [address] [address] Lydia Oreilly MD, Reference Lab Test Patient Age Note . [facility] Comment on above: TESTS RESULT FLAG UN ITS REF RANGE LAB Clinician Provided Cytology Information Source.............Cervix;Endocervix No. of containers..01 ThinPrep VialAge Yared GARCIA Roseann... 30-65 FLAG LEGEND: L-Low Normal,H-High Normal,LL-Alert Low,HH-Alert High <-Panic Low,>-Panic High,A-Abnormal,AA-Critical Abnormal -----Performed at:01 =[address] [address] Lydia Oreilly MD, ISRA Antinuclear Antibodieson 12-06-2023 Antinuclear Abs, IFA Negative Normal . [facility] Comment on above: Result Comment: Nega tive <1:80 Borderline 1:80 Positive >1:80 ICAP nomenclature: AC-0 For more information about Hep-2 cell patterns use ANApatterns.org, the official website for the International Consensus on Antinuclear Antibody (ISRA) Patterns (ICAP). Performed at: [facility] [address] [id number] Sticker Operator: Barry Mcrae PhD, Phone: [phone] Performed By: #### A NA, TPO, C3, C4, CHROMATIN, CH50, THYGLOB AB #### [facility] , Activated partial thrombopla stin time (aPTT) in platelet poor plasma by coagulation aOrdered By: Harsha Covarrubias on 12-06-2023 aPTT Coag (PPP) [Time] 31.9 s 25.1-36.5 [facility] Comment on above: A hematocrit value g reater than 55% may lead to inaccurate results in coagulation testing. Patients having hematocrit values >55% require a special collection tube for coagulation studies. Please contact the laboratory at [phone] for redraw instructions. Alanine aminotransferase [En zymatic activity/volume] in Serum or PlasmaOrdered By: Harsha Covarrubias on 12-06-2023 ALT [Catalytic activity/Vol] 14 U/L Normal 7-52 [facility] Comment on above: Performed By: #### A NA, TPO, C3, C4, CHROMATIN, CH50, THYGLOB AB #### [facility] , Albumin [Mass/volume] in Ser um or Plasma by Bromocresol green (BCG) dye binding methoOrdered By: Harsha Covarrubias on 12-06-2023 Albumin BCG dye [Mass/Vol] 4.2 g/dL 3.5-5.7 [facility] Aldolaseon 12-06-2023 Aldolase 4.3 U/L Normal 3.3-10.3 [facility] Comment on above: Result Comment: Perf ormed at: [address] [id number] Sticker Operator: Barry Mcrae PhD, Phone: [phone] PERFORMED BY: [facility] [place] [address] PATHOLOGIST SALES OPERATIONS COORDINATOR TERRI HOGAN M.D. Performed By: #### A NA, TPO, C3, C4, CHROMATIN, CH50, THYGLOB AB #### [facility] , Alkaline phosphatase [Enzyma tic activity/volume] in Serum or PlasmaOrdered By: Harsha Covarrubias on 12-06-2023 ALP [Catalytic activity/Vol] 74 U/L Normal 34-104 [facility] Comment on above: Performed By: #### A NA, TPO, C3, C4, CHROMATIN, CH50, THYGLOB AB #### [facility] , Antithyroglobulin Abon 12-05 Antithyroglobulin Ab <1.0 Normal 0.0-0.9 [facility] Comment on above: Result Comment: Thyr oglobulin Antibody measured by [employer] It should be noted that the presence of thyroglobulin antibodies may not be pathogenic nor diagnostic, especially at very low levels. The assay wood model builder has found that four percent of individuals without evidence of thyroid disease or autoimmunity will have positive TgAb levels up to 4 IU/mL. Performed at: [address] [id number] Sticker Operator: Barry Mcrae PhD, Phone: [phone] Performed By: #### A NA, TPO, C3, C4, CHROMATIN, CH50, THYGLOB AB #### [facility] , Aspartate aminotransferase [ Enzymatic activity/volume] in Serum or PlasmaOrdered By: Harsha Covarrubias on 12-06-2023 AST [Catalytic activity/Vol] 16 U/L Normal 13-39 [facility] Comment on above: Performed By: #### A NA, TPO, C3, C4, CHROMATIN, CH50, THYGLOB AB #### [facility] , Automated basophil %Ordered By: Harsha Huntrow on 12-06-2023 Basophils/100 WBC (Bld) 0.6 % Normal . [facility] Comment on above: Performed By: #### A NA, TPO, C3, C4, CHROMATIN, CH50, THYGLOB AB #### [facility] , Automated basophil countOrde red By: Harsha Huntrow on 12-06-2023 Basophils (Bld) [#/Vol] 0.0 10*3/uL Normal 0.0-0.2 [facility] Comment on above: Performed By: #### A NA, TPO, C3, C4, CHROMATIN, CH50, THYGLOB AB #### [facility] , Automated blood monocyte cou ntOrdered By: Harsha Marci on 12-06-2023 Monocytes (Bld) [#/Vol] 0.5 10*3/uL Normal 0.0-0.8 [facility] Comment on above: Performed By: #### A NA, TPO, C3, C4, CHROMATIN, CH50, THYGLOB AB #### [facility] , Automated eosinophil %Ordere d By: Harsha Huntrow on 12-06-2023 Eosinophils/100 WBC (Bld) 4.4 % Normal . [facility] Comment on above: Performed By: #### A NA, TPO, C3, C4, CHROMATIN, CH50, THYGLOB AB #### [facility] , Automated eosinophil countOr dered By: Harsha Huntrow on 12-06-2023 Eosinophils (Bld) [#/Vol] 0.3 10*3/uL Normal 0.0-0.45 [facility] Comment on above: Performed By: #### A NA, TPO, C3, C4, CHROMATIN, CH50, THYGLOB AB #### [facility] , Automated monocyte %Ordered By: Harsha Marci on 12-06-2023 Monocytes/100 WBC (Bld) 6.2 % Normal . [facility] Comment on above: Performed By: #### A NA, TPO, C3, C4, CHROMATIN, CH50, THYGLOB AB #### [facility] , Automated neutrophil %Ordere d By: Harshaenrike Covarrubias on 12-06-2023 Neutrophils/100 WBC (Bld) 67.9 % Normal . [facility] Comment on above: Performed By: #### A NA, TPO, C3, C4, CHROMATIN, CH50, THYGLOB AB #### [facility] , Bacteria [Presence] in Urine by AutomatedOrdered By: Harsha Covarrubias on 12-06-2023 Bacteria Auto Ql (U) 2+ [HPF] None Seen [facility] Bilirubin Test strip Ql (U)O rdered By: Harsha Covarrubias on 12-06-2023 Bilirubin Ql (U) Negative Negative [facility] Bilirubin.total [Mass/volume ] in Serum or PlasmaOrdered By: Harsha Covarrubias on 12-06-2023 Bilirubin [Mass/Vol] 0.5 mg/dL Normal 0.3-1.0 [facility] Comment on above: Performed By: #### A NA, TPO, C3, C4, CHROMATIN, CH50, THYGLOB AB #### [facility] , C reactive protein [Mass/vol ume] in Serum or PlasmaOrdered By: Harsha Covarrubias on 12-06-2023 CRP [Mass/Vol] 2.0 mg/dL 0.0-0.5 [facility] C-Reactive Proteinon 024 C-Reactive Protein 2.0 mg/dL High 0.0-0.5 [facility] Comment on above: Performed By: #### A NA, TPO, C3, C4, CHROMATIN, CH50, THYGLOB AB #### [facility] , CT biopsyOrdered By: Harsha Covarrubias on 12-06-2023 CT biopsy 4.3 U/L 3.3-10.3 [facility] Comment on above: Performed at: [address], [place] [id number] Director: Barry Mcrae PhD, Phone: [phone] Calcium [Mass/volume] in Ser um or PlasmaOrdered By: Harsha Covarrubias on 12-06-2023 Calcium [Mass/Vol] 9.4 mg/dL Normal 8.6-10.3 [facility] Comment on above: Performed By: #### A NA, TPO, C3, C4, CHROMATIN, CH50, THYGLOB AB #### [facility] , Carbon dioxide, total [Moles /volume] in Serum or PlasmaOrdered By: Harsha Covarrubias on 12-06-2023 CO2 [Moles/Vol] 28.3 mmol/L Normal 21.0-31.0 [facility] Comment on above: Performed By: #### A NA, TPO, C3, C4, CHROMATIN, CH50, THYGLOB AB #### [facility] , Chloride [Moles/volume] in S alistair or PlasmaOrdered By: Harsha Covarrubias on 12-06-2023 Chloride [Moles/Vol] 105 mmol/L Normal 98-107 [facility] Comment on above: Performed By: #### A NA, TPO, C3, C4, CHROMATIN, CH50, THYGLOB AB #### [facility] , Chromatin Antibodyon 024 Chromatin Antibody <0.2 Normal 0.0-0.9 [facility] Comment on above: Result Comment: Perf ormed at: - [facility] [place] [address] [place], [place] [id number] Sticker Operator: Barry Mcrae PhD, Phone: [phone] PERFORMED BY: [facility] [address] [place] [address] PATHOLOGIST SALES OPERATIONS COORDINATOR TERRI HOGAN M.D. Performed By: #### A NA, TPO, C3, C4, CHROMATIN, CH50, THYGLOB AB #### [facility] , Coagulation Profileon 2023 aPTT Coag (Bld) [Time] 31.9 s Normal 25.1-36.5 [facility] Comment on above: Result Comment: A he matocrit value greater than 55% may lead to inaccurate results in coagulation testing. Patients having hematocrit values >55% require a special collection tube for coagulation studies. Please contact the laboratory at [phone] for redraw instructions. PERFORMED BY: [facility] [address] [place] [place] [id number] PATHOLOGIST SALES OPERATIONS COORDINATOR TERRI HOGAN M.D. Performed By: #### E SR, ADDONUAPLUS, T4F, CK, CRP, TSH3, PP, CMP, CBC #### [facility] [address] [place] [address] #### RPR W RFX, ALDOLASE #### [facility] , Color of Urine by AutoOrdere d By: Harsha Covarrubias on 12-06-2023 Color (U) Yellow Normal Yellow [facility] Comment on above: Order Comment: Name Collection Type:: Clean-Voided Midstream Performed By: #### A NA, TPO, C3, C4, CHROMATIN, CH50, THYGLOB AB #### [facility] , Complement C3on 12-06-2023 Complement C3 189 mg/dL High 82-167 [facility] Comment on above: Result Comment: Perf ormed at: [facility] [address] [id number] Sticker Operator: Barry Mcrae PhD, Phone: [phone] Performed By: #### A NA, TPO, C3, C4, CHROMATIN, CH50, THYGLOB AB #### [facility] , Complement C4on 12-06-2023 Complement C4 45 mg/dL High 12-38 [facility] Comment on above: Performed By: #### A NA, TPO, C3, C4, CHROMATIN, CH50, THYGLOB AB #### [facility] , Complement Total (CH50)on Complement Total (CH50) >60 Normal >41 [facility] Comment on above: Result Comment: [...] out of range values. Performed at: - [facility] [id number] Sticker Operator: Barry Mcrae PhD, Phone: [phone] PERFORMED BY: [facility] [address] [place] [address] PATHOLOGIST SALES OPERATIONS COORDINATOR TERRI HOGAN M.D. Performed By: #### A NA, TPO, C3, C4, CHROMATIN, CH50, THYGLOB AB #### [facility] , Complete Blood Count Auto Di ffon 12-06-2023 Mean Corpuscular HGB Conc 33.9 g/dL Normal 32.0-35.0 [facility] Comment on above: Performed By: #### A NA, TPO, C3, C4, CHROMATIN, CH50, THYGLOB AB #### [facility] , NRBC% 0.1 /100{WBC} Normal 0-0.5 [facility] Comment on above: Performed By: #### A NA, TPO, C3, C4, CHROMATIN, CH50, THYGLOB AB #### [facility] , Comprehensive Metabolic Pane harsh 12-06-2023 Albumin [Mass/Vol] 4.2 g/dL Normal 3.5-5.7 [facility] Comment on above: Performed By: #### A NA, TPO, C3, C4, CHROMATIN, CH50, THYGLOB AB #### [facility] , GFR/1.73 sq M.predicted MDRD (S/P/Bld) [Vol rate/Area] mL/min/{1.73_m2} Normal [facility] Comment on above: Performed By: #### A NA, TPO, C3, C4, CHROMATIN, CH50, THYGLOB AB #### [facility] , Creatine kinase [Enzymatic a ctivity/volume] in Serum or PlasmaOrdered By: Harsha Covarrubias on 12-06-2023 CK [Catalytic activity/Vol] 59 U/L Normal 30-223 [facility] Comment on above: Result Comment: PERF ORMED BY: [place] [address] PATHOLOGIST SALES OPERATIONS COORDINATOR TERRI HOGAN M.D. Performed By: #### E SR, ADDONUAPLUS, T4F, CK, CRP, TSH3, PP, CMP, CBC #### [address] #### RPR W RFX, ALDOLASE #### [facility] , Creatinine [Mass/volume] in Serum or PlasmaOrdered By: Harsha Covarrubias on 12-06-2023 Creatinine [Mass/Vol] 0.60 mg/dL Normal 0.60-1.20 [facility] Comment on above: Performed By: #### A NA, TPO, C3, C4, CHROMATIN, CH50, THYGLOB AB #### [facility] , Dipstick and Microscopicon 0 12-06-2023 Appearance (U) Clear Normal Clear [facility] Comment on above: Order Comment: Name Collection Type:: Clean-Voided Midstream Performed By: #### A NA, TPO, C3, C4, CHROMATIN, CH50, THYGLOB AB #### [facility] , Bacteria,Urine 2+ High None Seen [facility] Comment on above: Order Comment: Name Collection Type:: Clean-Voided Midstream Performed By: #### A NA, TPO, C3, C4, CHROMATIN, CH50, THYGLOB AB #### [facility] , Bilirubin,Urine Negative Normal Negative [facility] Comment on above: Order Comment: Name Collection Type:: Clean-Voided Midstream Performed By: #### A NA, TPO, C3, C4, CHROMATIN, CH50, THYGLOB AB #### [facility] , Glucose Ql (U) Normal Normal Normal [facility] Comment on above: Order Comment: Name Collection Type:: Clean-Voided Midstream Performed By: #### A NA, TPO, C3, C4, CHROMATIN, CH50, THYGLOB AB #### [facility] , Hyaline Casts,Urine 0-8 Normal 0-8 [facility] Comment on above: Order Comment: Name Collection Type:: Clean-Voided Midstream Result Comment: PERF ORMED BY: [facility] [address] [place] [address] PATHOLOGIST SALES OPERATIONS COORDINATOR TERRI HOGAN M.D. Performed By: #### A NA, TPO, C3, C4, CHROMATIN, CH50, THYGLOB AB #### [facility] , Ketones Ql (U) Negative Normal Negative [facility] Comment on above: Order Comment: Name Collection Type:: Clean-Voided Midstream Performed By: #### A NA, TPO, C3, C4, CHROMATIN, CH50, THYGLOB AB #### [facility] , Leukocyte esterase Test strip Ql (U) Negative Normal Negative [facility] Comment on above: Order Comment: Name Collection Type:: Clean-Voided Midstream Performed By: #### A NA, TPO, C3, C4, CHROMATIN, CH50, THYGLOB AB #### [facility] , Nitrite,Urine Negative Normal Negative [facility] Comment on above: Order Comment: Name Collection Type:: Clean-Voided Midstream Performed By: #### A NA, TPO, C3, C4, CHROMATIN, CH50, THYGLOB AB #### [facility] , Occult Blood,Urine Negative Normal Negative [facility] Comment on above: Order Comment: Name Collection Type:: Clean-Voided Midstream Performed By: #### A NA, TPO, C3, C4, CHROMATIN, CH50, THYGLOB AB #### [facility] , Protein,Urine Negative Normal Negative [facility] Comment on above: Order Comment: Name Collection Type:: Clean-Voided Midstream Performed By: #### A NA, TPO, C3, C4, CHROMATIN, CH50, THYGLOB AB #### [facility] , RBC LM.HPF (Urine sed) [#/Area] 0 /[HPF] Normal 0-4 [facility] Comment on above: Order Comment: Name Collection Type:: Clean-Voided Midstream Performed By: #### A NA, TPO, C3, C4, CHROMATIN, CH50, THYGLOB AB #### [facility] , Specificy [place],Urine 1.026 Normal 1.001-1.03 0 [facility] Comment on above: Order Comment: Name Collection Type:: Clean-Voided Midstream Performed By: #### A NA, TPO, C3, C4, CHROMATIN, CH50, THYGLOB AB #### [facility] , Squamous Epithelial Cell,Urine 3-4 High 0-2 [facility] Comment on above: Order Comment: Name Collection Type:: Clean-Voided Midstream Performed By: #### A NA, TPO, C3, C4, CHROMATIN, CH50, THYGLOB AB #### [facility] , Urobilinogen,Urine Normal Normal Normal [facility] Comment on above: Order Comment: Name Collection Type:: Clean-Voided Midstream Performed By: #### A NA, TPO, C3, C4, CHROMATIN, CH50, THYGLOB AB #### [facility] , WBC,Urine 3-4 Normal 0-4 [facility] Comment on above: Order Comment: Name Collection Type:: Clean-Voided Midstream Performed By: #### A NA, TPO, C3, C4, CHROMATIN, CH50, THYGLOB AB #### [facility] , Erythrocyte Sedimentation Ra sherrie 12-06-2023 ESR (Bld) [Velocity] 35 mm/h High 0-29 [facility] Comment on above: Result Comment: PERF ORMED BY: [place] [address] [place] [address] PATHOLOGIST SALES OPERATIONS COORDINATOR TERRI HOGAN M.D. Performed By: #### A NA, TPO, C3, C4, CHROMATIN, CH50, THYGLOB AB #### [facility] , Erythrocyte distribution wid th [Ratio] by Automated countOrdered By: Harsha Covarrubias on 12-06-2023 Erythrocyte distribution width (RBC) [Ratio] 13.6 % Normal 11.9-15.3 [facility] Comment on above: Performed By: #### A NA, TPO, C3, C4, CHROMATIN, CH50, THYGLOB AB #### [facility] , Erythrocyte sedimentation ra te by Photometric methodOrdered By: Harsha Covarrubias on 12-06-2023 ESR Photometric method (Bld) [Velocity] 35 mm/hr 0-29 [facility] Erythrocytes [#/volume] in B lood by Automated countOrdered By: Harsha Covarrubias on 12-06-2023 RBC (Bld) [#/Vol] 4.83 10*6/uL Normal 3.60-5.00 [facility] Comment on above: Performed By: #### A NA, TPO, C3, C4, CHROMATIN, CH50, THYGLOB AB #### [facility] , Glucose [Mass/volume] in Ser um or PlasmaOrdered By: Harsha Covarrubias on 12-06-2023 Glucose [Mass/Vol] 72 mg/dL Normal 70-100 [facility] Comment on above: ADA recommended refe rence rangeRandom Glucose Reference Range is dependent on time and content of last meal. Glucose of more than 200 mg/dL in a nonstressed, ambulatory subject supports the diagnosis of Diabetes Mellitus. Result Comment: Gipsy om Glucose Reference Range is dependent on [...] 12-06-2023 Hematocrit (Bld) [Volume fraction] 41.9 % Normal 34.0-46.4 [facility] Comment on above: Performed By: #### A NA, TPO, C3, C4, CHROMATIN, CH50, THYGLOB AB #### [facility] , Hemoglobin [Mass/volume] in BloodOrdered By: Harsha Huntrow on 12-06-2023 Hemoglobin (Bld) [Mass/Vol] 14.2 g/dL Normal 11.8-15.4 [facility] Comment on above: Performed By: #### A NA, TPO, C3, C4, CHROMATIN, CH50, THYGLOB AB #### [facility] , INR in Platelet poor plasma by Coagulation assayOrdered By: Harsha Huntrow on 12-06-2023 INR Coag (PPP) [Relative time] 0.9 {INR} Normal [facility] Comment on above: INR Therapeutic Rang e [...] CK, CRP, TSH3, PP, CMP, CBC #### [facility] [address] [place] [address] #### RPR W RFX, ALDOLASE #### [facility] , Ketones Auto test strip (U) [Mass/Vol]Ordered By: Harshaenrike Covarrubias on 12-06-2023 Ketones (U) [Mass/Vol] Negative Negative [facility] - UrinalysisOrder ed By: Harsha Covarrubias on 12-06-2023 Hyaline casts LM Ql (Urine sed) 0-8 [LPF] 0-8 [facility] Leukocytes [#/area] in Urine sediment by Automated countOrdered By: Harsha Huntrow on 12-06-2023 WBC Auto (Urine sed) [#/Area] 3-4 [HPF] 0-4 [facility] Leukocytes [#/volume] correc jemal for nucleated erythrocytes in Blood by Automated counOrdered By: Harsha Huntrow on 12-06-2023 WBC corrected for nucl RBC Auto (Bld) [#/Vol] 7.8 10*3/uL 3.8-11.6 [facility] Leukocytes [#/volume] in Blo od by Automated countOrdered By: Harsha Huntrow on 12-06-2023 WBC (Bld) [#/Vol] 7.8 10*3/uL Normal 3.8-11.6 [facility] Comment on above: Performed By: #### A NA, TPO, C3, C4, CHROMATIN, CH50, THYGLOB AB #### [facility] , Lupus Anticoagulant Compon 0 12-06-2023 Dilute Prothrombin Time (dPt) 35.4 Normal 0.0-47.6 [facility] Comment on above: Performed By: #### L UPANTCOAG #### [facility] , dPT Confirm Ratio 1.18 Normal 0.00-1.34 [facility] Comment on above: Performed By: #### L UPANTCOAG #### [facility] , DRVVT Lupus 36.8 Normal 0.0-47.0 [facility] Comment on above: Performed By: #### L UPANTCOAG #### [facility] , Interpretation Comment: Normal . [facility] Comment on above: Result Comment: No l upus anticoagulant was detected. Performed at: [address] [id number] Sticker Operator: Juany Baker MD, Phone: [phone] PERFORMED BY: [facility] [place] [place] [address] PATHOLOGIST SALES OPERATIONS COORDINATOR TERRI HOGAN M.D. Performed By: #### L UPANTCOAG #### [facility] , PTT-LA 38.7 Normal 0.0-43.5 [facility] Comment on above: Performed By: #### L UPANTCOAG #### [facility] , Thrombin Time 16.9 Normal 0.0-23.0 [facility] Comment on above: Performed By: #### L UPANTCOAG #### [facility] , Lupus anticoagulant [Interpr etation] in Platelet poor plasmaOrdered By: Harsha Covarrubias on 12-06-2023 Lupus anticoagulant (PPP) [Interp] Comment: . [facility] Comment on above: No lupus anticoagula nt was detected.Performed at: [address] [id number] Director: Juany Baker MD, Phone: [phone] Lymphocytes [#/volume] in Bl ood by Automated countOrdered By: Harsha Covarrubias on 12-06-2023 Lymphocytes (Bld) [#/Vol] 1.6 10*3/uL Normal 1.00-4.8 [facility] Comment on above: Performed By: #### A NA, TPO, C3, C4, CHROMATIN, CH50, THYGLOB AB #### [facility] , Lymphocytes/100 leukocytes i n Blood by Automated countOrdered By: Harsha Covarrubias on 12-06-2023 Lymphocytes/100 WBC (Bld) 20.9 % Normal . [facility] Comment on above: Performed By: #### A NA, TPO, C3, C4, CHROMATIN, CH50, THYGLOB AB #### [facility] , MCH [Entitic mass] by Automa jemal countOrdered By: Harsha Covarrubias on 12-06-2023 MCH (RBC) [Entitic mass] 29.4 pg Normal 24.7-34.3 [facility] Comment on above: Performed By: #### A NA, TPO, C3, C4, CHROMATIN, CH50, THYGLOB AB #### [facility] , MCHC Auto (RBC) [Mass/Vol]Or dered By: Harsha Covarrubias on 12-06-2023 MCHC (RBC) [Mass/Vol] 33.9 g/dL 32.0-35.0 [facility] MCV [Entitic volume] by Auto mated countOrdered By: Harsha Covarrubias on 12-06-2023 MCV (RBC) [Entitic vol] 86.8 fL Normal 80-100 [facility] Comment on above: Performed By: #### A NA, TPO, C3, C4, CHROMATIN, CH50, THYGLOB AB #### [facility] , Neutrophils [#/volume] in Bl ood by Automated countOrdered By: Harsha Covarrubias on 12-06-2023 Neutrophils (Bld) [#/Vol] 5.3 10*3/uL Normal 1.8-7.7 [facility] Comment on above: Performed By: #### A NA, TPO, C3, C4, CHROMATIN, CH50, THYGLOB AB #### [facility] , Nitrite Test strip Ql (U)Ord ered By: Harsha Covarrubias on 12-06-2023 Nitrite Ql (U) Negative Negative [facility] No Panel InformationOrdered By: Harsha Covarrubias on 12-06-2023 Estimated GFR (CKD-EPI) > 60.0 mL/Min [facility] Creatinine Clearance (Chem N/A [facility] Urine RBC 0-1 [HPF] 0-4 [facility] Total Complement (CH50) >60 U/mL >41 [facility] Comment on above: Age Male Female 1 [...] to determine out of range values.Performed at: [facility] [id number] [place], [place] [id number] Director: Barry Mcrae PhD, Phone: [phone] Nucleated erythrocytes [Pres ence] in Blood by Automated countOrdered By: Harsha Covarrubias on 12-06-2023 Nucleated RBC Auto Ql (Bld) 0.1 /100{WBC} 0-0.5 [facility] Platelet mean volume [Entiti c volume] in Blood by Automated countOrdered By: Harsha Covarrubias on 12-06-2023 Platelet mean volume (Bld) [Entitic vol] 8.3 fL Normal 6.3-10.7 [facility] Comment on above: Performed By: #### A NA, TPO, C3, C4, CHROMATIN, CH50, THYGLOB AB #### [facility] , Platelet poor plasma ratio o f lupus anticoagulant-sensitive activated partial thromboOrdered By: Harsha Covarrubias on 12-06-2023 aPTT.lupus sensitive.excess phospholipid actual/normal Coag (PPP) [Relative time] 35.4 sec 0.0-47.6 [facility] Platelets [#/volume] in Bloo d by Automated countOrdered By: Harsha Covarrubias on 12-06-2023 Platelets (Bld) [#/Vol] 330 10*3/uL Normal 150-450 [facility] Comment on above: Performed By: #### A NA, TPO, C3, C4, CHROMATIN, CH50, THYGLOB AB #### [facility] , Potassium [Moles/volume] in Serum or PlasmaOrdered By: Harsha Covarrubias on 12-06-2023 Potassium [Moles/Vol] 4.3 mmol/L Normal 3.5-5.1 [facility] Comment on above: Performed By: #### A NA, TPO, C3, C4, CHROMATIN, CH50, THYGLOB AB #### [facility] , Protein Auto test strip (U) [Mass/Vol]Ordered By: Harsha Covarrubias on 12-06-2023 Protein (U) [Mass/Vol] Negative Negative [facility] Protein [Mass/volume] in Ser um or PlasmaOrdered By: Harsha Covarrubias on 12-06-2023 Protein [Mass/Vol] 7.0 g/dL Normal 6.4-8.9 [facility] Comment on above: Performed By: #### A NA, TPO, C3, C4, CHROMATIN, CH50, THYGLOB AB #### [facility] , Prothrombin time (PT)Ordered By: Harsha Covarrubias on 12-06-2023 PT Coag (PPP) [Time] 10.6 s Normal 9.0-12.9 [facility] Comment on above: A hematocrit value g reater than 55% may lead to inaccurate results in coagulation testing. Patients having hematocrit values >55% require a special collection tube for coagulation studies. Please contact the laboratory at [phone] for redraw instructions. Result Comment: A he matocrit value greater than 55% may lead to inaccurate results in coagulation testing. Patients having hematocrit values >55% require a special collection tube for coagulation studies. Please contact the laboratory at [phone] for redraw instructions. Performed By: #### E SR, ADDONUAPLUS, T4F, CK, CRP, TSH3, PP, CMP, CBC #### [address] #### RPR W RFX, ALDOLASE #### [facility] , RPR w/rfx to Quant TP Abson 12-06-2023 RPR, Rfx Quant RPR Non-Reactive Normal Non Reactive [facility] Comment on above: Result Comment: Perf ormed at: CB - [facility] [address] [id number] Sticker Operator: Barry Mcrae PhD, Phone: [phone] PERFORMED BY: [place] [address] PATHOLOGIST SALES OPERATIONS COORDINATOR TERRI HOGAN M.D. Performed By: #### A NA, TPO, C3, C4, CHROMATIN, CH50, THYGLOB AB #### [facility] , Reagin Ab [Presence] in Seru m by RPROrdered By: Harsha Covarrubias on 12-06-2023 Reagin Ab RPR Ql (S) Non-Reactive Non Reactive [facility] Comment on above: Performed at: CB - [facility] [address] [id number] Director: Barry Mcrae PhD, Phone: [phone] Screening dilute Josiah's v iper venom time (DRVVT) with reflex to confirmatory testOrdered By: Harsha Covarrubias on 12-06-2023 dRVVT Coag (PPP) [Time] 36.8 s 0.0-47.0 [facility] Screening lupus anticoagulan t-sensitive activated partial thromboplastin time (aPTT)Ordered By: Harsha Covarrubias on 12-06-2023 aPTT.lupus sensitive Coag (PPP) [Time] 38.7 sec 0.0-43.5 [facility] Serum globulin measurement b y calculation (mass/volume)Ordered By: Harsha Covarrubias on 12-06-2023 Globulin (S) [Mass/Vol] 2.8 g/dL Normal [facility] Comment on above: Performed By: #### A NA, TPO, C3, C4, CHROMATIN, CH50, THYGLOB AB #### [facility] , Serum homogeneous pattern an tinuclear antibody (ISRA) titerOrdered By: Harsha Covarrubias on 12-06-2023 Homogenous nuclear Ab pattern (S) [Titer] N/A [facility] Serum nuclear antibody titer Ordered By: Harsha Covarrubias on 12-06-2023 Nuclear Ab (S) [Titer] Negative . [facility] Comment on above: Negative <1:80 Borde rline 1:80 Positive >1:80ICAP nomenclature: AC-0For more information about Hep-2 cell patterns useANApatterns.org, the official website for theInternational Consensus on Antinuclear Antibody (ISRA)Patterns (ICAP).Performed at: - [facility] [address] [id number] Director: Barry Mcrae PhD, Phone: [phone] Serum or plasma albumin/glob ulin mass ratioOrdered By: Harsha Covarrubias on 12-06-2023 Albumin/Globulin [Mass ratio] 1.5 {ratio} Normal [facility] Comment on above: Performed By: #### A NA, TPO, C3, C4, CHROMATIN, CH50, THYGLOB AB #### [facility] , Serum or plasma anion gap de terminationOrdered By: Harsha Covarrubias on 12-06-2023 Anion gap [Moles/Vol] 10.0 mmol/L Normal 6.0-15.0 [facility] Comment on above: Performed By: #### A NA, TPO, C3, C4, CHROMATIN, CH50, THYGLOB AB #### [facility] , Serum or plasma chromatin an tibody assay (units/volume)Ordered By: Harsha Covarrubias on 12-06-2023 Chromatin Ab Qn <0.2 AI 0.0-0.9 [facility] Comment on above: Performed at: [facility] [place] [id number] Director: Barry Mcrae PhD, Phone: [phone] Serum or plasma complement C 3 measurement (mass/volume)Ordered By: Harsha Covarrubias on 12-06-2023 Complement C3 [Mass/Vol] 189 mg/dL 82-167 [facility] Comment on above: Performed at: [facility] [place] [address] [id number] Director: Barry Mcrae PhD, Phone: [phone] Serum or plasma complement C 4 measurement (mass/volume)Ordered By: Harsha Covarrubias on 12-06-2023 Complement C4 [Mass/Vol] 45 mg/dL 12-38 [facility] Serum or plasma thyroglobuli n antibody assay (units/volume)Ordered By: Harsha Covarrubias on 12-06-2023 Thyroglobulin Ab Qn [IU]/mL 0.0-0.9 [facility] Comment on above: Thyroglobulin Antibo dy measured by NeterionMethodologyIt should be noted that the presence of thyroglobulinantibodies may not be pathogenic nor diagnostic, especiallyat very low levels. The assay wood model builder has found thatfour percent of individuals without evidence of thyroiddisease or autoimmunity will have positive TgAb levels upto 4 IU/mL.Performed at: [facility] [place] [address] [id number] Director: Barry Mcrae PhD, Phone: [phone] Serum or plasma thyroperoxid ase antibody assay (units/volume)Ordered By: Harsha Covarrubias on 12-06-2023 TPO Ab Qn [IU]/mL 0-34 [facility] Comment on above: Performed at: - [facility] [address] [id number] Director: Barry Mcrae PhD, Phone: [phone] Sodium [Moles/volume] in Ser um or PlasmaOrdered By: Harsha Covarrubias on 12-06-2023 Sodium [Moles/Vol] 139 mmol/L Normal 136-145 [facility] Comment on above: Performed By: #### A NA, TPO, C3, C4, CHROMATIN, CH50, THYGLOB AB #### [facility] , Specific gravity Auto test s trip (U) [Rel density]Ordered By: Harsha Covarrubias on 12-06-2023 Specific gravity (U) [Rel density] 1.026 1.001-1.03 0 [facility] Squamous epithelial cells de tection in urine sediment by light microscopyOrdered By: Harsha Covarrubias on 12-06-2023 Epithelial cells.squamous LM Ql (Urine sed) 3-4 [HPF] 0-2 [facility] TT plasOrdered By: Harsha patel on 12-06-2023 Thrombin time Coag (PPP) [Time] 16.9 sec 0.0-23.0 [facility] Thyroid Peroxidase Antibodie son 12-06-2023 Thyroid Peroxidase Antibodies <9 Normal 0-34 [facility] Comment on above: Result Comment: Perf ormed at: [employer] [address] [place], [place] [id number] Sticker Operator: Barry Mcrae PhD, Phone: [phone] Performed By: #### A NA, TPO, C3, C4, CHROMATIN, CH50, THYGLOB AB #### [facility] , Thyrotropin [Units/volume] i n Serum or PlasmaOrdered By: Harsha Covarrubias on 12-06-2023 TSH Qn 1.93 m[IU]/L Normal 0.45-5.33 [facility] Comment on above: Result Comment: PERF ORMED BY: [facility] [place] [address] PATHOLOGIST SALES OPERATIONS COORDINATOR TERRI HOGAN M.D. Performed By: #### A NA, TPO, C3, C4, CHROMATIN, CH50, THYGLOB AB #### [facility] , Thyroxine (T4) free [Mass/vo lume] in Serum or PlasmaOrdered By: Harsha Covarrubias on 12-06-2023 Free T4 [Mass/Vol] 0.85 ng/dL Normal 0.61-1.12 [facility] Comment on above: Performed By: #### A NA, TPO, C3, C4, CHROMATIN, CH50, THYGLOB AB #### [facility] , Urea nitrogen [Mass/volume] in Serum or PlasmaOrdered By: Harsha Covarrubias on 12-06-2023 Urea nitrogen [Mass/Vol] 16 mg/dL Normal 7-25 [facility] Comment on above: Performed By: #### A NA, TPO, C3, C4, CHROMATIN, CH50, THYGLOB AB #### [facility] , Urine clarity by refractomet ry automatedOrdered By: Harsha Covarrubias on 12-06-2023 Clarity Refractometry automated (U) Clear Clear [facility] Urine glucose measurement by automated test strip (mass/volume)Ordered By: Harsha Covarrubias on 12-06-2023 Glucose Auto test strip (U) [Mass/Vol] Normal mg/dL Normal [facility] Urine hemoglobin detection b y automated test stripOrdered By: Harsha Covarrubias on 12-06-2023 Hemoglobin Auto test strip Ql (U) Negative Negative [facility] Urine leukocyte esterase det ection by automated test stripOrdered By: Harsha Covarrubias on 12-06-2023 Leukocyte esterase Auto test strip Ql (U) Negative Negative [facility] Urine pH measurement by auto mated test stripOrdered By: Harsha Covarrubias on 12-06-2023 pH (U) 5.5 [pH] Normal 5.0-9.0 [facility] Comment on above: Order Comment: Name Collection Type:: Clean-Voided Midstream Performed By: #### A NA, TPO, C3, C4, CHROMATIN, CH50, THYGLOB AB #### [facility] , Urobilinogen Auto test strip (U) [Mass/Vol]Ordered By: Harsha Covarrubias on 12-06-2023 Urobilinogen (U) [Mass/Vol] Normal mg/dL Normal [facility] aPTT.lupus sensitive/aPTT.lynn pus sensitive W excess phospholipid (screen to confirm raOrdered By: Harsha Covarrubias on 12-06-2023 aPTT.lupus sensitive/aPTT.lupus sensitive W excess phospholipid Coag (PPP) [Ratio] 1.18 Ratio 0.00-1.34 [facility] Basophils Auto (Bld) [#/Vol] on 10-05-2023 Basophils (Bld) [#/Vol] 0.0 10 3/uL 0.0-0.1 [facility] Basophils/100 WBC Auto (Bld) on 10-05-2023 Basophils/100 WBC (Bld) 0.9 % 0.2-2.0 [facility] Centriole Ab [Titer] in Seru m by Immunofluorescenceon 10-05-2023 Centriole Ab IF (S) [Titer] TNP . [facility] Centromere Ab [Titer] in Ser um by Immunofluorescenceon 10-05-2023 Centromere Ab IF (S) [Titer] TNP . [facility] Eosinophils/100 WBC Auto (Bl d)on 10-05-2023 Eosinophils/100 WBC (Bld) 4.4 % 0.9-7.0 [facility] Erythrocyte distribution wid th Auto (RBC) [Ratio]on 10-05-2023 Erythrocyte distribution width (RBC) [Ratio] 12.8 % 11.0-15.0 [facility] Estimated glomerular filtrat ion rate (GFR) non- Americanon 10-05-2023 GFR/1.73 sq M.predicted among non-blacks MDRD (S/P/Bld) [Vol rate/Area] mL/min/{1.73_m2} >=60 [facility] Globulin Calc (S) [Mass/Vol] on 10-05-2023 Globulin (S) [Mass/Vol] 3.7 g/dL [facility] Hematocrit Auto (Bld) [Volum e fraction]on 10-05-2023 Hematocrit (Bld) [Volume fraction] 42.2 % 36.0-48.0 [facility] Hemoglobin [Mass/volume] in Bloodon 10-05-2023 Hemoglobin (Bld) [Mass/Vol] 13.5 g/dL 12.0-16.0 [facility] Hepatitis B virus surface Ag [Presence] in Serum or Plasma by Immunoassayon 10-05-2023 HBV surface Ag IA Ql Negative Negative [facility] Comment on above: Performed at: [facility] [employer] [place] [id number] Director: Barry Mcrae PhD, Phone: [phone] Hepatitis C virus IgG Ab [Pr esence] in Serum or Plasma by Immunoassayon 10-05-2023 HCV IgG IA Ql Non-Reactive Non Reactive [facility] Comment on above: HCV antibody alone d oes not differentiate betweenpreviously resolved infection and active infection.Equivocal and Reactive HCV antibody results should befollowed up with an HCV RNA test to support the diagnosisof active HCV infection. Laboratory - Chemistry and C hemistry - challengeon 10-05-2023 Albumin [Mass/Vol] 3.7 g/dL 3.4-5.0 [facility] ALP [Catalytic activity/Vol] 76 U/L 46-116 [facility] ALT [Catalytic activity/Vol] 28 U/L 14-59 [facility] AST [Catalytic activity/Vol] 27 U/L 15-37 [facility] Bilirubin [Mass/Vol] 0.5 mg/dL 0.2-1.0 [facility] Calcium [Mass/Vol] 8.8 mg/dL 8.5-10.1 [facility] Chloride [Moles/Vol] 103 mmol/L 98-107 [facility] CO2 [Moles/Vol] 29.5 mmol/L 21.0-32.0 [facility] Creatinine [Mass/Vol] 0.66 mg/dL 0.55-1.02 [facility] GFR/1.73 sq M.predicted MDRD (S/P/Bld) [Vol rate/Area] mL/min/{1.73_m2} >=60 [facility] Glucose [Mass/Vol] 74 mg/dL 74-106 [facility] Potassium [Moles/Vol] 4.1 mmol/L 3.5-5.1 [facility] Protein [Mass/Vol] 7.4 g/dL 6.4-8.2 [facility] Sodium [Moles/Vol] 140 mmol/L 136-145 [facility] Urea nitrogen [Mass/Vol] 11.0 mg/dL 7.0-18.0 [facility] Urea nitrogen/Creatinine [Mass ratio] 16.7 mg/mg [facility] Laboratory - Hematology and Cell countson 10-05-2023 Immature granulocytes/100 WBC (Bld) 0.2 % 0.0-0.5 [facility] Leukocytes [#/volume] correc jemal for nucleated erythrocytes in Blood by Automated counon 10-05-2023 WBC corrected for nucl RBC Auto (Bld) [#/Vol] 4.6 10 3/uL 4.0-11.0 [facility] Lymphocytes Auto (Bld) [#/Vo l]on 10-05-2023 Lymphocytes (Bld) [#/Vol] 1.2 10 3/uL 1.2-3.8 [facility] Lymphocytes/100 WBC Auto (Bl d)on 10-05-2023 Lymphocytes/100 WBC (Bld) 25.7 % 20.5-60.0 [facility] MCH Auto (RBC) [Entitic mass ]on 10-05-2023 MCH (RBC) [Entitic mass] 28.6 pg 26.7-34.0 [facility] MCHC Auto (RBC) [Mass/Vol]on 10-05-2023 MCHC (RBC) [Mass/Vol] 32.0 g/dL 29.9-35.2 [facility] MCV Auto (RBC) [Entitic vol] on 10-05-2023 MCV (RBC) [Entitic vol] 89.4 fL 81.0-99.0 [facility] Midbody Ab [Titer] in Serum by Immunofluorescenceon 10-05-2023 Midbody Ab IF (S) [Titer] TNP . [facility] Mitotic spindle apparatus Ab [Titer] in Serum or Plasma by Immunofluorescenceon 10-05-2023 Mitotic spindle apparatus Ab IF [Titer] TNP . [facility] Monocytes Auto (Bld) [#/Vol] on 10-05-2023 Monocytes (Bld) [#/Vol] 0.4 10 3/uL 0.3-0.8 [facility] Monocytes/100 WBC Auto (Bld) on 10-05-2023 Monocytes/100 WBC (Bld) 8.4 % 1.7-12.0 [facility] Neutrophils Auto (Bld) [#/Vo l]on 10-05-2023 Neutrophils (Bld) [#/Vol] 2.8 10 3/uL 1.4-6.5 [facility] Neutrophils/100 WBC Auto (Bl d)on 10-05-2023 Neutrophils/100 WBC (Bld) 60.4 % 43.0-75.0 [facility] No Panel Informationon 10-04 Anti-Nuclear Antibody Comment 2 Comment . [facility] Comment on above: Pattern Potential Di sease Association Homogeneous Systemic Lupus Erythematosus, Drug Induced Systemic Lupus Erythematosus, Chronic Autoimmune hepatitis, Juvenile Idiopathic Arthritis Speckled Sjogren Syndrome, Systemic Lupus Erythematosus, Subacute Cutaneous Lupus, Lupus, Congenital Heart Block, Mixed Connective Tissue Disease, Scleroderma-diffuse, Scleroderma-Autoimmune Myositis Overlap Syndrome, Systemic Lupus Yvpdfjvlausjk-Awhbscmetwh-Nmrjtfbwrk Myositis Overlap Syndrome, Systemic Autoimmune Rheumatic Disease, [...] Antiphospholipid Syndrome Performed at: CB - [facility] [address] [place], [place] [id number] Director: Barry Mcrae PhD, Phone: [phone] Eosinophils # (Auto) 0.2 10 3/uL 0.0-0.7 [facility] Immature Granulocyte # (Auto) 0.01 10 3/uL 0.00-0.03 [facility] Nuclear dots nuclear Ab aj herson [Titer] in Serum by Immunofluorescenceon 10-05-2023 Nuclear dots nuclear Ab pattern IF (S) [Titer] TNP . [facility] Nuclear membrane pores nucle ar Ab pattern [Titer] in Serum by Immunofluorescenceon 10-05-2023 Nuclear membrane pores nuclear Ab pattern IF (S) [Titer] TNP . [facility] PCNA extractable nuclear Ab [Titer] in Serum by Immunofluorescenceon 10-05-2023 PCNA extractable nuclear Ab IF (S) [Titer] TNP . [facility] Platelet mean volume Auto (B ld) [Entitic vol]on 10-05-2023 Platelet mean volume (Bld) [Entitic vol] 9.6 fL 9.5-13.5 [facility] Platelets Auto (Bld) [#/Vol] on 10-05-2023 Platelets (Bld) [#/Vol] 340 10 3/uL 150-450 [facility] RBC Auto (Bld) [#/Vol]on RBC (Bld) [#/Vol] 4.72 10 6/uL 4.20-5.40 [facility] Serum homogeneous pattern an tinuclear antibody (ISRA) titeron 10-05-2023 Homogenous nuclear Ab pattern (S) [Titer] TNP . [facility] Serum nuclear antibody titer on 10-05-2023 Nuclear Ab (S) [Titer] Positive . [facility] Comment on above: Negative <1:80 Borde rline 1:80 Positive >1:80Speckled cytoplasmic fluorescence is present. Theantibodies noted in this pattern may be associated with,but not restricted to, primary biliary cirrhosis (PBC),polymyositis and dermatomyositis (PM/DM), and/or systemiclupus erythematosus (SLE). Serum nucleolar pattern anti nuclear antibody (ISRA) titeron 10-05-2023 Nucleolar nuclear Ab pattern (S) [Titer] TNP . [facility] Serum or plasma albumin/glob ulin mass ratioon 10-05-2023 Albumin/Globulin [Mass ratio] 1.0 {ratio} [facility] Serum or plasma anion gap de terminationon 10-05-2023 Anion gap [Moles/Vol] 11.6 mmol/L [facility] Serum speckled pattern antin uclear antibody (ISRA) titeron 10-05-2023 Speckled nuclear Ab pattern (S) [Titer] 1:160 . [facility] Comment on above: ICAP nomenclature: A C-2,4,5,29 Quick Strepon 02-24-2023 S. pyogenes Org specific cx Ql (Throat) Negative [facility] [employer] Other Quick Strep [facility] [employer] Other Outside Colonoscopyon 2020 Outside Colonoscopy [id number]#1.00CD:12 7 [facility] Lab Reportson 05-17-2021 Lab Reports [id number]#[id number]:12 7 [facility] May 05, 2021 TARUN GLOVER, [address] [place] [address] Re: OLIMPIA DINH Date of : 1970 Thank you for your referral of Olimpia Dinh who was seen on consultation on April 28, 2021, for screening colonoscopy. I have enclosed my consultation note for your review. I will be happy to follow Olimpia. Sincerely, Trevor Richard Md General Surgery [facility] Pre-Certification Formon Pre-Certification Form [id number]#1.00CD:12 7 [facility] Formson 04-29-2021 Forms [id number]#1.00CD:12 7 [facility] Ambulatory Clinical Summaryo n 04-28-2021 Ambulatory Clinical Summary {[id number] [facility] Physician Referralon 021 Physician Referral [id number]:12 7 Normal [facility] [place] PET/CT SKULL-THIGH INITon 09-27-2019 NM [...] any questions regarding this interpretation, please call [phone]. If you are unable to reach us at the number above, please feel free to contact [facility] eRadiology at [phone]. [id number] Normal [facility] PROGRESSon 09-27-2019 PROGRESS HNO ID: [id number] Author: Jewel Vivar (Tech) Service: ? Author Type: Property Claim Rep Type: Progress Notes Filed: 09/27/2019 1:22 PM [...] safety can be found using this link: [email or web address] ar%20Medicine%20Procedure [email or web address] SIGNATURE: Isa Melgar PATIENT NAME: Olimpia Dinh DATE: September 27, 2019 TIME: 1:09 PM PAGER/CONTACT #: Normal [facility] CT-CT CHEST W CON IMPORTon 0 09-09-2019 CT-CT CHEST W CON IMPORT Images were obtained outside of [facility] [id number] Normal [facility] T-Spoton 07-06-2017 T-Spot. TB Test Normal [facility] Comment on above: Result Comment: [facility] [id number] [place] [address](NOTE)T-SPOT.TB: NegativeThe test result is Negative because the [...] B Spot Count: 0Positive Control Spot Count: >20[facility] [address] [place], [place] [id number] ([phone] Performed By: #### T SPOT ####[facility] [place] [address] Vital Signs Date Time Vital Sign Value Performing Clinician Facility 05-16-2024 15:51-0400 Body mass index (BMI) [Ratio] 46.35 kg/m2 Madisyn SHIRLEY Work Phone: [facility] 05-16-2024 15:51-0400 Body weight 122.47 kg Madisyn Piper PA Work Phone: [facility] 05-16-2024 15:51-0400 Diastolic blood pressure 74 mm[Hg] Madisyn SHIRLEY Work Phone: [facility] 05-16-2024 15:51-0400 Systolic blood pressure 122 mm[Hg] Madisyn Piper PA Work Phone: [facility] 04-29-2024 08:48-0400 Body mass index (BMI) [Ratio] 46.43 kg/m2 Claudia Brandon DO Work Phone: [facility] 04-29-2024 08:48-0400 Body weight 122.7 kg Claudia Brandon DO Work Phone: [facility] 04-29-2024 08:48-0400 Diastolic blood pressure 78 mm[Hg] Claudia Brandon DO Work Phone: [facility] 04-29-2024 08:48-0400 Systolic blood pressure 122 mm[Hg] Claudia Brandon DO Work Phone: [facility] 04-02-2024 13:22-0400 Body mass index (BMI) [Ratio] 46.65 kg/m2 Madisyn Piper PA Work Phone: [facility] 04-02-2024 13:22-0400 Body weight 123.29 kg Madisyn SHIRLEY Work Phone: [facility] 04-02-2024 13:22-0400 Diastolic blood pressure 82 mm[Hg] Madisyn Vianey SHIRLEY Work Phone: [facility] 04-02-2024 13:22-0400 Systolic blood pressure 130 mm[Hg] Madisyn Vianey SHIRLEY Work Phone: [facility] 03-29-2024 10:11-0400 Body height 164.47 cm [facility] 03-29-2024 10:11-0400 Body mass index (BMI) [Ratio] 45.3 kg/m2 [facility] 03-29-2024 10:11-0400 Body weight 122.52 kg [facility] 03-29-2024 10:11-0400 Diastolic blood pressure 95 mm[Hg] [facility] 03-29-2024 10:11-0400 Heart rate 98 /min [facility] 03-29-2024 10:11-0400 Respiratory rate 12 /min [facility] 03-29-2024 10:11-0400 Systolic blood pressure 145 mm[Hg] [facility] 12-26-2023 14:25-0400 Body height 164.47 cm DO Tarun Ball Work Phone: [facility] 12-26-2023 14:25-0400 Body mass index (BMI) [Ratio] 46.6 kg/m2 DO Tarun Ball Work Phone: [facility] 12-26-2023 14:25-0400 Body weight 126.26 kg DO Tarun Ball Work Phone: [facility] 12-26-2023 14:25-0400 Diastolic blood pressure 78 mm[Hg] DO Tarun Ball Work Phone: [facility] 12-26-2023 14:25-0400 Heart rate 88 /min DO Tarun Ball Work Phone: [facility] 12-26-2023 14:25-0400 Respiratory rate 12 /min DO Tarun Ball Work Phone: [facility] 12-26-2023 14:25-0400 Systolic blood pressure 120 mm[Hg] DO Tarun Ball Work Phone: [facility] 10-27-2023 11:04-0400 Body height 164.47 cm [facility] 10-27-2023 11:04-0400 Body mass index (BMI) [Ratio] 45.6 kg/m2 [facility] 10-27-2023 11:04-0400 Body weight 123.43 kg [facility] 10-27-2023 11:04-0400 Diastolic blood pressure 82 mm[Hg] [facility] 10-27-2023 11:04-0400 Heart rate 80 /min [facility] 10-27-2023 11:04-0400 Respiratory rate 12 /min [facility] 10-27-2023 11:04-0400 Systolic blood pressure 128 mm[Hg] [facility] 08-21-2023 13:45-0500 Body height 164.47 cm Tarun Ball Other [facility] [employer] Other 08-21-2023 13:45-0500 Body mass index (BMI) [Ratio] 45.47 kg/m2 Tarun Ball Other [facility] [employer] Other 08-21-2023 13:45-0500 Body weight 123.02 kg Tarun Ball Other [facility] [employer] Other 08-21-2023 13:45-0500 Diastolic blood pressure 77 mm[Hg] Tarun Ball Other [facility] [employer] Other 08-21-2023 13:45-0500 Respiratory rate 16 /min Tarun Ball Other [facility] [employer] Other 08-21-2023 13:45-0500 Systolic blood pressure 136 mm[Hg] Tarun Ball Other [facility] [employer] Other 05-19-2023 12:17-0400 Body height 164.47 cm Tarun Ball Other [facility] Other 05-19-2023 12:17-0400 Body mass index (BMI) [Ratio] 43.09 kg/m2 Tarun Ball Other [facility] Other 05-19-2023 12:17-0400 Body weight 116.58 kg Tarun Ball Other [facility] Other 05-19-2023 12:17-0400 Diastolic blood pressure 75 mm[Hg] Tarun Ball Other [facility] Other 05-19-2023 12:17-0400 Systolic blood pressure 119 mm[Hg] Tarun Ball Other [facility] Other 02-27-2023 12:00-0400 Body height 164.47 cm Tarun Ball Other [facility] Other 02-27-2023 12:00-0400 Body mass index (BMI) [Ratio] 43.6 kg/m2 Tarun Ball Other [facility] Other 02-27-2023 12:00-0400 Body weight 117.94 kg Tarun Ball Other [facility] Other 02-24-2023 09:00-0400 Body height 164.47 cm Tasia Emery Other [facility] Other 02-24-2023 09:00-0400 Body mass index (BMI) [Ratio] 44.1 kg/m2 Tasia Emery Other [facility] Other 02-24-2023 09:00-0400 Body weight 119.3 kg Tasia Emery Other [facility] Other 02-24-2023 09:00-0400 Diastolic blood pressure 83 mm[Hg] Tasia Emery Other [facility] Other 02-24-2023 09:00-0400 Respiratory rate 16 /min Tasia Zavalaley Other [facility] Other 02-24-2023 09:00-0400 SaO2% (BldA) [Mass fraction] 98 % Tasia Emery Other [facility] Other 02-24-2023 09:00-0400 Systolic blood pressure 125 mm[Hg] Tasia Zavalaley Other [facility] Other 01-20-2023 08:30-0400 Body height 164.47 cm Tarun Ball Other [facility] Other 01-20-2023 08:30-0400 Body mass index (BMI) [Ratio] 44.17 kg/m2 Tarun Ball Other [facility] Other 01-20-2023 08:30-0400 Body weight 119.48 kg Tarun Ball Other [facility] Other 01-20-2023 08:30-0400 Diastolic blood pressure 87 mm[Hg] Tarun Ball Other [facility] Other 01-20-2023 08:30-0400 Respiratory rate 12 /min Tarun Ball Other [facility] Other 01-20-2023 08:30-0400 Systolic blood pressure 130 mm[Hg] Tarun Ball Other [facility] Other 01-02-2023 12:00-0400 Body height 164.47 cm Tarun Ball Other [facility] Other 01-02-2023 12:00-0400 Body mass index (BMI) [Ratio] 43.09 kg/m2 Tarun Ball Other [facility] Other 01-02-2023 12:00-0400 Body weight 116.58 kg Tarun Ball Other [facility] Other 01-02-2023 12:00-0400 Diastolic blood pressure 79 mm[Hg] Tarun Ball Other [facility] Other 01-02-2023 12:00-0400 Systolic blood pressure 124 mm[Hg] Tarun Ball Other [facility] Other 11-16-2022 10:30-0400 Body height 164.47 cm Tarun Ball Other [facility] Other 11-16-2022 10:30-0400 Body mass index (BMI) [Ratio] 45.54 kg/m2 Tarun Ball Other [facility] Other 11-16-2022 10:30-0400 Body weight 123.2 kg Tarun Ball Other [facility] Other 11-16-2022 10:30-0400 Diastolic blood pressure 81 mm[Hg] Tarun Ball Other [facility] Other 11-16-2022 10:30-0400 Respiratory rate 12 /min Tarun Ball Other [facility] Other 11-16-2022 10:30-0400 SaO2% (BldA) [Mass fraction] 96 % Tarun Ball Other [facility] Other 11-16-2022 10:30-0400 Systolic blood pressure 115 mm[Hg] Tarun Glover Other [facility] [employer] Other Encounters Encounter Date Encounter Type Care Provider Facility Start: 05-29-2024 End: 05-29-2024 ambulatory Claudia Brandon DO Work Phone: [facility] Work Phone: Start: 05-29-2024 End: 05-29-2024 Patient encounter procedure Claudia Brandon DO Work Phone: [facility] Work Phone: Start: 05-16-2024 End: 05-16-2024 Postop follow up visit related to original px Madisyn SHIRLEY Work Phone: [facility] Comment on above: Cellulitis, unspecif ied cellulitis site Start: 05-16-2024 End: 05-16-2024 ambulatory MADISYN PIPER Not Available Start: 05-16-2024 End: 05-16-2024 Bamboo flowsheet Madisyn SHIRLEY Work Phone: [facility] Start: 05-16-2024 End: 05-16-2024 Bamboo flowsheet Madisyn SHIRLEY Work Phone: [facility] Start: 05-09-2024 End: 05-09-2024 Clinisync Result Encounter Claudia Brandon DO Work Phone: [facility] Unsolicited Start: 05-09-2024 End: 05-09-2024 Clinisync Result Encounter Claudia Brandon DO Work Phone: [facility] Unsolicited Start: 05-09-2024 End: 05-09-2024 ambulatory Claudia Brandon [facility] Work Phone: Start: 05-09-2024 End: 05-09-2024 Departed Referred DO Claudia Brandon Work Phone: [facility] Start: 05-09-2024 Non-patient / Non-visit DO Cor ey Brandon Work Phone: [facility] Work Phone: Start: 05-02-2024 Non-patient / Non-visit Claudia Brandon DO Work Phone: [facility] Work Phone: Start: 04-29-2024 End: 04-29-2024 Bamboo flowsheet Claudia Brandon DO Work Phone: [facility] Start: 04-29-2024 End: 04-29-2024 Bamboo flowsheet Claudia Brandon DO Work Phone: [facility] Start: 04-29-2024 End: 04-29-2024 Office outpatient visit 15 minutes Claudia Brandon DO Work Phone: [facility] Comment on above: Pre-op examination; Fibroids; Pelvic pain in female; Dyspareunia in female Start: 04-29-2024 End: 04-29-2024 Preprocedural examination done Claudia Brandon DO Work Phone: [facility] Start: 04-29-2024 End: 04-29-2024 ambulatory CLAUDIA BRANDON Not Available Start: 04-10-2024 End: 04-10-2024 Telephone encounter Madisyn SIHRLEY Work Phone: [facility] Start: 04-02-2024 End: 04-02-2024 Bamboo flowsheet Madisyn SHIRLEY Work Phone: [facility] Start: 04-02-2024 End: 04-06-2024 Bamboo flowsheet Madisyn SHIRLEY Work Phone: [facility] Start: 04-02-2024 End: 04-06-2024 Clinisync Result Encounter Madisyn SHIRLEY Work Phone: [facility] External Department Unsolicited Start: 04-02-2024 Non-patient / Non-visit DO Cor ey Brandon Work Phone: [facility] Work Phone: Start: 04-02-2024 End: 04-02-2024 ambulatory MADISYN PIPER Not Available Start: 04-02-2024 End: 04-02-2024 Patient encounter procedure Madisyn Piper PA Work Phone: [facility] Work Phone: Start: 04-02-2024 End: 04-02-2024 Periodic preventive med est patient 40-64yrs Madisyn Piper PA Work Phone: [facility] Comment on above: Well woman exam with routine gynecological exam; Postmenopausal state; Pelvic pain in female; Encounter for weight management; Skin yeast infection Start: 03-29-2024 End: 03-29-2024 ambulatory [facility] Work Phone: Start: 03-29-2024 End: 03-29-2024 Patient encounter procedure [facility] Work Phone: Start: 12-26-2023 End: 12-26-2023 ambulatory DO Tarun Ball Work Phone: [facility] Work Phone: Start: 12-26-2023 End: 12-26-2023 Encounter for general adult medical examination without abnormal findings DO Tarun Ball Work Phone: [facility] Start: 12-26-2023 End: 12-26-2023 Patient encounter procedure DO Tarun Ball Work Phone: [facility] Work Phone: Start: 12-06-2023 End: 12-06-2023 Patient encounter procedure DO Tarun Ball Work Phone: [facility] [address] Work Phone: Start: 12-06-2023 End: 12-06-2023 ambulatory DO Tarun Ball Work Phone: [facility] Work Phone: Start: 10-27-2023 End: 10-27-2023 ambulatory [facility] Work Phone: Start: 10-27-2023 End: 10-27-2023 Patient encounter procedure [facility] Work Phone: Start: 10-05-2023 Non-patient / Non-visit [facility] Work Phone: Start: 09-12-2023 Non-patient / Non-visit [facility] Work Phone: Start: 08-21-2023 End: 08-21-2023 ambulatory Tarun Ball Other [facility] Other Start: 08-21-2023 Office outpatient vi sit 15 minutes Tarun Ball [facility] Start: 08-16-2023 End: 08-16-2023 ambulatory Tarun Ball Other [facility] Other Start: 08-16-2023 Office outpatient vi sit 15 minutes Tarun Ball [facility] Start: 07-19-2023 End: 07-19-2023 ambulatory Tarun Ball Other [facility] Other Start: 07-19-2023 Office outpatient vi sit 15 minutes Tarun Ball [facility] Start: 05-19-2023 End: 05-19-2023 ambulatory Tarun Ball Other [facility] Other Start: 05-19-2023 Telephone encounter Tarun Ball [facility] Start: 03-17-2023 End: 03-17-2023 ambulatory Tarun Ball Other [facility] Other Start: 03-17-2023 Telephone encounter Tarun Ball [facility] Start: 02-27-2023 End: 02-27-2023 ambulatory Tarun Ball Other [facility] Other Start: 02-27-2023 Office outpatient vi sit 15 minutes Tarun Glover [facility] Start: 02-24-2023 End: 02-24-2023 ambulatory Tasia Emery Other [facility] Other Start: 02-24-2023 Office outpatient vi sit 15 minutes Tasia Emery [facility] Start: 02-24-2023 Telephone encounter Tarun Glover [facility] Start: 02-17-2023 End: 02-17-2023 ambulatory Tarun Glover Other [facility] Other Start: 02-17-2023 Telephone encounter Tarun HERNDON [facility] Start: 01-20-2023 End: 01-20-2023 ambulatory Tarun Glover Other [facility] Other Start: 01-20-2023 Office outpatient vi sit 15 minutes Tarun Glover [facility] Start: 01-02-2023 End: 01-02-2023 ambulatory Tarun Glover Other [facility] Other Start: 01-02-2023 Office outpatient vi sit 15 minutes Tarun Glover [facility] Start: 12-14-2022 End: 12-14-2022 ambulatory Tarun Glover Other [facility] Other Start: 12-14-2022 Telephone encounter Tarun HERNDON [facility] Start: 12-07-[address] TARUN GLOVER Facili ty:[facility] Start: 11-16-2022 End: 11-16-2022 ambulatory Tarun Glover Other [facility] Other Start: 11-16-2022 Encounter for genera l adult medical examination without abnormal findings Tarun Glover [facility] Start: 11-16-2022 Periodic preventive med est patient 40-64yrs Tarun Glover [facility] Start: 11-16-2022 Telephone encounter Tarun Glover [facility] Start: 09-26-2022 End: 09-26-2022 ambulatory Tarun Glover Other [facility] Other Start: 09-26-2022 Office outpatient vi sit 15 minutes Tarun Glover [facility] Start: 09-12-2022 End: 09-12-2022 ambulatory Tarun Glover Other [facility] Other Start: 09-12-2022 Telephone encounter Tarun Glover [facility] Start: 06-17-2022 Gynecological examination normal Tarun Glover Other [facility] Other Start: 01-03-2022 End: 08-04-[address] MONTRELL CHIU Facility: Start: 07-01-2021 Adult health examination Swapnil Glover Other [facility] Other Start: 07-03-2017 End: 07-04-2017 Ambulatory TREVOR BRUSH [facility] Procedures Date Procedure Procedure Detail Performing Clinician Start: 05-09-2024 ALL CBC WITH AUTO DIFF Claudia Luongo DO Work Phone: Start: 04-02-2024 IGP,APTIMA HPV,AGE GDLN Madisyn SHIRLEY Work Phone: Start: 04-02-2024 Microscopic observat ion [Identifier] in Cervix by Cyto stain Madisyn SHIRLEY Work Phone: Start: 07-03-2017 T-SPOT TB TEST TREVOR BRUSH Depression screening Lila Glover Other Screening for malign ant neoplasm of breast Tarun Glover Other Screening for malign ant neoplasm of colon Tarun Glover Other Plan of Treatment Date Care Activity Detail Author Start: 04-02-2029 Screening for malign ant neoplasm of cervix [facility] Start: 04-13-2028 Screening for malign ant neoplasm of cervix [facility] Start: 04-08-2025 End: 04-08-2025 Patient encounter procedure 04/08/2025 1:00 PM EDT Office Visit [facility] [address] [place] [id number] Madisyn Piper, PA [address] [place] [address] [facility] Start: 05-21-2024 End: 05-21-2024 Patient encounter procedure 05/21/2024 2:20 PM EST Office Visit [facility] [address] [place] [id number] Claudia Taylor, DO [address] [address] [facility] Start: 05-16-2024 End: 05-16-2024 Patient encounter procedure 05/16/2024 3:40 PM EDT Office Visit [facility] [address] [place] [phone] Madisyn Piper, PA [address] [place] [address] Arrived [facility] Comment on above: Arrived Start: 04-29-2024 End: 04-29-2024 Patient encounter procedure 04/29/2024 8:50 AM EDT Office Visit [facility] [address] [place] [phone] Claudia Taylor, DO [address] [place] [address] Arrived [facility] Comment on above: Arrived Start: 04-09-2024 End: 04-09-2024 Professional / ancillary services management 04/09/2024 1:00 PM EDT Ancillary Procedure [facility] [address] [place] [id number] [facility] Start: 04-02-2024 End: 04-02-2025 DXA Skeletal system Views for bone density DEXA bone density Imaging Routine Postmenopausal state Expected: 04/02/2024 (Approximate), Expires: 04/02/2025 [facility] Work Phone: Comment on above: Expected: 04/02/2024 (Approximate), Expires: 04/02/2025 Start: 04-02-2024 End: 04-02-2025 US for US PELVIS-TRANSVAG IF INDICATED Imaging Routine Pelvic pain in female Expected: 04/02/2024 (Approximate), Expires: 04/02/2025 [facility] Comment on above: Expected: 04/02/2024 (Approximate), Expires: 04/02/2025 Start: 03-17-2024 Influenza vaccination Influenza Vacc ine (#1) [facility] Start: 12-06-2023 Hemolytic complement CH50 level [facility] Start: 12-06-2023 End: 12-06-2023 [facility] Start: 10-27-2023 Patient referral [facility] Work Phone: Start: 2009 Screening for malign ant neoplasm of breast Mammogram [facility] Start: 1990 Screening for malign ant neoplasm of cervix Pap Smear [facility] Start: 1969 Screening for malign ant neoplasm of colon [facility] MG Breast - bilatera l Screening [facility] Nuclear Ab [Titer] i n Serum [facility] Patient referral [facility] Work Phone: THIN PREP TIS PAP AN D HR HPV DNA THIN PREP TIS PAP AND HR HPV DNA Pathology and Cytology Routine Well woman exam with routine gynecological exam Ordered: 04/02/2024 [facility] Comment on above: Ordered: 04/02/2024 Immunizations Immunization Date Immunization Notes Care Provider Fa [facility] 05-29-2024 influenza, seasonal, injectable, preservative free Claudia Brandon DO Work Phone: [facility] 03-31-2021 influenza virus vaccine, split virus (incl. purified surface antigen) Tarun Glover Other [facility] Other 03-31-2021 influenza virus vaccine, unspecified formulation [facility] 03-31-2021 Influenza, injectabl e, Madin Tsering Canine Kidney, preservative free, quadrivalent Claudia Brandon DO Work Phone: [facility] 08-24-2020 COVID-19 mRNA-1273 (Moderna) Claudia Brandon DO Work Phone: [facility] 07-27-2020 COVID-19 mRNA-1273 (Moderna) Claudia Brandon DO Work Phone: [facility] 05-28-2020 influenza, high dose seasonal, preservative-free Claudia Brandon DO Work Phone: [facility] 05-21-2020 influenza virus vaccine, split virus (incl. purified surface antigen) Tarun Ball Other [facility] Other 05-21-2020 influenza virus vaccine, unspecified formulation [facility] 05-12-2017 influenza, injectabl e, quadrivalent, preservative free Claudia Brandon DO Work Phone: [facility] 05-17-2016 influenza, injectabl e, quadrivalent, preservative free Claudia Brandon DO Work Phone: [facility] 05-05-2015 influenza, injectabl e, quadrivalent, preservative free Claudia Brandon DO Work Phone: [facility] Payers Date Payer Category Payer Managed Care HMO (unspecified) [id number] 1970 Unknown [id number] 1969 Unknown [id number] 1969 Unknown [id number] 1969 Unknown [id number] 1969 Unknown [id number] 1959 Private Health Insurance [id number] 1960 Self-pay Private Health Insurance [id number] Unknown [id number] Unknown [id number] Social History Date Type Detail Facility Unknown if ever smoked [facility] [employer] Other Start: 03-23-2023 End: 04-02-2024 Sex Assigned At [facility] [employer] Other Start: 03-22-2023 End: 08-16-2023 Tobacco smoking status NHIS Never smoked tobacco (finding) [facility] Start: 1970 Sex Assigned At Female F [facility] Start: 03-23-2023 End: 04-02-2024 Alcoholic beverage intake Lifetime non-drinker (finding) [facility] Start: 03-23-2023 End: 04-02-2024 History of Social function [facility] Start: 03-22-2023 Alcohol Comment Caffeine intak e: 1-2 cups per day coffee [facility] Start: 1970 Sex assigned at Not on file [facility] Start: 04-29-2024 Tobacco use and exposure Smokeless tobacco non-user [facility] Start: 05-29-2024 Sex Female (finding) [facility] Clinical Notes 04-28-2021 to 05-16-2024 CASPER Alaniz - 05/16/2024 3:40 PM EDDonnie Garcia LPN - 04/29/2024 8:50 AM EDTTelephone Encounter - CASPER Alaniz - 04/10/2024 2:41 PM CASPER Ramos - 04/02/2024 1:00 PM EDT Note Date & Type Note Facility 05-16-2024 History of Presen t illness Narrative Reason for Appointment: Patient ID: Olimpia Dinh is a 53 y.o. female who presents for Cellulitis (Pt present today to evaluate cellulites. Pt had a D&C on 05/09/2024.) Patient presents today for an Evaluation of cellulites MEDICATIONS Current Outpatient Medications Medication Instructions albuterol HFA 90 mcg/act inhaler INHALE 2 PUFFS BY MOUTH EVERY 4 HOURS NEEDED FOR COUGH AND SHORTNESS OF BREATH clotrimazole (Lotrimin) 1 % cream 1 application , Every 12 hours escitalopram (LEXAPRO) 10 mg, Oral, Daily Loratadine-D 24HR 10-240 MG 24 hr tablet 1 tablet, Oral, As needed meloxicam (MOBIC) 7.5 mg, Oral, Daily Semaglutide-Weight Management (WEGOVY SC) Subcutaneous ALLERGIES Allergies Allergen Reactions Keeling Oil Unknown Latex Unknown Milk-Related Compounds Unknown [...] APPENDECTOMY SECTION, LOW TRANSVERSE x 1 CHOLECYSTECTOMY DILATION AND CURETTAGE OF UTERUS 05/09/2024 ENDOMETRIAL ABLATION 2009 OTHER SURGICAL HISTORY Rectal fissure surgery TONSILLECTOMY TOTAL ANKLE ARTHROPLASTY 08/07/2020 TUBAL LIGATION REVIEW OF SYSTEMS Review of Systems: Review of Systems Constitutional: Negative. HENT: Negative. Eyes: Negative. Respiratory: Negative. Cardiovascular: Negative. Gastrointestinal: Negative. Genitourinary: Negative. Musculoskeletal: Negative. Skin: Positive for rash. Neurological: Negative. All other systems reviewed and are negative. Hematological: Negative. Endocrine: Negative. Allergic/Immunologic: Negative. OBJECTIVE Objective: Physical Exam Constitutional: Appearance: Normal appearance. She is normal weight. HENT: Head: Normocephalic. Cardiovascular: Rate and Rhythm: Normal rate. Pulses: Normal pulses. Pulmonary: Effort: Pulmonary effort is normal. Breath sounds: Normal breath sounds. Abdominal: Palpations: Abdomen is soft. Musculoskeletal: General: Normal range of motion. Neurological: General: No focal deficit present. Mental Status: She is alert and oriented to person, place, and time. Skin: General: Skin is warm and dry. Findings: Erythema present. Comments: Mild dermatitis from steristrips, no infection Psychiatric: Mood and Affect: Mood normal. Behavior: Behavior normal. Thought Content: Thought content normal. Judgment: Judgment normal. Vitals and nursing note reviewed. Vitals: Estimated body mass index is 46.43 kg/m as calculated from the following: Height as of 03/23/23: 5' 4 . Weight as of 04/29/24: 270 lb 8 oz. BP: No LMP recorded. Patient has had an ablation. ASSESSMENT & PLAN ICD-10-CM 1. Cellulitis, unspecified cellulitis site L03.90 Post Op Follow Up: Patient presents today for a postop follow up after having a D&C Hysteroscopy performed at [facility] with Dr. Taylor. Pathology results was reviewed with the patient in great detail and all restrictions have been lifted. Follow Up: Patient is to return to the office for annual exam unless needed otherwise. Documented by Donna Avalos MA on behalf of: CASPER Alaniz documented in this encounter [facility] 04-29-2024 History of Presen t illness Narrative [...] (WEGOVY SC) Subcutaneous ALLERGIES Allergies Allergen Reactions Keeling Oil Unknown Latex Unknown Milk-Related Compounds Unknown [...] nursing note reviewed. Exam conducted with a engraver copperplate present. 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 Patient to return to clinic as to be scheduled prior to leaving office today. After talking with patient patient will have Pre-op appointment today and D&C will be done at time of Diagnostic Lap for sampling of tissue. Documented by Kristin Garcia LPN on behalf of: Claudia Taylor DO documented in this encounter [facility] 04-10-2024 Telephone encount er Note Called and spoke with patient regarging US results. Patient will follow up with DR Taylor for possible D&C with hysteroscopy. Patient agrees with plan of care. Pt found to have large fibroid, uncertain as to whether causing back pain. [facility] 04-10-2024 Miscellaneous Notes Formattin g of this note might be different from the original. Called and spoke with patient regarging US results. Patient will follow up with DR Taylor for possible D&C with hysteroscopy. Patient agrees with plan of care. Pt found to have large fibroid, uncertain as to whether causing back pain. documented in this encounter [facility] 04-02-2024 History of Presen t illness Narrative Reason for Appointment: Patient ID: Olimpia Dinh is a 53 y.o. female who presents for Well Women Visit Patient presents today for Annual Exam. MEDICATIONS Current Outpatient Medications Medication Instructions albuterol HFA 90 mcg/act inhaler INHALE 2 PUFFS BY MOUTH EVERY 4 HOURS NEEDED FOR COUGH AND SHORTNESS OF BREATH clotrimazole (Lotrimin) 1 % cream 1 application , Every 12 hours escitalopram (LEXAPRO) 10 mg, Oral, Daily Loratadine-D 24HR 10-240 MG 24 hr tablet 1 tablet, Oral, As needed meloxicam (MOBIC) 7.5 mg, Oral, Daily phentermine (Adipex-P) 37.5 MG tablet TAKE ONE TABLET BY MOUTH DAILY BEFORE BREAKFAST ALLERGIES Allergies Allergen Reactions Keeling Oil Unknown Latex Unknown Milk-Related Compounds Unknown Soybean-Containing Drug Products Unknown Wheat Unknown PROBLEMS Active Ambulatory Problems Diagnosis Date Noted No Active Ambulatory Problems Resolved Ambulatory Problems Diagnosis Date Noted No Resolved Ambulatory Problems Past Medical History: Diagnosis Date Ankle impingement syndrome, right Oral lesion Plantar fascial fibromatosis of right foot Pulmonary nodule, left Thrush Visit for screening mammogram HISTORY PAST MEDICAL HISTORY SOCIAL HISTORY Past Medical History: Diagnosis Date Ankle impingement syndrome, right Oral lesion Plantar fascial fibromatosis of right foot Pulmonary nodule, left Thrush Visit for screening mammogram 2022 neg Social History Tobacco Use Smoking status: Never Smokeless tobacco: Not on file Substance Use Topics Alcohol use: Never Comment: Caffeine intake: 1-2 cups per day coffee Drug use: Not on file FAMILY HISTORY Family History Problem Relation Name Age of Onset Heart disease Mother Cancer Mother Heart failure Father Melanoma Neg Hx SURGICAL HISTORY Past Surgical History: Procedure Laterality Date ANKLE SURGERY Right X3 APPENDECTOMY SECTION, LOW TRANSVERSE x 1 CHOLECYSTECTOMY ENDOMETRIAL ABLATION 2009 OTHER SURGICAL HISTORY Rectal fissure surgery TONSILLECTOMY TOTAL ANKLE ARTHROPLASTY 08/07/2020 REVIEW OF SYSTEMS Review of Systems: Review of Systems Constitutional: Negative. HENT: Negative. Eyes: Negative. Respiratory: Negative. Cardiovascular: Negative. Gastrointestinal: Negative. Genitourinary: Negative. Musculoskeletal: Negative. Skin: Negative. Neurological: Negative. All other systems reviewed and are negative. Hematological: Negative. Endocrine: Negative. Allergic/Immunologic: Negative. OBJECTIVE Objective: Physical Exam Constitutional: Appearance: Normal appearance. She is well-developed. Genitourinary: Vulva normal. Right Adnexa: not tender and no mass present. Left Adnexa: not tender and no mass present. No cervical discharge. Breasts: Breasts are soft. Right: Normal. Left: Normal. HENT: Head: Normocephalic. Nose: Nose normal. Mouth/Throat: Mouth: Mucous membranes are moist. Cardiovascular: Rate and Rhythm: Normal rate and regular rhythm. Pulmonary: Effort: Pulmonary effort is normal. Breath sounds: Normal breath sounds. Abdominal: General: Bowel sounds are normal. There is no distension. Palpations: Abdomen is soft. Tenderness: There is no abdominal tenderness. There is no guarding or rebound. Musculoskeletal: General: No swelling. Normal range of motion. Cervical back: Normal range of motion. Right lower leg: No edema. Left lower leg: No edema. Neurological: General: No focal deficit present. Mental Status: She is alert and oriented to person, place, and time. Skin: General: Skin is warm and dry. Psychiatric: Mood and Affect: Mood normal. Behavior: Behavior normal. Vitals and nursing note reviewed. Exam conducted with a engraver copperplate present. Vitals: Estimated body mass index is 46.65 kg/m as calculated from the following: Height as of 03/23/23: 5' 4 . Weight as of this encounter: 271 lb 12.8 oz. BP: 130/82 No LMP recorded. Patient has had an ablation. ASSESSMENT & PLAN ICD-10-CM 1. Well woman exam with routine gynecological exam Z01.419 THIN PREP TIS PAP AND HR HPV DNA 2. Breast cancer screening by mammogram Z12.31 CANCELED: Bilateral screening mammogram CANCELED: Bilateral screening mammogram 3. Postmenopausal state Z78.0 DEXA bone density 4. Pelvic pain in female R10.2 US PELVIS-TRANSVAG IF INDICATED Annual: Patient presents today for an annual exam. Patient states she is doing well and has no complaints. Pap was obtained without difficulty and patient given Dexa scan order to have scheduled/obtained. Mammogram was completed. Will order Ultrasound for Left lower quadrant pelvic pain. Patient would like to start injections for weight management. Pt signed cosent for wegovy and will follow up in 3 months for labs Orders Placed This Encounter Procedures DEXA bone density US PELVIS-TRANSVAG IF INDICATED Follow Up: Patient is to return in one year for annual unless needed otherwise. Documented by Jana Rivera LPN on behalf of: CASPER Alaniz documented in this encounter [facility] 03-29-2024 Evaluation note Diagnosis Onset Date Resolution Cervical muscle strain acute Se ptember 2023 9:51am Lumbar spondylosis acute Septem maya 2023 9:51am Obesity acute March 9:51am [facility] Work Phone: [phone]) 168-952602-05-2024 Evaluation note* Encounter Date Diagnosis Assessment Notes Treatment Notes Treatment Clinical Notes Aug, Mild intermittent asthma with acute [...] for congestion, Tylenol for pain and fever. [facility] Other 01-31-2024 Evaluation note* Encounter Date Diagnosis [...] [facility] as needed for cough and wheezing [facility] Other 01-03-2024 Evaluation note* Encounter Date Diagnosis [...] chest wheezing. ER for CP or dyspnea. [facility] Other 11-03-2023 Evaluation note* Encounter Date Diagnosis Assessment Notes Treatment Notes Treatment Clinical Notes May, Morbid (severe) obesity due to excess calories (ICD-10 - E66.01) [facility] Other 08-14-2023 Evaluation note* Encounter Date Diagnosis [...] index [BMI] 40.0-44.9, adult (ICD-10 - Z68.41) [facility] Other 08-11-2023 Evaluation note* Encounter Date Diagnosis [...] 7 days, sooner if significantly worsening symptoms. [facility] Other 07-07-2023 Evaluation note* Encounter Date Diagnosis [...] index [BMI] 40.0-44.9, adult (ICD-10 - Z68.41) [facility] Other 06-19-2023 Evaluation note* Encounter Date Diagnosis [...] and keep active. No change in treatment [facility] Other 05-31-2023 Evaluation note* Encounter Date Diagnosis Assessment Notes Treatment Notes Treatment Clinical Notes November, Morbid (severe) obesity due to excess calories (ICD-10 - E66.01) [facility] Other 05-03-2023 Evaluation note* Encounter Date Diagnosis [...] - Z12.31) Yearly mammogram and monthly SBE [facility] Other 05-03-2023 Evaluation note* Encounter Date Diagnosis Assessment Notes Treatment Notes Treatment Clinical Notes November, Morbid obesity (ICD-10 - E66.01) [facility] Other 03-13-2023 Evaluation note* Encounter Date Diagnosis Assessment Notes Treatment Notes Treatment Clinical Notes Sep, Acute bronchitis due to other specified organisms (ICD-10 - J20.8) Instructed to use Robitussin or Mucinex for cough, saline or Flonase NS for congestion, Tylenol for pain and fever. Sep, Mild intermittent asthma with acute exacerbation (ICD-10 - J45.21) [facility] Other 02-27-2023 Evaluation note* Encounter Date Diagnosis Assessment Notes Treatment Notes Treatment Clinical Notes Aug, WALTER (generalized anxiety disorder) (ICD-10 - F41.1) [facility] Other 10-13-2021 NoteChief Complaint consultation for screening [...] 08/24/2020 Recorded SARS-CoV-2 (COVID-19) Ad26 vaccine 07/27/2020 RecordedKindred HealthcareComment on above:Result Comment: Electronically Signed By: KAELYN YOUNGBLOOD, Trevor Carreno\Date and Time Signed: 04/28/21 17:55 EDTEvaluation noteNo InformationNort [employer] Other Evaluation noteNo assessment information available [facility] Work Phone: Evaluation note* Diagnosis Onset Date Resolution Status ISRA positive acute Degenerative arthritis of left hand acute Degenerative arthritis of right hand acute Lumbar spondylosis acute Post-traumatic osteoarthritis, right ankle and foot acute [facility] Work Phone: Evaluation note* Diagnosis Onset Date Resolution Status ISRA positive acute Degenerative arthritis of left hand acute Degenerative arthritis of right hand acute Lumbar spondylosis acute Post-traumatic osteoarthritis, right ankle and foot acute Lumbar spondylosis acute Obesity acute Post-traumatic osteoarthritis, right ankle and foot acute Screening for colon cancer n oneactive Screening mammogram for breast cancer noneactive Wellness examination noneact bladimir [facility] Work Phone: Evaluation note* Diagnosis Onset Date Resolution Status Cervical muscle strain acute Lumbar spondylosis acute Obesity acute [facility] Work Phone: Evaluation note* Diagnosis Pre-op examination Fibroids Leiomyoma of uterus, unspecified Pelvic pain in female Unspecified symptom associated with female genital organs Dyspareunia in female [facility] Diagnosis Cellulitis, unspecified cellulitis site [facility] Diagnosis Well woman exam with routine gynecological exam Routine gynecological examination Postmenopausal state Asymptomatic postmenopausal status (age-related) (natural) Pelvic pain in female Unspecified symptom associated with female genital organs Encounter for weight management Skin yeast infection Candidiasis of skin and nails [facility] Diagnosis Fibroids- Primary Leiomyoma of uterus, unspecified documented in this encounter [facility] [...] cholecystectomy Surgical History Hospitalization History see above [facility] Other Summary Purpose Family History Relationship Condition Age at Onset Recorded Date/T myrna father Heart disease Unknown Unknown Not Specified Atrial fibrillation Unknown Heart disease Unknown Relationship Condition Age at Onset Recorded Date/T myrna father Heart disease Unknown Unknown mother Atrial fibrillation Unknown Heart disease Unknown Advance Directives Advance Directive Response Recorded Date/ Time Advance Directives No October 26 10:47am Advance Directive Response Recorded Date/ Time Advance Directives No October 26 9:47am Chief Complaint and Reason for Visit Chief [...] Cervical muscle stra in Lumbar spondylosis Obesity Chief Complaint Bp, wt check Unknown Reason for Visit Cervical muscle stra in Lumbar spondylosis Obesity Chief Complaint Admit Date Bp, wt check March 29, 2024 9:51am Unknown May 09, 2024 8 :38am flu shot May 29, 2024 8:40am Reason for Visit Admit Date Cervical muscle strain March 29 9:51am Lumbar spondylosis March 29, 2024 9:51am Obesity March 29, 2024 9:51am Additional Source Comments INFORMATION SOURCE (unrecogn ized section and content) DATE CREATED AUTHOR 01/09/2018 [facility] DATE CREATED AUTHOR AUTHOR'S ORGANIZ ATION 09/27/2019 [facility] DATE CREATED AUTHOR AUTHOR'S ORGANIZ ATION 05/26/2021 [facility] DATE CREATED AUTHOR AUTHOR'S ORGANIZ ATION 11/30/2022 [facility] DATE CREATED AUTHOR AUTHOR'S ORGANIZ ATION 05/16/2024 [facility] DATE CREATED AUTHOR AUTHOR'S ORGANIZ ATION 05/18/2024 [facility] EPIC REASON FOR VISIT (unrecogniz ed section and content) Reason Comments Well Women Visit Reason Comments Cellulitis Pt present today to evaluate cellulites. Pt had a D&C on 05/09/2024. Reason Comments Results Breathing problemssore throat, coughing, chest tightness, headachesCOVID Positive- Phone Call- [phone] throat, ears pluggedFYI: Urgent CareTrouble swallowing, ears [...] December 26, 2023 End: December 26, 2023 Fuel Cell Technician Relationship Specialty Start Date End Date Tarun Glover MD [address] [place] [address] PCP - General Internal Medicine 03/23/23 Fuel Cell Technician Relationship Specialty Start Date End Date Tarun Glover MD [address] [place] [address] PCP - General Internal Medicine 03/23/23 Fuel Cell Technician Relationship Specialty Start Date End Date Tarun Glover MD [address] [place] [id number] PCP - General Internal Medicine 03/23/23 Team Status: Active Member Role Status Dates Tarun Glover DO Primary Care Provider Active Start: April 02, 2024 Madisyn Piper PA-C Attending Provider Active Start : April 02, 2024 Team Status: Active Member Role Status Dates Tarun Glover DO Primary Care Provider Active Start: May 09, 2024 Claudia Taylor DO Attending Provider Active Start : May 09, 2024 Team Status: Inactive Member Role Status Dates Claudia Taylor DO Attending Provider Active Start : May 09, 2024 End: May 09, 2024 Fuel Cell Technician Relationship Specialty Start Date End Date Tarun Glover MD [address] [place] [address] PCP - General Internal Medicine 03/23/23 Fuel Cell Technician Relationship Specialty Start Date End Date Tarun Glover MD [address] [place] [id number] PCP - General Internal Medicine 03/23/23 Team Status: Active Member Role Status Dates Tarun Glover DO Attending Provider Active Sta rt: May 02, 2024 Team Status: Inactive Member Role Status Dates Tarun Glover DO Primary Care Provide r, Attending Provider Active Start: May 29, 2024 End: May 29, 2024 Fuel Cell Technician Relationship Specialty Start Date End Date Tarun Glover MD [address] [place] [address] PCP - General Internal Medicine 03/23/23 Fuel Cell Technician Relationship Specialty Start Date End Date Tarun Glover MD [address] [place] [address] PCP - General Internal Medicine 9/7/23 Goals (unrecognized section and content) Goals may [...] BE BASED ON THE PRIMARY CLINICAL RECORDS. [facility] [employer] [facility]. provides no warranty or guarantee of the accuracy or completeness of information in this document.
--- NOTE | 2024-08-24 09:19 | ECG_ITS ---
[facility] Test Date: 2024-08-24 Pat Name: SANIA DINH Department: Room: - Gender: Female Drugless Physician: : 1970 Requested By: MAREK RASMUSSEN Order Number: [id number] Reading MD: MAREK RASMUSSEN Measurements Intervals [place] Rate: 96 P: -17 HI: 118 QRS: 29 QRSD: 74 T: 31 QT: 338 QTc: 391 Interpretive Statements 1100 Sinus rhythm 2210 Short HI interval 4068 Nonspecific Twave changes inferior leads, can't exclude myocardial ischemia 8102 Low QRS voltage in chest leads 9150 abnormal ECG Electronically Signed On 08-25-2024 14:45:56 EST by MAREK RASMUSSEN
--- NOTE | 2024-08-24 09:19 | XR_ITS ---
[address] [address] Patient Name: SANIA DINH MRN: [id number] date: 1970 Sex: F Assigned Patient Location: ER Current Patient Location: ER Accession/Order Number: [id number] Exam Date: 08/24/2024 09:32 Report Date: 08/24/2024 10:04 At the request of: VALERIE SALMERON Procedure: XR chest 1V EXAM: XR chest 1V HISTORY: sob and cough COMPARISON: 10/07/2021 FINDINGS/IMPRESSION: 1. Unchanged calcified nodule of the left midlung measuring 1.8 cm. The lungs are otherwise clear. No focal lung consolidation. 2. No pneumothorax. No pleural effusion. 3. Heart size and mediastinal contours are normal 4. No acute osseous abnormality. 5. Upper abdominal bowel gas pattern is nonspecific and nonobstructive. Electronically authenticated by: JUAN M RENEE Date: 08/24/2024 10:04
[2024-08-24 09:30] LABS: Internal Control Within Normal Limits; SARS-CoV-2 Ag NEGATIVE (NEGATIVE); Strep A Antigen Screen Negative
[2024-08-24] MEDS: PREDNISONE 20 MG TABLET 40 MG PO (09:31)
[2024-08-24] MEDS: IPRATROPIUM/ALBUTEROL SULFATE 3 ML AMPUL.NEB IH (09:38)
[2024-08-24 09:39] VITALS: PULSE 95; O2SAT 95
[2024-08-24 10:29] VITALS: PULSE 92; O2SAT 98
--- NOTE | 2024-08-24 10:36 | ED_ITS ---
HPI - URI/Sore Throat General Chief Complaint: Upper Respiratory Infection Stated Complaint: CHEST PAIN SOB FEVER Time Seen by Provider: 08/24/24 09:11 Source: patient History of Present Illness HPI Narrative: The patient is a 54-year-old female coming to the ER with a concern of almost 1 week history of runny nose associated body aches and chills no fever, also associated with a cough she mentioned that added to the cough yesterday she felt like tightness at night the tightness continued till today and she did mention that she use albuterol sometime when she is sick because of shortness of breath She denies any history of smoking, she denies any continuous pain although she does feel tight Related Data Home Medications ?Medication ?Instructions ?Recorded ?Confirmed albuterol sulfate 90 mcg/actuation 2 inh inhalation Q6H PRN shortness 05/02/24 05/09/24 aerosol inhaler of breath or wheezing clotrimazole-betamethasone 1 applic topical Q12H 05/02/24 %-0.05 % topical cream escitalopram oxalate 10 mg tablet 10 mg PO QPM 05/02/24 05/09/24 loratadine-pseudoephedrine ER 10 1 tab PO Q24H PRN allergy symptoms 05/02/24 05/09/24 mg-240 mg tablet,extended [id number] (Loratadine-D) meloxicam 7.5 mg tablet 7.5 mg PO DAILY 05/02/24 05/09/24 semaglutide (weight loss) 0.25 0.25 mg subcut Q7D 05/02/24 05/09/24 mg/0.5 mL subcutaneous pen injector tacrolimus 0.1 %-niacinamide 4 % ea topical 05/02/24 topical ointment Previous Rx's ?Medication ?Instructions ?Recorded hydrocodone 5 mg-acetaminophen 325 1 tab PO Q4H PRN pain 4 days #16 05/09/24 mg tablet tabs ibuprofen 800 mg tablet 800 mg PO Q8H PRN pain 14 days #40 05/09/24 tabs ondansetron 4 mg disintegrating 4 mg PO Q6H PRN nausea and 05/09/24 tablet vomiting 5 days #20 tabs guaifenesin 600 mg tablet, 600 mg PO BID PRN congestion #10 08/24/24 extended release 12 hr (Mucinex) tabs prednisone 20 mg tablet 40 mg (2 x 20 mg) PO DAILY 5 days 08/24/24 #10 tabs Allergies Allergy/AdvReac Type Severity Reaction Status Date / Time latex Allergy Rash Verified 05/02/24 14:40 morphine Allergy Vomiting Verified 05/02/24 14:40 Review of Systems ROS Status of ROS 10 or more systems reviewed and unremark able except as noted in history and below [facility] Medical History (Updated 08/24/24 @ 10:22 by Iris Rojas MD) 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) ?J98.4 - Other disorders of lung (ICD-10) Ankle impingement syndrome ?M25.879 - Other specified joint disorders, unspecified ankle and foot (ICD- 10) Back pain ?M54.9 - Dorsalgia, unspecified (ICD-10) Arthritis ?M19.90 - Unspecified osteoarthritis, unspecified site (ICD-10) Anxiety ?F41.9 - Anxiety disorder, unspecified (ICD-10) COVID-19 ?U07.1 - COVID-19 (ICD-10) Dyspareunia Pelvic pain ?R10.2 - Pelvic and perineal pain (ICD-10) Seasonal allergies ?J30.2 - Other seasonal allergic rhinitis (ICD-10) Fibroid ?D21.9 - Benign neoplasm of connective and other soft tissue, unspecified (ICD-10) Lichen planus ?L43.9 - Lichen planus, unspecified (ICD-10) Menopause ?Z78.0 - Asymptomatic menopausal state (ICD-10) Surgical History (Updated 05/02/24 @ 15:09 by Lisa Stringer NP) History of colonoscopy ?Z98.890 - Other specified postprocedural states (ICD-10) History of tonsillectomy ?Z90.89 - Acquired absence of other organs (ICD-10) History of cholecystectomy ?Z90.49 - Acquired absence of other specified parts of digestive tract (ICD- 10) History of endometrial ablation ?Z98.890 - Other specified postprocedural states (ICD-10) History of tubal ligation ?Z98.51 - Tubal ligation status (ICD-10) History of section ?Z98.891 - History of uterine scar from previous surgery (ICD-10) History of appendectomy ?Z90.49 - Acquired absence of other specified parts of digestive tract (ICD- 10) History of arthroplasty of right ankle ?Z96.661 - Presence of right artificial ankle joint (ICD-10) History of ankle surgery ?Z98.890 - Other specified postprocedural states (ICD-10) Family History (Updated 05/02/24 @ 15:09 by Lisa Stringer NP) Other Atrial fibrillation Family history of heart disease Family history of myocardial infarction Family history of skin cancer Social History (Updated 05/09/24 @ 06:35 by Stephanie Rushing RN) Within the past year, how often did you have a drink containing alcohol: monthly or less Smoking status: Never smoker Second hand tobacco smoke exposure: No Non-prescribed substance use: denies use Previous occupational history: Professor Highest level of school completed/degree received: Doctoral degree Exam Narrative Exam Narrative: Nurses notes and vital signs reviewed and patient is not hypoxic. General: Well-appearing and in no apparent distress. Skin: Warm, dry, no pallor noted. No rash. Head: Normocephalic, atraumatic. Neck: Supple, non-tender. Eye: Pupils are equal, round and EOMI. No scleral icterus. Ears, Nose, Mouth, and Throat: TM are clear, no nasal mucosal hypertrophy. Oral mucosa is moist, no posterior oropharynx erythema, uvula is mid-line Cardiovascular: Regular Rate and Rhythm without murmur, gallop or rub. Respiratory: No accessory muscle use or respiratory distress. Lungs are clear to auscultation, no wheezing, rales or rhonchi Chest Wall: no tenderness Back: No midline thoracic or lumbar vertebral tenderness. No CVA tenderness Musculoskeletal: normal ROM, no calf or popliteal tenderness, no lower extremity edema/swelling GI: Abdomen is soft, non-distended. Normal bowel sounds. No masses appreciated. No tenderness to palpation. No rebound, guarding, or rigidity noted. Neurological: A&O x4. No cranial nerve dysfunction observed. No truncal ataxia. Moves all extremities. Sensation intact. Psychiatric: Cooperative and interactive. Normal mood and affect. Constitutional Vital Signs, click to edit/add: Last Vital Signs Temp 98.1 F 08/24/24 09:06 Pulse 92 H 08/24/24 10:29 Resp 18 08/24/24 10:29 BP 138/79 08/24/24 09:06 Pulse Ox 98 08/24/24 10:29 O2 Del Method Room Air 08/24/24 09:39 Course Vital Signs Vital signs: Vital Signs Temperature 98.1 F 08/24/24 09:06 Pulse Rate 109 H 08/24/24 09:06 Respiratory Rate 20 08/24/24 09:06 Blood Pressure 138/79 08/24/24 09:06 Pulse Oximetry 95 08/24/24 09:06 Oxygen Delivery Method Room Air 08/24/24 09:06 Temperature 98.1 F 08/24/24 09:06 Pulse Rate 92 H 08/24/24 10:29 Respiratory Rate 18 08/24/24 10:29 Blood Pressure 138/79 08/24/24 09:06 Pulse Oximetry 98 08/24/24 10:29 Oxygen Delivery Method Room Air 08/24/24 09:39 MDM - URI/Sore Throat MDM Narrative Medical decision making narrative: The patient chest x-ray showed no acute pathology she does have a nodule that is stable and she will follow-up with it as outpatient The patient COVID and strep test are negative The EKG in the ER showing sinus rhythm with a heart rate of [address] elevation or depression Patient was feeling better after being treated in the ER with a breathing treatment and prednisone her presentation is mostly secondary to bronchitis She was discharged home with Mucinex and prednisone The patient is to follow up with primary care physician in next 2-3 days or to return to the emergency department should any of the signs or symptoms worsen or new symptoms develop. The patient agrees with the following Diagnosis and Treatment plan and the patient will be discharged home. Lab Data Labs: Lab Results 08/24/24 Range/Units 09:09 SARS-CoV-2 Ag (CV2AG) Negative (NEGATIVE) Streptococcus Screen Negative Discharge Plan Discharge Chief Complaint: Upper Respiratory Infection Clinical Impression: Bronchitis Patient Disposition: Home, Self-Care Time of Disposition Decision: 10:22 Condition: Good Prescriptions / Home Meds: New prednisone 20 mg tablet 40 mg PO DAILY 5 Days Qty: 10 0RF guaifenesin [Mucinex] 600 mg tablet extended release 12hr 600 mg PO BID PRN (Reason: congestion) Qty: 10 0RF No Action albuterol sulfate 90 mcg/actuation HFA aerosol inhaler 2 inh INHALATION Q6H PRN (Reason: shortness of breath or wheezing) escitalopram oxalate 10 mg tablet 10 mg PO QPM meloxicam 7.5 mg tablet 7.5 mg PO DAILY Loratadine-D 10-240 mg tablet extended release 24 hr 1 tab PO Q24H PRN (Reason: allergy symptoms) semaglutide (weight loss) 0.25 mg/0.5 mL pen injector 0.25 mg subcut Q7D clotrimazole-betamethasone 1-0.05 % cream TOPICAL Q12H tacrolimus-niacinamide 0.1-4 % ointment topical ibuprofen 800 mg tablet 800 mg PO Q8H PRN (Reason: pain) 14 Days Qty: 40 0RF hydrocodone-acetaminophen 5-325 mg tablet 1 tab PO Q4H PRN (Reason: pain) 4 Days Qty: 16 0RF ondansetron 4 mg tablet,disintegrating 4 mg PO Q6H PRN (Reason: nausea and vomiting) 5 Days Qty: 20 0RF Print Language: Faroese Instructions: Acute Bronchitis (ED) Referrals: Tarun Glover DO [Primary Care Provider] - 1 week Discharge Date/Time: 08/24/24 10:30
== END 2024-08-24 10:30 | disposition home or self-care (01) ==
PROVIDERS: Emergency Provider Emergency Medicine; PCP Internal Medicine
DX: J40 Bronchitis, not specified as acute or chronic (principal); R91.1 Solitary pulmonary nodule; Z90.49 Acquired absence of other specified parts of digestive tract; Z98.51 Tubal ligation status
CPT/HCPCS: 71045; 87070; 87811; 87880; 93005; 94640; 99285; J7512

== ENCOUNTER 2024-11-08 08:00 | Outpatient (OUT) | payer OTHER, SELFPAY ==
[2024-11-08 09:35] LABS: Free T3 2.13 pg/mL (2.18-3.98); Glucose 96 mg/dL (74-106); Thyroid Stimulating Hormone 1.114 uIU/mL (0.358-3.740)
[2024-11-08 10:19] LABS: Estimated Average Glucose 103 mg/dL; Glycohemoglobin A1C 5.2 % (4.5-6.2)
[2024-11-08 12:16] LABS: Free T4 0.96 ng/dL (0.76-1.46)
[2024-11-09 04:07] LABS: DHEA-Sulfate 37.5 ug/dL (29.4-220.5); Estradiol 11.7 pg/mL (.); Progesterone 0.3 ng/mL (.); Sex Horm Binding Glob, Serum 52.5 nmol/L (17.3-125.0)
[2024-11-09 10:09] LABS: Insulin 30.1 uIU/mL (2.6-24.9)
[2024-11-11 15:13] LABS: Thyroglobulin Antibody 1.1 IU/mL (0.0-0.9); Thyroid Peroxidase (TPO) Ab 12 IU/mL (0-34)
[2024-11-12 13:08] LABS: Calcitriol(1,25 di-OH Vit D) 41.9 pg/mL (24.8-81.5)
[2024-11-12 16:12] LABS: Estrone, Serum 19 pg/mL (.)
[2024-11-13 04:12] LABS: Free Testosterone(Direct) 0.2 pg/mL (0.0-4.2); Testosterone 10 ng/dL (4-50)
[2024-11-13 17:08] LABS: Serotonin, Serum 17 ng/mL (31-207)
[2024-11-14 13:09] LABS: Thyroglobulin (TG-RIA) 21 ng/mL (.)
[2024-11-18 12:09] LABS: Reverse T3, Serum 26.5 ng/dL (9.2-24.1)
== END 2024-11-08 08:01 | disposition home or self-care (01) ==
LOC: LAB 08:01
PROVIDERS: PCP Internal Medicine; Visit Provider Obstetrics & Gynecology
DX: E34.9 Endocrine disorder, unspecified (principal)
CPT/HCPCS: 36415; 82530; 82627; 82652; 82670; 82679; 82728; 82947; 83036; 83525; 84144; 84260; 84270; 84402; 84403; 84432; 84436; 84439; 84443; 84481; 84482; 84681; 86376; 86800

== ENCOUNTER 2025-02-07 10:05 | Outpatient (OUT) | payer OTHER, SELFPAY ==
--- OUTSIDE RECORDS SUMMARY | 2025-02-07 10:09 | XMS_ITS | Clinical Summary ---
Author Organization [facility] Address [address] [place] [address] Care Team Providers Care Medical Editor Name Role Phone Unavailable Primary Care Provider Unavailabl e Social History Tobacco Use Types Packs/Day Years Used Date Smoking Tobacco: Never Assessed Comments Unknown Sex and Gender Information Value Date Recorded Sex Assigned at Not on file Legal Sex Female 1:53 PM EST Gender Identity Not on file Sexual Orientation Not on file Plan of Treatment Health Maintenance Due Date Last Done Comments Anxiety Screening 1987 Depression Screening 1987 HIV Screening 1987 Hepatitis C Screening 1987 DTaP,Tdap,Td Vaccine (1 - Tdap) 1988 Hepatitis B Vaccine (1 of 3 - 19+ 3-dose series) 07/29 Cervical Cancer Screening [address] Colonography 2014 Cologuard (FIT-DNA) 2014 Colonoscopy 2014 Colorectal Cancer Screening 2014 Diabetes Screening 2014 Fecal Occult Blood 2014 Lipid Screening 2014 Sigmoidoscopy 2014 Pneumococcal Vaccine: 50+ (1 of 1 - PCV) 2019 Shingrix Vaccine (1 of 2) 2019 Covid-19 Vaccine (1 - season) 2024 Influenza Vaccine (#1) 2025 Insurance [employer]
--- OUTSIDE RECORDS SUMMARY | 2025-02-07 10:09 | XMS_ITS | Encounter Summary ---
Author Organization [facility] Address [address] [place] [address] Care Team Providers Care Compliance Tester Name Role Phone Tarun Glover DO Primary Care Provider [phone] Encounter Details Date Type Department Care Team (Late Contact Info) Description 03/22/2023 Abstract [facility] [address] [place] [address] [place] [address] Madisyn Winters PA [address] [place] [address] [address] [place], [id number] Social History Tobacco Use Types Packs/Day Years Used Date Smoking Tobacco: Never Tobacco Cessation:Counseling Given: Not Answered Alcohol Use Standard Drinks/Week Comments Never 0 (1 standard drink = 0.6 oz pure alcohol) Caffeine intake: 1-2 cups per day coffee Comments Unknown Sex and Gender Information Value Date Recorded Sex Assigned at Not on file Legal Sex Female 7:10 PM EDT Gender Identity Not on file Sexual Orientation Not on file documented as of this encounter Plan of Treatment Upcoming Encounters Date Type Department Care Team (Late Contact Info) Description 02/10/2025 8:50 AM EDT Office Visit [facility] [address] [place] [address] [place] [address] Madisyn Winters PA [address] [place] [address] Dr [place], [id number] 04/08/2025 1:00 PM EDT Office Visit [facility] [address] [place] [address] [place] [address] Madisyn Winters PA [address] [place] [address] [place] [address] documented as of this encounter Visit Diagnoses Not on filedocumented in this encounter Care Teams Compliance Tester Relationship Specialty Start Date End Date Tarun Glover DO [address] [facility] [place] [address] PCP - General Internal Medicine 03/23/23 documented as of this encounter
--- OUTSIDE RECORDS SUMMARY | 2025-02-07 10:09 | XMS_ITS | Encounter Summary ---
Author Organization [facility] Address [address] [place] [address] Care Team Providers Care Tar Kettle Runner Name Role Phone Tarun Glover Primary Care Provider [phone] Encounter Details Date Type Department Care Team (Late Contact Info) Description 11/19/2024 Abstract [facility] [address] [facility] [place] [address] Kj Taylor DO [address] [place] [address] Dr [place], [facility] Social History Tobacco Use Types Packs/Day Years Used Date Smoking Tobacco: Never Smokeless Tobacco: Never Alcohol Use Standard Drinks/Week Comments Never 0 (1 standard drink = 0.6 oz pure alcohol) Caffeine intake: 1-2 cups per day coffee Comments No Sex and Gender Information Value Date Recorded Sex Assigned at Not on file Legal Sex Female 7:10 PM EDT Gender Identity Not on file Sexual Orientation Not on file documented as of this encounter Plan of Treatment Upcoming Encounters Date Type Department Care Team (Late st Contact Info) Description 02/10/2025 8:50 AM EDT Office Visit [facility] [address] [facility] [place] [address] Madisyn Winters PA [address] [facility] [address] [place], [facility] 04/08/2025 1:00 PM EDT Office Visit [facility] [address] [place] [address] [place] [address] Madisyn Winters PA [address] [place] [address] [address] [place], [place] [id number] documented as of this encounter Visit Diagnoses Not on filedocumented in this encounter Care Teams Tar Kettle Runner Relationship Specialty Start Date End Date Tarun Glover DO [address] [facility] [place] [address] PCP - General Internal Medicine 03/23/23 documented as of this encounter
--- OUTSIDE RECORDS SUMMARY | 2025-02-07 10:09 | XMS_ITS | Clinical Summary ---
Author Organization [facility] Address [address] [place] [address], [address] [place] [address] Care Team Providers Care Vest Presser Name Role Phone Unavailable Primary Care Provider Unavailabl e Social History Tobacco Use Types Packs/Day Years Used Date Smoking Tobacco: Never Assessed Comments Unknown Sex and Gender Information Value Date Recorded Sex Assigned at Not on file Legal Sex Female 9:17 AM EST Gender Identity Not on file Sexual Orientation Not on file Plan of Treatment Not on file
--- OUTSIDE RECORDS SUMMARY | 2025-02-07 10:10 | XMS_ITS | Clinical Summary ---
Author Organization [facility] Address [address] [place] [address] Care Team Providers Care Notcher Name Role Phone AdalbertoTarun Tyree ANNE Primary Care Provider [phone] Allergies Active Allergy Reactions Criticality Noted Date Comments [place]brae Oil Unknown 03/21/2023 Latex Unknown 03/21/2023 Milk-Related Compounds Unknown 03/21/2023 Soybean-Containing Drug Products Unknown 11/2022 Wheat Unknown 03/21/2023 Medications clotrimazole (Lotrimin) 1 % cream 1 application every 12 (twelve) hours. Active escitalopram (Lexapro) 10 MG tablet Take 10 mg by mouth in the morning. 3 Active Loratadine-D 24HR 10-240 MG 24 hr tablet Take 1 tablet by mouth if needed. 3 Active phentermine (Adipex-P) 37.5 MG tabletIndication s:Encounter for weight management Take 1 tablet (37.5 mg) by mouth in the morning. Take before meals. 30 tablet 5 Active estradiol (Climara) 0.05 MG/24HRIndicatio ns:Hormone imbalance Place 1 patch over 7 days on the skin 1 (one) time per week 12 patch 3 5 01/08/20 26 Active progesterone (Prometrium) 100 MG capsuleIndicatio ns:Hormone imbalance Take 1 capsule (100 mg) by mouth Daily 30 capsule 11 5 01/08/20 26 Active phentermine (Adipex-P) 37.5 MG tabletIndication s:Encounter for weight management Take 1 tablet (37.5 mg) by mouth in the morning. Take before meals. 30 tablet 5 Active estradiol (Climara) 0.075 MG/24HRIndicatio ns:Hormone disorder,Fatigue , unspecified type,Hot flashes Place 1 patch over 7 days on the skin 1 (one) time per week 12 patch 3 5 02/05/20 26 Active Active Problems Problem Noted Date Diagnosed Date Fibroids 04/29/2024 Encounters Date Type Department Care Team Description 02/04/2025 Bamboo flowsheet [facility] [address] [place] [address] Kj Taylor DO 01/07/2025 8:50 AM EDT Office Visit [facility] [address] [place] [address] Kj Taylor DO Hormone imbalance; Encounter for weight management 01/07/2025 Abstract [facility] [address] [place] [address] Kj Taylor DO 12/16/2024 4:00 PM EDT Office Visit [facility] [address] [place] [address] Madisyn Winters PA Encounter for weight management 12/16/2024 Bamboo flowsheet [facility] [address] [place] [address] Madisyn Winters PA 11/19/2024 Abstract [facility] [address] [place] [address] Kj Taylor DO 11/08/2024 Clinisync Result Encounter [facility] External Department Unsolicited Kj Taylor DO from Last 3 Months Family History Medical History Relation Name Comments Heart failure Father Harley Santamaria Cancer Mother Jesus Marks Heart disease Mother Jesus Marks Melanoma Neg Hx Relation Name Status Comments Father Harley Santamaria Mother Jesus Marks Alive Social History Tobacco Use Types Packs/Day Years Used Date Smoking Tobacco: Never Smokeless Tobacco: Never Tobacco Cessation:Counseling Given: Not Answered Alcohol Use Standard Drinks/Week Comments Never 0 (1 standard drink = 0.6 oz pure alcohol) Caffeine intake: 1-2 cups per day coffee Comments No Sex and Gender Information Value Date Recorded Sex Assigned at Not on file Legal Sex Female 7:10 PM EDT Gender Identity Not on file Sexual Orientation Not on file Last Filed Vital Signs Vital Sign Reading Time Taken Comments Blood Pressure 128/90 01/07/2025 8:37 AM EDT Pulse - - Temperature - - Respiratory Rate - - Oxygen Saturation - - Inhaled Oxygen Concentration - - Weight 117 kg (257 lb 4 oz) 01/07/2025 8:37 AM E DT Height 165.1 cm (5' 5 ) 11/05/2024 8:37 AM EDT Body Mass Index 42.81 11/05/2024 8:37 AM EDT Plan of Treatment Upcoming Encounters Date Type Department Care Team (Late st Contact Info) Description 02/10/2025 8:50 AM EDT Office Visit [facility] [address] [place] [address] Madisyn Winters PA [address] [facility] [place] [address] 04/08/2025 1:00 PM EDT Office Visit [facility] [address] [place] [address] [place] [address] Madisyn Winters, PA [address] [place] [address] Health Maintenance Due Date Last Done Comments CT Colonography 1969 Colonoscopy 1969 Colorectal Cancer Screening 1969 FIT-DNA 1969 FIT 1969 FOBT 1969 Sigmoidoscopy 1969 Mammogram 2009 Influenza Vaccine (#1) 2025 4, 03/31/2021, 05/28/2020, Additional history exists Cervical Cancer Screening 04/02/2029 HPV/Cotest 04/02/2029 04/13/2023 Pap Smear 04/02/2029 04/02/2024 Procedures Procedure Name Priority Date/Time Associated Diagnosis Comments CORTISOL, FREE DIALYSIS, LCMS Routine 11/08/2024 8:13 AM EDT TBH THYROGLOBULIN Routine 11/08/2024 8:1 3 AM EDT SRMCOH TESTOSTERONE FREE/TOT EQUILIB Routine 11/08/2024 8:13 AM EDT TBH THYROID ANTIBODIES Routine 11/08/2024 8:13 AM EDT UH SEROTONIN Routine 11/08/2024 8:13 AM EDT METRO SEX BINDING HORMONE (SHBG), TESTOSTERONE, FREE AND BIOAVAILABLE Routine 11/08/2024 8:13 AM EDT CALCITRIOL(1,25 DI-OH VIT D) Routine 11/08/2024 8:13 AM EDT ALL T3 REVERSE Routine 11/08/2024 8:13 AM EDT ALL ESTRONE(E1) Routine 11/08/2024 8:13 AM EDT ALL PROGESTERONE Routine 11/08/2024 8:13 AM EDT ALL DHEA SULFATE Routine 11/08/2024 8:13 AM EDT ALL C-PEPTIDE Routine 11/08/2024 8:13 AM EDT TBH ESTRONE Routine 11/08/2024 8:13 AM EDT TBH INSULIN Routine 11/08/2024 8:13 AM EDT ALL THYROXINE (T4) FREE Routine 11/08/2024 8:13 AM EDT CCF FERRITIN Routine 11/08/2024 8:13 AM EDT MLR HEMOGLOBIN A1C Routine 11/08/2024 8: 13 AM EDT ALL THYROID STIM HORMONE Routine 11/08/2024 8:13 AM EDT ALL THYROXINE (T4) Routine 11/08/2024 8: 13 AM EDT ALL T3 FREE Routine 11/08/2024 8:13 AM EDT TBH GLUCOSE BLOOD Routine 11/08/2024 8:1 3 AM EDT PAP SMEAR Routine 04/02/2024 12:00 AM EDT THINPREP PAP AND HPV MRNA E6/E7 W/RFL HPV 16,18/45 Routine 04/13/2023 4:17 PM EDT Well woman exam with routine gynecological exam from Last 3 Months or Most Recently Relevant to Health Maintenance Results * CORTISOL, FREE DIALYSIS, LCMS (11/08/2024 8:13 AM EDT) CORTISOL, FREE DIALYSIS, LCMS 0.124 . ug/dL TB Comment: These tests were developed and their performance characteristics determined by [facility]. They have not been cleared or approved by the Food and Drug Administration. Reference Range: 8 AM 0.10 - 1.20 4 PM 0.042 - 0.872 Performed at: [facility] [address] [place] [id number] Manager Steel: Toan Burr MD, Phone: [phone] 11/08/2024 8:13 AM EDT 11/08/2024 8:18 AM EDT Narrative CLINISYNC - 11/19/2024 11:09 PM EDT us Kj Brandon DO LAB BLOOD ORDERABLES Final Resul t [facility] * (ABNORMAL) UH SEROTONIN (11/08/2024 8:13 AM EDT) SEROTONIN, SERUM 17(A) 31 - 207 ng/mL TB Comment: This test was developed and its performance characteristics determined by [facility]. It has not been cleared or approved by the Food and Drug Administration. Performed at: [address] [id number] Manager Steel: Juany Baker MD, Phone: [phone] 11/08/2024 8:13 AM EDT 11/08/2024 8:18 AM EDT Narrative CLINISYNC - 11/18/2024 12:09 PM EDT Kj Brandon DO CLINISYNC Final Result Performing Organization Address City/[facility]/ZIP Co de Phone Number CLINISYNC TBH * (ABNORMAL) TBH THYROID ANTIBODIES (11/08/2024 8:13 AM EDT) THYROID PEROXIDASE (TPO) AB 12 0 - 34 IU/mL TBH THYROGLOBULIN ANTIBODY 1.1(A) 0.0 - 0.9 IU/mL TBH Comment: Thyroglobulin Antibody measured by [employer] It should be noted that the presence of thyroglobulin antibodies may not be pathogenic nor diagnostic, especially at very low levels. The assay movie critic has found that four percent of individuals without evidence of thyroid disease or autoimmunity will have positive TgAb levels up to 4 IU/mL. Performed at: [address] [id number] Manager Steel: Barry Mcrae PhD, Phone: [phone] 11/08/2024 8:13 AM EDT 11/08/2024 8:18 AM EDT Narrative CLINISYNC - 11/18/2024 12:09 PM EDT [facility] CLINISYNC Final Result Performing Organization Address City/[facility]/ZIP Co de Phone Number CLINISYNC TBH * TBH THYROGLOBULIN (11/08/2024 8:13 AM EDT) THYROGLOBULIN (TG-JENN) 21 . ng/mL TBH Comment: This test was developed and its performance characteristics determined by [facility]. It has not been cleared or approved by the Food and Drug Administration. Reference Range: Pubertal Children and Adults: <40 According to the National Academy of Clinical Biochemistry, the reference interval for Thyroglobulin (TG) should be related to euthyroid patients and not for patients who underwent thyroidectomy. TG reference intervals for these patients depend on the residual mass of the thyroid tissue left after surgery. Establishing a post-operative baseline is recommended. The assay quantitation limit is 2.0 ng/mL. Performed at: [facility] [address] [place] [id number] Manager Steel: Toan Burr MD, Phone: [phone] 11/08/2024 8:13 AM EDT 11/08/2024 8:18 AM EDT Narrative CLINISYNC - 11/19/2024 11:09 PM EDT Kj Brandon DO CLINISYNC Final Result Performing Organization Address [facility]/ZIP Co de Phone Number CLINISYSD TB * (ABNORMAL) TBH INSULIN (11/08/2024 8:13 AM EDT) INSULIN 30.1(A) 2.6 - 24.9 uIU/mL TBH Comment: Performed at: - [facility] [id number] Manager Steel: Barry Mcrae PhD, Phone: [phone] 11/08/2024 8:13 AM EDT 11/08/2024 8:18 AM EDT Narrative CLINISYNC - 11/12/2024 4:12 PM EDT Kj Brandon DO CLINISYNC Final Result Performing Organization Address City/[facility]/ZIP Co de Phone Number CLINISYNC TB * TBH GLUCOSE BLOOD (11/08/2024 8:13 AM EDT) GLUCOSE 96 74 - 106 mg/dL TB 11/08/2024 8:13 AM EDT 11/08/2024 8:18 AM EDT Narrative CLINISYNC - 11/08/2024 9:43 AM EDT Kj Brandon DO CLINISYNC Final Result Performing Organization Address [facility]/ZIP Co de Phone Number [facility] * TBH ESTRONE (11/08/2024 8:13 AM EDT) Pathologist [facility] ESTRONE, SERUM 19 . pg/mL TBH Comment: Range Adult (Premenopausal) 27 - 231 Menstrual Cycle (1-10 days) 19 - 149 Menstrual Cycle (11-20 days) 32 - 176 Menstrual Cycle (21-30 days) 37 - 200 Adult (Postmenopausal) 0 - 125 Performed at: [address] [id number] Manager Steel: Juany Baker MD, Phone: [phone] 11/08/2024 8:13 AM EDT 11/08/2024 8:18 AM EDT Narrative CLINISYNC - 11/12/2024 4:12 PM EDT Kj Brandon DO CLINISYNC Final Result Performing Organization Address [facility] Co de Phone Number [facility] * CALCITRIOL(1,25 DI-OH VIT D) (11/08/2024 8:13 AM EDT) [facility] CALCITRIOL(1,25 DI-OH VIT D) 41.9 24.8 - 81.5 pg/mL TBH Comment: Performed at: [address] [id number] Manager Steel: Juany Baker MD, Phone: [phone] 11/08/2024 8:13 AM EDT 11/08/2024 8:18 AM EDT Narrative CLINISYNC - 11/18/2024 12:09 PM EDT Kj Brandon DO LAB BLOOD ORDERABLES Final Resul t [facility] * SRMCOH TESTOSTERONE FREE/TOT EQUILIB (11/08/2024 8:13 AM EDT) TESTOSTERONE 10 4 - 50 ng/dL TB FREE TESTOSTERONE(DIRE CT) 0.2 0.0 - 4.2 pg/mL TBH Comment: Performed at: [address] [id number] Manager Steel: Barry Mcrae PhD, Phone: [phone] Performed at: [address] [id number] Manager Steel: Juany Baker MD, Phone: [phone] 11/08/2024 8:13 AM EDT 11/08/2024 8:18 AM EDT Narrative CLINISYNC - 11/18/2024 12:09 PM EDT [facility] Brandon DO CLINISYNC Final Result Performing Organization Address [facility] Co de Phone Number [facility] * MLR HEMOGLOBIN A1C (11/08/2024 8:13 AM EDT) [facility] GLYCOHEMOGLOBIN A1C 5.2 4.5 - 6.2 % [facility] Comment: ADA RECOMMENDED LIMIT 4.0 - 6.0 ADA THERAPEUTIC TARGET < 7.0 ACTION SUGGESTED > 7.0 ESTIMATED AVERAGE GLUCOSE 103 mg/dL TB 11/08/2024 8:13 AM EDT 11/08/2024 8:18 AM EDT Narrative CLINISYNC - 11/08/2024 10:28 AM EDT [facility] Final Result Performing Organization Address City/[facility]/ZIP Co de Phone Number [facility] * METRO SEX BINDING HORMONE (SHBG), TESTOSTERONE, FREE AND BIOAVAILABLE (11/08/2024 8:13 AM EDT) [facility] SEX HORM BINDING GLOB, SERUM 52.5 17.3 - 125.0 nmol/L TB Comment: Performed at: [address] [id number] Manager Steel: Barry Mcrae PhD, Phone: [phone] 11/08/2024 8:13 AM EDT 11/08/2024 8:18 AM EDT Narrative CLINISYNC - 11/18/2024 12:09 PM EDT us Kj Brandon DO CLINISYNC Final Result CLINISYNC [facility] * [facility]CF FERRITIN (11/08/2024 8:13 AM EDT) FERRITIN 129.0 8.0 - 252.0 ng/mL TBH 11/08/2024 8:13 AM EDT 11/08/2024 8:18 AM EDT Narrative CLINISYNC - 11/08/2024 12:25 PM EDT us Kj Brandon DO CLINISYNC Final Result Performing Organization Address [facility]/ZIP Co de Phone Number CLINISYNC TB * ALL THYROXINE (T4) FREE (11/08/2024 8:13 AM EDT) FREE T4 0.96 0.76 - 1.46 ng/dL TBH 11/08/2024 8:13 AM EDT 11/08/2024 8:18 AM EDT Narrative CLINISYNC - 11/08/2024 12:25 PM EDT us Kj Brandon DO CLINISYNC Final Result CLINISYNC TB * ALL THYROXINE (T4) (11/08/2024 8:13 AM EDT) T4 THYROXINE 8.90 4.80 - 13.90 ug/dL TBH 11/08/2024 8:13 AM EDT 11/08/2024 8:18 AM EDT Narrative CLINISYNC - 11/08/2024 9:43 AM EDT us Kj Brandon DO CLINISYNC Final Result CLINISYNC TB * ALL THYROID STIM HORMONE (11/08/2024 8:13 AM EDT) THYROID STIMULATING HORMONE 1.114 0.358 - 3.740 uIU/mL TBH 11/08/2024 8:13 AM EDT 11/08/2024 8:18 AM EDT Narrative CLINISYNC - 11/08/2024 9:43 AM EDT us Kj Brandon DO CLINISYNC Final Result Performing Organization Address [facility] Co de Phone Number CLINISYNC TBH * (ABNORMAL) ALL T3 REVERSE (11/08/2024 8:13 AM EDT) REVERSE T3, SERUM 26.5(A) 9.2 - 24.1 ng/dL TBH Comment: This test was developed and its performance characteristics determined by [facility]. It has not been cleared or approved by the Food and Drug Administration. Performed at: [address] [id number] Manager Steel: Juany Baker MD, Phone: [phone] 11/08/2024 8:13 AM EDT 11/08/2024 8:18 AM EDT Narrative CLINISYNC - 11/18/2024 12:09 PM EDT Kj Brandon DO CLINISYNC Final Result Performing Organization Address [facility] Co de Phone Number CLINISYNC TBH * (ABNORMAL) ALL T3 FREE (11/08/2024 8:13 AM EDT) FREE T3 2.13(L) 2.18 - 3.98 pg/mL TBH 11/08/2024 8:13 AM EDT 11/08/2024 8:18 AM EDT Narrative CLINISYNC - 11/08/2024 9:43 AM EDT Kj Brandon DO CLINISYNC Final Result Performing Organization Address City/[facility]/ZIP Co de Phone Number [facility] * ALL PROGESTERONE (11/08/2024 8:13 AM EDT) PROGESTERONE 0.3 . ng/mL TBH Comment: Follicular phase 0.1 - 0.9 Luteal phase 1.8 - 23.9 Ovulation phase 0.1 - 12.0 First trimester 11.0 - 44.3 Second trimester 25.4 - 83.3 Third trimester 58.7 - 214.0 Postmenopausal 0.0 - 0.1 11/08/2024 8:13 AM EDT 11/08/2024 8:18 AM EDT Narrative CLINISYNC - 11/18/2024 12:09 PM EDT [facility] Brandon DO CLINISYNC Final Result Performing Organization Address [facility] Phone Number [facility] * ALL ESTRONE(E1) (11/08/2024 8:13 AM EDT) ESTRADIOL 11.7 . pg/mL TB Comment: Adult Female Range Follicular phase 12.5 - 166.0 Ovulation phase 85.8 - 498.0 Luteal phase 43.8 - 211.0 Postmenopausal <6.0 - 54.7 1st trimester 215.0 - >4300.0 Anny ECLIA methodology 11/08/2024 8:13 AM EDT 11/08/2024 8:18 AM EDT Narrative CLINISYNC - 11/18/2024 12:09 PM EDT [facility] Brandon DO CLINISYNC Final Result Performing Organization Address [facility] de Phone Number [facility] * ALL DHEA SULFATE (11/08/2024 8:13 AM EDT) DHEA-SULFATE 37.5 29.4 - 220.5 ug/dL TB 11/08/2024 8:13 AM EDT 11/08/2024 8:18 AM EDT Narrative CLINISYNC - 11/18/2024 12:09 PM EDT Kj Brandon DO CLINISYNC Final Result Performing Organization Address [facility] de Phone Number [facility] * ALL C-PEPTIDE (11/08/2024 8:13 AM EDT) C-PEPTIDE, SERUM 4.0 1.1 - 4.4 ng/mL [facility] Comment:C-Peptide reference interval is for fasting patients. 11/08/2024 8:13 AM EDT 11/08/2024 8:18 AM EDT Narrative CLINISYNC - 11/12/2024 4:12 PM EDT Kj Brandon DO CLINISYNC Final Result Performing Organization Address [facility] de Phone Number [facility] * Pap Smear (04/02/2024 12:00 AM EDT) Swab Cervical swab / Unknown Madisyn SHIRLEY LAB CYTOLOGY ORDERABLES Final Re sult Performing Organization Address [facility] Co de Phone Number EXTERNAL LAB * THINPREP PAP AND HPV MRNA E6/E7 W/RFL HPV 16,18/45 (04/13/2023 4:17 PM EDT) Madisyn [facility]LEY [facility] BLOOD ORDERABLES Final Resul t Performing Organization Address [facility] de Phone Number EXTERNAL LAB from Last 3 Months or Most Recently Relevant to Health Maintenance Insurance [employer] Care Teams Notcher Relationship Specialty Start Date End Date Tarun Glover DO [address] [place] [address] PCP - General Internal Medicine 03/23/23
--- OUTSIDE RECORDS SUMMARY | 2025-02-07 10:10 | XMS_ITS | Encounter Summary ---
Author Organization [facility] Address [address] [place] [address] Care Team Providers Care Harness Preparer Name Role Phone Tarun Glover DO Primary Care Provider [phone] Encounter Details Date Type Department Care Team (Late Contact Info) Description 04/10/2024 Clinisync Result Encounter [facility] External Department Unsolicited Madisyn Piper, PA [address] [place] [address] [place], [facility] Social History Tobacco Use Types Packs/Day Years Used Date Smoking Tobacco: Never Alcohol Use Standard Drinks/Week Comments [...] 02/10/2025 8:50 AM EDT Office Visit [facility] [address] [place] [address] Madisyn Piper PA [address] [place] [address] Dr [place], [place] [address] 04/08/2025 1:00 PM EDT Office Visit [facility] [address] [place] [address] [place] [address] Madisyn Piper PA [address] [place] [address] Dr [place], [facility] [phone] (work) documented as of this encounter Procedures Procedure Name Priority Date/Time Associated Diagnosis Comments US PELVIS W/ TRANSVAGINAL 04/10/2024 4:39 AM EDT documented in this encounter Results * US PELVIS W/ TRANSVAGINAL (04/10/2024 4:39 AM EDT) Anatomical Region Laterality Modality Other 04/10/2024 4:39 AM EDT Narrative 04/10/2024 4:42 AM EDT [address] [address] Ultrasound Report Signed Patient: OLIMPIA CORONA MR#: [id number] : 1970 Acct:[id number] Age/Sex: 53 / F ADM Date: 04/09/24 Loc: [facility] Attending Dr: Madisyn Piper Ordering Physician: Madisyn Piper Date of Service: 04/09/24 Procedure(s): US pelvis w/ transvaginal Accession Number(s): [id number] cc: Madisyn Piper; Tarun Glover D.O. [address] [address] Patient Name: OLIMPIA CORONA MRN: [id number] date: 1970 Sex: F Assigned Patient Location: [facility] Current Patient Location: Accession/Order Number: [id number] Exam Date: 04/09/2024 12:57 Report Date: 04/10/2024 04:39 At the request of: MADISYN PIPER Procedure: US pelvis w/ transvaginal EXAMINATION: US pelvis w/ transvaginal HISTORY: PELVIC PAIN ; left lower quadrant pain COMPARISON: Ultrasound pelvis 05/03/2021 TECHNIQUE: Transabdominal and/or transvaginal sonographic examination was performed as indicated by examination type. FINDINGS: UTERUS: Slightly heterogeneous prominent area within posterior fundus suspected to represent a leiomyoma, approximately 7.0 x 5.5 x 4.4 cm Uterus size: 6.4 x 3.7 x 8.2 cm ENDOMETRIUM: Normal homogeneous appearance. Endometrial thickness: 5 mm RIGHT OVARY: Not seen. LEFT OVARY: Not seen. CUL-DE-SAC: Unremarkable. No significant free fluid. BLADDER: Unremarkable. OTHER: None. US/US pelvis w/ transvaginal IMPRESSION: 1. Limited examination due to large amount of artifact from bowel gas. 2. Suspect posterior fundal leiomyoma. 3. Neither ovary could be identified due to artifact from bowel gas. Electronically authenticated by: MOISÉS LATHAM Date: 04/10/2024 04:39 Dictated By: Moisés Latham M.D. Signed By: 04/10/24 0442 DD/ 0439 TD/TT: Teamsite Developer: Procedure Note Radiology, Radiologist, MD - 04/10/2024 [place] [address] Ultrasound Report Signed Patient: OLIMPIA CORONA RMR#: [id number] : 1970Acct:[id number] Age/Sex: 53 / FADM Date: 04/09/24 Loc: [facility] Attending Dr: Madisyn Piper Ordering Physician: Madisyn Piper Date of Service: 04/09/24 Procedure(s): US pelvis w/ transvaginal Accession Number(s): [id number] cc: Madisyn Piper; Tarun Glover D.O. [address] [place] [id number] Patient Name: OLIMPIA CORONA MRN: [id number] date: 1970 Sex: F Assigned Patient Location: [facility] Current Patient Location: Accession/Order Number: [id number] Exam Date: 04/09/2024 12:57 Report Date: 04/10/2024 04:39 At the request of: MADISYN PIPER Procedure: US pelvis w/ transvaginal EXAMINATION: US pelvis w/ transvaginal HISTORY: PELVIC PAIN ; left lower quadrant pain COMPARISON: Ultrasound pelvis 05/03/2021 TECHNIQUE: Transabdominal and/or transvaginal sonographic examination was performed as indicated by examination type. FINDINGS: UTERUS: Slightly heterogeneous prominent area within posterior fundus suspected to represent a leiomyoma, approximately 7.0 x 5.5 x 4.4 cm Uterus size:6.4 x 3.7 x 8.2 cm ENDOMETRIUM: Normal homogeneous appearance. Endometrial thickness: 5 mm RIGHT OVARY: Not seen. LEFT OVARY: Not seen. CUL-DE-SAC: Unremarkable. No significant free fluid. BLADDER: Unremarkable. OTHER: None. US/US pelvis w/ transvaginal IMPRESSION: 1. Limited examination due to large amount of artifact from bowel gas. 2. Suspect posterior fundal leiomyoma. 3. Neither ovary could be identified due to artifact from bowel gas. Electronically authenticated by: MOISÉS LATHAM Date: 04/10/2024 04:39 Dictated By: Moisés Latham M.D. Signed By:04/10/24 0442 DD/ 0439 TD/TT: Teamsite Developer: Madisyn [facility] Final Result documented in this encounter Visit Diagnoses Not on filedocumented in this encounter Care Teams Harness Preparer Relationship Specialty Start Date End Date Tarun Glover DO [address] [place] [address] PCP - General Internal Medicine 03/23/23 documented as of this encounter
--- OUTSIDE RECORDS SUMMARY | 2025-02-07 10:10 | XMS_ITS | Encounter Summary ---
Author Organization [facility] Address [address] [place] [address] Care Team Providers Care Computer Operations Technician Name Role Phone Tarun Glover Primary Care Provider [phone] Encounter Details Date Type Department Care Team (Late Contact Info) Description 05/09/2024 Abstract [facility] [address] [facility] [place] [address] Kj Taylor DO [address] [place] [address] Dr Randy Wei, [facility]11 Social History Tobacco Use Types Packs/Day Years [...] 02/10/2025 8:50 AM EDT Office Visit [facility] [address] [facility] [place] [address] Madisyn Winters PA [address] [facility] [address] [place], [facility]11 04/08/2025 1:00 PM EDT Office Visit [facility] OB [address] [facility] [place] [address] Madisyn Winters PA [address] [place] [address] [place], [place] [id number] documented as of this encounter Visit Diagnoses Not on filedocumented in this encounter Care Teams Computer Operations Technician Relationship Specialty Start Date End Date Tarun Glover DO [address] [facility] [place] [address] PCP - General Internal Medicine 03/23/23 documented as of this encounter
--- OUTSIDE RECORDS SUMMARY | 2025-02-07 10:10 | XMS_ITS | Encounter Summary ---
Author Organization [facility] Address [address] [place] [address] Care Team Providers Care Appeals Manager Name Role Phone Tarun Glover Primary Care Provider Encounter Details Date Type Department Care Team (Late Contact Info) Description 01/07/2025 Abstract [facility] OB [address] [facility] [place] [address] Kj Taylor DO [address] [place] [address] Dr Randy Wei, [facility]11 Social History Tobacco Use Types Packs/Day Years [...] 02/10/2025 8:50 AM EDT Office Visit [facility] OB [address] [facility] [place] [address] Madisyn Winters PA [address] [facility] [address] [place], [facility]11 04/08/2025 1:00 PM EDT Office Visit [facility] OB [address] [place] [address] [place] [address] Madisyn Winters PA [address] [place] [address] [place], [place] [id number] documented as of this encounter Visit Diagnoses Not on filedocumented in this encounter Care Teams Appeals Manager Relationship Specialty Start Date End Date Tarun Glover DO [address] [facility] [place] [address] PCP - General Internal Medicine 03/23/23 documented as of this encounter
--- OUTSIDE RECORDS SUMMARY | 2025-02-07 10:10 | XMS_ITS | Encounter Summary ---
Author Organization [facility] Address [address] [place] [address] Care Team Providers Care Eap Consultant Name Role Phone Tarun Glover DO Primary Care Provider [phone] Encounter Details Date Type Department Care Team (Late st Contact Info) Description 04/02/2024 Abstract [facility] [address] [place] [address] Kristin Garcia LPN Social History Tobacco Use Types Packs/Day Years [...] Description 02/10/2025 8:50 AM EDT Office Visit [facility] OB [address] [place] [address] [place] [address] Madisyn Winters PA [address] [place] [address] Dr [place], [facility]11 04/08/2025 1:00 PM EDT Office Visit [facility] [address] [place] [address] Madisyn Winters, PA [address] [place] [address] Dr [place], [facility]11 documented as of this encounter Visit Diagnoses Not on filedocumented in this encounter Care Teams Eap Consultant Relationship Specialty Start Date End Date Tarun Glover DO [address] [place] [address] PCP - General Internal Medicine 03/23/23 documented as of this encounter
--- OUTSIDE RECORDS SUMMARY | 2025-02-07 10:10 | XMS_ITS | Encounter Summary ---
Author Organization [facility] Address [address] [place] [address] Care Team Providers Care Computer Field Technician Name Role Phone Tarun lGover DO Primary Care Provider [phone] Encounter Details Date Type Department Care Team (Late st Contact Info) Description 04/24/2024 Abstract [facility] [address] [place] [address] Kristin Garcia LPN Social History Tobacco [...] Description 02/10/2025 8:50 AM EDT Office Visit [facility] OB [address] [place] [address] [place] [address] Madisyn Winters PA [address] [place] [address] Dr [place], [facility]11 04/08/2025 1:00 PM EDT Office Visit [facility] [address] [place] [address] Madisyn Winters, PA [address] [place] [address] Dr [place], [facility]11 documented as of this encounter Visit Diagnoses Not on filedocumented in this encounter Care Teams Computer Field Technician Relationship Specialty Start Date End Date Tarun Glover DO [address] [place] [address] PCP - General Internal Medicine 03/23/23 documented as of this encounter
--- OUTSIDE RECORDS SUMMARY | 2025-02-07 10:10 | XMS_ITS | Encounter Summary ---
Author Organization [facility] Address [address] [place] [address] Care Team Providers Care Glass Silverer Name Role Phone Tarun Glover Primary Care Provider [phone] Encounter Details Date Type Department Care Team (Late Contact Info) Description 08/09/2024 Abstract [facility] OB [address] [facility] [place] [address] Kj Taylor DO [address] [place] [address] Dr Randy Wei, [facility]11 Social History Tobacco Use Types [...] 02/10/2025 8:50 AM EDT Office Visit [facility] OB [address] [facility] [place] [address] Madisyn Winters PA [address] [facility] [address] [place], [facility]11 04/08/2025 1:00 PM EDT Office Visit [facility] OB [address] [facility] [place] [address] Madisyn Winters PA [address] [place] [address] [place], [place] [id number] documented as of this encounter Visit Diagnoses Not on filedocumented in this encounter Care Teams Glass Silverer Relationship Specialty Start Date End Date Tarun Glover DO [address] [facility] [place] [address] PCP - General Internal Medicine 03/23/23 documented as of this encounter
--- OUTSIDE RECORDS SUMMARY | 2025-02-07 10:10 | XMS_ITS | Encounter Summary ---
Author Organization [facility] Address [address] [place] [address] Care Team Providers Care Chinese Teacher Name Role Phone Tarun Glover Primary Care Provider [phone] Encounter Details Date Type Department Care Team (Late Contact Info) Description 05/09/2024 Abstract [facility] OB [address] [facility] [place] [address] Kj Taylor DO [address] [place] [address] Dr Randy Wei, [facility] Social History Tobacco Use Types Packs/Day [...] 02/10/2025 8:50 AM EDT Office Visit [facility] OB [address] [facility] [place] [address] Madisyn Winters PA [address] [facility] [address] [place], [facility] 04/08/2025 1:00 PM EDT Office Visit [facility] OB [address] [facility] [place] [address] Madisyn Winters PA [address] [place] [address] Dr [place], [place] [id number] documented as of this encounter Visit Diagnoses Not on filedocumented in this encounter Care Teams Chinese Teacher Relationship Specialty Start Date End Date Tarun Glover DO [address] [facility] [place] [address] PCP - General Internal Medicine 03/23/23 documented as of this encounter
--- OUTSIDE RECORDS SUMMARY | 2025-02-07 10:10 | XMS_ITS | Encounter Summary ---
Author Organization [facility] Address [address] [place] [address] Care Team Providers Care Way Inspector Name Role Phone Tarun Glover Primary Care Provider [phone] Encounter Details Date Type Department Care Team (Late st Contact Info) Description 02/04/2025 Bamboo flowsheet [facility] [address] [facility] [place] [address] Kj Taylor DO [address] [place] [address] Dr Randy Wei, [place] [address] Social History Tobacco Use Types Packs/Day Years [...] EDT Office Visit [facility] [address] [facility] [place] [address] Madisyn Winters PA [address] [facility] [address] [place], [facility]11 04/08/2025 1:00 PM EDT Office Visit [facility] [address] [facility] [place] [place] [address] Madisyn Winters PA [address] [place] [address] [place] [address] documented as of this encounter Visit Diagnoses Not on filedocumented in this encounter Care Teams Way Inspector Relationship Specialty Start Date End Date Tarun Glover DO [address] [facility] [place] [place] [address] PCP - General Internal Medicine 03/23/23 documented as of this encounter
--- OUTSIDE RECORDS SUMMARY | 2025-02-07 10:10 | XMS_ITS | Encounter Summary ---
Author Organization [facility] Address [address] [place] [address] Care Team Providers Care Textile Pin Worker Name Role Phone Tarun Glover Primary Care Provider [phone] Encounter Details Date Type Department Care Team (Late Contact Info) Description 12/29/2023 Abstract [facility] OB [address] [facility] [place] [address] Kj Taylor DO [address] [place] [address] Dr Randy Wei, [facility]11 Social History Tobacco Use Types Packs/Day Years [...] 02/10/2025 8:50 AM EDT Office Visit [facility] OB [address] [facility] [place] [address] Madisyn Winters PA [address] [place] [address] Dr [place], [facility]11 04/08/2025 1:00 PM EDT Office Visit [facility] OB [address] [facility] [place] [address] Madisyn Winters PA [address] [place] [address] [place] [address] documented as of this encounter Visit Diagnoses Not on filedocumented in this encounter Care Teams Textile Pin Worker Relationship Specialty Start Date End Date Tarun Glover DO [address] [facility] [place] [address] PCP - General Internal Medicine 03/23/23 documented as of this encounter
--- OUTSIDE RECORDS SUMMARY | 2025-02-07 10:10 | XMS_ITS | Encounter Summary ---
Author Organization [facility] Address [address] [place] [address] Care Team Providers Care Final Rail Cutter Name Role Phone Tarun Glover DO Primary Care Provider [phone] Encounter Details Date Type Department Care Team (Late Contact Info) Description 08/30/2024 Abstract [facility] [address] [place] [address] [place] [address] Madisyn Winters PA [address] [place] [address] Dr [place], [facility]11 Social History Tobacco Use Types Packs/Day [...] 02/10/2025 8:50 AM EDT Office Visit [facility] [address] [place] [address] [place] [address] Madisyn Winters PA [address] [place] [address] Dr [place], [facility]11 04/08/2025 1:00 PM EDT Office Visit [facility] OB [address] [place] [address] [place] [address] Madisyn Winters PA [address] [place] [address] [place] [address] documented as of this encounter Visit Diagnoses Not on filedocumented in this encounter Care Teams Final Rail Cutter Relationship Specialty Start Date End Date Tarun Glover DO [address] [facility] [place] [address] PCP - General Internal Medicine 03/23/23 documented as of this encounter
--- OUTSIDE RECORDS SUMMARY | 2025-02-07 10:10 | XMS_ITS | Encounter Summary ---
Author Organization [facility] Address [address] [place] [address] Care Team Providers Care Cement Side Laster Name Role Phone Tarun Rasmussen DO Primary Care Provider [phone] Encounter Details Date Type Department Care Team (Late st Contact Info) Description 05/02/2024 Clinisync Result Encounter [facility] External Department Unsolicited Kj Taylor [address] [facility] [address] Randy Wei, [facility]11 Social History Tobacco Use Types [...] 02/10/2025 8:50 AM EDT Office Visit [facility] OB [address] [facility] [address] Madisyn Winters PA [address] [facility] [address] [place], [place] [address] 04/08/2025 1:00 PM EDT Office Visit [facility] OB [address] [facility] [address] Madisyn Winters PA [address] [facility] [place] [address] documented as of this encounter Procedures Procedure Name Priority Date/Time Associated Diagnosis Comments ECG 12-LEAD 05/02/2024 3:20 PM EDT documented in this encounter Results * ECG 12-LEAD (05/02/2024 3:20 PM EDT) Anatomical Region Laterality Modality Other 05/02/2024 3:20 PM EDT Narrative 05/02/2024 9:48 [place] [address] Electrocardiograph Report Signed Patient: OLIMPIA CORONA MR#: [id number] : 1970 Acct:[id number] Age/Sex: 53 / F ADM Date: 05/02/24 Loc: [facility] Attending Dr: Kj Taylor D.O. Ordering Physician: Kj Taylor D.O. Date of Service: 05/02/24 Procedure(s): ECG 12 lead Accession Number(s): [id number] cc: [facility] Test Date: 2024-05-02 Pat Name: OLIMPIA CORONA Department: Room: - Gender: Female Service Station Helper: : 1970 Requested By: Tarun Rasmussen Order Number: [id number] Reading MD: TARUN RASMUSSEN Measurements Intervals [place] Rate: 71 P: 41 MT: 132 QRS: 31 QRSD: 82 T: 17 QT: 372 QTc: 405 Interpretive Statements SINUS RHYTHM Compared to ECG 09/09/2019 18:42:25 Sinus tachycardia no longer present Electronically Signed On 05-02-2024 21:47:59 EDT by TARUN RASMUSSEN Dictated By: Tarun Rasmussen D.O. Signed By: 05/02/24 2148 DD/ 1520 TD/TT: Molecular Physicist: Procedure Note Radiology, Radiologist, - 05/02/2024 [facility] [place] [id number] Electrocardiograph Report Signed Patient: OLIMPIA CORONA RMR#: [id number] : 1970Acct:[id number] Age/Sex: 53 / FADM Date: 05/02/24 Loc: PST Attending Dr: Kj Taylor D.O. Ordering Physician: Kj Taylor D.O. Date of Service: 05/02/24 Procedure(s): ECG 12 lead Accession Number(s): [id number] cc: [facility] Test Date: 2024-05-02 Pat Name: OLIMPIA CORONA Department: Room: - Gender: Female Service Station Helper: : 1970 Requested By: Tarun Rasmussen Order Number: [id number] Reading MD: TARUN RASMUSSEN Measurements Intervals [place] Rate: 71 P: 41 MT: 132 QRS: 31 QRSD: 82 T: 17 QT: 372 QTc: 405 Interpretive Statements SINUS RHYTHM Compared to ECG 09/09/2019 18:42:25 Sinus tachycardia no longer present Electronically Signed On 05-02-2024 21:47:59 EDT by TARUN RASMUSSEN Dictated By: Tarun Rasmussen D.O. Signed By:05/02/24 2148 DD/ 1520 TD/TT: Molecular Physicist: us Kj Taylor DO [facility] Final Result documented in this encounter Visit Diagnoses Not on filedocumented in this encounter Care Teams Cement Side Laster Relationship Specialty Start Date End Date Tarun Rasmussen DO [address] [place] [address] PCP - General Internal Medicine 03/23/23 documented as of this encounter
--- OUTSIDE RECORDS SUMMARY | 2025-02-07 10:10 | XMS_ITS | Encounter Summary ---
Author Organization [facility] Address [address] [place] [address] Care Team Providers Care Certified Dialysis Technician Name Role Phone Tarun Glover DO Primary Care Provider [phone] Encounter Details Date Type Department Care Team (Late st Contact Info) Description 06/25/2024 Abstract [facility] [address] [place] [address] [place] [address] Kristin Garcia LPN Social History Tobacco [...] 02/10/2025 8:50 AM EDT Office Visit [facility] [address] [place] [address] [place] [address] Madisyn Winters PA [address] [place] [address] Dr [place], [place] [address] 04/08/2025 1:00 PM EDT Office Visit [facility] [address] [place] [address] [place] [address] Madisyn Winters PA [address] [place] [address] Dr [place], [facility]11 documented as of this encounter Visit Diagnoses Not on filedocumented in this encounter Care Teams Certified Dialysis Technician Relationship Specialty Start Date End Date Tarun Glover DO [address] [place] [address] PCP - General Internal Medicine 03/23/23 documented as of this encounter
--- OUTSIDE RECORDS SUMMARY | 2025-02-07 10:10 | XMS_ITS | Encounter Summary ---
Author Organization [facility] Address [address] [place] [address] Care Team Providers Care Inorganic Chemistry Teacher Name Role Phone Tarun Glover Primary Care Provider Encounter Details Date Type Department Care Team (Late Contact Info) Description 08/30/2024 Abstract [facility] OB [address] [facility] [place] [address] Kj Taylor DO [address] [place] [address] Dr Randy Wei, [facility]11 Social History Tobacco Use Types Packs/Day [...] 02/10/2025 8:50 AM EDT Office Visit [facility] OB [address] [facility] [place] [address] Madisyn Winters PA [address] [facility] [address] [place], [facility]11 04/08/2025 1:00 PM EDT Office Visit [facility] OB [address] [place] [address] [place] [address] Madisyn Winters PA [address] [place] [address] Dr [place], [place] [address] documented as of this encounter Visit Diagnoses Not on filedocumented in this encounter Care Teams Inorganic Chemistry Teacher Relationship Specialty Start Date End Date Tarun Glover DO [address] [facility] [place] [address] PCP - General Internal Medicine 03/23/23 documented as of this encounter
--- OUTSIDE RECORDS SUMMARY | 2025-02-07 10:10 | XMS_ITS | Encounter Summary ---
Author Organization [facility] Address [address] [place] [address] Care Team Providers Care Jewelry Casting Model Maker Apprentice Name Role Phone Tarun Glover DO Primary Care Provider [phone] Encounter Details Date Type Department Care Team (Late st Contact Info) Description 10/01/2024 Abstract [facility] [address] [place] [address] [place] [address] Kristin Garcia LPN Social History Tobacco [...] 02/10/2025 8:50 AM EDT Office Visit [facility] [address] [place] [address] [place] [address] Madisyn Winters PA [address] [place] [address] Dr [place], [place] [address] 04/08/2025 1:00 PM EDT Office Visit [facility] OB [address] [place] [address] [place] [address] Madisyn Winters, PA [address] [place] [address] Dr [place], [facility]11 documented as of this encounter Visit Diagnoses Not on filedocumented in this encounter Care Teams Jewelry Casting Model Maker Apprentice Relationship Specialty Start Date End Date Tarun Glover DO [address] [place] [address] PCP - General Internal Medicine 03/23/23 documented as of this encounter
--- OUTSIDE RECORDS SUMMARY | 2025-02-07 10:10 | XMS_ITS | Encounter Summary ---
Author Organization [facility] Address [address] [place] [address] Care Team Providers Care Solid Tire Tuber Machine Operator Name Role Phone Tarun Glover Primary Care Provider [phone] Encounter Details Date Type Department Care Team (Late Contact Info) Description 04/03/2024 Abstract [facility] OB [address] [facility] [place] [address] Kj Taylor DO [address] [place] [address] Dr Randy Wei, [facility]11 Social History Tobacco Use Types Packs/Day Years [...] 02/10/2025 8:50 AM EDT Office Visit [facility] OB [address] [facility] [place] [address] Madisyn Winters PA [address] [place] [address] Dr [place], [facility]11 04/08/2025 1:00 PM EDT Office Visit [facility] OB [address] [facility] [place] [address] Madisyn Winters PA [address] [place] [address] [place] [address] documented as of this encounter Visit Diagnoses Not on filedocumented in this encounter Care Teams Solid Tire Tuber Machine Operator Relationship Specialty Start Date End Date Tarun Glover DO [address] [facility] [place] [address] PCP - General Internal Medicine 03/23/23 documented as of this encounter
--- OUTSIDE RECORDS SUMMARY | 2025-02-07 10:10 | XMS_ITS | Encounter Summary ---
Author Organization [facility] Address [address] [place] [address] Care Team Providers Care Target Network Analyst Name Role Phone Tarun Glover Primary Care Provider [phone] Encounter Details Date Type Department Care Team (Late Contact Info) Description 05/15/2024 Abstract [facility] OB [address] [facility] [place] [address] Kj Taylor DO [address] [place] [address] Dr Randy Wei, [facility]11 Social History Tobacco Use Types Packs/Day [...] 02/10/2025 8:50 AM EDT Office Visit [facility] OB [address] [facility] [place] [address] Madisyn Winters PA [address] [facility] [address] [place], [facility]11 04/08/2025 1:00 PM EDT Office Visit [facility] OB [address] [facility] [place] [address] Madisyn Winters PA [address] [place] [address] Dr [place], [place] [address] documented as of this encounter Visit Diagnoses Not on filedocumented in this encounter Care Teams Target Network Analyst Relationship Specialty Start Date End Date Tarun Glover DO [address] [facility] [place] [address] PCP - General Internal Medicine 03/23/23 documented as of this encounter
--- NOTE | 2025-02-07 11:05 | MM_ITS ---
Patient Name: SANIA DINH MR#: [id number] : 1970 Exam Date: 02/07/2025 Ordering Doctor: CASPER PIPER . RADIOLOGY REPORT PROCEDURE: MM TOMOSYNTHESIS SCREENING BI COMPARISON: MM TOMOSYNTHESIS SCREENING BI, 12/29/2023. MG MAMM SCREEN 3D SANDHYA CAD, 12/07/2022. MG MAMM SCREEN 3D SANDHYA CAD, 10/07/2021. MG MAMM SANDHYA SCRN W CAD DIG, 10/07/2013. INDICATIONS: Screening Calculator Name NCI Breast Cancer Risk Assessment Tool 5 Year Breast Cancer Risk 1.10% Lifetime Breast Cancer Risk 7.40% Personal Breast Cancer No Personal Ovarian Cancer No Treatments None Family Cancers Mother with skin cancer at age ~50. LOCATION: [facility] BREAST COMPOSITION: There are scattered areas of fibroglandular density. FINDINGS: RIGHT BREAST: No significant suspicious finding. LEFT BREAST: No significant suspicious finding. DIAGNOSTIC CATEGORY 1--NEGATIVE. RECOMMENDATIONS: ROUTINE MAMMOGRAM AND CLINICAL EVALUATION IN 12 MONTHS. PLEASE NOTE: A NORMAL MAMMOGRAM DOES NOT EXCLUDE THE POSSIBILITY OF BREAST CANCER. A CLINICALLY SUSPICIOUS PALPABLE LUMP SHOULD BE BIOPSIED. Dictated by: Paco Hobson MD on 02/07/2025 at 15:00 Approved by: Paco Hobson MD on 02/07/2025 at 15:01
== END 2025-02-07 10:06 | disposition home or self-care (01) ==
LOC: RAD 10:08
PROVIDERS: PCP Internal Medicine; Visit Provider Physician Assistant
DX: Z78.0 Asymptomatic menopausal state (principal); Z12.31 Encounter for screening mammogram for malignant neoplasm of breast; Z80.8 Family history of malignant neoplasm of other organs or systems; M85.80 Other specified disorders of bone density and structure, unspecified site
CPT/HCPCS: 77063; 77067; 77080

== ENCOUNTER 2025-04-08 19:41 | Outpatient (REF) | payer OTHER, SELFPAY ==
--- OUTSIDE RECORDS SUMMARY | 2025-04-08 13:00 | XMS_ITS | Encounter Summary ---
Author Organization [facility] Address [address] [place] [address] Care Team Providers Care Hospital Manager Name Role Phone Tarun Glover Primary Care Provider [phone] Reason for Visit * Reason Comments Well Women Visit Encounter Details Date Type Department Care Team (Late st Contact Info) Description 04/08/2025 1:00 PM EDT Office Visit [facility]ENN[facility] Wei O[facility] [address] [place] [address] Madisyn Winters PA [address] [facility] [address] [place], [facility] Well woman exam with routine gynecological exam; Encounter for screening mammogram for malignant neoplasm of breast; Postmenopausal state Social History Tobacco Use Types Packs/Day Years [...] on file documented as of this encounter Last Filed Vital Signs Vital Sign Reading Time Taken Comments Blood Pressure 130/82 04/08/2025 1:24 PM EDT Pulse - - Temperature - - Respiratory Rate - - Oxygen Saturation - - Inhaled Oxygen Concentration - - Weight 118 kg (260 lb 12 oz) 04/08/2025 1:24 PM EDT Height - - Body Mass Index 43.39 11/05/2024 8:37 AM EDT documented in this encounter Progress Notes * CASPER Alaniz - 04/08/2025 1:00 PM EDT Reason for Appointment: Patient ID: Olimpia Corona is a 54 y.o. female who presents for Well Women Visit Patient presents today for Annual Exam. MEDICATIONS Current Outpatient Medications Medication Instructions clotrimazole (Lotrimin) 1 % cream 1 application , Every 12 hours escitalopram (LEXAPRO) 10 mg, Oral, Daily estradiol (Climara) 0.05 MG/24HR 1 patch, Transdermal, Weekly estradiol (Climara) 0.075 MG/24HR 1 patch, Transdermal, Weekly Estradiol-Progesterone (Bijuva) 0.5-100 MG capsule 0.5-100 mg, Oral, Daily Loratadine-D 24HR 10-240 MG 24 hr tablet 1 tablet, Oral, As needed metFORMIN XR (GLUCOPHAGE-XR) 500 mg, Oral, Daily with evening meal, Do not crush, chew, or split. phentermine (ADIPEX-P) 37.5 mg, Oral, Daily before breakfast phentermine (ADIPEX-P) 37.5 mg, Oral, Daily before breakfast progesterone (PROMETRIUM) 100 mg, Oral, Daily ALLERGIES Allergies Allergen Reactions Sumner Oil Unknown Latex Unknown Milk-Related Compounds Unknown [...] appearance. She is well-developed. Genitourinary: Vulva normal. Cardiovascular: Rate and Rhythm: Normal rate and [...] nursing note reviewed. Exam conducted with a manager discovery present. Vitals: Estimated body mass index is 43.39 kg/m?? as calculated from the following: Height as of 11/05/24: 5' 5 . Weight as of this encounter: 260 lb 12 oz. BP: 130/82 No LMP recorded. Patient has had an ablation. ASSESSMENT & PLAN ICD-10-CM 1. Well woman exam with routine gynecological exam Z01.419 THIN PREP TIS PAP AND HR HPV DNA 2. Encounter for screening mammogram for malignant neoplasm of breast Z12.31 3. Postmenopausal state Z78.0 CANCELED: DEXA bone density Annual: Patient presents today for an annual exam. Patient states she is doing well but has continues concerns with weight management and HRT. PT has started with climnara patch and prometrium and feels patch wears off early. We have sent in prescription for Bijuva but is currently in process of obtaining order. . Pap was obtained without difficulty and patient given mammogram order to have scheduled/obtained.Patient states that the patch does not work and she would like the Bijuva. Patient states she has been dealing with [facility] on shipping the medication. Patient states cheaper if does not go through insurance. Patient will be changing insurance towards the end of the year. Patient to call office prior to getting refill to make sure medication is working or if she will need this increased prior torefilling script. Discussed Bone Density with patient encouraging vitamin d and calcium, or she ace prolia or the fosamax. Pt wishes to get hormone therapy regulated before starting another medication for bone densisty. We discussed importance of vitamin D3 and calcium as well as weight bearing exercises. We will follow up in next several weeks with concerns of obtaining and starting bijuva and use of adipex No orders of the defined types were placed in this encounter. Dexa scan results are normal Follow Up: Patient is to return in one year for annual unless needed otherwise. Documented by Jana Rivera LPN on behalf of: CASPER Alaniz documented in this encounter Plan of Treatment Upcoming Encounters Date Type Department Care Team (Late st Contact Info) Description 04/16/2026 9:00 AM EDT Procedure Visit [facility] Trina OBG[facility] [address] [place] [address] Madisyn Winters PA [address] [facility] [place] [address] Scheduled Orders Name Type Priority Associated Diagnoses Orde r Schedule THIN PREP TIS PAP AND HR HPV DNA Pathology and Cytology Routine Well woman exam with routine gynecological exam Ordered: 04/08/2025 documented as of this encounter Visit Diagnoses Diagnosis Well woman exam with routine gynecological exam Routine gynecological examination Encounter for screening mammogram for malignant neoplasm of breast Postmenopausal state Asymptomatic postmenopausal status (age-related) (natural) documented in this encounter Care Teams Hospital Manager Relationship Specialty Start Date End Date Tarun Glover DO [address] [facility] [place] [address] PCP - General Internal Medicine 03/23/23 documented as of this encounter
--- OUTSIDE RECORDS SUMMARY | 2025-04-08 19:45 | XMS_ITS | Encounter Summary ---
Author Organization [facility] Address [address] [facility] [place] [address] Care Team Providers Care Mechanical Piping Designer Name Role Phone Tarun Glover DO Primary Care Provider [phone] Encounter Details Date Type Department Care Team ([facility] Contact Info) Description 01/07/2025 Abstract [facility] [address] [place] [address] Kj Taylor DO [address] [place], [place] [address] Social History Tobacco Use Types Packs/Day Years [...] Department Care Team (Late Contact Info) Description 04/16/2026 9:00 AM EDT Procedure Visit [facility] Trina [facility] [address] [facility] [place] [address] Madisyn Winters PA [address] [place], [facility] documented as of this encounter Visit Diagnoses Not on filedocumented in this encounter Care Teams Mechanical Piping Designer Relationship Specialty Start Date End Date Tarun Glover DO [address] [place] [address] PCP - General Internal Medicine 03/23/23 documented as of this encounter
--- OUTSIDE RECORDS SUMMARY | 2025-04-08 19:45 | XMS_ITS | Encounter Summary ---
Author Organization [facility] Address [address] [place] [facility] [place] [address] Care Team Providers Care Farmworker Grain Name Role Phone Tarun Glover DO Primary Care Provider [phone] Encounter Details Date Type Department Care Team (Late Contact Info) Description 04/02/2024 Abstract [facility] [address] [place] [address] Krisitn Garcia LPN Social History Tobacco Use Types [...] Description 04/16/2026 9:00 AM EDT Procedure Visit JENNIFER BAILEY [address] [place] [address] Madisyn Winters PA [address] [facility] [place] [address] documented as of this encounter Visit Diagnoses Not on filedocumented in this encounter Care Teams Farmworker Grain Relationship Specialty Start Date End Date Tarun Glover DO [address] [place] [address] PCP - General Internal Medicine 03/23/23 documented as of this encounter
--- OUTSIDE RECORDS SUMMARY | 2025-04-08 19:45 | XMS_ITS | Encounter Summary ---
Author Organization [facility] Address [address] [place] [facility] [place] [address] Care Team Providers Care Contact Lens Assistant Name Role Phone Tarun Glover DO Primary Care Provider [phone] Encounter Details Date Type Department Care Team ([facility] Contact Info) Description 02/07/2025 Abstract [facility] [address] [facility] [place] [address] Kj Taylor DO [address] [facility] [address] [place], [place] [address] Social History Tobacco Use Types Packs/Day Years [...] EDT Procedure Visit [facility] Trina [facility] [address] [facility] [place] [address] Madisyn Winters PA [address] [facility] [address] [place], [facility] documented as of this encounter Visit Diagnoses Not on filedocumented in this encounter Care Teams Contact Lens Assistant Relationship Specialty Start Date End Date Tarun Glover DO [address] [place] [address] PCP - General Internal Medicine 03/23/23 documented as of this encounter
--- OUTSIDE RECORDS SUMMARY | 2025-04-08 19:45 | XMS_ITS | Encounter Summary ---
Author Organization [facility] Address [address] [facility] [place] [address] Care Team Providers Care Experience Designer Name Role Phone Tarun Glover DO Primary Care Provider [phone] Encounter Details Date Type Department Care Team (Late Contact Info) Description 08/30/2024 Abstract [facility] [address] [facility] [place] [address] Kj Taylor DO [address] [address] [place], [place] [address] Social History Tobacco Use Types Packs/Day Years [...] EDT Procedure Visit [facility] Trina [facility]AI[facility] [address] [place] [address] Madisyn Winters PA [address] [facility] [address] [place], [facility]11 documented as of this encounter Visit Diagnoses Not on filedocumented in this encounter Care Teams Experience Designer Relationship Specialty Start Date End Date Tarun Glover DO [address] [place] [address] PCP - General Internal Medicine 03/23/23 documented as of this encounter
--- OUTSIDE RECORDS SUMMARY | 2025-04-08 19:45 | XMS_ITS | Encounter Summary ---
Author Organization [facility] Address [address] [facility] [place] [address] Care Team Providers Care Service Attendant Cafeteria Name Role Phone Tarun Glover DO Primary Care Provider [phone] Encounter Details Date Type Department Care Team ([facility] Contact Info) Description 05/15/2024 Abstract [facility] [address] [place] [address] Kj Taylor DO [address] [facility] [address] [place], [place] [address] Social History Tobacco Use Types Packs/Day Years [...] EDT Procedure Visit [facility] Trina BAI[facility] [address] [place] [address] Madisyn Winters PA [address] [facility] [address] [place], [facility] documented as of this encounter Visit Diagnoses Not on filedocumented in this encounter Care Teams Service Attendant Cafeteria Relationship Specialty Start Date End Date Tarun Glover DO [address] [place] [address] PCP - General Internal Medicine 03/23/23 documented as of this encounter
--- OUTSIDE RECORDS SUMMARY | 2025-04-08 19:45 | XMS_ITS | Encounter Summary ---
Author Organization [facility] Address [address] [facility] [place] [address] Care Team Providers Care Computer Repair Technician Name Role Phone Tarun Glover DO Primary Care Provider [phone] Encounter Details Date Type Department Care Team ([facility] Contact Info) Description 03/22/2023 Abstract [facility] [address] [facility] [place] [address] Madisyn Winters PA [address] [facility] [address] [place], [place] [address] Social History Tobacco Use Types Packs/Day Years [...] EDT Procedure Visit [facility] Trina BAI[facility] [address] [facility] [place] [address] Madisyn Winters PA [address] [facility] [address] [place], [facility]11 documented as of this encounter Visit Diagnoses Not on filedocumented in this encounter Care Teams Computer Repair Technician Relationship Specialty Start Date End Date Tarun Glover DO [address] [place] [address] PCP - General Internal Medicine 03/23/23 documented as of this encounter
--- OUTSIDE RECORDS SUMMARY | 2025-04-08 19:45 | XMS_ITS | Encounter Summary ---
Author Organization [facility] Address [address] [place] [address] Care Team Providers Care Senior Database Administrator Name Role Phone Tarun Glover Primary Care Provider [phone] Encounter Details Date Type Department Care Team (Late st Contact Info) Description 04/08/2025 Telephone [facility] [address] [place] [address] Madisyn Winters PA [address] [place], [facility] Social History Tobacco Use Types Packs/Day Years [...] on file documented as of this encounter Miscellaneous Notes * Telephone Encounter - Jana Rivera LPN - 04/08/2025 2:08 PM EDT Pt in for annual visit states has not received Bijuva yet even though she did pay for this and thatthey told her insurance would only cover 21 days for $60 but then could drop down to $50. Patient states they did advise her they are going to refund money. Patient advised we will follow up with [facility] on this and that we do have additional pharmacies we can send this to. documented in this encounter Plan of Treatment Upcoming Encounters Date Type Department Care Team (Late st Contact Info) Description 04/16/2026 9:00 AM EDT Procedure Visit [facility] Trina [facility]AI[facility] [address] [facility] [address] Madisyn Winters PA [address] [facility] [address] [place], [place] [id number] documented as of this encounter Visit Diagnoses Not on filedocumented in this encounter Care Teams Senior Database Administrator Relationship Specialty Start Date End Date Tarun Glover DO [address] [place] [address] PCP - General Internal Medicine 03/23/23 documented as of this encounter
--- OUTSIDE RECORDS SUMMARY | 2025-04-08 19:45 | XMS_ITS | Encounter Summary ---
Author Organization [facility] Address [address] [facility] [place] [address] Care Team Providers Care Medical Doctor Nuclear Medicine Name Role Phone Tarun Rasmussen DO Primary Care Provider [phone] Encounter Details Date Type Department Care Team (Late st Contact Info) Description 05/02/2024 Clinisync Result Encounter NOMS External Department Unsolicited Kj Taylor DO [address] [facility] [facility] [place], [facility]11 Social History Tobacco Use Types Packs/Day [...] EDT Procedure Visit [facility] Trina [facility]AI[facility] [address] [place] [address] Madisyn Winters PA [address] [facility] [place], [facility]11 documented as of this encounter Procedures Procedure Name Priority Date/Time Associated Diagnosis Comments ECG 12-LEAD 05/02/2024 3:20 PM EDT documented in this encounter Results * ECG 12-LEAD (05/02/2024 3:20 PM EDT) Anatomical Region Laterality Modality Other 05/02/2024 3:20 PM EDT Narrative 05/02/2024 9:48 [place] [address] Electrocardiograph Report Signed Patient: OLIMPIA CORONA MR#: [id number] : 1970 Acct:[id number] Age/Sex: 53 / F ADM Date: 05/02/24 Loc: PST Attending Dr: Kj Taylor D.O. Ordering Physician: Kj Taylor D.O. Date of Service: 05/02/24 Procedure(s): ECG 12 lead Accession Number(s): [id number] cc: The [facility] Test Date: 2024-05-02 Pat Name: OLIMPIA CORONA Department: Room: - Gender: Female [employer] Principal: : 1970 Requested By: Tarun Rasmussen Order Number: [id number] Reading MD: TARUN RASMUSSEN Measurements Intervals [place] Rate: 71 P: 41 WA: 132 QRS: 31 QRSD: 82 T: 17 QT: 372 QTc: 405 Interpretive Statements SINUS RHYTHM Compared to ECG 09/09/2019 18:42:25 Sinus tachycardia no longer present Electronically Signed On 05-02-2024 21:47:59 EDT by TARUN RASMUSSEN Dictated By: Tarun Rasmussen D.O. Signed By: 05/02/24 2148 DD/ 1520 TD/TT: Breaker Machine Operator: Procedure Note Radiology, Radiologist, MD - 05/02/2024 The [place] [id number] Electrocardiograph Report Signed Patient: OLIMPIA CORONA RMR#: [id number] : 1970Acct:[id number] Age/Sex: 53 / FADM Date: 05/02/24 Loc: PST Attending Dr: jK Taylor D.O. Ordering Physician: Kj Taylor D.O. Date of Service: 05/02/24 Procedure(s): ECG 12 lead Accession Number(s): [id number] cc: [facility] Test Date: 2024-05-02 Pat Name: OLIMPIA CORONA Department: Room: - Gender: Female [employer] Principal: : 1970 Requested By: Tarun Rasmussen Order Number: [id number] Reading MD: TARUN RASMUSSEN Measurements Intervals [place] Rate: 71 P: 41 [place]: 132 QRS: 31 QRSD: 82 T: 17 QT: 372 QTc: 405 Interpretive Statements SINUS RHYTHM Compared to ECG 09/09/2019 18:42:25 Sinus tachycardia no longer present Electronically Signed On 05-02-2024 21:47:59 EDT by TARUN RASMUSSEN Dictated By: Tarun Rasmussen D.O. Signed By:05/02/248 DD/ 1520 TD/TT: Breaker Machine Operator: us Kj Taylor DO [facility] Final Result documented in this encounter Visit Diagnoses Not on filedocumented in this encounter Care Teams Medical Doctor Nuclear Medicine Relationship Specialty Start Date End Date Tarun Rasmussen DO [address] [place] [address] PCP - General Internal Medicine 03/23/23 documented as of this encounter
--- OUTSIDE RECORDS SUMMARY | 2025-04-08 19:45 | XMS_ITS | Encounter Summary ---
Author Organization [facility] Address [address] [place] [address] Care Team Providers Care Hospital Orderly Name Role Phone Tarun Glover DO Primary Care Provider [phone] Encounter Details Date Type Department Care Team (Late Contact Info) Description 04/10/2024 Clinisync Result Encounter [facility] External Department Unsolicited Madisyn Piper PA [address] [facility] [address] [place], [place] [address] Social History Tobacco Use Types Packs/Day Years [...] Upcoming Encounters Date Type Department Care Team ([facility] Contact Info) Description 04/16/2026 9:00 AM EDT Procedure Visit [facility] Tr[facility] [address] [facility] [place] [address] Mdaisyn Piper PA [address] [facility] [address] [place], [place] [address] documented as of this encounter Procedures Procedure Name Priority Date/Time Associated Diagnosis Comments US PELVIS W/ TRANSVAGINAL 04/10/2024 4:39 AM EDT documented in this encounter Results * US PELVIS W/ TRANSVAGINAL (04/10/2024 4:39 AM EDT) Anatomical Region Laterality Modality Other 04/10/2024 4:39 AM EDT Narrative 04/10/2024 4:42 AM EDT [address] [address] Ultrasound Report Signed Patient: OLIMPIA CORONA MR#: [id number] : 1970 Acct:[id number] Age/Sex: 53 / F ADM Date: 04/09/24 Loc: [facility] Attending Dr: Madisyn Piper Ordering Physician: Madisyn Piper Date of Service: 04/09/24 Procedure(s): US pelvis w/ transvaginal Accession Number(s): [id number] cc: Madisyn Piper; Tarun Glover D.O. [place] [id number] Patient Name: OLIMPIA CORONA MRN: [id number] date: 1970 Sex: F Assigned Patient Location: [facility] Current Patient Location: Accession/Order Number: [id number] Exam Date: 04/09/2024 12:57 Report Date: 04/10/2024 [...] Dictated By: Moisés Latham M.D. Signed By: 04/10/24441 DD/ TD/TT: Helper Marble Finisher: Procedure Note Radiology, Radiologist, - 04/10/2024 [place] [address] Ultrasound Report Signed Patient: OLIMPIA CORONA RMR#: [id number] : 1970Acct:[id number] Age/Sex: 53 / FADM Date: 04/09/24 [facility] Attending Dr: Madisyn Piper Ordering Physician: Madisyn Piper Date of Service: 04/09/24 Procedure(s): US pelvis w/ transvaginal Accession Number(s): [id number] cc: Madisyn Piper; Tarun Glover D.O. The [place] [address] Patient Name: OLIMPIA CORONA MRN: [id number] date: 1970 Sex: F Assigned Patient Location: [facility] Current Patient Location: Accession/Order Number: [id number] Exam Date: 04/09/2024 12:57 Report Date: 04/10/2024 [...] 04:39 Dictated By: Moisés Latham M.D. Signed By:04/10/242 DD/ 0439 TD/TT: Helper Marble Finisher: Madisyn SHIRLEY [facility] Final Result documented in this encounter Visit Diagnoses Not on filedocumented in this encounter Care Teams Hospital Orderly Relationship Specialty Start Date End Date Tarun Glover DO [address] [place] [address] PCP - General Internal Medicine 03/23/23 documented as of this encounter
--- OUTSIDE RECORDS SUMMARY | 2025-04-08 19:45 | XMS_ITS | Encounter Summary ---
Author Organization [facility] Address [address] [facility] [place] [address] Care Team Providers Care Integration Analyst Name Role Phone Tarun Glover DO Primary Care Provider Encounter Details Date Type Department Care Team (Late Contact Info) Description 04/24/2024 Abstract [facility] [address] [facility] [place] [address] Kristin Garcia LPN Social History Tobacco [...] AM EDT Procedure Visit JENNIFER BAILEY [address] [facility] [place] [address] Madisyn Winters PA [address] [facility] [place] [address] documented as of this encounter Visit Diagnoses Not on filedocumented in this encounter Care Teams Integration Analyst Relationship Specialty Start Date End Date Tarun Glover DO [address] [place] [address] PCP - General Internal Medicine 03/23/23 documented as of this encounter
--- OUTSIDE RECORDS SUMMARY | 2025-04-08 19:45 | XMS_ITS | Encounter Summary ---
Author Organization [facility] Address [address] [facility] [place] [address] Care Team Providers Care Bead Worker Sewing Name Role Phone Tarun Glover DO Primary Care Provider [phone] Encounter Details Date Type Department Care Team (Late Contact Info) Description 10/01/2024 Abstract [facility] [address] [facility] [place] [address] Kirstin Garcia LPN Social History Tobacco Use Types [...] Description 04/16/2026 9:00 AM EDT Procedure Visit [facility] [address] [facility] [place] [address] Madisyn Winters PA [address] [facility] [address] [place], [place] [address] documented as of this encounter Visit Diagnoses Not on filedocumented in this encounter Care Teams Bead Worker Sewing Relationship Specialty Start Date End Date Tarun Glover DO [address] [place] [address] PCP - General Internal Medicine 03/23/23 documented as of this encounter
--- OUTSIDE RECORDS SUMMARY | 2025-04-08 19:45 | XMS_ITS | Encounter Summary ---
Author Organization [facility] Address [address] [facility] [place] [address] Care Team Providers Care Trouble Locater Name Role Phone Tarun Glover DO Primary Care Provider [phone] Encounter Details Date Type Department Care Team (Late Contact Info) Description 06/25/2024 Abstract [facility] [address] [place] [place] [address] Kristin Garcia LPN Social History Tobacco [...] Upcoming Encounters Date Type Department Care Team ([facility] Contact Info) Description 04/16/2026 9:00 AM EDT Procedure Visit JENNIFER ABILEY [address] [place] [place] [address] Madisyn Winters PA [address] [facility] [address] [place], [place] [address] documented as of this encounter Visit Diagnoses Not on filedocumented in this encounter Care Teams Trouble Locater Relationship Specialty Start Date End Date Tarun Glover DO [address] [place] [address] PCP - General Internal Medicine 03/23/23 documented as of this encounter
--- OUTSIDE RECORDS SUMMARY | 2025-04-08 19:45 | XMS_ITS | Clinical Summary ---
Author Organization [facility] Address [address] [place] [address] Care Team Providers Care Bench Worker Apprentice Name Role Phone AdalbertoTarun Tyree ANNE Primary Care Provider [phone] Allergies Active Allergy Reactions Criticality Noted Date Comments Hurlock Oil Unknown 03/21/2023 Latex Unknown 03/21/2023 Milk-Related Compounds Unknown 03/21/2023 Soybean-Containing Drug Products Unknown 11/2022 Wheat Unknown 03/21/2023 Medications clotrimazole (Lotrimin) 1 % cream 1 application every 12 (twelve) hours. Active escitalopram (Lexapro) 10 MG tablet Take 10 mg by mouth in the morning. 3 Active Loratadine-D 24HR 10-240 MG 24 hr tablet Take 1 tablet by mouth if needed. 3 Active estradiol (Climara) 0.05 MG/24HRIndicatio ns:Hormone imbalance Place 1 patch over 7 days on the skin 1 (one) time per week 12 patch 3 5 01/08/20 26 Active progesterone (Prometrium) 100 MG capsuleIndicatio ns:Hormone imbalance Take 1 capsule (100 mg) by mouth Daily 30 capsule 11 5 01/08/20 26 Active estradiol (Climara) 0.075 MG/24HRIndicatio ns:Hormone disorder,Fatigue , unspecified type,Hot flashes Place 1 patch over 7 days on the skin 1 (one) time per week 12 patch 3 5 02/05/20 26 Active phentermine (Adipex-P) 37.5 MG tabletIndication s:Encounter for weight management Take 1 tablet (37.5 mg) by mouth in the morning. Take before meals. 30 tablet 5 Active metFORMIN XR (Glucophage-XR) 500 MG 24 hr tabletIndication s:Encounter for weight management Take 1 tablet (500 mg) by mouth in the evening. Take with meals Do not crush, chew, or split. 30 tablet 11 5 02/06/20 26 Active phentermine (Adipex-P) 37.5 MG tabletIndication s:Encounter for weight management Take 1 tablet (37.5 mg) by mouth in the morning. Take before meals. 90 tablet 5 06/09/20 25 Active Estradiol-Proges terone (Bijuva) 0.5-100 MG capsuleIndicatio ns:Hormone disorder,Hot flashes,Hormone imbalance Take 0.5-100 mg by mouth Daily 30 capsule 3 5 04/17/20 25 Active Active Problems Problem Noted Date Diagnosed Date Fibroids 04/29/2024 Encounters Date Type Department Care Team Description 04/08/2025 1:00 PM EDT [facility] [address] Madisyn Piper PA Well woman exam with routine gynecological exam; Encounter for screening mammogram for malignant neoplasm of breast; Postmenopausal state 04/08/2025 Abstract [facility] [address] Kj Taylor, 04/08/2025 Telephone [facility] [place] [address] Madisyn Piper PA 04/08/2025 Bamboo flowsheet [facility] [place] [address] Madisyn Piper PA 03/18/2025 Telephone [facility] [address] Alley Barriga MA 03/11/2025 2:30 PM EDT Office Visit JENNIFER [facility] [address] [facility] [address] [phone] Madisyn Piper PA Encounter for weight management 03/11/2025 Bamboo flowsheet [facility] [address] [facility] [address] Madisyn Piper PA 02/10/2025 10:50 AM EDT Office Visit [facility] [address] [facility] [address] Madisyn Piper PA Encounter for weight management 02/10/2025 Bamboo flowsheet [facility] [address] [facility] [facility] [address] [address] Madisyn Piper PA 02/07/2025 Abstract [facility] [address] [facility] [facility] [address] [address] Kj Taylor DO 02/07/2025 Clinisync Result Encounter N[facility]S External Department Unsolicited Madisyn Piper PA 02/04/2025 8:00 AM EDT Office Visit [facility] [address] [facility] [address] Kj Taylor DO Hormone disorder; Fatigue, unspecified type; Hot flashes 02/04/2025 Bamboo flowsheet [facility] [address] [facility] [facility] [address] [address] Kj Taylor DO 01/07/2025 8:50 AM EDT Office Visit [facility] [address] [facility] [facility] [address] [address] Kj Taylor DO Hormone imbalance; Encounter for weight management 01/07/2025 Abstract [facility] [address] [facility] [facility] [address] [address] Kj Taylor DO from Last 3 Months Family History Medical History Relation Name Comments Heart failure Father Harley Hina Cancer Mother Myrl Marks Heart disease Mother Jesus Marks Melanoma [...] 12 oz) 04/08/2025 1:24 PM EDT Height 165.1 cm (5' 5 ) 11/05/2024 8:37 AM EDT Body Mass Index 43.39 11/05/2024 8:37 AM EDT Plan of Treatment Upcoming Encounters Date Type Department Care Team (Late st Contact Info) Description 04/16/2026 9:00 AM EDT Procedure Visit [facility] [address] [facility] [address] Madisyn Piper PA [address] [place], [place] [id number] Health Maintenance Due Date Last Done Comments CT Colonography 1970 Colonoscopy 1970 Colorectal Cancer Screening 1970 FIT-DNA 1970 FIT 1969 FOBT 1970 Sigmoidoscopy 1970 Influenza Vaccine (#1) 2025 4, 03/31/2021, 05/28/2020, Additional history exists Mammogram 02/07/2026 02/07/2025 Cervical Cancer Screening 04/02/2029 HPV/Cotest 04/02/2029 04/13/2023 Pap Smear 04/02/2029 04/02/2024 Procedures Procedure Name Priority Date/Time Associated Diagnosis Comments MM TOMOSYNTHESIS SCREENING BI 02/07/2025 3:02 PM EDT PAP SMEAR Routine 04/02/2024 12:00 AM EDT THINPREP PAP AND HPV MRNA E6/E7 W/RFL HPV 16,18/45 Routine 04/13/2023 4:17 PM EDT Well woman exam with routine gynecological exam from Last 3 Months or Most Recently Relevant to Health Maintenance Results * MM TOMOSYNTHESIS SCREENING BI (02/07/2025 3:02 PM EDT) Anatomical Region Laterality Modality Other 02/07/2025 3:02 PM EDT Narrative 02/07/2025 3:02 [place] [address] Mammography Report Signed Patient: OLIMPIA CORONA MR#: [id number] : 1970 Acct:[id number] Age/Sex: 54 / F ADM Date: 02/07/25 Loc: RAD Attending Dr: Madisyn Piper Ordering Physician: Madisyn Piper Results: Date of Service: 02/07/25 Follow Up: Procedure(s): MM tomosynthesis screening BI Accession Number(s): [id number] cc: Madisyn Piper; Tarun Glover D.O. Patient Name: OLIMPIA CORONA MR#: [id number] : 1970 Exam Date: 02/07/2025 Ordering Doctor: CASPER PIPER . RADIOLOGY REPORT PROCEDURE: MM TOMOSYNTHESIS SCREENING BI COMPARISON: MM TOMOSYNTHESIS SCREENING BI, 12/29/2023. MG MAMM SCREEN 3D SANDHYA CAD, 12/07/2022. MG MAMM SCREEN 3D SANDHYA CAD, 10/07/2021. MG MAMM SANDHYA SCRN W CAD DIG, 10/07/2013. INDICATIONS: Screening Calculator Name NCI Breast Cancer Risk Assessment Tool 5 Year Breast Cancer Risk 1.10% Lifetime Breast Cancer Risk 7.40% Personal Breast Cancer No Personal Ovarian Cancer No Treatments None Family Cancers Mother with skin cancer at age 50. LOCATION: [facility] BREAST COMPOSITION: There are scattered areas of fibroglandular density. FINDINGS: RIGHT BREAST: No significant suspicious finding. LEFT BREAST: No significant suspicious finding. DIAGNOSTIC CATEGORY 1--NEGATIVE. RECOMMENDATIONS: ROUTINE MAMMOGRAM AND CLINICAL EVALUATION IN 12 MONTHS. PLEASE NOTE: A NORMAL MAMMOGRAM DOES NOT EXCLUDE THE POSSIBILITY OF BREAST CANCER. A CLINICALLY SUSPICIOUS PALPABLE LUMP SHOULD BE BIOPSIED. Dictated by: Paco Hobson MD on 02/07/2025 at 15:00 Approved by: Paco Hobson MD on 02/07/2025 at 15:01 Dictated By: Paco Hobson M.D. Signed By: 02/07/25 1502 DD/ 01 TD/TT: Sewer And Drain Technician: Procedure Note Radiology, Radiologist, MD - 02/07/2025 [place] [address] Mammography Report Signed Patient: OLIMPIA CORONA RMR#: [id number] : 1970Acct:[id number] Age/Sex: 54 / FADM Date: 02/07/25 Loc: RAD Attending Dr: Madisyn Piper Ordering Physician: Madisyn PiperResults: Date of Service: 02/07/25Follow Up: Procedure(s): MM tomosynthesis screening BI Accession Number(s): [id number] cc: Madisyn Piper; Tarun Glover D.O. Patient Name: OLIMPIA CORONA MR#: [id number] : 1970 Exam Date: 02/07/2025 Ordering Doctor: CASPER PIPER . RADIOLOGY REPORT PROCEDURE: MM TOMOSYNTHESIS SCREENING BI COMPARISON: MM TOMOSYNTHESIS SCREENING BI, 12/29/2023. MG MAMM [id number] SANDHYA CAD, 12/07/2022. MG MAMM SCREEN 3D SANDHYA CAD, 10/07/2021. MG MAMM BILSCRN W CAD DIG, 10/07/2013. INDICATIONS: Screening Calculator Name NCI Breast Cancer Risk Assessment Tool 5 Year Breast Cancer Risk 1.10% Lifetime Breast Cancer Risk 7.40% Personal Breast Cancer No Personal Ovarian Cancer No Treatments None Family Cancers Mother with skin cancer at age 50. LOCATION: [facility] BREAST COMPOSITION: There are scattered areas of fibroglandulardensity. FINDINGS: RIGHT BREAST: No significant suspicious finding. LEFT BREAST: No significant suspicious finding. DIAGNOSTIC CATEGORY 1--NEGATIVE. RECOMMENDATIONS: ROUTINE MAMMOGRAM AND CLINICAL EVALUATION IN 12 MONTHS. PLEASE NOTE: A NORMAL MAMMOGRAM DOES NOT EXCLUDE THE POSSIBILITY OFBREAST CANCER. A CLINICALLY SUSPICIOUS PALPABLE LUMP SHOULD BE BIOPSIED. Dictated by: Paco Hobson MD on 02/07/2025 at 15:00 Approved by: Paco Hobson MD on 02/07/2025 at 15:01 Dictated By: Paco Hobson M.D. Signed By:02/07/25 1502 DD/ 150 TD/TT: Sewer And Drain Technician: Madisyn [facility] Final Result * Pap Smear (04/02/2024 12:00 AM EDT) Swab Cervical swab / Unknown Madisyn [facility] CYTOLOGY ORDERABLES Final Re sult EXTERNAL LAB * THINPREP PAP AND HPV MRNA E6/E7 W/RFL HPV 16,18/45 (04/13/2023 4:17 PM EDT) Madisyn [facility] BLOOD ORDERABLES Final Resul t Performing Organization Address City/[facility]/ZIP Co de Phone Number EXTERNAL LAB from Last 3 Months or Most Recently Relevant to Health Maintenance Insurance [employer] Care Teams Bench Worker Apprentice Relationship Specialty Start Date End Date Tarun Glover DO [address] [place] [address] PCP - General Internal Medicine 03/23/23
--- OUTSIDE RECORDS SUMMARY | 2025-04-08 19:45 | XMS_ITS | Encounter Summary ---
Author Organization [facility] Address [address] [facility] [place] [address] Care Team Providers Care Rv Mechanic Name Role Phone Tarun Glover DO Primary Care Provider [phone] Encounter Details Date Type Department Care Team ([facility] Contact Info) Description 08/30/2024 Abstract [facility] [address] [place] [address] Madisyn Winters PA [address] [facility] [address] [place], [place] [address] Social History Tobacco Use Types Packs/Day Years [...] Upcoming Encounters Date Type Department Care Team ([facility] Contact Info) Description 04/16/2026 9:00 AM EDT Procedure Visit [facility] [address] [place] [address] Madisyn Winters PA [address] [facility] [address] [place], [facility]11 documented as of this encounter Visit Diagnoses Not on filedocumented in this encounter Care Teams Rv Mechanic Relationship Specialty Start Date End Date Tarun Glover DO [address] [place] [address] PCP - General Internal Medicine 03/23/23 documented as of this encounter
--- OUTSIDE RECORDS SUMMARY | 2025-04-08 19:45 | XMS_ITS | Encounter Summary ---
Author Organization [facility] Address [address] [facility] [place] [address] Care Team Providers Care Otr Hazmat [employer] Driver Name Role Phone Tarun Glover DO Primary Care Provider [phone] Encounter Details Date Type Department Care Team (Late Contact Info) Description 04/08/2025 Abstract [facility] [address] [facility] [place] [address] Kj Taylor DO [address] [facility] [address] [place], [place] [address] Social History Tobacco Use Types Packs/Day Years [...] Procedure Visit [facility] [address] [facility] [place] [address] Madisyn Winters PA [address] [facility] [address] [place], [facility] documented as of this encounter Visit Diagnoses Not on filedocumented in this encounter Care Teams Otr [employer] Driver Relationship Specialty Start Date End Date Tarun Glover DO [address] [place] [address] PCP - General Internal Medicine 03/23/23 documented as of this encounter
--- OUTSIDE RECORDS SUMMARY | 2025-04-08 19:45 | XMS_ITS | Encounter Summary ---
Author Organization [facility] Address [address] [place] [address] Care Team Providers Care Customs House Broker Name Role Phone Tarun Glover DO Primary Care Provider [phone] Encounter Details Date Type Department Care Team (Late Contact Info) Description 12/29/2023 Abstract [facility] [address] [facility] [place] [address] Kj Taylor DO [address] [facility] [address] [place], [place] [address] Social History Tobacco Use Types Packs/Day Years [...] AM EDT Procedure Visit [facility] [address] [facility] [place] [address] Madisyn Winters PA [address] [facility] [place], [facility]11 documented as of this encounter Visit Diagnoses Not on filedocumented in this encounter Care Teams Customs House Broker Relationship Specialty Start Date End Date Tarun Glover DO [address] [facility] [place] [address] PCP - General Internal Medicine 03/23/23 documented as of this encounter
--- OUTSIDE RECORDS SUMMARY | 2025-04-08 19:45 | XMS_ITS | Encounter Summary ---
Author Organization [facility] Address [address] [place] [address] Care Team Providers Care Miner Placer Name Role Phone Tarun Glover DO Primary Care Provider [phone] Encounter Details Date Type Department Care Team ([facility] Contact Info) Description 04/08/2025 Bamboo flowsheet [facility] [address] [facility] [place] [address] Madisyn Winters PA [address] [place] [address] [place], [place] [address] Social History Tobacco Use Types Packs/Day Years [...] EDT Procedure Visit [facility] Trina [facility] [address] [facility] [place] [address] Madisyn Winters PA [address] [place] [address] [place] [id number] documented as of this encounter Visit Diagnoses Not on filedocumented in this encounter Care Teams Miner Placer Relationship Specialty Start Date End Date Tarun Glover DO [address] [place] [address] PCP - General Internal Medicine 03/23/23 documented as of this encounter
--- OUTSIDE RECORDS SUMMARY | 2025-04-08 19:45 | XMS_ITS | Encounter Summary ---
Author Organization [facility] Address [address] [facility] [place] [address] Care Team Providers Care Mobile Security Architect Name Role Phone Tarun Glover DO Primary Care Provider [phone] Encounter Details Date Type Department Care Team ([facility] Contact Info) Description 11/19/2024 Abstract [facility] [address] [facility] [place] [address] Kj Taylor DO [address] [facility] [address] [place], [place] [address] Social History Tobacco Use Types Packs/Day Years [...] Visit [facility] Trina [facility]AI[facility] [address] [facility] [place] [address] Madisyn Winters PA [address] [place], [facility] documented as of this encounter Visit Diagnoses Not on filedocumented in this encounter Care Teams Mobile Security Architect Relationship Specialty Start Date End Date Tarun Glover DO [address] [place] [address] PCP - General Internal Medicine 03/23/23 documented as of this encounter
--- OUTSIDE RECORDS SUMMARY | 2025-04-08 19:45 | XMS_ITS | Encounter Summary ---
Author Organization [facility] Address [address] [place] [address] Care Team Providers Care Machinist First Class Name Role Phone Tarun Glover DO Primary Care Provider [phone] Encounter Details Date Type Department Care Team (Late Contact Info) Description 04/03/2024 Abstract [facility] [address] [facility] [place] [address] Kj Taylor DO [address] [facility] [address] [place], [place] [address] Social History Tobacco Use Types Packs/Day Years [...] AM EDT Procedure Visit [facility]AI[facility] [address] [facility] [place] [address] Madisyn Winters PA [address] [facility] [address] [place], [facility]11 documented as of this encounter Visit Diagnoses Not on filedocumented in this encounter Care Teams Machinist First Class Relationship Specialty Start Date End Date Tarun Glover DO [address] [facility] [place] [address] PCP - General Internal Medicine 03/23/23 documented as of this encounter
--- OUTSIDE RECORDS SUMMARY | 2025-04-08 19:45 | XMS_ITS | Encounter Summary ---
Author Organization [facility] Address [address] [facility] [place] [address] Care Team Providers Care Geodetic Survey Director Name Role Phone Tarun Glover DO Primary Care Provider [phone] Encounter Details Date Type Department Care Team (Late Contact Info) Description 05/09/2024 Abstract [facility] [address] [facility] [place] [address] Kj Taylor DO [address] [facility] [address] [place], [place] [address] Social History Tobacco Use Types Packs/Day Years [...] Procedure Visit [facility] Trina [facility]AI[facility] [address] [facility] [place] [address] Madisyn Winters PA [address] [facility] [address] [place], [facility]11 documented as of this encounter Visit Diagnoses Not on filedocumented in this encounter Care Teams Geodetic Survey Director Relationship Specialty Start Date End Date Tarun Glover DO [address] [place] [address] PCP - General Internal Medicine 03/23/23 documented as of this encounter
--- OUTSIDE RECORDS SUMMARY | 2025-04-08 19:45 | XMS_ITS | Encounter Summary ---
Author Organization [facility] Address [address] [facility] [address] Care Team Providers Care Enrollment Management Coordinator Name Role Phone Tarun Glover DO Primary Care Provider [phone] Encounter Details Date Type Department Care Team (Late Contact Info) Description 08/09/2024 Abstract [facility] [address] [facility] [place] [address] Kj Taylor DO [address] [facility] [address] [place], [place] [address] Social History Tobacco Use Types Packs/Day Years [...] EDT Procedure Visit [facility] Tr[facility] [address] [facility] [place] [address] Madisyn Winters PA [address] [facility] [address] [place], [facility]11 documented as of this encounter Visit Diagnoses Not on filedocumented in this encounter Care Teams Enrollment Management Coordinator Relationship Specialty Start Date End Date Tarun Glover DO [address] [place] [address] PCP - General Internal Medicine 03/23/23 documented as of this encounter
--- OUTSIDE RECORDS SUMMARY | 2025-04-08 19:45 | XMS_ITS | Encounter Summary ---
Author Organization [facility] Address [address] [facility] [place] [address] Care Team Providers Care Correctional Manager Name Role Phone Tarun Glover DO Primary Care Provider [phone] Encounter Details Date Type Department Care Team (Late Contact Info) Description 05/09/2024 Abstract [facility] [address] [facility] [place] [address] Kj Taylor DO [address] [facility] [address] [place], [place] [address] Social History Tobacco Use Types Packs/Day Years [...] Visit [facility] Trina BAILEY [address] [facility] [place] [address] Madisyn Winters PA [address] [facility] [address] [place], [facility]11 documented as of this encounter Visit Diagnoses Not on filedocumented in this encounter Care Teams Correctional Manager Relationship Specialty Start Date End Date Tarun Glover DO [address] [place] [address] PCP - General Internal Medicine 03/23/23 documented as of this encounter
--- OUTSIDE RECORDS SUMMARY | 2025-04-08 19:46 | XMS_ITS | CCD ---
Author Organization [facility] Care Team Providers Care Resp Ther Name Role Phone TREVOR BRUSH Unavailable Unavailable Tarun Glover Unavailable APPLE, DR MONTRELL Thomas Admitting Unavailable VALERY, DR JARA Primary Care Unavailable APPLE, DR MONTRELL Thomas Attending Unavailable APPLE, DR MONTRELL Thomas Consulting Unavailable VALERY, DR JARA Attending Unavailable VALERY, DR JARA Primary Care Unavailable VALERY, DR JARA Admitting Unavailable Tasia Emery Unavailable DO Tarun Glover Primary Care Provider [phone] MD Harsha Covarrubias Attending Provider Tarun Glover MD Primary Care Provider DO Kj Taylor Attending Provider [phone] Kj Taylor Attending Unavailable Kj Taylor Admitting Unavailable Tarun Glover Primary Care Unavailable Harsha Covarrubias Admitting Unavailable Harsha Covarrubias Attending Unavailable Kj Taylor DO Attending Provider [phone] Tarun Glover MD Primary Care Provider Tarun Glover DO Primary Care Provider Tarun Glover DO Primary Care Provider Tarun Glover DO Attending Provider [phone] Kj Taylor DO Attending Provider [phone] VIANEY, MADISYN Attending Unavailable VIANEY, MADISYN Attending Unavailable BRANDONKAMI SchraderY Attending Unavailable BRANDON, KJ Attending Unavailable VIANEY, MADISYN Attending Unavailable VIANEY, MADISYN Attending Unavailable VIANEY, MADISYN Attending Unavailable BRANDON, KJ Attending Unavailable VIANEY, MADISYN Attending Unavailable Allergies Allergy Classification Reported Allergen(s) Allergy Type Date of Onset Reaction(s) Facility (18 sources) Latex Propensity to adverse reactions rash [facility] Other (1 source) Latex Drug allergy (disorder) [facility] Repository (1 source) Morphine Drug Allergy 4 [facility] Repository (8 sources) patient allergy list reviewed by nurse or physicia Propensity to adverse reactions 6 Comment:Done Souqalmal Other (8 sources) Allergies Reconciled Propensity to adverse reactions Unknown [facility] Other (20 sources) [place] Oil Drug Allergy 3 Unknown [facility] (20 sources) Latex Allergy to substance 3 Unknown [facility] (20 sources) WHEAT DEXTRIN Drug Allergy 3 Unknown [facility] (20 sources) Milk-Related Compounds Drug Allergy 3 Unknown [facility] (20 sources) Soybean-Contain ing Drug Products Drug Allergy 3 Unknown [facility] (1 source) Latex Drug allergy (disorder) 4 [facility] Repository Medications Current Medications Medication [...] PO Every 6 hours as needed October 26, 2023 12:00am Complies with drug therapy take 1 tablet by mouth every six hours acyclovir 400 mg oral tablet (20 sources) Herpesvirus Nucleoside Analog DNA Polymerase Inhibitor, Herpes Simplex Virus Nucleoside Analog DNA Polymerase Inhibitor, Herpes Zoster Virus Nucleoside Analog DNA Polymerase Inhibitor Start: 10-26-2023 take 1 tablet by mouth twice daily as needed Acyclovir 400 mg tablet Active 400 MG PO Twice daily as needed October 26, 2023 12:00am Complies with drug therapy End: 09-17-2024 acyclovir (Zovirax) 400 MG t ablet every 12 (twelve) hours. 04/02/2024 Discontinued take 1 tablet by chanel every twelve hours [id number] 200 actuat albuterol 0.09 mg/actuat metered dose inhaler (20 sources) beta2-Adrenergic Agonist Start: 02-25-2024 take 2 puff(s) by mouth every four hours as needed for cough Albuterol Sulfate 90 mcg/actuation HFA aerosol inhaler Active 0 .ROUTE .COMPLEX 8.5 February 25, 2024 2:00pm INHALE 2 PUFFS BY MOUTH EVERY 4 HOURS NEEDED FOR COUGH Complies with drug therapy Start: 10-26-2023 End: 02-25-2024 take 1 puff(s) by inhalation every four hours as needed Albuterol Sulfate 90 mcg/actuation HFA aerosol inhaler Discontinued 2 PUFF INHALATION Every 4 hours as needed October 26, 2023 12:00am February 25, 2024 [...] for 30 days Sep, Active Start: 09-26-2022 End: 12-16-2024 take 2 puff(s) by mouth every four hours as needed for cough albuterol HFA 90 mcg/act inhaler INHALE 2 PUFFS BY MOUTH EVERY 4 HOURS NEEDED FOR COUGH AND SHORTNESS OF BREATH 09/26/2022 12/16/2024 Discontinued (Therapy completed) Start: 09-26-2022 take 2 puff(s) by in [...] 05/02/2024 Active clotrimazole 10 mg/ml topical cream (20 sources) Azole Antifungal clotrimazole (Lotrimin) 1 % cream 1 application every 12 (twelve) hours. Active escitalopram 10 mg oral tablet (20 sources) Serotonin Reuptake Inhibitor Start: 025 take 1 tablet by mouth once daily Escitalopram Oxalate 10 mg tablet Active 0 .ROUTE .COMPLEX December 10, 2024 9:29am TAKE 1 TABLET BY MOUTH DAILY Complies with drug therapy Start: 01-01-2024 End: 09-17-2024 take 1 tablet by mouth once daily Escitalopram Oxalate 10 mg tablet Discontinued 0 .ROUTE .COMPLEX May 14, 2024 1:36pm September 17, 2024 10:55am TAKE ONE TABLET BY MOUTH ONCE DAILY Start: 09-12-2023 End: 10-26-2023 take 1 tablet by mouth once daily Escitalopram Oxalate 10 mg tablet Discontinued 0 .ROUTE .COMPLEX September 12, 2023 5:24pm October 26, 2023 2:08pm TAKE ONE TABLET BY MOUTH ONCE DAILY Start: 09-12-2022 End: 12-10-2024 take 1 tablet by mouth in the morning escitalopram (Lexapro) 10 MG tablet Take 10 mg by mouth in the morning. 03/17/2023 Active 168 hr estradiol 0.90368 mg/hr transdermal system (20 sources) Estrogen Start: 02-04-2025 End: 02-04-2026 estradiol (Climara) 0.075 MG/24HR Indications: Hormone disorder , Fatigue, unspecified type , Hot flashes Place 1 patch over 7 days on the skin 1 (one) time per week 12 patch 3 02/04/2025 02/04/2026 Active Start: 01-16-2025 Estradiol 0.05 mg/24 hr patch semiweekly Active 1 PATCH TRANSDERML Twice a Week January 16, 2025 12:00am apply 1 patch for 3 days alternating with 1 patch for 4 days each week for 3 wks per 4-wk cycle Complies with drug therapy Start: 01-07-2025 End: 01-07-2026 estradiol (Climara) 0.05 MG/ 24HR Indications: Hormone imbalance Place 1 patch over 7 days on the skin 1 (one) time per week 12 patch 3 01/07/2025 01/07/2026 Active Estradiol / Progesterone (3 sources) Progesterone, Estrogen Start: 03-18-2025 End: 04-17-2025 Estradiol-Progesterone (Bijuva) 0.5-100 MG capsule Indications: Hormone disorder , Hot flashes , Hormone imbalance Take 0.5-100 mg by mouth Daily 30 capsule 3 03/18/2025 04/17/2025 Active levoFLOXacin 750 mg oral tablet (1 source) Quinolone Antimicrobial Start: 08-21-2023 take 1 tablet by mouth every twenty-fou r hours levoFLOXacin 750 MG 1 tablet Orally Once a day for 5 days Aug, Active 24 hr loratadine 10 mg / pseudoephedrine sulfate 240 mg extended release oral tablet (20 sources) alpha-Adrenergic Agonist Start: 10-26-2023 End: 03-29-2024 take 1 tablet by mouth once daily Loratadine-Pseudoephedrin e 10-240 mg tablet extended release 24 hr Active 1 TAB PO Daily 100 100 March 29, 2024 10:33am Complies with drug therapy Start: 03-04-2023 take 10-240 mg by mo uth every twenty-four hours Loratadine-D 24HR 10-240 MG 24 hr tablet Take 1 tablet by mouth if needed. 03/04/2023 Active take 1 tablet by chanel th every twenty-four hours meloxicam 7.5 mg oral tablet (20 sources) Nonsteroidal Anti-inflammatory Drug Start: 12-26-2023 End: 12-16-2024 take 1 tablet by mouth once daily Meloxicam 7.5 mg tablet Active 7.5 MG PO Daily December 26, 2023 12:00am Complies with drug therapy 24 hr metFORMIN hydrochloride 500 mg extended release oral tablet (8 sources) Biguanide Start: 02-10-2025 End: 02-05-2026 take 1 tablet by mouth every twenty-four hours at mealtime metFORMIN XR (Glucophage-XR) 500 MG 24 hr tablet Indications: Encounter for weight management Take 1 tablet (500 mg) by mouth in the evening. Take with meals Do not crush, chew, or split. 30 tablet 11 02/10/2025 02/05/2026 Active paxlovid (300/100) 20 x 150 mg & 10 x 100mg tablet therapy pack (3 sources) Start: 07-19-2023 Paxlovid (300/100) 20 x 150 MG & 10 x 100MG as directed Orally bid for 5 days Jul, Active phentermine hydrochloride 37.5 mg oral tablet (20 sources) Sympathomimetic Amine Anorectic Start: 12-16-2024 End: 06-09-2025 take 1 tablet by mouth before mealtime phentermine (Adipex-P) 37.5 MG tablet Indications: Encounter for weight management Take 1 tablet (37.5 mg) by mouth in the morning. Take before meals. 90 tablet 03/11/2025 06/09/2025 Active Start: 02-27-2023 End: 05-29-2024 take 1 tablet by mouth once daily Phentermine 37.5 mg tablet Discontinued 37.5 MG PO Daily March 29, 2024 10:32am May 29, 2024 9:54am start 02/26 Start: 01-02-2023 take 1 tablet [...] w/ food for 5 days Jul, Active progesterone 100 mg oral capsule (16 sources) Progesterone Start: 01-07-2025 End: 01-07-2026 take 1 capsule by mouth once daily progesterone (Prometrium) 100 MG capsule Indications: Hormone imbalance Take 1 capsule (100 mg) by mouth Daily 30 capsule 01/07/2025 01/07/2026 Active Semaglutide (3 sources) Start: 05-29-2024 Semaglutide 0. 25 mg or 0.5 mg (2 mg/3 mL) pen injector Active 0.25 MG SUBCUT every week May 29, 2024 1:00am for 4 weeks Complies with drug therapy Start: 05-29-2024 Semaglutide 0. 25 mg or 0.5 mg (2 mg/3 mL) pen injector Active 0.25 MG SUBCUT every week May 29, 2024 1:00am for 4 weeks Start: 05-29-2024 Semaglutide 0. 25 mg or 0.5 mg (2 mg/3 mL) pen injector Active 0.25 MG SUBCUT every week May 29, 2024 12:00am for 4 weeks tiZANidine 4 mg oral tablet (10 sources) Central alpha-2 Adrenergic Agonist Start: 01-20-2023 tiZANidine HCl 4 MG 1/2 - 1 Orally q HS for 15 days Jan, Active wegovy 0.25 mg/0.5ml solution auto-injector (3 sources) Start: 11-16-2022 inject 0.5 mL by subcutaneous injection every week Completed/Discontinued Medications Medication Drug Class(es) Dates Sig (Normalized) Sig (Original) etodolac 500 mg oral tablet (18 sources) Nonsteroidal Anti-inflammatory Drug Start: 10-26-2023 End: 01-06-2025 take 1 tablet by mouth twice daily Etodolac 500 mg tablet Discontinued 500 MG PO Twice daily October 26, 2023 12:00am January 06, 2025 6:56am Start: 01-20-2023 take 1 tablet by chanel th every twelve hours Etodolac 500 MG 1 tablet with food Orally Twice a day for 30 days Jan, Active ibuprofen 200 mg oral tablet (20 sources) Nonsteroidal Anti-inflammatory Drug Start: 10-26-2023 End: 01-06-2025 take 1 tablet by mouth three times daily as needed Ibuprofen 200 mg tablet Discontinued 200 MG PO Three times daily as needed October 26, 2023 12:00am January 06, 2025 6:56am End: 04-02-2024 ibuprofen (Motrin IB) 200 MG tablet every 8 (eight) hours. 04/02/2024 Discontinued take 1 tablet by chanel th three times daily at mealtime as needed Semaglutide-Weight Managemen t (WEGOVY SC) (13 sources) End: 12-16-2024 Semaglutide-Weight Managemen t (WEGOVY SC) Inject under the skin 12/16/2024 Discontinued (Therapy completed) Semaglutide-Weig ht Management (WEGOVY SC) Inject under the skin Active triamcinolone acetonide 40 mg/ml injectable suspension (14 sources) Corticosteroid Start: 11-16-2022 Kenalog-40 November, 60 mg Problems Active Problems Problem Classification Problem Date Documented Date Episodic/Chronic Abdominal pain (20 sources) Left lower quadrant pain; Translations: [Left lower quadrant pain] 04-29-2024 Episodic Acute bronchitis (11 sources) Acute bronchitis due to other specified organisms; Translations: [Acute bronchitis] Onset: 09-03-2013 Episodic Administrative/social admission (14 sources) Encounter for pre-employment examination; Translations: [Patient [...] Episodic Immunizations and screening for infectious disease (19 sources) Vaccination given; Translations: [Encounter for immunization] Onset: 12-06-2023 10-27-2023 Episodic Malaise and fatigue (13 sources) Fatigue; Translations: [Other fatigue] 11-05-2024 Episodic Menopausal disorders (20 sources) Menopausal symptom; [...] Translations: [Pain in right foot] Episodic Other endocrine disorders (8 sources) Disorder of endocrine system; Translations: [Endocrine disorder, unspecified] 11-05-2024 Episodic Other female genital disorders (2 sources) Pain in female genitalia on intercourse; Translations: [Unspecified dyspareunia] 04-29-2024 Chronic Other inflammatory condition of skin (9 sources) Lichen planus; Translations: [Other lichen planus] Episodic Other lower respiratory disease (20 sources) Solitary nodule of lung; Translations: [Solitary pulmonary nodule] Episodic Other lower respiratory disease (3 sources) Nodule of lung; Translations: [Solitary pulmonary nodule] 08-26-2024 Episodic Comment on above: CT: 1.8cm left lung - 08/2019PET/CT: 1.4cm non FDG avid - 09/2019CT: stable granuloma - 2CXR: 1.8cm left mid lung - 08/2024 Other non-traumatic joint disorders (9 sources) Arthralgia [...] Chronic Other nutritional; endocrine; and metabolic disorders (16 sources) Obesity; Translations: [Obesity, unspecified] 12-26-2023 Chronic Other nutritional; endocrine; and metabolic disorders (4 sources) Obesity, unspecified; Translations: [Obesity, unspecified] 12-26-2023 Chronic Other nutritional; endocrine; and metabolic disorders (9 sources) Abnormal weight gain; Translations: [Abnormal weight gain] Episodic Other screening for suspected conditions (not mental disorders or infectious disease) (15 sources) Encounter for screening mammogram for malignant neoplasm of breast; Translations: [Abnormal findings on diagnostic imaging of breast] Episodic Other upper respiratory disease (16 sources) Allergic rhinitis due to pollen; Translations: [Allergic rhinitis due to pollen] 11-07-2024 Chronic Other upper respiratory disease (1 source) [...] functional implant, unspecified] Chronic Residual codes; unclassified (4 sources) Postmenopausal state; Translations: [Asymptomatic menopausal state] 04-02-2024 Episodic Residual codes; unclassified (4 sources) Flushing; Translations: [Flushing] 11-05-2024 Episodic Rheumatoid arthritis and related disease (2 sources) Inflammatory polyarthropathy; Translations: [Inflammatory polyarthropathy] 01-06-2025 Chronic Skin and subcutaneous tissue infections (2 sources) Cellulitis; Translations: [Cellulitis, unspecified] 05-16-2024 Episodic Spondylosis; intervertebral disc disorders; other back problems (14 sources) Lumbar spondylosis; Translations: [Spondylosis without myelopathy or radiculopathy, lumbar region] 10-27-2023 Chronic Sprains and strains (16 sources) Late effect of sprain AND/OR strain without tendon injury; Translations: [Sprain of other ligament of right ankle, sequela] 03-29-2024 Episodic Unclassified (9 sources) Exposure to acute respiratory syndrome coronavirus 2; Translations: [Contact with and (suspected) exposure to COVID-19] Viral infection (10 sources) Disease caused by 2019-nCoV; Translations: [COVID-19] Past or Other Problems Problem Classification Problem Date Documented Da te Episodic/Chronic Other and unspecified benign neoplasm (20 sources) Leiomyoma; Translations: [Benign neoplasm of connective and other soft tissue, unspecified] Onset: 04-29-2024 04-29-2024 Episodic Other inflammatory condition of skin (9 sources) Erythematous condition; Translations: [Unspecified erythematous condition] Onset: 09-28-2015 Episodic Spondylosis; intervertebral disc disorders; other back problems (9 sources) Low back pain; Translations: [Lumbago] Onset: 06-08-2015 Episodic Unclassified (1 source) Acute right-sided low back pain without sciatica M54.50 Unclassified (1 source) Acute cough R05.1 Results Test Name Value Interpretation Reference Range Facility MM TOMOSYNTHESIS SCREENING B Ion 02-07-2025 [place] [address] Mammography Report Signed Patient: SANIA DINH MR#: [id number] : 1970 Acct:[id number] Age/Sex: 54 / F ADM Date: 02/07/25 Loc: RAD Attending Dr: Madisyn Piper Ordering Physician: Madisyn Piper Results: Date of Service: 02/07/25 Follow Up: Procedure(s): MM tomosynthesis screening BI Accession Number(s): [id number] cc: Madisyn Piper; Tarun Glover D.O. Patient Name: SANIA DINH MR#: [id number] : 1970 Exam Date: 02/07/2025 Ordering Doctor: [...] skin cancer at age 49. LOCATION: [facility] BREAST COMPOSITION: There are scattered areas of [...] Signed By: 02/07/25 1502 DD/ 01 TD/TT: Cover Stitch Machine Operator: [facility] Radiology, Radiologi MD rogers - 02/07/2025 [place] [address] Mammography Report Signed Patient: SANIA DINH MR#: [id number] : 1970 Acct:[id number] Age/Sex: 54 / F ADM Date: 02/07/25 Loc: RAD Attending Dr: Madisyn Piper Ordering Physician: Madisyn Piper Results: Date of Service: 02/07/25 Follow Up: Procedure(s): MM tomosynthesis screening BI Accession Number(s): [id number] cc: Madisyn Piper; Tarun Glover D.O. Patient Name: SANIA DINH MR#: [id number] : 1970 Exam Date: 02/07/2025 Ordering Doctor: [...] skin cancer at age 49. LOCATION: [facility] BREAST COMPOSITION: There are scattered areas of [...] Hobson M.D. Signed By: 02/07/25 1502 DD/ 1502 TD/TT: Cover Stitch Machine Operator: [facility] Radiology Study observation (narrative) [facility] MM TOMOSYNTHESIS SCREENING B IOrdered By: Radiologist Radiology on 02-07-2025 [facility] Work Phone: ALL T3 FREEon 11-08-2024 Free T3 [Mass/Vol] 2.13 pg/mL Low 2.18 - 3.98 pg/mL [facility] Interpretation and review of laboratory results Abnormal [facility] ALL THYROID STIM HORMONEon 0 11-08-2024 TSH Qn 1.114 m[IU]/L [facility] ALL THYROXINE (T4)on 025 T4 [Mass/Vol] 8.9 ug/dL 4.80 - 13.90 ug/dL [facility] Free testosterone measuremen t by LC-MS/MSon 11-08-2024 Testosterone Free [Mass/Vol] 0.2 pg/mL 0.0-4.2 [facility] Comment on above: Performed at: [facility] [address] [id number] Director: Barry Mcrae PhD, Phone: [phone] at: [facility] [id number] Director: Juany Baker MD, Phone: [phone] Glucose mean value [Mass/vol ume] in Blood Estimated from glycated hemoglobinon 11-08-2024 Average glucose Estimated from glycated hemoglobin (Bld) [Mass/Vol] 103 mg/dL [facility] Hemoglobin A1c percentageon 11-08-2024 HbA1c (Bld) [Mass fraction] 5.2 % 4.5-6.2 [facility] Comment on above: ADA RECOMMENDED LIMI T 4.0 - 6.0ADA THERAPEUTIC TARGET < 7.0ACTION SUGGESTED> 7.0 Laboratory - Chemistry and C hemistry - challengeon 11-08-2024 Ferritin [Mass/Vol] 129.0 ng/mL 8.0-252.0 [facility] Free T4 [Mass/Vol] 0.96 ng/dL 0.76-1.46 [facility] Glucose [Mass/Vol] 96 mg/dL 74-106 [facility] T4 [Mass/Vol] 8.90 ug/dL 4.80-13.90 [facility] TSH Qn 1.114 m[IU]/L 0.358-3.74 0 [facility] No Panel Informationon 11-08 [facility] C-Peptide 4.0 ng/mL 1.1-4.4 [facility] Comment on above: C-Peptide reference interval is for fasting patients. Dehydroepiandrosterone Sulfate 37.5 ug/dL 29.4-220.5 [facility] Free Cortisol, Dialysis, LCMS 0.124 ug/dL . [facility] Comment on above: These tests were dev eloped and their performancecharacteristics determined by [facility]. They have not beencleared or approved by the Food and Drug Administration.Reference Range:8 AM 0.10 - 1.204 PM 0.042 - 0.872Performed at: [facility] [id number] [place], [place] [id number] Director: Toan Burr MD, Phone: [phone] Free Triiodothyronine 2.13 pg/mL Low 2.18-3.98 [facility] Reverse Triiodothyronine (T3) 26.5 ng/dL Abnormal 9.2-24.1 [facility] Comment on above: This test was develo ped and its performance characteristicsdetermined by [facility]. It has not been cleared orapproved by the Food and Drug Administration.Performed at: [facility] [employer] [id number] Director: Juany Baker MD, Phone: [phone] Sex Hormone Binding Globulin 52.5 nmol/L 17.3-125.0 [facility] Comment on above: Performed at: [address] [id number] Director: Barry Mcrae PhD, Phone: [phone] Testosterone Level 10 ng/dL 4-50 [facility] Plasma serotonin measurement (mass/volume)on 11-08-2024 Serotonin (P) [Mass/Vol] 17 ng/mL Abnormal 31-207 [facility] Comment on above: This test was develo ped and its performance characteristicsdetermined by [facility]. It has not been cleared orapproved by the Food and Drug Administration.Performed at: [facility] [employer] [id number] Director: Juany Baker MD, Phone: [phone] Serum estrone measurementon 04-25-2025 E1 [Mass/Vol] 19 pg/mL . [facility] Comment on above: Range Adult (Premeno pausal) 27 - 231 Menstrual Cycle (1-10 days) 19 - 149 Menstrual Cycle (11-20 days) 32 - 176 Menstrual Cycle (21-30 days) 37 - 200 Adult (Postmenopausal) 0 - 125Performed at: [facility] - [facility] [address] [id number] Director: Juany Baker MD, Phone: [phone] Serum or plasma calcitriol m easurement (mass/volume)on 11-08-2024 1,25-dihydroxyvitamin D3 [Mass/Vol] 41.9 pg/mL 24.8-81.5 [facility] Comment on above: Performed at: [facility] [address] [id number] Director: Juany Baker MD, Phone: [phone] Serum or plasma estradiol (E 2) measurement (mass/volume)on 11-08-2024 E2 [Mass/Vol] 11.7 pg/mL . [facility] Comment on above: Adult Female Range F ollicular phase 12.5 - 166.0 Ovulation phase 85.8 - 498.0 Luteal phase 43.8 - 211.0 Postmenopausal <6.0 - 54.7 1st trimester 215.0 - >4300.0Roche ECLIA methodology Serum or plasma insulin beatrice urement (units/volume)on 11-08-2024 Insulin Qn 30.1 u[iU]/mL Abnormal 2.6-24.9 [facility] Comment on above: Performed at: [facility] [address] [id number] Director: Barry Mcrae PhD, Phone: [phone] Serum or plasma progesterone measurement (mass/volume)on 11-08-2024 Progesterone [Mass/Vol] 0.3 ng/mL . [facility] Comment on above: Follicular phase 0.1 - 0.9 Luteal phase 1.8 - 23.9 Ovulation phase 0.1 - 12.0 First trimester 11.0 - 44.3 Second trimester 25.4 - 83.3 Third trimester 58.7 - 214.0 Postmenopausal 0.0 - 0.1 Serum or plasma thyroglobuli n antibody assay (units/volume)on 11-08-2024 Thyroglobulin Ab Qn 1.1 [IU]/mL Abnormal 0.0-0.9 [facility] Comment on above: Thyroglobulin Antibo dy measured by [facility] [employer] MedicalMethodologyIt should be noted that the presence of thyroglobulinantibodies may not be pathogenic nor diagnostic, especiallyat very low levels. The assay fur comber has found thatfour percent of individuals without evidence of thyroiddisease or autoimmunity will have positive TgAb levels upto 4 IU/mL.Performed at: [facility] [address] [place], [place] [id number] Director: Barry Mcrae PhD, Phone: [phone] Serum or plasma thyroperoxid ase antibody assay (units/volume)on 11-08-2024 TPO Ab Qn 12 [IU]/mL 0-34 [facility] GLUCOSE BLOODon 11-09-19 Glucose [Mass/Vol] 96 mg/dL 74 - 106 mg/dL [facility] Thyroglobulin [Mass/volume] in Serum or Plasmaon 11-08-2024 Thyroglobulin [Mass/Vol] 21 ng/mL . [facility] Comment on above: This test was develo ped and its performance characteristicsdetermined by [facility]. It has not been cleared or approvedby the Food and Drug Administration.Reference Range:Pubertal Childrenand Adults: <40According to the National Academy of Clinical Biochemistry,the reference interval for Thyroglobulin (TG) should berelated to euthyroid patients and not for patients whounderwent thyroidectomy. TG reference intervals for thesepatients depend on the residual mass of the thyroid tissueleft after surgery. Establishing a post-operative baselineis recommended. The assay quantitation limit is 2.0 ng/mL.Performed at: [facility] [id number] [place], [place] [id number] Director: Toan Burr MD, Phone: [phone] Laboratory - Microbiology an d Antimicrobial susceptibilityon 08-24-2024 S. pyogenes Ag Ql (Unsp spec) Negative [facility] SARS-CoV-2 (COVID-19) RNA RONY+probe Ql (Unsp spec) Negative NEGATIVE [facility] Comment on above: This test has not be en FDA cleared or approved, but has beenauthorized by the FDA under an Emergency Use Authorization(EUA) for use by authorized laboratories certified underIA that meet the requirements to perform moderate or highcomplexity testing. This test has been authorized only forthe detection of proteins from SARS-CoV-2, not for any otherviruses or pathogens. The emergency use of this test isauthorized for the duration of the declaration thatcircumstances exist justifying the authorization ofemergency use of in vitro diagnostic tests for detectionand/or diagnosis of Covid-19 under section 564(b)(1) of theAct, 21 U.S.C. 360bbb-3(b)(1), unless the declaration isterminated or authorization is revoked sooner. ALL CBC WITH AUTO DIFFon BASOPHILS ABSOLUTE AUTO 0.1 [facility] Basophils/100 WBC (Bld) 0.7 % 0.2 - 2.0 % [facility] Eosinophils/100 WBC (Bld) 1.8 % 0.9 - 7.0 % [facility] Erythrocyte distribution width (RBC) [Ratio] 12.1 % 11.0 - 15.0 % [facility] Hematocrit (Bld) [Volume fraction] 42.3 % 36.0 - 48.0 % [facility] Hemoglobin (Bld) [Mass/Vol] 14.1 g/dL 12.0 - 16.0 g/dL [facility] IMMATURE GRANULOCYTES ABS AUTO 0.02 [facility] Immature granulocytes/100 WBC (Bld) 0.3 % 0.0 - 0.5 % [facility] Interpretation and review of laboratory results Abnormal [facility] LYMPHOCYTES ABSOLUTE AUTO 1.5 [facility] Lymphocytes/100 WBC (Bld) 22.3 % 20.5 - 60.0 % [facility] MCH (RBC) [Entitic mass] 29.7 pg 26.7 - 34.0 pg [facility] MCHC (RBC) [Mass/Vol] 33.3 g/dL 29.9 - 35.2 g/dL [facility] MCV (RBC) [Entitic vol] 89.2 fL 81.0 - 99.0 fL [facility] MONOCYTES ABSOLUTE AUTO 0.6 [facility] Monocytes/100 WBC (Bld) 8.2 % 1.7 - 12.0 % [facility] NEUTROPHILS ABSOLUTE AUTO 4.6 [facility] Neutrophils/100 WBC (Bld) 66.7 % 43.0 - 75.0 % [facility] Platelet mean volume (Bld) [Entitic vol] 9.1 fL Low 9.5 - 13.5 fL [facility] TBH EO # 0.1 [facility] PLT 322 [facility] TB RBC 4.74 [facility] WBC 6.9 [facility] Basophils Auto (Bld) [#/Vol] on 05-09-2024 Basophils (Bld) [#/Vol] 0.1 10 3/uL 0.0-0.1 [facility] Basophils (Bld) [#/Vol] Automated basophil count 0.0-0.1 [facility] Basophils/100 WBC Auto (Bld) on 05-09-2024 Basophils/100 WBC (Bld) 0.7 % 0.2-2.0 [facility] Basophils/100 WBC (Bld) Automated basophil % 0. 2-2.0 [facility] Eosinophils/100 WBC Auto (Bl d)on 05-09-2024 Eosinophils/100 WBC (Bld) 1.8 % 0.9-7.0 [facility] Eosinophils/100 WBC (Bld) Automated eosinophil % 0.9-7.0 [facility] Erythrocyte distribution wid th Auto (RBC) [Ratio]on 05-09-2024 Erythrocyte distribution width (RBC) [Ratio] 12.1 % 11.0-15.0 [facility] Erythrocyte distribution width (RBC) [Ratio] Erythrocyte distribution width [Ratio] by Automated count 11.0-15.0 [facility] Hematocrit Auto (Bld) [Volum e fraction]on 05-09-2024 Hematocrit (Bld) [Volume fraction] 42.3 % 36.0-48.0 [facility] Hematocrit (Bld) [Volume fraction] Hematocrit [Volume Fraction] of Blood by Automated count 36.0-48.0 [facility] Hemoglobin [Mass/volume] in Bloodon 05-09-2024 Hemoglobin (Bld) [Mass/Vol] 14.1 g/dL 12.0-16.0 [facility] Hemoglobin (Bld) [Mass/Vol] Hemoglobin [Mass/volume] in Blood 12.0-16.0 [facility] - Hematology and Cell countson 05-09-2024 Immature granulocytes/100 WBC (Bld) 0.3 % 0.0-0.5 [facility] Leukocytes [#/volume] correc jemal for nucleated erythrocytes in Blood by Automated counon 05-09-2024 WBC corrected for nucl RBC Auto (Bld) [#/Vol] 6.9 10 3/uL 4.0-11.0 [facility] WBC corrected for nucl RBC Auto (Bld) [#/Vol] Leukocytes [#/volume] corrected for nucleated erythrocytes in Blood by Automated coun 4.0-11.0 [facility] Lymphocytes Auto (Bld) [#/Vo l]on 05-09-2024 Lymphocytes (Bld) [#/Vol] 1.5 10 3/uL 1.2-3.8 [facility] Lymphocytes (Bld) [#/Vol] Lymphocytes [#/volume] in Blood by Automated count 1.2-3.8 [facility] Lymphocytes/100 WBC Auto (Bl d)on 05-09-2024 Lymphocytes/100 WBC (Bld) 22.3 % 20.5-60.0 [facility] Lymphocytes/100 WBC (Bld) Lymphocytes/100 leukocytes in Blood by Automated count 20.5-60.0 [facility] MCH Auto (RBC) [Entitic mass ]on 05-09-2024 MCH (RBC) [Entitic mass] 29.7 pg 26.7-34.0 [facility] MCH (RBC) [Entitic mass] MCH [Entitic mass] by Automated count 26.7-34.0 [facility] MCHC Auto (RBC) [Mass/Vol]on 05-09-2024 MCHC (RBC) [Mass/Vol] 33.3 g/dL 29.9-35.2 [facility] MCHC (RBC) [Mass/Vol] MCHC [Mass/volume] by Automated count 29.9-35.2 [facility] MCV Auto (RBC) [Entitic vol] on 05-09-2024 MCV (RBC) [Entitic vol] 89.2 fL 81.0-99.0 [facility] MCV (RBC) [Entitic vol] MCV [Entitic vol ume] by Automated count 81.0-99.0 [facility] Monocytes Auto (Bld) [#/Vol] on 05-09-2024 Monocytes (Bld) [#/Vol] 0.6 10 3/uL 0.3-0.8 [facility] Monocytes (Bld) [#/Vol] Automated blood monocyte count 0.3-0.8 [facility] Monocytes/100 WBC Auto (Bld) on 05-09-2024 Monocytes/100 WBC (Bld) 8.2 % 1.7-12.0 [facility] Monocytes/100 WBC (Bld) Automated monocyte % 1. 7-12.0 [facility] Neutrophils Auto (Bld) [#/Vo l]on 05-09-2024 Neutrophils (Bld) [#/Vol] 4.6 10 3/uL 1.4-6.5 [facility] Neutrophils (Bld) [#/Vol] Neutrophils [#/volume] in Blood by Automated count 1.4-6.5 [facility] Neutrophils/100 WBC Auto (Bl d)on 05-09-2024 Neutrophils/100 WBC (Bld) 66.7 % 43.0-75.0 [facility] Neutrophils/100 WBC (Bld) Automated neutrophil % 43.0-75.0 [facility] No Panel InformationOrdered By: Kj Taylor on 05-09-2024 Miscellaneous Pathology Test See comment [facility] Comment on above: See report. Scanned copy available in EMR. No Panel Informationon 05-09 Eosinophils # (Auto) 0.1 10 3/uL 0.0-0.7 [facility] Immature Granulocyte # (Auto) 0.02 10 3/uL 0.00-0.03 [facility] Pathology Request for Lab Co rpon 05-09-2024 Pathology Request for Lab Papi Normal [facility] Comment on above: Order Comment: PATHO LOGY [facility] SPECIMEN Result Comment: See report. Scanned copy available in EMR. PERFORMED BY: [facility] [place] [address] PATHOLOGIST DRYWALL HANGER TERRI HOGAN M.D. Performed By: #### A NA, TPO, C3, C4, CHROMATIN, CH50, THYGLOB AB #### [facility] , Platelet mean volume Auto (B ld) [Entitic vol]on 05-09-2024 Platelet mean volume (Bld) [Entitic vol] 9.1 fL Low 9.5-13.5 [facility] Platelet mean volume (Bld) [Entitic vol] Platelet mean volume [Entitic volume] in Blood by Automated count Low 9.5-13.5 [facility] Platelets Auto (Bld) [#/Vol] on 05-09-2024 Platelets (Bld) [#/Vol] 322 10 3/uL 150-450 [facility] Platelets (Bld) [#/Vol] Platelets [#/vol ume] in Blood by Automated count 150-450 [facility] RBC Auto (Bld) [#/Vol]on RBC (Bld) [#/Vol] 4.74 10 6/uL 4.20-5.40 [facility] RBC (Bld) [#/Vol] Erythrocytes [#/volu me] in Blood by Automated count 4.20-5.40 [facility] IGP,APTIMA HPV,AGE GDLNon AGE GDLN ACOG TESTING Note . [facility] Comment on above: TESTS RESULT FLAG UN ITS REF RANGE LAB Clinician Provided Cytology Information Source.............Cervix;Endocervix No. of containers..01 ThinPrep Vial Age Algo ACOG Roseann... FLAG LEGEND: L-Low Normal,H-High Normal,LL-Alert Low,HH-Alert High <-Panic Low,>-Panic High,A-Abnormal,AA-Critical Abnormal Performed at: 01 =[address] [address] Lydia Oreilly MD, HPV APTIMA Negative Negative [facility] Comment on above: This nucleic acid am plification test detects fourteen high- risk HPV types (16,18,31,33,35,39,45,51,52,56,58,59,66,68) without differentiation. Performed at: =[address] [id number] Family Day Care Worker: Lydia Oreilly MD, Phone: [phone] Performed at: [address] [id number] Family Day Care Worker: Lydia Oreilly MD, Phone: [phone] IGP, APTIMA HPV, RFX 16/18,45 Note . [facility] Comment on above: TESTS RESULT FLAG UN ITS REF RANGE LAB DIAGNOSIS: 02 NEGATIVE FOR INTRAEPITHELIAL LESION OR MALIGNANCY. Specimen adequacy: 02 Satisfactory for evaluation. No endocervical component is identified. Performed by: 02 Arnie Dao, Line Repairer ([facility]) . 02 Note: Note 02 The Pap [...] <-Panic Low,>-Panic High,A-Abnormal,AA-Critical Abnormal Performed at: [address] [address] Lydia Oreilly MD, BRUSH-SPATULA CERVIX ENDOCERVIX [facility] Human papilloma virus 16+18+ 31+33+35+39+45+51+52+56+58+59+66+68 DNA [Presence] in Francesco 04-02-2024 HPV 16+18+31+33+35+39+45+51 +52+56+58+59+66+68 DNA Probe+sig amp Ql (Cvx) Negative Negative [facility] Comment on above: This nucleic acid am plification test detects fourteen high-risk HPV types (16,18,31,33,35,39,45,51,52,56,58,59,66,68)without differentiation.Performed at: = - [address] [id number] Director: Lydia Oreilly MD, Phone: [phone] at: [address] [id number] Director: Lydia Oreilly MD, Phone: [phone] HPV 16+18+31+33+35+39+45+51 +52+56+58+59+66+68 DNA Probe+sig amp Ql (Cvx) Human papilloma virus 16+18+31+33+35+39+45+51+ 52+56+58+59+66+68 DNA [Presence] in Cer Negative [facility] Comment on above: This nucleic acid am plification test detects fourteen high-risk HPV types (16,18,31,33,35,39,45,51,52,56,58,59,66,68)without differentiation.Performed at: =G - [facility] [address] [id number] Director: Lydia Oreilly MD, Phone: [phone] at: - [facility] [address] [id number] Director: Lydia Oreilly MD, Phone: [phone] No Panel Informationon 04-02 HPV High Risk Other Comment Note . [facility] Comment on above: TESTS RESULT FLAG UN ITS REF RANGE LAB -DIAGNOSIS: 02 NEGATIVE FOR INTRAEPITHELIAL LESION OR MALIGNANCY.Specimen adequacy: 02 Satisfactory for evaluation. No endocervical component is identified.Performed by: Timothy Dao, Line Repairer ([facility]). 02Note: Note 02 The Pap smear [...] Criteria not met, HPV Genotype not performed. -------- FLAG LEGEND: L-Low Normal,H-High Normal,LL-Alert Low,HH-Alert High <-Panic Low,>-Panic High,A-Abnormal,AA-Critical Abnormal ------Performed at:02 WB [facility] [address] [place] [address] Lydia Oreilly MD, Reference Lab Test Patient Age Note . [facility] Comment on above: TESTS RESULT FLAG UN ITS REF RANGE LAB - Clinician Provided Cytology Information Source.............Cervix;Endocervix No. of containers..01 ThinPrep VialAge Algo ACOG Roseann... 30-65 01 FLAG LEGEND: L-Low Normal,H-High Normal,LL-Alert Low,HH-Alert High <-Panic Low,>-Panic High,A-Abnormal,AA-Critical Abnormal ------Performed at:01 =G [facility] [place] [address] [place] [address] Lydia Oreilly MD, ISRA Antinuclear Antibodieson 12-06-2023 Antinuclear Abs, IFA Negative Normal . [facility] Comment on above: Result Comment: Nega tive <1:80 Borderline 1:80 Positive >1:80 ICAP nomenclature: AC-0 For more information about Hep-2 cell patterns use ANApatterns.org, the official website for the International Consensus on Antinuclear Antibody (ISRA) Patterns (ICAP). Performed at: [address] [id number] Family Day Care Worker: Barry Mcrae PhD, Phone: [phone] Performed By: #### A NA, TPO, C3, [...] coagulation studies. Please contact the laboratory at [phone] for redraw instructions. Alanine aminotransferase [En zymatic activity/volume] in Serum or PlasmaOrdered By: Harsha Covarrubias on 12-06-2023 ALT [Catalytic activity/Vol] 14 U/L Normal 7-52 [facility] Comment on above: Performed By: #### A NA, TPO, C3, C4, CHROMATIN, CH50, THYGLOB AB #### [facility] , Albumin [Mass/volume] in Ser um or Plasma by Bromocresol green (BCG) dye binding methoOrdered By: Harsha Covarrubias on 12-06-2023 Albumin BCG dye [Mass/Vol] 4.2 g/dL 3.5-5.7 [facility] Aldolaseon 12-06-2023 Aldolase 4.3 U/L Normal 3.3-10.3 [facility] Comment on above: Result Comment: Perf ormed at: [address] [id number] Family Day Care Worker: Barry Mcrae PhD, Phone: [phone] PERFORMED BY: [facility] [place] [address] PATHOLOGIST DRYWALL HANGER TERRI HOGAN M.D. Performed By: #### A NA, TPO, C3, C4, CHROMATIN, CH50, THYGLOB AB #### [facility] , Alkaline phosphatase [Enzyma tic activity/volume] in Serum or PlasmaOrdered By: Harsha Covarrubias on 12-06-2023 ALP [Catalytic activity/Vol] 74 U/L Normal 34-104 [facility] Comment on above: Performed By: #### A NA, TPO, C3, C4, CHROMATIN, CH50, THYGLOB AB #### [facility] , Antithyroglobulin Abon 12-05 Antithyroglobulin Ab <1.0 Normal 0.0-0.9 [facility] Comment on above: Result Comment: Thyr oglobulin Antibody measured by [employer] It should be noted that the presence of thyroglobulin antibodies may not be pathogenic nor diagnostic, especially at very low levels. The assay fur comber has found that four percent of individuals without evidence of thyroid disease or autoimmunity will have positive TgAb levels up to 4 IU/mL. Performed at: [address] [id number] Family Day Care Worker: Barry Mcrae PhD, Phone: [phone] Performed By: #### A NA, TPO, C3, C4, CHROMATIN, CH50, THYGLOB AB #### [facility] , Aspartate aminotransferase [ Enzymatic activity/volume] in Serum or PlasmaOrdered By: Harsha Covarrubias on 12-06-2023 AST [Catalytic activity/Vol] 16 U/L Normal 13-39 [facility] Comment on above: Performed By: #### A NA, TPO, C3, C4, CHROMATIN, CH50, THYGLOB AB #### [facility] , Automated basophil %Ordered By: Harsha Covarrubias on 12-06-2023 Basophils/100 WBC (Bld) 0.6 % Normal . [facility] Comment on above: Performed By: #### A NA, TPO, C3, C4, CHROMATIN, CH50, THYGLOB AB #### [facility] , Automated basophil countOrde red By: Harsha Covarrubias on 12-06-2023 Basophils (Bld) [#/Vol] 0.0 10*3/uL Normal 0.0-0.2 [facility] Comment on above: Performed By: #### A NA, TPO, C3, C4, CHROMATIN, CH50, THYGLOB AB #### [facility] , Automated blood monocyte cou ntOrdered By: Harsha Covarrubias on 12-06-2023 Monocytes (Bld) [#/Vol] 0.5 10*3/uL Normal 0.0-0.8 [facility] Comment on above: Performed By: #### A NA, TPO, C3, C4, CHROMATIN, CH50, THYGLOB AB #### [facility] , Automated eosinophil %Ordere d By: Harsha Covarrubias on 12-06-2023 Eosinophils/100 WBC (Bld) 4.4 % Normal . [facility] Comment on above: Performed By: #### A NA, TPO, C3, C4, CHROMATIN, CH50, THYGLOB AB #### [facility] , Automated eosinophil countOr dered By: Harsha Covarrubias on 12-06-2023 Eosinophils (Bld) [#/Vol] 0.3 10*3/uL Normal 0.0-0.45 [facility] Comment on above: Performed By: #### A NA, TPO, C3, C4, CHROMATIN, CH50, THYGLOB AB #### [facility] , Automated monocyte %Ordered By: Harsha Huntrow on 12-06-2023 Monocytes/100 WBC (Bld) 6.2 % Normal . [facility] Comment on above: Performed By: #### A NA, TPO, C3, C4, CHROMATIN, CH50, THYGLOB AB #### [facility] , Automated neutrophil %Ordere d By: Harsha Huntrow on 12-06-2023 Neutrophils/100 WBC (Bld) 67.9 % Normal . [facility] Comment on above: Performed By: #### A NA, TPO, C3, C4, CHROMATIN, CH50, THYGLOB AB #### [facility] , Bacteria [Presence] in Urine by AutomatedOrdered By: Harsha Huntrow on 12-06-2023 Bacteria Auto Ql (U) 2+ [HPF] None Seen [facility] Bilirubin Test strip Ql (U)O rdered By: Harsha Huntrow on 12-06-2023 Bilirubin Ql (U) Negative Negative [facility] Bilirubin.total [Mass/volume ] in Serum or PlasmaOrdered By: Harsha Covarrubias on 12-06-2023 Bilirubin [Mass/Vol] 0.5 mg/dL Normal 0.3-1.0 [facility] Comment on above: Performed By: #### A NA, TPO, C3, C4, CHROMATIN, CH50, THYGLOB AB #### [facility] , C reactive protein [Mass/vol ume] in Serum or PlasmaOrdered By: Harsha Covarrubias on 12-06-2023 CRP [Mass/Vol] 2.0 mg/dL 0.0-0.5 [facility] C-Reactive Proteinon 024 C-Reactive Protein 2.0 mg/dL High 0.0-0.5 The Count includes the [facility] Comment on above: Performed By: #### A NA, TPO, C3, C4, CHROMATIN, CH50, THYGLOB AB #### [facility] , CT biopsyOrdered By: Harsha Covarrubias on 12-06-2023 CT biopsy 4.3 U/L 3.3-10.3 [facility] Comment on above: Performed at: - [address] [id number] Director: Barry Mcrae PhD, Phone: [phone] Calcium [Mass/volume] in Ser um or PlasmaOrdered By: Harsha Covarrubias on 12-06-2023 Calcium [Mass/Vol] 9.4 mg/dL Normal 8.6-10.3 [facility] Comment on above: Performed By: #### A NA, TPO, C3, C4, CHROMATIN, CH50, THYGLOB AB #### [facility] , Carbon dioxide, total [Moles /volume] in Serum or PlasmaOrdered By: Harsha Marci on 12-06-2023 CO2 [Moles/Vol] 28.3 mmol/L Normal 21.0-31.0 [facility] Comment on above: Performed By: #### A NA, TPO, C3, C4, CHROMATIN, CH50, THYGLOB AB #### [facility] , Chloride [Moles/volume] in S alistair or PlasmaOrdered By: Harsha Covarrubias on 12-06-2023 Chloride [Moles/Vol] 105 mmol/L Normal 98-107 [facility] Comment on above: Performed By: #### A NA, TPO, C3, C4, CHROMATIN, CH50, THYGLOB AB #### [facility] , Chromatin Antibodyon 024 Chromatin Antibody <0.2 Normal 0.0-0.9 The Count includes the [facility] Comment on above: Result Comment: Perf ormed at: - [facility] [address] [id number] Family Day Care Worker: Barry Mcrae PhD, Phone: [phone] PERFORMED BY: [place] [address] [place] [address] PATHOLOGIST DRYWALL HANGER TERRI HOGAN M.D. Performed By: #### A NA, TPO, C3, C4, CHROMATIN, CH50, THYGLOB AB #### [facility] , Coagulation Profileon 2023 aPTT Coag (Bld) [Time] 31.9 s Normal 25.1-36.5 [facility] Comment on above: Result Comment: A he matocrit value greater than 55% may lead to inaccurate results in coagulation testing. Patients having hematocrit values >55% require a special collection tube for coagulation studies. Please contact the laboratory at [phone] for redraw instructions. PERFORMED BY: [place] [address] [place] [address] PATHOLOGIST DRYWALL HANGER TERRI HOGAN M.D. Performed By: #### E SR, ADDONUAPLUS, T4F, CK, CRP, TSH3, PP, CMP, CBC #### [facility] [address] #### RPR W RFX, ALDOLASE #### [facility] , Color of Urine by AutoOrdere d By: Harsha Covarrubias on 12-06-2023 Color (U) Yellow Normal Yellow [facility] Comment on above: Order Comment: Name Collection Type:: Clean-Voided Midstream Performed By: #### A NA, TPO, C3, C4, CHROMATIN, CH50, THYGLOB AB #### [facility] , Complement C3on 12-06-2023 Complement C3 189 mg/dL High 82-167 [facility] Comment on above: Result Comment: Perf ormed at: [address] [id number] Family Day Care Worker: Barry Mcrae PhD, Phone: [phone] Performed By: #### A NA, TPO, C3, C4, CHROMATIN, CH50, THYGLOB AB #### [facility] , Complement C4on 12-06-2023 Complement C4 45 mg/dL High 12-38 [facility] Comment on above: Performed By: #### A NA, TPO, C3, C4, CHROMATIN, CH50, THYGLOB AB #### [facility] , Complement Total (CH50)on Complement Total (CH50) >60 Normal >41 [facility] Comment on above: Result [...] determine out of range values. Performed at: [facility] [employer] [id number] Family Day Care Worker: Barry Mcrae PhD, Phone: [phone] PERFORMED BY: [facility] [address] [place] [address] PATHOLOGIST DRYWALL HANGER TERRI HOGAN M.D. Performed By: #### A NA, TPO, C3, C4, CHROMATIN, CH50, THYGLOB AB #### [facility] , Complete Blood Count Auto Di ffon 12-06-2023 Mean Corpuscular HGB Conc 33.9 g/dL Normal 32.0-35.0 [facility] Comment on above: Performed By: #### A NA, TPO, C3, C4, CHROMATIN, CH50, THYGLOB AB #### [facility] , NRBC% 0.1 /100{WBC} Normal 0-0.5 [facility] Comment on above: Performed By: #### A NA, TPO, C3, C4, CHROMATIN, CH50, THYGLOB AB #### [facility] , Comprehensive Metabolic Pane harsh 12-06-2023 Albumin [Mass/Vol] 4.2 g/dL Normal 3.5-5.7 The Count includes the [facility] Comment on above: Performed By: #### A NA, TPO, C3, C4, CHROMATIN, CH50, THYGLOB AB #### [facility] , GFR/1.73 sq M.predicted MDRD (S/P/Bld) [Vol rate/Area] mL/min/{1.73_m2} Normal [facility] Comment on above: Performed By: #### A NA, TPO, C3, C4, CHROMATIN, CH50, THYGLOB AB #### [facility] , Creatine kinase [Enzymatic a ctivity/volume] in Serum or PlasmaOrdered By: Harsha Covarrubias on 12-06-2023 CK [Catalytic activity/Vol] 59 U/L Normal 30-223 [facility] Comment on above: Result Comment: PERF ORMED BY: [facility] [address] [place] [address] PATHOLOGIST DRYWALL HANGER TERRI HOGAN M.D. Performed By: #### E SR, ADDONUAPLUS, T4F, CK, CRP, TSH3, PP, CMP, CBC #### [facility] [address] #### RPR W RFX, ALDOLASE #### [facility] , Creatinine [Mass/volume] in Serum or PlasmaOrdered By: Harsha Covarrubias on 12-06-2023 Creatinine [Mass/Vol] 0.60 mg/dL Normal 0.60-1.20 [facility] Comment on above: Performed By: #### A NA, TPO, C3, C4, CHROMATIN, CH50, THYGLOB AB #### [facility] , Dipstick and Microscopicon 0 12-06-2023 Appearance (U) Clear Normal Clear [facility] Comment on above: Order Comment: Name Collection Type:: Clean-Voided Midstream Performed By: #### A NA, TPO, C3, C4, CHROMATIN, CH50, THYGLOB AB #### [facility] , Bacteria,Urine 2+ High None Seen [facility] Comment on above: Order Comment: Name Collection Type:: Clean-Voided Midstream Performed By: #### A NA, TPO, C3, C4, CHROMATIN, CH50, THYGLOB AB #### [facility] , Bilirubin,Urine Negative Normal Negative [facility] Comment on above: Order Comment: Name Collection Type:: Clean-Voided Midstream Performed By: #### A NA, TPO, C3, C4, CHROMATIN, CH50, THYGLOB AB #### [facility] , Glucose Ql (U) Normal Normal Normal [facility] Comment on above: Order Comment: Name Collection Type:: Clean-Voided Midstream Performed By: #### A NA, TPO, C3, C4, CHROMATIN, CH50, THYGLOB AB #### [facility] , Hyaline Casts,Urine 0-8 Normal 0-8 [facility] Comment on above: Order Comment: Name Collection Type:: Clean-Voided Midstream Result Comment: PERF ORMED BY: [facility] [place] [address] PATHOLOGIST DRYWALL HANGER TERRI HOGAN M.D. Performed By: #### A NA, TPO, C3, C4, CHROMATIN, CH50, THYGLOB AB #### [facility] , Ketones Ql (U) Negative Normal Negative [facility] Comment on above: Order Comment: Name Collection Type:: Clean-Voided Midstream Performed By: #### A NA, TPO, C3, C4, CHROMATIN, CH50, THYGLOB AB #### [facility] , Leukocyte esterase Test strip Ql (U) Negative Normal Negative [facility] Comment on above: Order Comment: Name Collection Type:: Clean-Voided Midstream Performed By: #### A NA, TPO, C3, C4, CHROMATIN, CH50, THYGLOB AB #### [facility] , Nitrite,Urine Negative Normal Negative [facility] Comment on above: Order Comment: Name Collection Type:: Clean-Voided Midstream Performed By: #### A NA, TPO, C3, C4, CHROMATIN, CH50, THYGLOB AB #### [facility] , Occult Blood,Urine Negative Normal Negative The Count includes the [facility] Comment on above: Order Comment: Name Collection Type:: Clean-Voided Midstream Performed By: #### A NA, TPO, C3, C4, CHROMATIN, CH50, THYGLOB AB #### [facility] , Protein,Urine Negative Normal Negative [facility] Comment on above: Order Comment: Name Collection Type:: Clean-Voided Midstream Performed By: #### A NA, TPO, C3, C4, CHROMATIN, CH50, THYGLOB AB #### [facility] , RBC LM.HPF (Urine sed) [#/Area] 0 /[HPF] Normal 0-4 [facility] Comment on above: Order Comment: Name Collection Type:: Clean-Voided Midstream Performed By: #### A NA, TPO, C3, C4, CHROMATIN, CH50, THYGLOB AB #### [facility] , [facility] [place],Urine 1.026 Normal 1.00 1-1.03 0 [facility] Comment on above: Order Comment: Name Collection Type:: Clean-Voided Midstream Performed By: #### A NA, TPO, C3, C4, CHROMATIN, CH50, THYGLOB AB #### [facility] , Squamous Epithelial Cell,Urine 3-4 High 0-2 [facility] Comment on above: Order Comment: Name Collection Type:: Clean-Voided Midstream Performed By: #### A NA, TPO, C3, C4, CHROMATIN, CH50, THYGLOB AB #### [facility] , Urobilinogen,Urine Normal Normal Normal The Count includes the [facility] Comment on above: Order Comment: Name Collection Type:: Clean-Voided Midstream Performed By: #### A NA, TPO, C3, C4, CHROMATIN, CH50, THYGLOB AB #### [facility] , WBC,Urine 3-4 Normal 0-4 [facility] Comment on above: Order Comment: Name Collection Type:: Clean-Voided Midstream Performed By: #### A NA, TPO, C3, C4, CHROMATIN, CH50, THYGLOB AB #### [facility] , Erythrocyte Sedimentation Ra sherrie 12-06-2023 ESR (Bld) [Velocity] 35 mm/h High 0-29 [facility] Comment on above: Result Comment: PERF ORMED BY: [facility] [address] [place] [address] PATHOLOGIST DRYWALL HANGER TERRI HOGAN M.D. Performed By: #### A NA, TPO, C3, C4, CHROMATIN, CH50, THYGLOB AB #### [facility] , Erythrocyte distribution wid th [Ratio] by Automated countOrdered By: Harsha Covarrubias on 12-06-2023 Erythrocyte distribution width (RBC) [Ratio] 13.6 % Normal 11.9-15.3 [facility] Comment on above: Performed By: #### A NA, TPO, C3, C4, CHROMATIN, CH50, THYGLOB AB #### [facility] , Erythrocyte sedimentation ra te by Photometric methodOrdered By: Harsha Covarrubias on 12-06-2023 ESR Photometric method (Bld) [Velocity] 35 mm/hr 0-29 [facility] Erythrocytes [#/volume] in B lood by Automated countOrdered By: Harsha Covarrubias on 12-06-2023 RBC (Bld) [#/Vol] 4.83 10*6/uL Normal 3.60-5.00 [facility] Comment on above: Performed By: #### A NA, TPO, C3, C4, CHROMATIN, CH50, THYGLOB AB #### [facility] , Glucose [Mass/volume] in Ser um or PlasmaOrdered By: Harsha Covarrubias on 12-06-2023 Glucose [Mass/Vol] 72 mg/dL Normal 70-100 [facility] Comment on above: ADA recommended refe rence rangeRandom Glucose Reference Range is dependent on time and content of last meal. Glucose of more than 200 mg/dL in a nonstressed, ambulatory subject supports the diagnosis of Diabetes Mellitus. Result Comment: [place] om Glucose Reference Range is dependent on [...] (Bld) [Volume fraction] 41.9 % Normal 34.0-46.4 [facility] Comment on above: Performed By: #### A NA, TPO, C3, C4, CHROMATIN, CH50, THYGLOB AB #### [facility] , Hemoglobin [Mass/volume] in BloodOrdered By: Harsha Covarrubias on 12-06-2023 Hemoglobin (Bld) [Mass/Vol] 14.2 g/dL Normal 11.8-15.4 [facility] Comment on above: Performed By: #### A NA, TPO, C3, C4, CHROMATIN, CH50, THYGLOB AB #### [facility] , INR in Platelet poor plasma by Coagulation assayOrdered By: Harsha Covarrubias on 12-06-2023 INR Coag (PPP) [Relative time] 0.9 {INR} Normal [facility] Comment on above: INR Therapeutic [...] CK, CRP, TSH3, PP, CMP, CBC #### [address] #### RPR W RFX, ALDOLASE #### [facility] , Ketones Auto test strip (U) [Mass/Vol]Ordered By: Harsha Covarrubias on 12-06-2023 Ketones (U) [Mass/Vol] Negative Negative [facility] - UrinalysisOrder ed By: Harsha Covarrubias on 12-06-2023 Hyaline casts LM Ql (Urine sed) 0-8 [LPF] 0-8 [facility] Leukocytes [#/area] in Urine sediment by Automated countOrdered By: Harsha Covarrubias on 12-06-2023 WBC Auto (Urine sed) [#/Area] 3-4 [HPF] 0-4 [facility] Leukocytes [#/volume] correc jemal for nucleated erythrocytes in Blood by Automated counOrdered By: Harsha Covarrubias on 12-06-2023 WBC corrected for nucl RBC Auto (Bld) [#/Vol] 7.8 10*3/uL 3.8-11.6 [facility] Leukocytes [#/volume] in Blo od by Automated countOrdered By: Harsha Covarrubias on 12-06-2023 WBC (Bld) [#/Vol] 7.8 10*3/uL Normal 3.8-11.6 [facility] Comment on above: Performed By: #### A NA, TPO, C3, C4, CHROMATIN, CH50, THYGLOB AB #### [facility] , Lupus Anticoagulant Compon 0 12-06-2023 Dilute Prothrombin Time (dPt) 35.4 Normal 0.0-47.6 [facility] Comment on above: Performed By: #### L UPANTCOAG #### [facility] , dPT Confirm Ratio 1.18 Normal 0.00-1.34 [facility] Comment on above: Performed By: #### L UPANTCOAG #### [facility] , DRVVT Lupus 36.8 Normal 0.0-47.0 [facility] Comment on above: Performed By: #### L UPANTCOAG #### [facility] , Interpretation Comment: Normal . [facility] Comment on above: Result Comment: No l upus anticoagulant was detected. Performed at: - [facility] [id number] Family Day Care Worker: Juany Baker MD, Phone: [phone] PERFORMED BY: [facility] [address] [place] [address] PATHOLOGIST DRYWALL HANGER TERRI HOGAN M.D. Performed By: #### L UPANTCOAG #### [facility] , PTT-LA 38.7 Normal 0.0-43.5 [facility] Comment on above: Performed By: #### L UPANTCOAG #### [facility] , Thrombin Time 16.9 Normal 0.0-23.0 [facility] Comment on above: Performed By: #### L UPANTCOAG #### [facility] , Lupus anticoagulant [Interpr etation] in Platelet poor plasmaOrdered By: Harsha Covarrubias on 12-06-2023 Lupus anticoagulant (PPP) [Interp] Comment: . [facility] Comment on above: No lupus anticoagula nt was detected.Performed at: - [facility] [id number] Director: Juany Baker MD, Phone: [phone] Lymphocytes [#/volume] in Bl ood by Automated countOrdered By: Harsha Covarrubias on 12-06-2023 Lymphocytes (Bld) [#/Vol] 1.6 10*3/uL Normal 1.00-4.8 [facility] Comment on above: Performed By: #### A NA, TPO, C3, C4, CHROMATIN, CH50, THYGLOB AB #### [facility] , Lymphocytes/100 leukocytes i n Blood by Automated countOrdered By: Harsha Covarrubias on 12-06-2023 Lymphocytes/100 WBC (Bld) 20.9 % Normal . [facility] Comment on above: Performed By: #### A NA, TPO, C3, C4, CHROMATIN, CH50, THYGLOB AB #### [facility] , MCH [Entitic mass] by Automa jemal countOrdered By: Harsha Covarrubias on 12-06-2023 MCH (RBC) [Entitic mass] 29.4 pg Normal 24.7-34.3 [facility] Comment on above: Performed By: #### A NA, TPO, C3, C4, CHROMATIN, CH50, THYGLOB AB #### [facility] , MCHC Auto (RBC) [Mass/Vol]Or dered By: Harsha Covarrubias on 12-06-2023 MCHC (RBC) [Mass/Vol] 33.9 g/dL 32.0-35.0 [facility] MCV [Entitic volume] by Auto mated countOrdered By: Harsha Huntrow on 12-06-2023 MCV (RBC) [Entitic vol] 86.8 fL Normal 80-100 [facility] Comment on above: Performed By: #### A NA, TPO, C3, C4, CHROMATIN, CH50, THYGLOB AB #### [facility] , Neutrophils [#/volume] in Bl ood by Automated countOrdered By: Harsha Huntrow on 12-06-2023 Neutrophils (Bld) [#/Vol] 5.3 10*3/uL Normal 1.8-7.7 [facility] Comment on above: Performed By: #### A NA, TPO, C3, C4, CHROMATIN, CH50, THYGLOB AB #### [facility] , Nitrite Test strip Ql (U)Ord ered By: Harsha Marci on 12-06-2023 Nitrite Ql (U) Negative Negative [facility] No Panel InformationOrdered By: Harsha Covarrubias on 12-06-2023 Estimated GFR (CKD-EPI) > 60.0 mL/Min [facility] Creatinine Clearance (Chem N/A [facility] Urine RBC 0-1 [HPF] 0-4 [facility] Total Complement (CH50) >60 U/mL >41 [facility] Comment on above: Age Male [...] to determine out of range values.Performed at: [facility] [id number] Director: Barry Mcrae PhD, Phone: [phone] Nucleated erythrocytes [Pres ence] in Blood by Automated countOrdered By: Harshaenrike Covarrubias on 12-06-2023 Nucleated RBC Auto Ql (Bld) 0.1 /100{WBC} 0-0.5 [facility] Platelet mean volume [Entiti c volume] in Blood by Automated countOrdered By: Harsha Covarrubias on 12-06-2023 Platelet mean volume (Bld) [Entitic vol] 8.3 fL Normal 6.3-10.7 [facility] Comment on above: Performed By: #### A NA, TPO, C3, C4, CHROMATIN, CH50, THYGLOB AB #### [facility] , Platelet poor plasma ratio o f lupus anticoagulant-sensitive activated partial thromboOrdered By: Harsha Covarrubias on 12-06-2023 aPTT.lupus sensitive.excess phospholipid actual/normal Coag (PPP) [Relative time] 35.4 sec 0.0-47.6 [facility] Platelets [#/volume] in Bloo d by Automated countOrdered By: Harsha Covarrubias on 12-06-2023 Platelets (Bld) [#/Vol] 330 10*3/uL Normal 150-450 [facility] Comment on above: Performed By: #### A NA, TPO, C3, C4, CHROMATIN, CH50, THYGLOB AB #### [facility] , Potassium [Moles/volume] in Serum or PlasmaOrdered By: Harsha Covarrubias on 12-06-2023 Potassium [Moles/Vol] 4.3 mmol/L Normal 3.5-5.1 [facility] Comment on above: Performed By: #### A NA, TPO, C3, C4, CHROMATIN, CH50, THYGLOB AB #### [facility] , Protein Auto test strip (U) [Mass/Vol]Ordered By: Harsha Covarrubias on 12-06-2023 Protein (U) [Mass/Vol] Negative Negative [facility] Protein [Mass/volume] in Ser um or PlasmaOrdered By: Harsha Covarrubias on 12-06-2023 Protein [Mass/Vol] 7.0 g/dL Normal 6.4-8.9 [facility] Comment on above: Performed By: #### A NA, TPO, C3, C4, CHROMATIN, CH50, THYGLOB AB #### [facility] , Prothrombin time (PT)Ordered By: Harsha Covarurbias on 12-06-2023 PT Coag (PPP) [Time] 10.6 s Normal 9.0-12.9 [facility] Comment on above: A hematocrit value g reater than 55% may lead to inaccurate results in coagulation testing. Patients having hematocrit values >55% require a special collection tube for coagulation studies. Please contact the laboratory at [phone] for redraw instructions. Result Comment: A he matocrit value greater than 55% may lead to inaccurate results in coagulation testing. Patients having hematocrit values >55% require a special collection tube for coagulation studies. Please contact the laboratory at [phone] for redraw instructions. Performed By: #### E SR, ADDONUAPLUS, T4F, CK, CRP, TSH3, PP, CMP, CBC #### [address] #### RPR W RFX, ALDOLASE #### [facility] , RPR w/rfx to Quant TP Abson 12-06-2023 RPR, Rfx Quant RPR Non-Reactive Normal Non Reactive [facility] Comment on above: Result Comment: Perf ormed at: CB - [facility] [address] [id number] Family Day Care Worker: Barry Mcrae PhD, Phone: [phone] PERFORMED BY: [place] [address] PATHOLOGIST DRYWALL HANGER TERRI HOGAN M.D. Performed By: #### A NA, TPO, C3, C4, CHROMATIN, CH50, THYGLOB AB #### [facility] , Reagin Ab [Presence] in Seru m by RPROrdered By: Harsha Covarrubias on 12-06-2023 Reagin Ab RPR Ql (S) Non-Reactive Non Reactive [facility] Comment on above: Performed at: [facility] - [facility] [address] [id number] Director: Barry Mcrae PhD, Phone: [phone] Screening dilute Josiah's v iper venom time (DRVVT) with reflex to confirmatory testOrdered By: Harsha Covarrubias on 12-06-2023 dRVVT Coag (PPP) [Time] 36.8 s 0.0-47.0 [facility] Screening lupus anticoagulan t-sensitive activated partial thromboplastin time (aPTT)Ordered By: Harsha Covarrubias on 12-06-2023 aPTT.lupus sensitive Coag (PPP) [Time] 38.7 sec 0.0-43.5 [facility] Serum globulin measurement b y calculation (mass/volume)Ordered By: Harsha Covarrubias on 12-06-2023 Globulin (S) [Mass/Vol] 2.8 g/dL Normal [facility] Comment on above: Performed By: #### A NA, TPO, C3, C4, CHROMATIN, CH50, THYGLOB AB #### [facility] , Serum homogeneous pattern an tinuclear antibody (ISRA) titerOrdered By: Harsha Covarrubias on 12-06-2023 Homogenous nuclear Ab pattern (S) [Titer] N/A [facility] Serum nuclear antibody titer Ordered By: Harsha Covarrubias on 12-06-2023 Nuclear Ab (S) [Titer] Negative . [facility] Comment on above: Negative <1:80 Borde rebeccaine 1:80 Positive >1:80ICAP nomenclature: [id number] more information about Hep-2 cell patterns useANApatterns.org, the official website for theInternational Consensus on Antinuclear Antibody (ISRA)Patterns (ICAP).Performed at: [facility] [employer] [id number] Director: Barry Mcrae PhD, Phone: [phone] Serum or plasma albumin/glob ulin mass ratioOrdered By: Harsha Covarrubias on 12-06-2023 Albumin/Globulin [Mass ratio] 1.5 {ratio} Normal [facility] Comment on above: Performed By: #### A NA, TPO, C3, C4, CHROMATIN, CH50, THYGLOB AB #### [facility] , Serum or plasma anion gap de terminationOrdered By: Harsha Covarrubias on 12-06-2023 Anion gap [Moles/Vol] 10.0 mmol/L Normal 6.0-15.0 [facility] Comment on above: Performed By: #### A NA, TPO, C3, C4, CHROMATIN, CH50, THYGLOB AB #### [facility] , Serum or plasma chromatin an tibody assay (units/volume)Ordered By: Harsha Covarrubias on 12-06-2023 Chromatin Ab Qn <0.2 AI 0.0-0.9 [facility] Comment on above: Performed at: [employer] [place], [place] [id number] Director: Barry Mcrae PhD, Phone: [phone] Serum or plasma complement C 3 measurement (mass/volume)Ordered By: Harsha Covarrubias on 12-06-2023 Complement C3 [Mass/Vol] 189 mg/dL 82-167 [facility] Comment on above: Performed at: [employer] [place], [place] [id number] Director: Barry Mcrae PhD, Phone: [phone] Serum or plasma complement C 4 measurement (mass/volume)Ordered By: Harsha Covarrubias on 12-06-2023 Complement C4 [Mass/Vol] 45 mg/dL 12-38 [facility] Serum or plasma thyroglobuli n antibody assay (units/volume)Ordered By: Harsha Covarrubias on 12-06-2023 Thyroglobulin Ab Qn [IU]/mL 0.0-0.9 [facility] Comment on above: Thyroglobulin Antibo dy measured by [employer] MedicalMethodologyIt should be noted that the presence of thyroglobulinantibodies may not be pathogenic nor diagnostic, especiallyat very low levels. The assay fur comber has found thatfour percent of individuals without evidence of thyroiddisease or autoimmunity will have positive TgAb levels upto 4 IU/mL.Performed at: [employer] [address] [place], [place] [id number] Director: Barry Mcrae PhD, Phone: [phone] Serum or plasma thyroperoxid ase antibody assay (units/volume)Ordered By: Harsha Covarrubias on 12-06-2023 TPO Ab Qn [IU]/mL 0-34 [facility] Comment on above: Performed at: - [facility] [employer] [place] [id number] Director: Barry Mcrae PhD, Phone: [phone] Sodium [Moles/volume] in Ser um or PlasmaOrdered By: Harsha Covarrubias on 12-06-2023 Sodium [Moles/Vol] 139 mmol/L Normal 136-145 [facility] Comment on above: Performed By: #### A NA, TPO, C3, C4, CHROMATIN, CH50, THYGLOB AB #### [facility] , Specific gravity Auto test s trip (U) [Rel density]Ordered By: Harsha Covarrubias on 12-06-2023 Specific gravity (U) [Rel density] 1.026 1.001-1.03 0 [facility] Squamous epithelial cells de tection in urine sediment by light microscopyOrdered By: Harsha Covarrubias on 12-06-2023 Epithelial cells.squamous LM Ql (Urine sed) 3-4 [HPF] 0-2 [facility] TT plasOrdered By: Harsha patel on 12-06-2023 Thrombin time Coag (PPP) [Time] 16.9 sec 0.0-23.0 [facility] Thyroid Peroxidase Antibodie son 12-06-2023 Thyroid Peroxidase Antibodies <9 Normal 0-34 [facility] Comment on above: Result Comment: Perf ormed at: - [facility] [place] [address] [place], [place] [id number] Family Day Care Worker: Barry Mcrae PhD, Phone: [phone] Performed By: #### A NA, TPO, C3, C4, CHROMATIN, CH50, THYGLOB AB #### [facility] , Thyrotropin [Units/volume] i n Serum or PlasmaOrdered By: Harsha Covarrubias on 12-06-2023 TSH Qn 1.93 m[IU]/L Normal 0.45-5.33 [facility] Comment on above: Result Comment: PERF ORMED BY: [place] [address] [place] [address] PATHOLOGIST DRYWALL HANGER TERRI HOGAN M.D. Performed By: #### A NA, TPO, C3, C4, CHROMATIN, CH50, THYGLOB AB #### [facility] , Thyroxine (T4) free [Mass/vo lume] in Serum or PlasmaOrdered By: Harsha Covarrubias on 12-06-2023 Free T4 [Mass/Vol] 0.85 ng/dL Normal 0.61-1.12 [facility] Comment on above: Performed By: #### A NA, TPO, C3, C4, CHROMATIN, CH50, THYGLOB AB #### [facility] , Urea nitrogen [Mass/volume] in Serum or PlasmaOrdered By: Harsha Covarrubias on 12-06-2023 Urea nitrogen [Mass/Vol] 16 mg/dL Normal 7-25 [facility] Comment on above: Performed By: #### A NA, TPO, C3, C4, CHROMATIN, CH50, THYGLOB AB #### [facility] , Urine clarity by refractomet ry automatedOrdered By: Harsha Covarrubias on 12-06-2023 Clarity Refractometry automated (U) Clear Clear [facility] Urine glucose measurement by automated test strip (mass/volume)Ordered By: Harsha Covarrubias on 12-06-2023 Glucose Auto test strip (U) [Mass/Vol] Normal mg/dL Normal [facility] Urine hemoglobin detection b y automated test stripOrdered By: Harsha Covarrubias on 12-06-2023 Hemoglobin Auto test strip Ql (U) Negative Negative [facility] Urine leukocyte esterase det ection by automated test stripOrdered By: Harsha Covarrubias on 12-06-2023 Leukocyte esterase Auto test strip Ql (U) Negative Negative [facility] Urine pH measurement by auto mated test stripOrdered By: Harsha Covarrubias on 12-06-2023 pH (U) 5.5 [pH] Normal 5.0-9.0 [facility] Comment on above: Order Comment: Name Collection Type:: Clean-Voided Midstream Performed By: #### A NA, TPO, C3, C4, CHROMATIN, CH50, THYGLOB AB #### [facility] , Urobilinogen Auto test strip (U) [Mass/Vol]Ordered By: Harsha Covarrubias on 12-06-2023 Urobilinogen (U) [Mass/Vol] Normal mg/dL Normal [facility] aPTT.lupus sensitive/aPTT.lynn pus sensitive W excess phospholipid (screen to confirm raOrdered By: Harsha Covarrubias on 12-06-2023 aPTT.lupus sensitive/aPTT.lupus sensitive W excess phospholipid Coag (PPP) [Ratio] 1.18 Ratio 0.00-1.34 [facility] Basophils Auto (Bld) [#/Vol] on 10-05-2023 Basophils (Bld) [#/Vol] 0.0 10 3/uL 0.0-0.1 [facility] Basophils/100 WBC Auto (Bld) on 10-05-2023 Basophils/100 WBC (Bld) 0.9 % 0.2-2.0 [facility] Centriole Ab [Titer] in Seru m by Immunofluorescenceon 10-05-2023 Centriole Ab IF (S) [Titer] TNP . [facility] Centromere Ab [Titer] in Ser um by Immunofluorescenceon 10-05-2023 Centromere Ab IF (S) [Titer] TNP . [facility] Eosinophils/100 WBC Auto (Bl d)on 10-05-2023 Eosinophils/100 WBC (Bld) 4.4 % 0.9-7.0 [facility] Erythrocyte distribution wid th Auto (RBC) [Ratio]on 10-05-2023 Erythrocyte distribution width (RBC) [Ratio] 12.8 % 11.0-15.0 [facility] Estimated glomerular filtrat ion rate (GFR) non- Americanon 10-05-2023 GFR/1.73 sq M.predicted among non-blacks MDRD (S/P/Bld) [Vol rate/Area] mL/min/{1.73_m2} >=60 [facility] Globulin Calc (S) [Mass/Vol] on 10-05-2023 Globulin (S) [Mass/Vol] 3.7 g/dL [facility] Hematocrit Auto (Bld) [Volum e fraction]on 10-05-2023 Hematocrit (Bld) [Volume fraction] 42.2 % 36.0-48.0 [facility] Hemoglobin [Mass/volume] in Bloodon 10-05-2023 Hemoglobin (Bld) [Mass/Vol] 13.5 g/dL 12.0-16.0 [facility] Hepatitis B virus surface Ag [Presence] in Serum or Plasma by Immunoassayon 10-05-2023 HBV surface Ag IA Ql Negative Negative [facility] Comment on above: Performed at: - [employer] [address] [id number] Director: Barry Mcrae PhD, Phone: [phone] Hepatitis C virus IgG Ab [Pr esence] in Serum or Plasma by Immunoassayon 10-05-2023 HCV IgG IA Ql Non-Reactive Non Reactive [facility] Comment on above: HCV antibody alone d oes not differentiate betweenpreviously resolved infection and active infection.Equivocal and Reactive HCV antibody results should befollowed up with an HCV RNA test to support the diagnosisof active HCV infection. Laboratory - Chemistry and C hemistry - challengeon 10-05-2023 Albumin [Mass/Vol] 3.7 g/dL 3.4-5.0 [facility] ALP [Catalytic activity/Vol] 76 U/L 46-116 [facility] ALT [Catalytic activity/Vol] 28 U/L 14-59 [facility] AST [Catalytic activity/Vol] 27 U/L 15-37 [facility] Bilirubin [Mass/Vol] 0.5 mg/dL 0.2-1.0 [facility] Calcium [Mass/Vol] 8.8 mg/dL 8.5-10.1 [facility] Chloride [Moles/Vol] 103 mmol/L 98-107 [facility] CO2 [Moles/Vol] 29.5 mmol/L 21.0-32.0 [facility] Creatinine [Mass/Vol] 0.66 mg/dL 0.55-1.02 [facility] GFR/1.73 sq M.predicted MDRD (S/P/Bld) [Vol rate/Area] mL/min/{1.73_m2} >=60 [facility] Glucose [Mass/Vol] 74 mg/dL 74-106 [facility] Potassium [Moles/Vol] 4.1 mmol/L 3.5-5.1 [facility] Protein [Mass/Vol] 7.4 g/dL 6.4-8.2 [facility] Sodium [Moles/Vol] 140 mmol/L 136-145 [facility] Urea nitrogen [Mass/Vol] 11.0 mg/dL 7.0-18.0 [facility] Urea nitrogen/Creatinine [Mass ratio] 16.7 mg/mg [facility] Laboratory - Hematology and Cell countson 10-05-2023 Immature granulocytes/100 WBC (Bld) 0.2 % 0.0-0.5 [facility] Leukocytes [#/volume] correc jemal for nucleated erythrocytes in Blood by Automated counon 10-05-2023 WBC corrected for nucl RBC Auto (Bld) [#/Vol] 4.6 10 3/uL 4.0-11.0 [facility] Lymphocytes Auto (Bld) [#/Vo l]on 10-05-2023 Lymphocytes (Bld) [#/Vol] 1.2 10 3/uL 1.2-3.8 [facility] Lymphocytes/100 WBC Auto (Bl d)on 10-05-2023 Lymphocytes/100 WBC (Bld) 25.7 % 20.5-60.0 [facility] MCH Auto (RBC) [Entitic mass ]on 10-05-2023 MCH (RBC) [Entitic mass] 28.6 pg 26.7-34.0 [facility] MCHC Auto (RBC) [Mass/Vol]on 10-05-2023 MCHC (RBC) [Mass/Vol] 32.0 g/dL 29.9-35.2 [facility] MCV Auto (RBC) [Entitic vol] on 10-05-2023 MCV (RBC) [Entitic vol] 89.4 fL 81.0-99.0 [facility] Midbody Ab [Titer] in Serum by Immunofluorescenceon 10-05-2023 Midbody Ab IF (S) [Titer] TNP . [facility] Mitotic spindle apparatus Ab [Titer] in Serum or Plasma by Immunofluorescenceon 10-05-2023 Mitotic spindle apparatus Ab IF [Titer] TNP . [facility] Monocytes Auto (Bld) [#/Vol] on 10-05-2023 Monocytes (Bld) [#/Vol] 0.4 10 3/uL 0.3-0.8 [facility] Monocytes/100 WBC Auto (Bld) on 10-05-2023 Monocytes/100 WBC (Bld) 8.4 % 1.7-12.0 [facility] Neutrophils Auto (Bld) [#/Vo l]on 10-05-2023 Neutrophils (Bld) [#/Vol] 2.8 10 3/uL 1.4-6.5 [facility] Neutrophils/100 WBC Auto (Bl d)on 10-05-2023 Neutrophils/100 WBC (Bld) 60.4 % 43.0-75.0 [facility] No Panel Informationon 10-04 Anti-Nuclear Antibody Comment 2 Comment . [facility] Comment on above: Pattern Potential Di sease Association Homogeneous Systemic Lupus Erythematosus, Drug Induced Systemic Lupus Erythematosus, Chronic Autoimmune hepatitis, Juvenile Idiopathic Arthritis Speckled Sjogren Syndrome, Systemic Lupus Erythematosus, Subacute Cutaneous Lupus, Lupus, Congenital Heart Block, Mixed Connective Tissue Disease, Scleroderma-diffuse, Scleroderma-Autoimmune Myositis Overlap Syndrome, Systemic Lupus Qteyiimtifyfh-Aunlmgbwfcx-Aahpzreaov Myositis Overlap Syndrome, Systemic Autoimmune Rheumatic Disease, [...] Antiphospholipid Syndrome Performed at: CB - [facility] [address] [id number] Director: Barry Mrcae PhD, Phone: [phone] Eosinophils # (Auto) 0.2 10 3/uL 0.0-0.7 [facility] Immature Granulocyte # (Auto) 0.01 10 3/uL 0.00-0.03 [facility] Nuclear dots nuclear Ab aj herson [Titer] in Serum by Immunofluorescenceon 10-05-2023 Nuclear dots nuclear Ab pattern IF (S) [Titer] TN . [facility] Nuclear membrane pores nucle ar Ab pattern [Titer] in Serum by Immunofluorescenceon 10-05-2023 Nuclear membrane pores nuclear Ab pattern IF (S) [Titer] TN . [facility] PCNA extractable nuclear Ab [Titer] in Serum by Immunofluorescenceon 10-05-2023 PCNA extractable nuclear Ab IF (S) [Titer] TNP . [facility] Platelet mean volume Auto (B ld) [Entitic vol]on 10-05-2023 Platelet mean volume (Bld) [Entitic vol] 9.6 fL 9.5-13.5 [facility] Platelets Auto (Bld) [#/Vol] on 10-05-2023 Platelets (Bld) [#/Vol] 340 10 3/uL 150-450 [facility] RBC Auto (Bld) [#/Vol]on RBC (Bld) [#/Vol] 4.72 10 6/uL 4.20-5.40 [facility] Serum homogeneous pattern an tinuclear antibody (ISRA) titeron 10-05-2023 Homogenous nuclear Ab pattern (S) [Titer] TNP . [facility] Serum nuclear antibody titer on [...] nuclear Ab pattern (S) [Titer] TNP . [facility] Serum or plasma albumin/glob ulin mass ratioon 10-05-2023 Albumin/Globulin [Mass ratio] 1.0 {ratio} [facility] Serum or plasma anion gap de terminationon 10-05-2023 Anion gap [Moles/Vol] 11.6 mmol/L Fi [facility] Serum speckled pattern antin uclear antibody (ISRA) titeron 10-05-2023 Speckled nuclear Ab pattern (S) [Titer] 1:160 . [facility] Comment on above: ICAP nomenclature: A C-2,4,5,29 Quick Strepon 02-24-2023 S. pyogenes Org specific cx Ql (Throat) Negative [facility] Other [employer] Other Outside Colonoscopyon 2020 Outside Colonoscopy [id number]: 127 [facility] Lab Reportson 05-17-2021 Lab Reports [id number] [id number]: 127 Normal [facility] [place] [facility] [place] [facility] [place] 05[place] 2021 TARUN GLOVER, [address] [facility] [place] [address] Re: SANIA DINH Date of : 1970 Thank you for your referral of Sania Dinh who was seen on consultation on April 28, 2021, for screening colonoscopy. I have enclosed my consultation note for your review. I will be happy to follow Sania. Sincerely, Trevor Richard Md General Surgery [facility] Pre-Certification Formon Pre-Certification Form [id number]: 127 [facility] Formson 04-29-2021 Forms [id number]: 127 [facility] Ambulatory Clinical Summaryo 04-28-2021 Ambulatory Clinical Summary {[id number] }CD:[id number] [facility] Physician Referralon 021 Physician Referral [id number]: 127 [facility] NM PET/CT SKULL-THIGH INITon 09-27-2019 NM [...] any questions regarding this interpretation, please call [phone]. If you are unable to reach us at the number above, please feel free to contact [facility] at [phone]. [id number] Normal [facility] PROGRESSon 09-27-2019 PROGRESS HNO ID: [id number] Author: Jewel Vivar (Tech) Service: ? Author Type: Food Service Aide Type: Progress Notes Filed: 09/27/2019 1:22 PM [...] 1254 PATIENT DISCHARGED TO: Ambulatory patient, left [place] department area. Jewel Vivar A Diagnostic radioactive procedure has taken place, with no further precautions necessary other than routine body substance precautions. More information regarding radiation safety can be found using this link: [email or web address] SIGNATURE: Isa Melgar PATIENT NAME: Sania Dinh DATE: September 27, 2019 TIME: 1:09 PM PAGER/CONTACT #: Normal [facility] CT-CT CHEST W CON IMPORTon 0 09-09-2019 CT-CT CHEST W CON IMPORT Images were obtained outside of [facility] [id number] Normal [facility] T-Spoton 07-06-2017 T-Spot. TB Test Normal [facility] Comment on above: Result Comment: [facility] [employer] [place] [address](NOTE)T-SPOT.TB: NegativeThe test result is Negative because the [...] B Spot Count: 0Positive Control Spot Count: >[address] [id number] [phone] Performed By: #### T SPOT ####[address] [id number] Vital Signs Date Time Vital Sign Value Performing Clinician Facility 04-08-2025 13:24-0400 Body mass index (BMI) [Ratio] 43.39 kg/m2 Madisyn Vianey PA Work Phone: [facility] 04-08-2025 13:24-0400 Body weight 118.28 kg Madisyn Vianey PA Work Phone: [facility] 04-08-2025 13:24-0400 Diastolic blood pressure 82 mm[Hg] Madisyn Vianey PA Work Phone: [facility] 04-08-2025 13:24-0400 Systolic blood pressure 130 mm[Hg] Madisyn Schenectady PA Work Phone: [facility] 03-11-2025 14:44-0400 Body mass index (BMI) [Ratio] 43.4 kg/m2 Madisyn Schenectady PA Work Phone: [facility] 03-11-2025 14:44-0400 Body weight 118.3 kg Madisyn Schenectady PA Work Phone: [facility] 03-11-2025 14:44-0400 Diastolic blood pressure 68 mm[Hg] Madisyn Vianey PA Work Phone: [facility] 03-11-2025 14:44-0400 Systolic blood pressure 112 mm[Hg] Madisyn Vianey PA Work Phone: [facility] 02-10-2025 10:58-0400 Body mass index (BMI) [Ratio] 43.18 kg/m2 Madisyn Vianey PA Work Phone: [facility] 02-10-2025 10:58-0400 Body weight 117.71 kg Madisyn Vianey PA Work Phone: [facility] 02-10-2025 10:58-0400 Diastolic blood pressure 86 mm[Hg] Madisyn Schenectady PA Work Phone: [facility] 02-10-2025 10:58-0400 Systolic blood pressure 126 mm[Hg] Madisyn Vianey PA Work Phone: [facility] 01-16-2025 09:32-0400 Body height 164.47 cm Tarun Ball DO Work Phone: [facility] 01-16-2025 09:32-0400 Body mass index (BMI) [Ratio] 43.3 kg/m2 Tarun Ball DO Work Phone: [facility] 01-16-2025 09:32-0400 Body weight 117.19 kg Tarun Ball DO Work Phone: [facility] 01-16-2025 09:32-0400 Diastolic blood pressure 82 mm[Hg] Tarun Ball DO Work Phone: [facility] 01-16-2025 09:32-0400 Heart rate 89 /min Tarun Ball DO Work Phone: [facility] 01-16-2025 09:32-0400 Respiratory rate 12 /min Tarun Ball DO Work Phone: [facility] 01-16-2025 09:32-0400 Systolic blood pressure 120 mm[Hg] Tarun Ball DO Work Phone: [facility] 01-07-2025 08:37-0400 Body mass index (BMI) [Ratio] 42.81 kg/m2 Kj Brandon DO Work Phone: [facility] 01-07-2025 08:37-0400 Body weight 116.69 kg Kj Brandon DO Work Phone: [facility] 01-07-2025 08:37-0400 Diastolic blood pressure 90 mm[Hg] Kj Brandon DO Work Phone: [facility] 01-07-2025 08:37-0400 Systolic blood pressure 128 mm[Hg] Kj Brandon DO Work Phone: [facility] 12-16-2024 16:27-0400 Body mass index (BMI) [Ratio] 43.57 kg/m2 Madisyn SHIRLEY Work Phone: [facility] 12-16-2024 16:27-0400 Body weight 118.75 kg Madisyn SHIRLEY Work Phone: [facility] 12-16-2024 16:27-0400 Diastolic blood pressure 76 mm[Hg] Madisyn Schenectady PA Work Phone: [facility] 12-16-2024 16:27-0400 Systolic blood pressure 128 mm[Hg] Madisyn Vianey PA Work Phone: [facility] 11-05-2024 08:37-0400 Body height 165.1 cm Madisyn Schenectady PA Work Phone: [facility] 11-05-2024 08:37-0400 Body mass index (BMI) [Ratio] 41.89 kg/m2 Madisyn Schenectady PA Work Phone: [facility] 11-05-2024 08:37-0400 Body weight 114.19 kg Madisyn Vianey PA Work Phone: [facility] 11-05-2024 08:37-0400 Diastolic blood pressure 82 mm[Hg] Madisyn Vianey PA Work Phone: [facility] 11-05-2024 08:37-0400 Systolic blood pressure 112 mm[Hg] Madisyn Vianey PA Work Phone: [facility] 05-16-2024 15:51-0400 Body mass index (BMI) [Ratio] 46.35 kg/m2 Madisyn Schenectady PA Work Phone: [facility] 05-16-2024 15:51-0400 Body weight 122.47 kg Madisyn Schenectady PA Work Phone: [facility] 05-16-2024 15:51-0400 Diastolic blood pressure 74 mm[Hg] Madisyn Schenectady PA Work Phone: [facility] 05-16-2024 15:51-0400 Systolic blood pressure 122 mm[Hg] Madisyn Schenectady PA Work Phone: [facility] 04-29-2024 08:48-0400 Body mass index (BMI) [Ratio] 46.43 kg/m2 Kj Brandon DO Work Phone: [facility] 04-29-2024 08:48-0400 Body weight 122.7 kg Kj Brandon DO Work Phone: [facility] 04-29-2024 08:48-0400 Diastolic blood pressure 78 mm[Hg] Kj Brandon DO Work Phone: [facility] 04-29-2024 08:48-0400 Systolic blood pressure 122 mm[Hg] Kj Brandon DO Work Phone: [facility] 04-02-2024 13:22-0400 Body mass index (BMI) [Ratio] 46.65 kg/m2 Madisyn SHIRLEY Work Phone: [facility] 04-02-2024 13:22-0400 Body weight 123.29 kg Madisyn SHIRLEY Work Phone: [facility] 04-02-2024 13:22-0400 Diastolic blood pressure 82 mm[Hg] Madisyn SHIRLEY Work Phone: [facility] 04-02-2024 13:22-0400 Systolic blood pressure 130 mm[Hg] Madisyn SHIRLEY Work Phone: [facility] 03-29-2024 10:11-0400 Body height 164.47 cm [facility] 03-29-2024 10:11-0400 Body mass index (BMI) [Ratio] 45.3 kg/m2 [facility] 03-29-2024 10:11-0400 Body weight 122.52 kg [facility] 03-29-2024 10:11-0400 Diastolic blood pressure 95 mm[Hg] [facility] 03-29-2024 10:11-0400 Heart rate 98 /min [facility] 03-29-2024 10:11-0400 Respiratory rate 12 /min [facility] 03-29-2024 10:11-0400 Systolic blood pressure 145 mm[Hg] [facility] 12-26-2023 14:25-0400 Body height 164.47 cm DO Tarun Ball Work Phone: [facility] 12-26-2023 14:25-0400 Body mass index (BMI) [Ratio] 46.6 kg/m2 DO Tarun Ball Work Phone: [facility] 12-26-2023 14:25-0400 Body weight 126.26 kg DO Tarun Ball Work Phone: [facility] 12-26-2023 14:25-0400 Diastolic blood pressure 78 mm[Hg] DO Tarun Ball Work Phone: [facility] 12-26-2023 14:25-0400 Heart rate 88 /min DO Tarun Ball Work Phone: [facility] 12-26-2023 14:25-0400 Respiratory rate 12 /min DO Tarun Ball Work Phone: [facility] 12-26-2023 14:25-0400 Systolic blood pressure 120 mm[Hg] DO Tarun Ball Work Phone: [facility] 10-27-2023 11:04-0400 Body height 164.47 cm [facility] 10-27-2023 11:04-0400 Body mass index (BMI) [Ratio] 45.6 kg/m2 [facility] 10-27-2023 11:04-0400 Body weight 123.43 kg [facility] 10-27-2023 11:04-0400 Diastolic blood pressure 82 mm[Hg] [facility] 10-27-2023 11:04-0400 Heart rate 80 /min [facility] 10-27-2023 11:04-0400 Respiratory rate 12 /min [facility] 10-27-2023 11:04-0400 Systolic blood pressure 128 mm[Hg] [facility] 08-21-2023 13:45-0500 Body height 164.47 cm Tarun Ball Other [facility] [employer] Other 08-21-2023 13:45-0500 Body mass index (BMI) [Ratio] 45.47 kg/m2 Tarun Ball Other [employer] [facility] [employer] Other 08-21-2023 13:45-0500 Body weight 123.02 kg Tarun Ball Other [employer] Other 08-21-2023 13:45-0500 Diastolic blood pressure 77 mm[Hg] Tarun Ball Other [employer] Other 08-21-2023 13:45-0500 Respiratory rate 16 /min Tarun Ball Other [employer] Other 08-21-2023 13:45-0500 Systolic blood pressure 136 mm[Hg] Tarun Ball Other [employer] Other 05-19-2023 12:17-0400 Body height 164.47 cm Tarun Ball Other [employer] Other 05-19-2023 12:17-0400 Body mass index (BMI) [Ratio] 43.09 kg/m2 Tarun Ball Other [employer] Other 05-19-2023 12:17-0400 Body weight 116.58 kg Tarun Ball Other [employer] Other 05-19-2023 12:17-0400 Diastolic blood pressure 75 mm[Hg] Tarun Ball Other [employer] Other 05-19-2023 12:17-0400 Systolic blood pressure 119 mm[Hg] Tarun Ball Other [employer] Other 02-27-2023 12:00-0400 Body height 164.47 cm Tarun Ball Other [employer] Other 02-27-2023 12:00-0400 Body mass index (BMI) [Ratio] 43.6 kg/m2 Tarun Ball Other [employer] Other 02-27-2023 12:00-0400 Body weight 117.94 kg Tarun Ball Other [employer] Other 02-24-2023 09:00-0400 Body height 164.47 cm Tasia Yuly Other [employer] Other 02-24-2023 09:00-0400 Body mass index (BMI) [Ratio] 44.1 kg/m2 Tasia Emery Other [employer] Other 02-24-2023 09:00-0400 Body weight 119.3 kg Tasia Yuly Other [facility] Other 02-24-2023 09:00-0400 Diastolic blood pressure 83 mm[Hg] Tasia Yuly Other [employer] Other 02-24-2023 09:00-0400 Respiratory rate 16 /min Tasia Yuly Other [employer] Other 02-24-2023 09:00-0400 SaO2% (BldA) [Mass fraction] 98 % Tasia Yuly Other [employer] Other 02-24-2023 09:00-0400 Systolic blood pressure 125 mm[Hg] Tasia Emery Other [employer] Other 01-20-2023 08:30-0400 Body height 164.47 cm Tarun Ball Other [employer] Other 01-20-2023 08:30-0400 Body mass index (BMI) [Ratio] 44.17 kg/m2 Tarun Ball Other [employer] Other 01-20-2023 08:30-0400 Body weight 119.48 kg Tarun Ball Other [employer] Other 01-20-2023 08:30-0400 Diastolic blood pressure 87 mm[Hg] Tarun Ball Other [employer] Other 01-20-2023 08:30-0400 Respiratory rate 12 /min Tarun Ball Other [employer] Other 01-20-2023 08:30-0400 Systolic blood pressure 130 mm[Hg] Tarun Ball Other [employer] Other 01-02-2023 12:00-0400 Body height 164.47 cm Tarun Ball Other [employer] Other 01-02-2023 12:00-0400 Body mass index (BMI) [Ratio] 43.09 kg/m2 Tarun Ball Other [employer] Other 01-02-2023 12:00-0400 Body weight 116.58 kg Tarun Ball Other [employer] Other 01-02-2023 12:00-0400 Diastolic blood pressure 79 mm[Hg] Tarun Ball Other [employer] Other 01-02-2023 12:00-0400 Systolic blood pressure 124 mm[Hg] Tarun Ball Other [employer] Other 11-16-2022 10:30-0400 Body height 164.47 cm Tarun Ball Other [employer] Other 11-16-2022 10:30-0400 Body mass index (BMI) [Ratio] 45.54 kg/m2 Tarun Ball Other [employer] Other 11-16-2022 10:30-0400 Body weight 123.2 kg Tarun Ball Other [employer] Other 11-16-2022 10:30-0400 Diastolic blood pressure 81 mm[Hg] Tarun Glover Other [employer] Other 11-16-2022 10:30-0400 Respiratory rate 12 /min Tarun Glover Other [facility] Other 11-16-2022 10:30-0400 SaO2% (BldA) [Mass fraction] 96 % Tarun Glover Other [employer] Other 11-16-2022 10:30-0400 Systolic blood pressure 115 mm[Hg] Tarun Glover Other [employer] Other Encounters Encounter Date Encounter Type Care Provider Facility Start: 04-08-2025 End: 04-08-2025 Bamboo flowsheet Madisyn SHIRLEY Work Phone: [facility] Start: 04-08-2025 End: 04-08-2025 Bamboo flowsheet Madisyn SHIRLEY Work Phone: [facility] Start: 04-08-2025 End: 04-08-2025 Patient encounter procedure Madisyn SHIRLEY Work Phone: [facility] Start: 04-08-2025 End: 04-08-2025 Periodic preventive med est patient 40-64yrs Madisyn SHIRLEY Work Phone: [facility] Comment on above: Well woman exam with routine gynecological exam; Encounter for screening mammogram for malignant neoplasm of breast; Postmenopausal state Start: 03-11-2025 End: 03-11-2025 Office outpatient visit 15 minutes Madisyn SHIRLEY Work Phone: [facility] Comment on above: Encounter for weight management Start: 03-11-2025 End: 03-11-2025 ambulatory MADISYN PIPER Not Available Start: 03-11-2025 End: 03-11-2025 Bamboo flowsheet Madisyn Piper PA Work Phone: [facility] Start: 03-11-2025 End: 03-11-2025 Bamboo flowsheet Madisyn Piper PA Work Phone: [facility] Start: 02-10-2025 End: 02-10-2025 Bamboo flowsheet Madisyn Piper PA Work Phone: [facility] Start: 02-10-2025 End: 02-10-2025 Bamboo flowsheet Madisyn Piper PA Work Phone: [facility] Start: 02-10-2025 End: 02-10-2025 Office outpatient visit 15 minutes Madisyn SHIRLEY Work Phone: [facility] Comment on above: Encounter for weight management Start: 02-10-2025 End: 02-10-2025 ambulatory MADISYN PIPER Not Available Start: 02-07-2025 End: 02-07-2025 Clinisync Result Encounter Madisyn Piper PA Work Phone: [facility] Unsolicited Start: 02-07-2025 End: 02-07-2025 Clinisync Result Encounter Madisyn SHIRLEY Work Phone: [facility] Unsolicited Start: 02-04-2025 End: 02-04-2025 Bamboo flowsheet Kj Brandon DO Work Phone: [facility] Start: 02-04-2025 End: 02-04-2025 Bamboo flowsheet Kj Brandon DO Work Phone: [facility] Start: 02-04-2025 End: 02-04-2025 ambulatory KJ BRANDON Not Available Start: 02-04-2025 End: 02-04-2025 Online digital e/m svc est pt <7 d 5-10 minutes Kj Brandon DO Work Phone: [facility] Comment on above: Hormone disorder; Fatigue, unspecified type; Hot flashes Start: 01-16-2025 End: 01-16-2025 ambulatory Tarun Glover DO Work Phone: [facility] Work Phone: Start: 01-16-2025 End: 01-16-2025 Patient encounter procedure Tarun Glover DO [facility] Work Phone: Start: 01-16-2025 End: 01-16-2025 Patient encounter status Tarun Glover DO [facility] Start: 01-07-2025 End: 01-07-2025 Office outpatient visit 15 minutes Kj Brandon DO Work Phone: [facility] Comment on above: Hormone imbalance; Encounter for weight management Start: 01-07-2025 End: 01-07-2025 ambulatory KJ BRANDON Not Available Start: 12-16-2024 End: 12-16-2024 Office outpatient visit 15 minutes Madisyn SHIRLEY Work Phone: [facility] Comment on above: Encounter for weight management Start: 12-16-2024 End: 12-16-2024 ambulatory MADISYN PIPER Not Available Start: 12-16-2024 End: 12-16-2024 Bamboo flowsheet Madisyn SHIRLEY Work Phone: [facility] Start: 12-16-2024 End: 12-16-2024 Bamboo flowsheet Madisyn SHIRLEY Work Phone: [facility] Start: 11-08-2024 End: 11-08-2024 Clinisync Result Encounter Kj Brandon DO Work Phone: [facility] Unsolicited Start: 11-08-2024 End: 11-08-2024 Clinisync Result Encounter Kj Brandon DO Work Phone: [facility] Unsolicited Start: 11-08-2024 Non-patient / Non-visit Kj Brandon -[facility] Work Phone: Start: 11-07-2024 End: 11-07-2024 ambulatory [facility] Work Phone: Start: 11-07-2024 End: 11-07-2024 Patient encounter procedure [facility] Work Phone: Start: 11-05-2024 End: 11-05-2024 Bamboo flowsheet Madisyn SHIRLEY Work Phone: [facility] Start: 11-05-2024 End: 11-05-2024 Bamboo flowsheet Madisyn SHIRLEY Work Phone: [facility] Start: 11-05-2024 End: 11-05-2024 Office outpatient visit 15 minutes Madisyn SHIRLEY Work Phone: [facility] Comment on above: Encounter for weight management; Hormone imbalance; Hot flashes; Fatigue, unspecified type; Hormone disorder Start: 11-05-2024 End: 11-05-2024 ambulatory MADISYN PIPER Not Available Start: 08-27-2024 Non-patient / Non-visit [facility] Work Phone: Start: 08-25-2024 Non-patient / Non-visit [facility] Work Phone: Start: 08-24-2024 Non-patient / Non-visit [facility] Work Phone: Start: 05-29-2024 End: 05-29-2024 ambulatory Kj Brandon DO Work Phone: [facility] Work Phone: Start: 05-29-2024 End: 05-29-2024 Patient encounter procedure Kj Brandon DO Work Phone: [facility] Work Phone: Start: 05-16-2024 End: 05-16-2024 Postop follow up visit related to original px Madisyn SHIRLEY Work Phone: [facility] Comment on above: Cellulitis, unspecif ied cellulitis site Start: 05-16-2024 End: 05-16-2024 ambulatory MADISYN PIPER Not Available Start: 05-16-2024 End: 05-16-2024 Bamboo flowsheet Madisyn Piper PA Work Phone: [facility] Start: 05-16-2024 End: 05-16-2024 Bamboo flowsheet Madisyn Piper PA Work Phone: [facility] Start: 05-09-2024 End: 05-09-2024 Clinisync Result Encounter Kj Brandon DO Work Phone: [facility] Unsolicited Start: 05-09-2024 End: 05-09-2024 Clinisync Result Encounter Kj Brandon DO Work Phone: [facility] Unsolicited Start: 05-09-2024 End: 05-09-2024 ambulatory Kj Brandon [facility] Work Phone: Start: 05-09-2024 End: 05-09-2024 Departed Referred DO Kj Brandon Work Phone: [facility] Start: 05-09-2024 Non-patient / Non-visit DO Cor ey Brandon Work Phone: [facility] Work Phone: Start: 05-02-2024 Non-patient / Non-visit Kj Brandon DO Work Phone: [facility] Work Phone: Start: 04-29-2024 End: 04-29-2024 Bamboo flowsheet Kj Brandon DO Work Phone: [facility] Start: 04-29-2024 End: 04-29-2024 Bamboo flowsheet Kj Brandon DO Work Phone: [facility] Start: 04-29-2024 End: 04-29-2024 Office outpatient visit 15 minutes Kj Brandon DO Work Phone: [facility] Comment on above: Pre-op examination; Fibroids; Pelvic pain in female; Dyspareunia in female Start: 04-29-2024 End: 04-29-2024 Preprocedural examination done Kj Brandon DO Work Phone: [facility] Start: 04-29-2024 End: 04-29-2024 ambulatory KJGema ARENASO Not Available Start: 04-10-2024 End: 04-10-2024 Telephone encounter Madisyn SHIRLEY Work Phone: [facility] Start: 04-02-2024 End: 04-02-2024 Bamboo flowsheet Madisyn SHIRLEY Work Phone: [facility] Start: 04-02-2024 End: 04-06-2024 Bamboo flowsheet Madisyn SHIRLEY Work Phone: [facility] Start: 04-02-2024 End: 04-06-2024 Clinisync Result Encounter Madisyn SHIRLEY Work Phone: [facility] External Department Unsolicited Start: 04-02-2024 Non-patient / Non-visit DO Cor ey Brandon Work Phone: [facility] Work Phone: Start: 04-02-2024 End: 04-02-2024 ambulatory MADISYN PIPER Not Available Start: 04-02-2024 End: 04-02-2024 Patient encounter procedure Madisyn SHIRLEY Work Phone: [facility] Work Phone: Start: 04-02-2024 End: 04-02-2024 Periodic preventive med est patient 40-64yrs Madisyn SHIRLEY Work Phone: [facility] Comment on above: Well woman exam with routine gynecological exam; Postmenopausal state; Pelvic pain in female; Encounter for weight management; Skin yeast infection Start: 03-29-2024 End: 03-29-2024 ambulatory [facility] Work Phone: Start: 03-29-2024 End: 03-29-2024 Patient encounter procedure [facility] Work Phone: Start: 12-26-2023 End: 12-26-2023 ambulatory DO Tarun Ball Work Phone: [facility] Work Phone: Start: 12-26-2023 End: 12-26-2023 Encounter for general adult medical examination without abnormal findings DO Tarun Ball Work Phone: [facility] Start: 12-26-2023 End: 12-26-2023 Patient encounter procedure DO Tarun Ball Work Phone: [facility] Work Phone: Start: 12-06-2023 End: 12-06-2023 Patient encounter procedure DO Tarun Ball Work Phone: [facility] [address] Work Phone: Start: 12-06-2023 End: 12-06-2023 ambulatory DO Tarun Glover Work Phone: [facility] Work Phone: Start: 10-27-2023 End: 10-27-2023 ambulatory [facility] Work Phone: Start: 10-27-2023 End: 10-27-2023 Patient encounter procedure [facility] Work Phone: Start: 10-05-2023 Non-patient / Non-visit [facility] Work Phone: Start: 09-12-2023 Non-patient / Non-visit [facility] Work Phone: Start: 08-21-2023 End: 08-21-2023 ambulatory Tarun Glover Other [facility] Other Start: 08-21-2023 Office outpatient vi sit 15 minutes Tarun Valery [facility] Start: 08-16-2023 End: 08-16-2023 ambulatory Tarun Ball Other [facility] Other Start: 08-16-2023 Office outpatient vi sit 15 minutes Tarun Ball [facility] Start: 07-19-2023 End: 07-19-2023 ambulatory Tarun Ball Other [facility] Other Start: 07-19-2023 Office outpatient vi sit 15 minutes Tarun Ball [facility] Start: 05-19-2023 End: 05-19-2023 ambulatory Tarun Ball Other [facility] Other Start: 05-19-2023 Telephone encounter Tarun Ball [facility] Start: 03-17-2023 End: 03-17-2023 ambulatory Tarun Ball Other [facility] Other Start: 03-17-2023 Telephone encounter Tarun Ball [facility] Start: 02-27-2023 End: 02-27-2023 ambulatory Tarun Ball Other [facility] Other Start: 02-27-2023 Office outpatient vi sit 15 minutes Tarun Ball [facility] Start: 02-24-2023 End: 02-24-2023 ambulatory Tasia Emery Other [facility] Other Start: 02-24-2023 Office outpatient vi sit 15 minutes Tasia Emery [facility] Start: 02-24-2023 Telephone encounter [facility] [facility] Start: 02-17-2023 End: 02-17-2023 ambulatory Tarun Ball Other [facility] Other Start: 02-17-2023 Telephone encounter Tarun Ball [facility] Start: 01-20-2023 End: 01-20-2023 ambulatory Tarun Ball Other [facility] Other Start: 01-20-2023 Office outpatient vi sit 15 minutes Tarun Ball [facility] Start: 01-02-2023 End: 01-02-2023 ambulatory Tarun Glover Other [facility] Other Start: 01-02-2023 Office outpatient vi sit 15 minutes Tarun Glover [facility] Start: 12-14-2022 End: 12-14-2022 ambulatory Tarun Glover Other [facility] Other Start: 12-14-2022 Telephone encounter Tarun Glover [facility] Start: 12-07-[address] TARUN GLOVER Facili ty:[facility]1 Start: 11-16-2022 End: 11-16-2022 ambulatory Tarun Glover Other [facility] Other Start: 11-16-2022 Encounter for genera l adult medical examination without abnormal findings Tarun Glover [facility] Start: 11-16-2022 Periodic preventive med est patient 40-64yrs Tarun Glover [facility] Start: 11-16-2022 Telephone encounter Tarun HERNDON [facility] Start: 09-26-2022 End: 09-26-2022 ambulatory Tarun Glover Other [facility] Other Start: 09-26-2022 Office outpatient vi sit 15 minutes Tarun Glover [facility] Start: 09-12-2022 End: 09-12-2022 ambulatory Tarun Glover Other [facility] Other Start: 09-12-2022 Telephone encounter Tarun Valery [facility] Start: 06-17-2022 Gynecological examination normal Tarun Glover Other [facility] Other Start: 01-03-2022 End: 08-04-[address] MONTRELL CHIU Facility:[facility] Start: 07-01-2021 Adult health examination Swapnil Glover Other [facility] Other Start: 07-03-2017 End: 07-04-2017 Ambulatory [facility]RE[facility] Procedures Date Procedure Procedure Detail Performing Clinician Start: 02-07-2025 MM TOMOSYNTHESIS SCR EENING BI Madisyn SHIRLEY Work Phone: Start: 02-07-2025 Mammography Madisyn SHIRLEY Work Phone: Start: 11-08-2024 ALL T3 FREE Kj Fazi o DO Work Phone: Start: 11-08-2024 ALL THYROID STIM HORMONE Kj Brandon DO Work Phone: Start: 11-08-2024 ALL THYROXINE (T4) Core y Brandon DO Work Phone: Start: 11-08-2024 TBH GLUCOSE BLOOD Kj Brandon DO Work Phone: Start: 05-09-2024 ALL CBC WITH AUTO DIFF Kj Brandon DO Work Phone: Start: 04-02-2024 IGP,APTIMA HPV,AGE GDLN Madisyn SHIRLEY Work Phone: Start: 04-02-2024 Microscopic observat ion [Identifier] in Cervix by Cyto stain Madisyn SHIRLEY Work Phone: Start: 07-03-2017 T-SPOT TB TEST TREVOR BRUSH Depression screening Benjami n Valery Other Screening for malign ant neoplasm of breast Tarun Glover Other Screening for malign ant neoplasm of colon Tarun Glover Other Plan of Treatment Date Care Activity Detail Author Start: 04-02-2029 Screening for malign ant neoplasm of cervix [facility] Start: 04-13-2028 Screening for malign ant neoplasm of cervix [facility] Start: 04-16-2026 End: 04-16-2026 Patient encounter procedure 04/16/2026 9:00 AM EDT Procedure Visit JENNIFER BAILEY [address] [place] [phone] Madisyn Piper PA [address] [place] [address] JENNIFER BAILEY Start: 02-07-2026 Screening for malign ant neoplasm of breast Mammogram [facility] Start: 04-08-2025 End: 04-08-2025 Patient encounter procedure [facility] Comment on above: Arrived Start: 03-17-2025 Influenza vaccination Influenza Vacc ine (#1) [facility] Start: 03-11-2025 End: 03-11-2025 Patient encounter procedure 03/11/2025 2:30 PM EDT Office Visit [facility] [address] [place] [address] Madisyn Piper, PA [address] [place], [place] [address] Arrived JENNIFER MOOREGYRolo Comment on above: Arrived Start: 03-10-2025 End: 03-10-2025 Patient encounter procedure 03/10/2025 1:10 PM EDT Office Visit [facility] [address] [place] [phone] Madisyn Piper, PA [address] [place], [facility] Start: 02-10-2025 End: 02-10-2025 Patient encounter procedure 02/10/2025 10:50 AM EDT Office Visit [facility] [address] [place] [phone] Madisyn Piper, PA [address] [place], [facility] Arrived JENNIFER Mena OBGYR[facility] Comment on above: Arrived Start: 02-10-2025 End: 02-10-2025 Patient encounter procedure 02/10/2025 8:50 AM EDT Office Visit [facility] [address] [place] [address] Madisyn Piper, PA [address] [place], [facility] Start: 02-04-2025 End: 02-04-2025 Patient encounter procedure 02/04/2025 8:00 AM EDT Office Visit [facility] [address] [place] [address] Kj Taylor, DO [address] [place] [address] [facility] Start: 01-13-2025 End: 01-13-2025 Patient encounter procedure 01/13/2025 4:00 PM EDT Office Visit [facility] [address] [place] [address] Madisyn Piper PA [address] [place] [address] [facility] Start: 01-07-2025 End: 01-07-2025 Patient encounter procedure 01/07/2025 8:50 AM EDT Office Visit [facility] [address] [place] [phone] Kj Taylor, DO [address] [place] [address] [facility] Start: 12-16-2024 End: 12-16-2024 Patient encounter procedure 12/16/2024 4:00 PM EDT Office Visit [facility] [address] [place] [address] Madisyn Piper, PA [address] [place] [address] Arrived [facility] Comment on above: Arrived Start: 11-05-2024 End: 11-05-2025 C-peptide C-peptide Lab Routine Hormone disorder Expected: 11/05/2024 (Approximate), Expires: 11/05/2025 [facility] Comment on above: Expected: 11/05/2024 (Approximate), Expires: 11/05/2025 Start: 11-05-2024 End: 11-05-2025 Cortisol free Cortisol, free Lab Routine Hormone disorder Expected: 11/05/2024 (Approximate), Expires: 11/05/2025 [facility] Comment on above: Expected: 11/05/2024 (Approximate), Expires: 11/05/2025 Start: 11-05-2024 End: 11-05-2025 Glucose [Mass/volume] in Serum or Plasma Glucose, random Lab Routine Hormone disorder Expected: 11/05/2024 (Approximate), Expires: 11/05/2025 [facility] Comment on above: Expected: 11/05/2024 (Approximate), Expires: 11/05/2025 Start: 11-05-2024 End: 11-05-2025 Insulin, total Insulin, total Lab Routine Hormone disorder Expected: 11/05/2024 (Approximate), Expires: 11/05/2025 [facility] Comment on above: Expected: 11/05/2024 (Approximate), Expires: 11/05/2025 Start: 11-05-2024 End: 11-05-2025 Serotonin serum Serotonin serum Lab Routine Hormone disorder Expected: 11/05/2024 (Approximate), Expires: 11/05/2025 [facility] Comment on above: Expected: 11/05/2024 (Approximate), Expires: 11/05/2025 Start: 11-05-2024 End: 11-05-2025 Thyroglobulin Thyroglobulin Lab Routine Hormone disorder Expected: 11/05/2024 (Approximate), Expires: 11/05/2025 [facility] Comment on above: Expected: 11/05/2024 (Approximate), Expires: 11/05/2025 Start: 11-05-2024 End: 11-05-2025 Thyroglobulin Antibody Thyroglobulin Antibody Lab Routine Hormone disorder Expected: 11/05/2024 (Approximate), Expires: 11/05/2025 [facility] Comment on above: Expected: 11/05/2024 (Approximate), Expires: 11/05/2025 Start: 11-05-2024 End: 11-05-2025 Thyrotropin [Units/volume] in Serum or Plasma [facility] Comment on above: Ordered: 11/05/2024 Expected: 11/05/2024 (Approximate), Expires: 11/05/2025 Start: 11-05-2024 End: 11-05-2024 Patient encounter procedure 11/05/2024 8:30 AM EDT Office Visit [facility] [address] [phone] Madisyn Piper PA [address] [place] [address] Arrived [facility] Comment on above: Arrived Start: 05-21-2024 End: 05-21-2024 Patient encounter procedure 05/21/2024 2:20 PM EST Office Visit [facility] [address] [place] [address] Kj Taylor, [address] [place] [address] [facility] Start: 05-16-2024 End: 05-16-2024 Patient encounter procedure 05/16/2024 3:40 PM EDT Office Visit [facility] [address] [place] [phone] Madisyn Piper PA [address] [place] [address] Arrived [facility] Comment on above: Arrived Start: 04-29-2024 End: 04-29-2024 Patient encounter procedure 04/29/2024 8:50 AM EDT Office Visit [facility] [address] [place] [phone] Kj Taylor, DO [address] [place] [address] Arrived [facility] Comment on above: Arrived Start: 04-09-2024 End: 04-09-2024 Professional / ancillary services management 04/09/2024 1:00 PM EDT Ancillary Procedure [facility] [address] [place] [address] [facility] Start: 04-02-2024 End: 04-02-2025 DXA Skeletal system Views for bone density DEXA bone density Imaging Routine Postmenopausal state Expected: 04/02/2024 (Approximate), Expires: 04/02/2025 [facility] Work Phone: Comment on above: Expected: 04/02/2024 (Approximate), Expires: 04/02/2025 Start: 04-02-2024 End: 04-02-2025 US for US PELVIS-TRANSVAG IF INDICATED Imaging Routine Pelvic pain in female Expected: 04/02/2024 (Approximate), Expires: 04/02/2025 [facility] Comment on above: Expected: 04/02/2024 (Approximate), Expires: 04/02/2025 Start: 03-17-2024 Influenza vaccination Influenza Vacc ine (#1) [facility] Start: 12-06-2023 Hemolytic complement CH50 level [facility] Start: 12-06-2023 End: 12-06-2023 [facility] Start: 10-27-2023 Patient referral [facility] Work Phone: Start: 2009 Screening for malign ant neoplasm of breast Mammogram [facility] Start: 1990 Screening for malign ant neoplasm of cervix Pap Smear [facility] Start: 1969 Screening for malign ant neoplasm of colon [facility] DHEA-sulfate DHEA-sulfate Lab Routine Hormone disorder Ordered: 11/05/2024 [facility] Comment on above: Ordered: 11/05/2024 Estradiol Estradiol Lab Ro utine Hormone disorder Ordered: 11/05/2024 [facility] Work Phone: Comment on above: Ordered: 11/05/2024 Estrone Estrone Lab Rout ine Hormone disorder Ordered: 11/05/2024 [facility] Comment on above: Ordered: 11/05/2024 Ferritin [Mass/volum e] in Serum or Plasma Ferritin Lab Routine Hormone disorder Ordered: 11/05/2024 [facility] Comment on above: Ordered: 11/05/2024 Hemoglobin A1c/Hemoglobin.total in Blood Hemoglobin A1c Lab Routine Hormone disorder Ordered: 11/05/2024 [facility] Comment on above: Ordered: 11/05/2024 MG Breast - bilatera l Screening [facility] Nuclear Ab [Titer] i n Serum [facility] Patient referral [facility] Work Phone: Progesterone Progesterone Lab Routine Hormone disorder Ordered: 11/05/2024 [facility] Comment on above: Ordered: 11/05/2024 Sex hormone binding globulin Sex hormone binding globulin Lab Routine Hormone disorder Ordered: 11/05/2024 [facility] Comment on above: Ordered: 11/05/2024 T3, reverse T3, reverse Lab Routine Hormone disorder Ordered: 11/05/2024 [facility] Comment on above: Ordered: 11/05/2024 TESTOSTERONE, FREE TESTOSTERONE, FREE Lab Routine Hormone disorder Ordered: 11/05/2024 [facility] Comment on above: Ordered: 11/05/2024 Testosterone, free, total Testos terone, free, total Lab Routine Hormone disorder Ordered: 11/05/2024 [facility] Comment on above: Ordered: 11/05/2024 THIN PREP TIS PAP AN D HR HPV DNA THIN PREP TIS PAP AND HR HPV DNA Pathology and Cytology Routine Well woman exam with routine gynecological exam Ordered: 04/02/2024 [facility] Comment on above: Ordered: 04/02/2024 THIN PREP TIS PAP AN D HR HPV DNA THIN PREP TIS PAP AND HR HPV DNA Pathology and Cytology Routine Well woman exam with routine gynecological exam Ordered: 04/08/2025 [facility] Work Phone: Comment on above: Ordered: 04/08/2025 Thyroid peroxidase antibody Thyroid peroxidase antibody Lab Routine Hormone disorder Ordered: 11/05/2024 [facility] Comment on above: Ordered: 11/05/2024 Thyroxine (T4) free [Mass/volume] in Serum or Plasma T4, free Lab Routine Hormone disorder Ordered: 11/05/2024 [facility] Comment on above: Ordered: 11/05/2024 Triiodothyronine (T3 ) Free [Mass/volume] in Serum or Plasma T3, free Lab Routine Hormone disorder Ordered: 11/05/2024 [facility] Comment on above: Ordered: 11/05/2024 Vitamin D 1,25 dihydroxy Vitamin D 1,25 dihydroxy Lab Routine Hormone disorder Ordered: 11/05/2024 [facility] Comment on above: Ordered: 11/05/2024 Immunizations Immunization Date Immunization Notes Care Provider [facility] 05-29-2024 influenza, seasonal, injectable, preservative free Kj Brandon DO Work Phone: [facility] 05-29-2024 influenza virus vaccine, unspecified formulation Kj Brandon DO Work Phone: [facility] 03-31-2021 influenza virus vaccine, split virus (incl. purified surface antigen) Tarun Glover Other [facility] Other 03-31-2021 influenza virus vaccine, unspecified formulation [facility] 03-31-2021 Influenza, injectabl e, Madin [place] Canine Kidney, preservative free, quadrivalent Kj Brandon DO Work Phone: [facility] 08-24-2020 COVID-19 mRNA-1273 (Moderna) Kj Brandon DO Work Phone: [facility] 07-27-2020 COVID-19 mRNA-1273 (Moderna) Kj Brandon DO Work Phone: [facility] 05-28-2020 influenza, high dose seasonal, preservative-free Kj Brandon DO Work Phone: [facility] 05-21-2020 influenza virus vaccine, split virus (incl. purified surface antigen) Tarun Glover Other [facility] Other 05-21-2020 influenza virus vaccine, unspecified formulation [facility] 05-12-2017 influenza, injectabl e, quadrivalent, preservative free Kj Brandon DO Work Phone: [facility] 05-17-2016 influenza, injectabl e, quadrivalent, preservative free Kj Brandon DO Work Phone: [facility] 05-05-2015 influenza, injectabl e, quadrivalent, preservative free Kj Taylor DO Work Phone: [facility] Payers Date Payer Category Payer Managed Care HMO (unspecified) [id number] 1970 Unknown [id number] 1969 Unknown [id number] 2.16.84 [id number] 1969 Unknown [id number] 1969 Unknown [id number] 1969 Unknown [id number] 1969 Unknown [id number] 1969 Unknown [id number] 1969 Unknown [id number] 1969 Unknown [id number] 1969 Unknown [id number] 1969 Unknown [id number] 1959 Private Health Insurance [id number] 1960 Self-pay Private Health Insurance [id number] Unknown [id number] Unknown [id number] Social History Date Type Detail Facility Unknown if ever smoked [facility] [employer] Other Start: 04-02-2024 End: 04-29-2024 Sex Assigned At [facility] [employer] Other Start: 08-16-2023 End: 04-29-2024 Tobacco smoking status NHIS Never smoked tobacco (finding) [facility] Start: 1970 Sex Assigned At Female F [facility] Start: 04-02-2024 End: 04-08-2025 Alcoholic beverage intake Lifetime non-drinker (finding) [facility] Start: 04-02-2024 End: 04-29-2024 History of Social function [facility] Start: 03-22-2023 Alcohol Comment Caffeine intak e: 1-2 cups per day coffee [facility] Start: 1970 Sex assigned at Not on file [facility] Start: 04-29-2024 Tobacco use and exposure Smokeless tobacco non-user [facility] Start: 05-29-2024 End: 11-07-2024 Sex Female (finding) [facility] Clinical Notes 04-28-2021 to 04-08-2025 CASPER Alaniz - 04/08/2025 1:00 PM CASPER Ramos - 03/11/2025 2:30 PM CASPER Ramos - 02/10/2025 10:50 AM Pam Angeles LPN - 02/04/2025 8:00 AM Pam Angeles LPN - 01/07/2025 8:50 AM EDT Note Date & Type Note Facility 04-08-2025 History of Presen t illness Narrative Reason for Appointment: Patient ID: Sania Dinh is a 54 y.o. female who presents [...] mg, Oral, Daily ALLERGIES Allergies Allergen Reactions [place] Oil Unknown Latex Unknown Milk-Related Compounds Unknown [...] SYSTEMS Review of Systems: Review of Systems All other systems reviewed and are negative. [...] nursing note reviewed. Exam conducted with a high worker present. Vitals: Estimated body mass index is 43.39 kg/m as calculated from the following: Height [...] and patient given mammogram order to have scheduled/obtained. Patient states that the patch does not work [...] if she will need this increased prior to refilling script. Discussed Bone Density with patient encouraging vitamin d and calcium, or she can do prolia or the fosamax. No orders of the defined types were placed in this encounter. Follow Up: Patient is to return in one year for annual unless needed otherwise. Documented by Jana Rivera LPN on behalf of: CASPER Alaniz documented in this encounter [facility] 03-11-2025 History of Presen t illness Narrative Reason for Appointment: Patient ID: Sania Dinh is a 54 y.o. female who presents for Weight Management Patient presents today for Weight Management Consult. MEDICATIONS Current Outpatient Medications Medication Instructions clotrimazole (Lotrimin) 1 % cream 1 application , Every 12 hours escitalopram (LEXAPRO) 10 mg, Oral, Daily estradiol (Climara) 0.05 MG/24HR 1 patch, Transdermal, Weekly estradiol (Climara) 0.075 MG/24HR 1 patch, Transdermal, Weekly Loratadine-D 24HR 10-240 MG 24 hr tablet 1 tablet, Oral, As needed metFORMIN XR (GLUCOPHAGE-XR) 500 mg, Oral, Daily with evening meal, Do not crush, chew, or split. phentermine (ADIPEX-P) 37.5 mg, Oral, Daily before breakfast phentermine (ADIPEX-P) 37.5 mg, Oral, Daily before breakfast progesterone (PROMETRIUM) 100 mg, Oral, Daily ALLERGIES Allergies Allergen Reactions [place] Oil Unknown Latex Unknown Milk-Related Compounds Unknown [...] and oriented to person, place, and time. Psychiatric: Mood and Affect: Mood normal. Behavior: Behavior normal. Thought Content: Thought content normal. Judgment: Judgment normal. Vitals and nursing note reviewed. Vitals: Estimated body mass index is 43.4 kg/m as calculated from the following: Height as of 11/05/24: 5' 5 . Weight as of this encounter: 260 lb 12.8 oz. BP: 112/68 No LMP recorded. Patient has had an ablation. ASSESSMENT & PLAN ICD-10-CM 1. Encounter for weight management Z76.89 phentermine (Adipex-P) 37.5 MG tablet Patient presents today for Adipex prescription. Patient desires additional weigh loss and she is currently taking metformin along with working out to achieve further results. Weight and blood pressure has been captured and it has been discussed/reiterated the importance of keeping a food journal, proper nutrition/diet, and exercise regimen. Patient verbalized understanding. Patient has not lost more than 5% of her initial body weight Patient also discussed menopausal symptoms and states she feels patch is running out by day 6. We discussed changing to Bijuva and will follow up in future. Patient will continue with adipex and metformin Follow Up: 90days Documented by CASPER Alaniz on behalf of: CASPER Alaniz documented in this encounter [facility] 02-10-2025 History of Presen t illness Narrative Reason for Appointment: Patient ID: Sania Dinh is a 54 y.o. female who presents for Weight Management Patient presents today for Weight Management Consult. MEDICATIONS Current Outpatient Medications Medication Instructions clotrimazole (Lotrimin) 1 % cream 1 application , Every 12 hours escitalopram (LEXAPRO) 10 mg, Oral, Daily estradiol (Climara) 0.05 MG/24HR 1 patch, Transdermal, Weekly estradiol (Climara) 0.075 MG/24HR 1 patch, Transdermal, Weekly Loratadine-D 24HR 10-240 MG 24 hr tablet 1 tablet, Oral, As needed metFORMIN XR (GLUCOPHAGE-XR) 500 mg, Oral, Daily with evening meal, Do not crush, chew, or split. phentermine (ADIPEX-P) 37.5 mg, Oral, Daily before breakfast progesterone (PROMETRIUM) 100 mg, Oral, Daily ALLERGIES Allergies Allergen Reactions [place] Oil Unknown Latex Unknown Milk-Related Compounds Unknown [...] and oriented to person, place, and time. Psychiatric: Mood and Affect: Mood normal. Behavior: Behavior normal. Thought Content: Thought content normal. Judgment: Judgment normal. Vitals and nursing note reviewed. Vitals: Estimated body mass index is 43.18 kg/m as calculated from the following: Height as of 11/05/24: 5' 5 . Weight as of this encounter: 259 lb 8 oz. BP: 126/86 No LMP recorded. Patient has had an ablation. ASSESSMENT & PLAN ICD-10-CM 1. Encounter for weight management Z76.89 phentermine (Adipex-P) 37.5 MG tablet metFORMIN XR (Glucophage-XR) 500 MG 24 hr tablet Patient presents today for 3rd Adipex prescription. Patient desires additional weigh loss and she is currently taking metformin along with working out to achieve further results. Weight and blood pressure has been captured and it has been discussed/reiterated the importance of keeping a food journal, proper nutrition/diet, and exercise regimen. Patient verbalized understanding. Patient has not lost more than 5% of her initial body weight Discussion for trying metformin, she had used in past but states side effects were too much. She does not think she had been on extended release. We will send in for her to try and see if it helps with her weight loss progression Follow Up: Patient will follow up in one month Documented by CASPER Alaniz on behalf of: CASPER Alaniz documented in this encounter [facility] 02-04-2025 History of Presen t illness Narrative Reason for Appointment: Patient ID: Sania Dinh is a 54 y.o. female who presents for No chief complaint on file. Patient presents today via telephone call for a telehealth appointment. Patients Phone #: [phone] (mobile) Date: 02/04/2025 Time: 9:55 AM of the visit Platform Used: Audio call performed via in house telephone system. Location of Patient and Provider: Patient at home, provider at clinic Consent for Telehealth: Patient provided verbal consent to conduct the visit virtually via audio only phone call Current Medications: has a current medication list which includes the following prescription(s): clotrimazole, escitalopram, estradiol, loratadine-d 24hr, phentermine, phentermine, and progesterone. Medical History: Active Ambulatory Problems Diagnosis Date Noted Fibroids 04/29/2024 Resolved Ambulatory Problems Diagnosis Date Noted No Resolved Ambulatory Problems Past Medical History: Diagnosis Date Ankle impingement syndrome, right Fibroid Menopause ovarian failure Oral lesion Plantar fascial fibromatosis of right foot Pulmonary nodule, left Thrush Visit for screening mammogram Family History Problem Relation Name Age of Onset Heart disease Mother Jesus Marks Cancer Mother Jesus Marks Heart failure Father Harley Santamaria Melanoma Neg Hx Social History Tobacco Use Smoking status: Never Smokeless tobacco: Never Substance Use Topics Alcohol use: Never Comment: Caffeine intake: 1-2 cups per day coffee Drug use: Never Past Surgical History: Procedure Laterality Date ABDOMINAL SURGERY ANKLE SURGERY Right X3 APPENDECTOMY SECTION, LOW TRANSVERSE x 1 CHOLECYSTECTOMY DILATION AND CURETTAGE OF UTERUS 05/09/2024 ENDOMETRIAL ABLATION 2009 OTHER SURGICAL HISTORY Rectal fissure surgery TONSILLECTOMY TOTAL ANKLE ARTHROPLASTY 08/07/2020 TUBAL LIGATION Allergies Allergen Reactions [place] Oil Unknown Latex Unknown Milk-Related Compounds Unknown Soybean-Containing Drug Products Unknown Wheat Unknown Vitals: Estimated body mass index is 42.81 kg/m as calculated from the following: Height as of 11/05/24: 5' 5 . Weight as of 01/07/25: 257 lb 4 oz. BP: No LMP recorded. Patient has had an ablation. Assessment/Plan Encounter Diagnoses Name Primary? Hormone disorder Fatigue, unspecified type Hot flashes Pt was called for telehealth visit. Pt doing better with medication. Pt still having moments of fatigue and needs to reboot, Discussed with pt in great detail. Pt states her and her feel she has more energy. Pt to increase climara patch- 0.075mg/24hr. rx faxed to pharmacy. Today's telehealth visit consisted of spending 10 minutes talking to patient on the phone. Documented by Rosa Isela Angeles LPN on behalf of: Kj Taylor DO documented in this encounter [facility] 01-07-2025 History of Presen t illness Narrative Reason for Appointment: Patient ID: Sania Dinh is a 54 y.o. female who presents for Results Patient presents today for Follow up appointment to discuss results. MEDICATIONS Current Outpatient Medications Medication Instructions clotrimazole (Lotrimin) 1 % cream 1 application , Every 12 hours escitalopram (LEXAPRO) 10 mg, Oral, Daily Loratadine-D 24HR 10-240 MG 24 hr tablet 1 tablet, Oral, As needed phentermine (ADIPEX-P) 37.5 mg, Oral, Daily before breakfast ALLERGIES Allergies Allergen Reactions [place] Oil Unknown Latex Unknown Milk-Related Compounds Unknown [...] nursing note reviewed. Exam conducted with a high worker present. Vitals: Estimated body mass index is 42.81 kg/m as calculated from the following: Height as of 11/05/24: 5' 5 . Weight as of this encounter: 257 lb 4 oz. BP: 128/90 No LMP recorded. Patient has had an ablation. ASSESSMENT & PLAN ICD-10-CM 1. Hormone imbalance E34.9 Pt presents to discuss labs - pt was referred to [facility] for hormone replacement tailored to her. Pt still has not heard back from them. Discussed adding climara patch and micronized progesterone. Discussed in great detail. Pt to start hormones at this time. Rx for climara and prometrium faxed to pharmacy. Pt to be called in 4 weeks for follow up. Pt voiced understanding. Discussed doing hormones for 1-2 months trial. Pt given second adipex script. Documented by Rosa Isela Angeles LPN on behalf of: Kj Taylor DO documented in this encounter [facility] 12-16-2024 History of Presen t illness Narrative Reason for Appointment: Patient ID: Sania Dinh is a 54 y.o. female who presents for Weight Management Patient presents today for Weight Management Consult. MEDICATIONS Current Outpatient Medications Medication Instructions clotrimazole (Lotrimin) 1 % cream 1 application , Every 12 hours escitalopram (LEXAPRO) 10 mg, Oral, Daily Loratadine-D 24HR 10-240 MG 24 hr tablet 1 tablet, Oral, As needed phentermine (ADIPEX-P) 37.5 mg, Oral, Daily before breakfast ALLERGIES Allergies Allergen Reactions [place] Oil Unknown Latex Unknown Milk-Related Compounds Unknown [...] nursing note reviewed. Exam conducted with a high worker present. Vitals: Estimated body mass index is 43.57 kg/m as calculated from the following: Height as of 11/05/24: 5' 5 . Weight as of this encounter: 261 lb 12.8 oz. BP: 128/76 No LMP recorded. Patient has had an ablation. ASSESSMENT & PLAN ICD-10-CM 1. Encounter for weight management Z76.89 phentermine (Adipex-P) 37.5 MG tablet Patient presents today for initial Adipex prescription. The importance of keeping a food journal, proper nutrition/diet, and exercise regimen while taking Adipex has been discussed. Patient verbalized understanding and signed consents to initiate (Adipex) medication therapy. Patient was given a printed prescription signed by provider to take to their local pharmacy. --Patient voiced that she has been attempting to reach out to [facility] to discuss her hormone management. Patient desires to have Adipex prescribed in the meantime and will then see do hormone replacement works with weight management medicaiton. We discussed using metformin starting next month as well Follow Up: Patient is to return to the office in 1 month for further evaluation to assess patient progress. Weight and blood pressure will need to be captured in order for patient to receive 2nd prescription. Documented by Kristin Garcia LPN on behalf of: CASPER Alaniz documented in this encounter [facility] 11-05-2024 History of Presen t illness Narrative Reason for Appointment: Patient ID: Sania Dinh is a 54 y.o. female who presents for Weight Management Patient presents today for Acute Visit., Medication Follow Up appointment., and Weight Management Consult. MEDICATIONS Current Outpatient Medications Medication Instructions albuterol [...] ([place]) Subcutaneous ALLERGIES Allergies Allergen Reactions [place] Oil Unknown Latex Unknown Milk-Related Compounds Unknown [...] of Systems: Review of Systems Constitutional: Negative. Positive for hot flashes. HENT: Negative. Eyes: Negative. Respiratory: Negative. Cardiovascular: Negative. Gastrointestinal: Negative. Genitourinary: Negative. Musculoskeletal: Negative. Skin: Negative. Neurological: Negative. All other systems reviewed and are negative. Hematological: Negative. Allergic/Immunologic: Negative. OBJECTIVE Objective: Physical Exam [...] nursing note reviewed. Exam conducted with a high worker present. Vitals: Estimated body mass index is 41.89 kg/m as calculated from the following: Height as of this encounter: 5' 5 . Weight as of this encounter: 251 lb 12 oz. BP: 112/82 No LMP recorded. Patient has had an ablation. ASSESSMENT & PLAN ICD-10-CM 1. Encounter for weight management Z76.89 2. Hormone imbalance E34.9 3. Hot flashes R23.2 4. Fatigue, unspecified type R53.83 5. Hormone disorder E34.9 Pt presents with complaints of weight gain and on semiglutide, fatigue, hot flashes, hormone imbalance. Pt has recently lost 20 pounds and doesn't feel like has helped with her energy. Pt given buderer packet and labs to have obtained. Pt voiced understanding. Pt will have conference call with Clement Cooley. Documented by Rosa Isela Angeles LPN on behalf of: Kj Taylor D.O documented in this encounter [facility] 05-16-2024 History of Presen t illness Narrative Reason for Appointment: Patient ID: Sania Dinh is a 53 y.o. female who [...] ([place]) Subcutaneous ALLERGIES Allergies Allergen Reactions [place] Oil Unknown Latex Unknown Milk-Related Compounds Unknown [...] calculated from the following: Height as of 9/7/23: 5' 4 . Weight as of 04/29/24: 270 lb 8 oz. BP: No LMP recorded. Patient has had an ablation. ASSESSMENT & PLAN ICD-10-CM 1. Cellulitis, unspecified cellulitis site L03.90 Post Op Follow Up: Patient presents today for a postop follow up after having a D&C Hysteroscopy performed at [facility] with Dr. Taylor. Pathology results was reviewed with the patient in great detail and all restrictions have been lifted. Follow Up: Patient is to return to the office for annual exam unless needed otherwise. Documented by Donna Avalos MA on behalf of: CASPER Alaniz documented in this encounter [facility] 04-29-2024 History of Presen t illness Narrative Reason for Appointment: Patient ID: Sania Dinh is a 53 y.o. female who [...] ([place]) Subcutaneous ALLERGIES Allergies Allergen Reactions [place] Oil Unknown Latex Unknown Milk-Related Compounds Unknown [...] nursing note reviewed. Exam conducted with a high worker present. Vitals: Estimated body mass index is [...] with Diagnostic Lap she is able to food service worker hospital on Monday after procedure. Patient to return to clinic as to be scheduled prior to leaving office today. After talking with patient patient will have Pre-op appointment today and D&C will be done at time of Diagnostic Lap for sampling of tissue. Documented by Kristin Garcia LPN on behalf of: Kj Taylor DO documented in this encounter [facility] 04-10-2024 Telephone encount er Note Called and spoke with patient regarging US results. Patient will follow up with DR Taylor for possible D&C with hysteroscopy. Patient agrees with plan of care. Pt found to have large fibroid, uncertain as to whether causing back pain. [facility] 04-10-2024 Miscellaneous Notes Formattin g of this note might be different from the original. Called and spoke with patient regarging US results. Patient will follow up with DR Taylor for possible D&C with hysteroscopy. Patient agrees with plan of care. Pt found to have large fibroid, uncertain as to whether causing back pain. documented in this encounter [facility] 04-02-2024 History of Presen t illness Narrative Reason for Appointment: Patient ID: Sania Dinh is a 53 y.o. female who [...] DAILY BEFORE BREAKFAST ALLERGIES Allergies Allergen Reactions [place] Oil Unknown Latex Unknown Milk-Related Compounds Unknown [...] nursing note reviewed. Exam conducted with a high worker present. Vitals: Estimated body mass index is [...] of: CASPER Alaniz documented in this encounter [facility] 03-29-2024 Evaluation note Diagnosis Onset Date Resolution Cervical muscle strain acute Se ptember 2023 9:51am Lumbar spondylosis acute Septem maya 2023 9:51am Obesity acute March 9:51am [facility] Work Phone: [phone] 123-753402-05-2024 Evaluation note* Encounter Date Diagnosis Assessment Notes [...] for congestion, Tylenol for pain and fever. [facility] Other 01-31-2024 Evaluation note* Encounter Date Diagnosis [...] [place] as needed for cough and wheezing [facility] Other 01-03-2024 Evaluation note* Encounter Date Diagnosis [...] chest wheezing. ER for CP or dyspnea. [facility] Other 11-03-2023 Evaluation note* Encounter Date Diagnosis Assessment Notes Treatment Notes Treatment Clinical Notes May, Morbid (severe) obesity due to excess calories (ICD-10 - E66.01) [facility] Other 08-14-2023 Evaluation note* Encounter Date Diagnosis [...] index [BMI] 40.0-44.9, adult (ICD-10 - Z68.41) [facility] Other 08-11-2023 Evaluation note* Encounter Date Diagnosis [...] 7 days, sooner if significantly worsening symptoms. [facility] Other 07-07-2023 Evaluation note* Encounter Date Diagnosis [...] index [BMI] 40.0-44.9, adult (ICD-10 - Z68.41) [facility] Other 06-19-2023 Evaluation note* Encounter Date Diagnosis [...] and keep active. No change in treatment [facility] Other 05-31-2023 Evaluation note* Encounter Date Diagnosis Assessment Notes Treatment Notes Treatment Clinical Notes November, Morbid (severe) obesity due to excess calories (ICD-10 - E66.01) [facility] Other 05-03-2023 Evaluation note* Encounter Date Diagnosis [...] - Z12.31) Yearly mammogram and monthly SBE [facility] Other 05-03-2023 Evaluation note* Encounter Date Diagnosis Assessment Notes Treatment Notes Treatment Clinical Notes November, Morbid obesity (ICD-10 - E66.01) [facility] Other 03-13-2023 Evaluation note* Encounter Date Diagnosis Assessment Notes Treatment Notes Treatment Clinical Notes Sep, Acute bronchitis due to other specified organisms (ICD-10 - J20.8) Instructed to use Robitussin or Mucinex for cough, saline or Flonase NS for congestion, Tylenol for pain and fever. Sep, Mild intermittent asthma with acute exacerbation (ICD-10 - J45.21) [facility] Other 02-27-2023 Evaluation note* Encounter Date Diagnosis Assessment Notes Treatment Notes Treatment Clinical Notes Aug, WALTER (generalized anxiety disorder) (ICD-10 - F41.1) [facility] Other 10-13-2021 NoteChief Complaint consultation for screening colonoscopy [facility] Staff 50 year old female presents on [...] 08/24/2020 Recorded SARS-CoV-2 (COVID-19) Ad26 vaccine 07/27/2020 RecordedSouthview [facility] CenterComment on above:Result Comment: Electronically Signed By: KAELYN YOUNGBLOOD, Trevor Carreno\Date and Time Signed: 04/28/21 17:55 EDTEvaluation noteNo [email or web address] Other Evaluation noteNo assessment information available [facility] Work Phone: evaluation note* Diagnosis Onset Date Resolution Status ISRA positive acute Degenerative arthritis of left hand acute Degenerative arthritis of right hand acute Lumbar spondylosis acute Post-traumatic osteoarthritis, right ankle and foot acute [facility] Work Phone: evaluation note* Diagnosis Onset Date Resolution Status ISRA positive acute Degenerative arthritis of left hand acute Degenerative arthritis of right hand acute Lumbar spondylosis acute Post-traumatic osteoarthritis, right ankle and foot acute Lumbar spondylosis acute Obesity acute Post-traumatic osteoarthritis, right ankle and foot acute Screening for colon cancer n oneactive Screening mammogram for breast cancer noneactive Wellness examination noneact bladimir [facility] Work Phone: Evaluation note* Diagnosis Onset Date Resolution Status Cervical muscle strain acute Lumbar spondylosis acute Obesity acute [facility] Work Phone: Evaluation note* Diagnosis Pre-op examination [...] uterus, unspecified [facility] Encounter for weight management Hormone imbalance Hot flashes Fatigue, unspecified type Hormone disorder Unspecified endocrine disorder [facility] Diagnosis Encounter for weight management [facility] Diagnosis Hormone imbalance Encounter for weight management [facility] Diagnosis Onset Date Resolution Status Admit Date Inflammatory polyarthritis acute January 16, 2025 9:15am Lumbar spondylosis acute January 162024 9:15am Lung nodule acute January 16 9:15am Obesity acute January 16, 2025 9:15am Post-traumatic osteoarthriti s, right ankle and foot acute January 16, 025 9:15am Screening mammogram for [facility] cancer noneactive January 16, 2025 9 :15am Wellness examination noneactive January 16, 2025 9:15am [facility] Work Phone: Evaluation note* Diagnosis Encounter for weight management [facility] Diagnosis Hormone disorder Unspecified endocrine disorder Fatigue, unspecified type Hot flashes [facility] Diagnosis Encounter for weight management [facility] Diagnosis Well woman exam with routine gynecological exam Routine gynecological examination Encounter for screening mammogram for malignant neoplasm of breast Postmenopausal state Asymptomatic postmenopausal status (age-related) (natural) documented [facility] [...] cholecystectomy Surgical History Hospitalization History see above [facility] Other Reason for referral (narrative)No reason for referral information availableBar[facility] Work Phone: Summary Purpose Family History Relationship Condition Age [...] 2024 9:51am Obesity March 29, 2024 9:51am Chief Complaint Admit Date Amb Documentation August 27, 2024 10:39am allergy injection November 07, 2024 10: 57am Chief Complaint Admit Date allergy injection November 07, 2024 10: 57am wellness January 16, 2025 9:15a m Reason for Visit Admit Date Inflammatory polyarthritis January 16 9:15am Lumbar spondylosis January 16, 2025 9:15a m Lung nodule January 16, 2025 9:15a m Obesity January 16, 2025 9:15a m Post-traumatic osteoarthritis, right ank le and foot January 16, 2025 9:15am Screening mammogram for breast cancer Ju 2024 9:15am Wellness examination January 16, 2025 9:15 am Additional Source Comments INFORMATION SOURCE (unrecogn ized section and content) DATE CREATED AUTHOR 01/09/2018 [facility] DATE CREATED AUTHOR AUTHOR'S ORGANIZ ATION 09/27/2019 [facility] DATE CREATED AUTHOR AUTHOR'S ORGANIZ ATION [facility]/26/2021 [facility] DATE CREATED AUTHOR AUTHOR'S ORGANIZ ATION 11/30/2022 [facility] DATE CREATED AUTHOR AUTHOR'S ORGANIZ ATION 05/16/2024 [facility] DATE CREATED AUTHOR AUTHOR'S ORGANIZ ATION 03/13/2025 [facility] EPIC REASON FOR VISIT (unrecogniz ed section and content) Reason Comments Weight Management Reason Comments Well Women Visit Reason Comments Cellulitis Pt present today to evaluate cellulites. Pt had a D&C on 05/09/2024. Reason Comments Results Breathing problemssore throat, coughing, chest tightness, headachesCOVID Positive- Phone Call- [phone] throat, ears pluggedFYI: Urgent CareTrouble swallowing, ears pluggedYeast InfectionBackSpasmsadipex f/uRefill- AdipexWellnesscough, congestion, no taste or smell Care Teams (unrecognized sec tion and content) Team Status: Active Member Role Status Dates Tarun Glover DO Primary Care Provider Active Team Status: Inactive Member Role Status Dates Tarun Glover DO Primary Care Provider Active Start: November 07, 2024 End: November 07, 2024 Tarun Glover DO Attending Provider Active Sta rt: November 07, 2024 End: November 07, 2024 Team Status: Active Member Role Status Dates Tarun Glover DO Primary Care Provider Active Start: November 08, 2024 Kj Taylor DO Attending Provider Active Start : November 08, 2024 Team Status: Inactive Member Role Status Dates Tarun Glover DO Primary Care Provider Active Start: January 16, 2025 End: January 16, 2025 Tarun Glover DO Attending Provider Active Sta rt: January 16, 2025 End: January 16, 2025 Team Status: Active Member Role Status Dates Tarun Glover DO Primary Care Provider Active Start: August 24, 2024 Iris Rojas MD Attending Provider Active Sta rt: August 24, 2024 Team Status: Active Member Role Status Dates Tarun Glover DO Primary Care Provide r, Attending Provider Active Start: August 25, 2024 Team Status: Active Member Role Status Dates Tarun Glover DO Primary Care Provider Active Start: August 27, 2024 Charo Win CMA Attending Provider Active Start: August 27, 2024 Team Status: Inactive Member Role Status Dates Tarun Glover DO Primary Care Provide r, Attending Provider Active Start: November 07, 2024 End: November 07, 2024 Team Status: Inactive Member Role Status [...] December 26, 2023 End: December 26, 2023 Resp Ther Relationship Specialty Start Date End Date Tarun Glover MD [address] [facility] [place] [id number] PCP - General Internal Medicine 03/23/23 Resp Ther Relationship Specialty Start Date End Date Tarun Glover MD [address] [place] [address] PCP - General Internal Medicine 03/23/23 Resp Ther Relationship Specialty Start Date End Date Tarun Glover MD [address] [place] [address] PCP - General Internal Medicine 03/23/23 Team Status: Active Member Role Status Dates Tarun Glover DO Primary Care Provider Active Start: April 02, 2024 Madisyn Piper PA-C Attending Provider Active Start : April 02, 2024 Team Status: Active Member Role Status Dates Tarun Glover DO Primary Care Provider Active Start: May 09, 2024 Kj Taylor DO Attending Provider Active Start : May 09, 2024 Team Status: Inactive Member Role Status Dates Kj Taylor DO Attending Provider Active Start : May 09, 2024 End: May 09, 2024 Resp Ther Relationship Specialty Start Date End Date Tarun Glover MD [address] [place] [id number] PCP - General Internal Medicine 03/23/23 Resp Ther Relationship Specialty Start Date End Date Tarun Glover MD [address] [place] [id number] PCP - General Internal Medicine 03/23/23 Team Status: Active Member Role Status Dates Tarun Glover DO Attending Provider Active Sta rt: May 02, 2024 Team Status: Inactive Member Role Status Dates Tarun Glover DO Primary Care Provide r, Attending Provider Active Start: May 29, 2024 End: May 29, 2024 Resp Ther Relationship Specialty Start Date End Date Tarun Glover MD [address] [place] [address] PCP - General Internal Medicine 03/23/23 Resp Ther Relationship Specialty Start Date End Date Tarun Glover MD [address] [facility] [place] [address] PCP - General Internal Medicine 03/23/23 Resp Ther Relationship Specialty Start Date End Date Tarun Glover MD PCP - General Internal Medicine 03/23/23 Resp Ther Relationship Specialty Start Date End Date Tarun Glover MD PCP - General Internal Medicine 03/23/23 Resp Ther Relationship Specialty Start Date End Date Tarun Glover MD PCP - General Internal Medicine 03/23/23 Resp Ther Relationship Specialty Start Date End Date Tarun Glover DO [address] [facility] [place] [address] PCP - General Internal Medicine 03/23/23 Resp Ther Relationship Specialty Start Date End Date Tarun Glover DO [address] [facility] [place] [address] PCP - General Internal Medicine 03/23/23 Resp Ther Relationship Specialty Start Date End Date Tarun Glover DO [address] [facility] [place] [address] PCP - General Internal Medicine 03/23/23 Resp Ther Relationship Specialty Start Date End Date Tarun Glover DO [address] [facility] [place] [address] PCP - General Internal Medicine 03/23/23 Resp Ther Relationship Specialty Start Date End Date Tarun Glover DO [address] [facility] [place] [phone] PCP - General Internal Medicine 03/23/23 Resp Ther Relationship Specialty Start Date End Date Tarun Glover DO [address] [facility] [place] [phone] PCP - General Internal Medicine 03/23/23 Resp Ther Relationship Specialty Start Date End Date Tarun Glover DO [address] [facility] [place] [address] PCP - General Internal Medicine 03/23/23 Resp Ther Relationship Specialty Start Date End Date Tarun Glover DO [address] [facility] [place] [phone] PCP - General Internal Medicine 03/23/23 Goals [...] BE BASED ON THE PRIMARY CLINICAL RECORDS. [employer] provides no warranty or guarantee of the accuracy or completeness of information in this document.
[2025-04-14 19:08] LABS: Age Gdln ACOG Testing Note (.); IGP, Aptima HPV, rfx 16/18,45 Note (.)
== END 2025-04-08 19:42 | disposition home or self-care (01) ==
LOC: LAB 19:41
PROVIDERS: PCP Internal Medicine; Visit Provider Physician Assistant
DX: Z01.419 Encounter for gynecological examination (general) (routine) without abnormal findings (principal)
CPT/HCPCS: 87624; 88175